=== PATIENT | female | born 2000 | race Caucasian/White ===

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

== ENCOUNTER 2018-10-19 10:01 | Emergency (ER) | payer MEDICAID, SELFPAY ==
[2018-10-19 10:03] VITALS: BP 121/91; PULSE 90; RESP 17; TEMP 36.8; O2SAT 94; BMI 24.4
--- NOTE | 2018-10-19 10:15 | ED.DCSUM_ITS ---
- ER Visit Summary Date of Service: 10/19/18 Chief Complaint: Requesting implanted device taken out and also wants a test History of Present Illness: The patient is a 17 F has an implanted left upper extremity control device placed by the [facility] approximately a year ago. She states in the last week it has been, uncomfortable. She denies any trauma. No fever or redness. She says she went to the [facility] today they told her they can remove it but to be next week she did not want to wait. Also she states she has had some recent morning nausea is concerned she is and wants a test. Physical Examination: Well-appearing young female. No acute distress. Vital signs are stable and afebrile. She is in no distress. H EENT exam unremarkable. Neck nontender. Lungs clear to auscultation bilaterally. Heart regular rhythm no murmur. Abdomen soft and nontender. Normal bowel sounds no peritoneal signs. No organomegaly or masses. Extremities moves all 4. Neurovascular intact. Left upper extremity she is on implanted control device along the medial aspect of her left bicep proximally. There is no redness or warmth. There is no significant swelling. The axilla is nontender without lymphadenopathy. Distally the left forearm is nontender nonswollen. No edema. Normal radial pulse. 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 Test Results: Serum test is negative. Emergency Department Course and Treatment: I explained to the patient we do not either place or remove the implanted control devices and she had to follow-up with her [facility] office about that. She is requesting a test and wanted a serum test. Treatment Plan: Follow-up with the [facility]. Disposition: Discharge Impression: Pain left upper extremity at control implant site This note was generated with [employer] dictation software. It may contain incorrect words, spelling, and punctuation that were not noted in review of the chart prior to signing ED Disposition - Plan for ED Patient: Referrals: Gamaliel Camp MD [Primary Care Provider] -
[2018-10-19 10:35] LABS: Internal QC Validated? YES +Cl - CLEAR BKGD
[2018-10-19 10:39] LABS: Pregnancy, Serum, hCG Quali. NEGATIVE Negative
--- NOTE | 2018-10-19 10:48 | ED.DEP ---
ED Disposition - Plan for ED Patient: Disposition: Home or Assisted Living Referrals: Jill Tucker MD [STAFF PHYSICIAN] - 1-2 Weeks Additional Instructions[facility].
== END 2018-10-19 10:58 | disposition home or self-care (01) ==
LOC: ED 10:57
PROVIDERS: Emergency Provider Emergency Medicine; Family Provider Pediatrics; PCP Pediatrics
DX: M79.622 Pain in left upper arm (principal); Z97.5 Presence of (intrauterine) contraceptive device; Z32.02 Encounter for pregnancy test, result negative; Z72.0 Tobacco use
CPT/HCPCS: 36415; 84703; 99282

== ENCOUNTER 2019-07-28 10:13 | Emergency (ER) | payer MEDICAID, SELFPAY ==
[2019-07-28 10:14] VITALS: BP 144/91; PULSE 111; RESP 16; TEMP 36.3; O2SAT 97; BMI 25.9
--- NOTE | 2019-07-28 10:18 | US_ITS ---
STUDY: FIRST TRIMESTER OBSTETRICAL ULTRASOUND REASON FOR EXAM: Female, 18 years old bleeding LMP: April 28, 2019 TECHNIQUE: Transabdominal TECHNICAL QUALITY: Adequate. PRIOR ULTRASOUND: None. FINDINGS: There is visualization of a single gestational sac in a normal intrauterine position. The mean sac diameter (MSD) measures 5.6 cm. The gestational sac shape is within normal limits. The placenta is posteriorly located. There is visualization of a live embryo. The crown-rump length (CRL) measures 6.6 cm, indicating an estimated gestational age (EGA) of 13 weeks, 0 days. There is demonstrated cardiac activity with a heart rate of 167 bpm. The estimated gestation age (EGA) by LMP is 13 weeks, 0 days. The estimated date of delivery (BK) by LMP is February 02, 2020. The estimated gestation age (EGA) by US is 13 weeks, 0 days. The estimated date of delivery (BK) by US is February 02, 2020. The uterus measures 13.3 x 8.6 x 5.7 cm. There is no demonstrated uterine fibroid. The cervix is closed. The right ovary measures 3.0 x 1.9 x 2.5 cm. There is no right ovarian cyst. There is no visualized right adnexal mass or complex lesion. The left ovary measures 3.0 x 2.2 x 1.7 cm. There is no left ovarian cyst. There is no visualized left adnexal mass or complex lesion. There is no fluid in the cul de sac. US/Init OB < 14Wks US IMPRESSION: Live intrauterine at 13 weeks of gestational age. Electronically Signed: Wali Leahy DO at 11:58 EDT Tel [phone], Service support ,
[2019-07-28 10:40] LABS: Absolute Lymphocyte Count 2.16 X10^3/uL (0.83-4.51); Absolute Neutrophil Count 6.9 X10^3/uL (2.0-7.7); Basophil# 0.03 X10^3/uL; Basophil% 0.3 % (0-1); Eosinophil# 0.11 X10^3/uL; Eosinophils% 1.1 % (0-5); Hematocrit 38.9 % (37-47); Hemoglobin 12.9 g/dL (12.0-15.0); Lymphocyte # 2.16 X10^3/ul (4.0); Lymphocyte % 21.6 % (19-41); Mean Corp Hgb Conc 33.2 g/dL (32-36); Mean Corpuscular Hgb 26.4 pg (27.0-32.0); Mean Corpuscular Volume 79.7 fL (81-99); Mean Platelet Vol. 9.9 fl (6.2-12.0); Monocyte# 0.66 X10^3/uL; Monocyte% 6.6 % (0-10); NRBC Flagged by Analyzer 0 % (0-5); Neutrophil # 6.93 X10^3/uL (2.7-7.7); Neutrophil % 69.5 % (47-70); Platelet Count 199 K/mm3 (150-450); RBC Distribution Width CV 12.5 % (11.6-14.6); RBC Distribution Width SD 35.5 fl (35.1-43.9); Red Blood Count 4.88 M/mm3 (4.2-5.4)
--- NOTE | 2019-07-28 10:53 | ED.VIS.GEN ---
History of Present Illness <Gerald Stephens - Last Filed: 07/28/19 11:13> Informant: Patient Onset: Today Context: Sudden Onset Timing: Continuous Quality: Vaginal bleeding Location: Vaginal Current Severity: Mild Maximum Severity: Moderate Worsened by: Nothing Relieved by: Nothing Associated Symptoms: Denies Narrative: 18-year-old female 13 weeks this is her first presents to the emergency department with vaginal bleeding that started when she woke up this morning. It is similar to her menstrual cycle. No clots or tissue. No pelvic pain or back pain. She has had care including ultrasound last week. Her genetic testing has come back negative. She has no other symptoms of bleeding. She is not lightheaded or dizzy. No nausea vomiting or diarrhea. No urinary symptoms. No trauma. She denies any other review of systems. Prior similar symptoms: No Recent Illness/Hospitalization: No <Brady Arias - Last Filed: 07/28/19 12:20> Chief Complaint: Vag Bld, Preg Past Medical History <Gerald Stephens - Last Filed: 07/28/19 11:13> Prior records reviewed: Yes Past Medical History: None Surgical History: no surgical history Lives: Alone Smoking Status: Former smoker Alcohol: None Drugs: None <Brady Arias - Last Filed: 07/28/19 12:20> - Allergies and Home Meds Allergies/Adverse Reactions: Allergies No Known Allergies Allergy (Verified 07/28/19 10:13) Primary Care Physician: Gamaliel Camp MD [STAFF PHYSICIAN] - Review of Systems All systems negative except as indicated General: Denies: Chills, Fever, Malaise Eyes: Denies: Visual changes - bilaterally, Blurred Vision - bilaterally, Diplopia ENT: Denies: Rhinorrhea, Sore throat Cardiovascular: Denies: Chest pain, Palpitations, Heart racing Respiratory: Denies: Dyspnea, Cough, Sputum Gastrointestinal: Denies: Abdominal pain, Nausea, Vomiting, Diarrhea Genitourinary: Reports: - - Vaginal bleeding. Denies: Dysuria, Hematuria, Frequency Musculoskeletal: Denies: Myalgias, Arthralgias, Neck pain, Back pain, Swelling, Extremity Pain Skin: Denies: Rash, Abscess, Abrasions, Wounds Neurological: Denies: Headache, Weakness Hematologic: Denies: Easy bruising, Easy bleeding <Brady Arias - Last Filed: 07/28/19 12:20> Physical Exam Vital Signs/Narrative: Vital Signs Temp Pulse Resp BP Pulse Ox 07/28/19 10:14 97.4 F L 111 H 16 144/91 H 97 <AndresJune [email or web address] - Last Filed: 07/28/19 11:13> Vital Signs/Narrative: Vital Signs Temp Pulse Resp BP Pulse Ox 07/28/19 10:14 97.4 F L 111 H 16 144/91 H 97 Inital Vital Signs reviewed: Yes General: Well nourished, Well developed, No Acute Distress Head: Normocephalic, Atraumatic Eyes: Perrl, EOMI ENT: Moist mucous membranes Neck: Supple, Nontender, No lymphadenopathy, No JVD Cardiovascular: Regular rate, Regular rhythm, No murmurs Respiratory: No distress, CTA bilaterally, Chest nontender Abdomen: Soft, Nontender, Nondistended, Normal bowel sounds, No masses Back: Nontender, Normal Inspection. 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 Electronically Signed: Wali Leahy DO at 11:58 EDT Tel [phone], Service support , 07/28/19 10:18 Init OB < 14Wks US [US] Stat Laboratory Results 07/28/19 07/28/19 07/28/19 10:28 10:28 10:28 WBC 10.0 RBC 4.88 Hgb 12.9 Hct 38.9 MCV 79.7 L MCH 26.4 L MCHC 33.2 RDW Std Deviation 35.5 RDW Coeff of Kishor 12.5 Plt Count 199 MPV 9.9 Immature Gran % (Auto) 0.900 Neut % (Auto) 69.5 Lymph % (Auto) 21.6 [place] % (Auto) 6.6 Eos % (Auto) 1.1 Baso % (Auto) 0.3 Absolute Neuts (auto) 6.9 Absolute Lymphs (auto) 2.16 Nucleated RBC % 0 HCG, Quant 74280 H Blood Type Cancelled A1 Antigen Typing Cancelled Rho(D) Type Cancelled 07/28/19 10:28 WBC RBC Hgb Hct MCV MCH MCHC RDW Std Deviation RDW Coeff of Ikshor Plt Count MPV Immature Gran % (Auto) Neut % (Auto) Lymph % (Auto) [place] % (Auto) Eos % (Auto) Baso % (Auto) Absolute Neuts (auto) Absolute Lymphs (auto) Nucleated RBC % HCG, Quant Blood Type A NEGATIVE A1 Antigen Typing Rho(D) Type - Medical Decision Making Patient's laboratory work-up was unremarkable. Her blood type is negative. Her quantitative hCG was greater than 50,000. Transvaginal ultrasound shows a normal 13-week . I spoke with Dr. Russo on-call for patient's DIRECTOR OF EXHIBITS recommended close follow-up in the office tomorrow and pelvic rest and we did give the patient RhoGam. She will be discharged with return precautions <Brady Arias - Last Filed: 07/28/19 12:20> ED Disposition <Gerald Stephens - Last Filed: 07/28/19 11:13> <Brady Arias - Last Filed: 07/28/19 12:20> - Plan for ED Patient: Disposition: Home or Assisted Living Diagnosis: Threatened miscarriage Instructions: ED Possible Miscarriage Threatened Referrals: Jill Tucker MD [STAFF PHYSICIAN] - 1 Day
[2019-07-28] MEDS: Acetaminophen 325 MG Tablet 650 MG PO (15:02)
== END 2019-07-28 15:03 | disposition home or self-care (01) ==
PROVIDERS: Emergency Medicine; Emergency Provider Physician Assistant Medical
DX: O20.0 Threatened abortion (principal); Z3A.13 13 weeks gestation of pregnancy; Z87.891 Personal history of nicotine dependence
CPT/HCPCS: 76801; 84702; 85025; 86900; 86901; 90384; 96372; 99283; A4216; J2790

== ENCOUNTER 2019-09-16 07:43 | Emergency (ER) | payer MEDICAID, SELFPAY ==
[2019-09-16 07:45] VITALS: BP 122/74; PULSE 96; RESP 16; TEMP 36.3; O2SAT 100; BMI 25.7
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
== END 2019-09-16 10:22 | disposition home or self-care (01) ==
PROVIDERS: Emergency Provider Emergency Medicine; PCP Pediatrics
DX: S06.0X9A Concussion with loss of consciousness of unspecified duration, initial encounter (principal); S16.1XXA Strain of muscle, fascia and tendon at neck level, initial encounter; O9A.212 Injury, poisoning and certain other consequences of external causes complicating pregnancy, second trimester; V49.40XA Driver injured in collision with unspecified motor vehicles in traffic accident, initial encounter; Z3A.00 Weeks of gestation of pregnancy not specified
CPT/HCPCS: 99282

== ENCOUNTER 2020-01-23 19:45 | Inpatient (IN) | payer MEDICAID, SELFPAY ==
[2020-01-23] VITALS (28 sets, daily range): BP systolic 101–141; BP diastolic 53–91; PULSE 72–127; TEMP 36.2–36.9; O2SAT 88–100; BMI 28.8
--- NOTE | 2020-01-23 19:42 | OB.TRI.NOTE ---
- Problem List (1) 38 weeks gestation of Status: Acute (2) Marijuana use Status: Acute (3) Uterine contractions Status: Acute History of Present Illness Date of Service: 01/23/20 Was patient seen by the physician?: No Reason For Visit: RULE OUT LABOR Date of Service: 01/23/20 Final BK: 02/02/20 Gestational age: 38 Weeks and 4 Days History of Present Illness: Patient is at 38.4 that presents to triage with contractions that started earlier today. Patient denies any loss of fluid or vaginal bleeding. Positive movement. Allergies No Known Allergies Allergy (Verified 01/23/20 19:39) Physical Exam Vitals: Vital Signs Temp Pulse BP Pulse Ox 97.2 F L 83 121/85 H 97 01/23/20 18:46 01/23/20 18:50 01/23/20 18:46 01/23/20 18:50 NST - FHR Rate Baby A Baseline: 120 Variability:: Moderate Accelerations:: 15 x 15 Decelerations:: None FHR Category:: Category I Uterine Activity:: Irregular contractions Impression/Plan at 38.4 weeks gestation here for contractions A/P Category 1 tracing CE- /0 unchanged Discharge home with labor precautions
[2020-01-23] MEDS: Lactated Ringers 500 ML 999 ML IV ×2 (20:00→23:50)
[2020-01-23 20:19] LABS: Absolute Neutrophil Count 13.4 X10^3/uL (2.0-7.7); Basophil# 0.05 X10^3/uL; Basophil% 0.3 % (0-1); Eosinophil# 0.12 X10^3/uL; Eosinophils% 0.7 % (0-5); Hematocrit 40.8 % (37-47); Lymphocyte % 12.9 % (19-41); Mean Corp Hgb Conc 31.9 g/dL (32-36); Mean Corpuscular Volume 72.3 fL (81-99); Mean Platelet Vol. 11.8 fl (6.2-12.0); Monocyte# 1.22 X10^3/uL; Monocyte% 7.2 % (0-10); NRBC Flagged by Analyzer 0 % (0-5); Neutrophil # 13.36 X10^3/uL (2.7-7.7); Neutrophil % 78.4 % (47-70); Platelet Count 246 K/mm3 (150-450); RBC Distribution Width CV 14.6 % (11.6-14.6); RBC Distribution Width SD 36.8 fl (35.1-43.9); Red Blood Count 5.64 M/mm3 (4.2-5.4)
--- NOTE | 2020-01-23 20:19 | PCM.HP.OB ---
- Problem List (1) 38 weeks gestation of Status: Acute (2) Marijuana use Status: Acute (3) Uterine contractions Status: Acute History Date of Admission: 01/23/20 Final BK: 02/02/20 Gestational age: 38 Weeks and 4 Days History of this : This is a 19 year-old, G [2], P [0], at 38.4 weeks gestational age that returns to labor and delivery for increased pain and frequency of contractions. Patient denies any loss of fluid or vaginal bleeding. Positive movement. complicated by marijuana use throughout the . Allergies No Known Allergies Allergy (Verified 01/23/20 19:39) Home Medications: Home Medications Vits [Prenatabs FA ] 1 tab PO DAILY 01/23/20 Smoking Status: Former smoker Substance Use Type: Marijuana Number of Fetus(es): 1 NST - FHR Rate Baby A Baseline: 120 Variability:: Moderate Accelerations:: 15 x 15 Decelerations:: None NST Reactive:: Yes FHR Category:: Category I Uterine Activity:: TOCO reading 2-3 minutes History Past Pregnancies: Past Pregnancies Delivery Date Name GA/ Weeks Outcome Route Wt Infant Sex Labor Length Anesthesia Delivery Location Provider FOB Labs: A- negative Rubella - immune HB- neg HC- neg RPR- NR HIV- NR GBS- negative GC/CH- negative COVID- 19 - unknown Expected Infant Delivery Method: Spontaneous Vaginal Review of Systems Constitutional: Denies: Chills, Fever HEENT: Denies: Head Aches Cardiovascular: Denies: Chest Pain Respiratory: Denies: Cough, Shortness of Breath Gastrointestinal: Denies: Abdominal Pain Genitourinary: Denies: Dysuria Neurological: Denies: Headaches Physical Exam Vitals: Vital Signs Temp Pulse BP Pulse Ox 98.4 F 83 121/85 H 97 01/23/20 20:08 01/23/20 18:50 01/23/20 18:46 01/23/20 18:50 General: Alert, Oriented x3 Cardiovascular: Regular rate Lungs: Normal air movement Abdomen: Soft, Non Tender, Gravid Extremities:: No tenderness/swelling Neurological: Cranial nerves II-XII grossly intact Presentation: Cephalic Cervix Dilation (cm): 5 Station: 0 Effacement (%): 90 Assessment/Plan All Active Problems 38 weeks gestation of (Acute) Marijuana use (Acute) Uterine contractions (Acute) This is a 19 year-old, G [2], P [0], at 38.4 weeks gestational age in spontaneous labor. A/P Category 1 tracing CE- Admit to labor and delivery Routine labs IV fluids per protocol Epidural when indicated GBS negative Anticipate Dr. Tucker notified and is collaborating physician
[2020-01-23] MEDS: Lactated Ringers 1,000 ML 50 ML IV (20:30)
[2020-01-23] MEDS: fentaNYL-bupivacaine (epidural) 100 ML BAG EPIDURAL (20:56)
[2020-01-23 21:05] LABS: Amphetamine Urine VISTA NEGATIVE (<1000 ng/mL); Barbiturate Urine VISTA NEGATIVE (< 200 ng/mL); Benzodiazepine Urine VISTA NEGATIVE (< 200 ng/mL); Cocaine Urine VISTA NEGATIVE (< 300 ng/mL); Ecstacy Urine VISTA NEGATIVE (< 500 ng/mL); Methadone Urine VISTA NEGATIVE (< 300 ng/mL); PCP Urine VISTA NEGATIVE (< 25 ng/mL); THC Urine VISTA POSITIVE (< 50 ng/mL); Vista UDS pH Range 7
[2020-01-23] MEDS: Oxytocin 30 units/NS 500 ml 30 UNITS/500 ML IV.SOLN IV (23:19)
[2020-01-24] VITALS (15 sets, daily range): BP systolic 116–139; BP diastolic 71–88; PULSE 70–104; RESP 16–18; TEMP 36.7–37.2; O2SAT 95–99
[2020-01-24] MEDS: Oxytocin 30 units/NS 500 ml 30 UNITS/500 ML IV.SOLN 334 UNITS IV (00:05)
--- NOTE | 2020-01-24 00:18 | PCM.OPRPT ---
Problem List (1) 38 weeks gestation of Status: Acute (2) Marijuana use Status: Acute (3) Uterine contractions Status: Acute Report of Operation Date of Procedure: 01/24/20 Vaginal Delivery Maternal Presentation: Active Labor Amniotic Membrane Rupture Type: Spontaneous Rupture of Membrane time: 1045 Amniotic Fluid Description: Clear Final BK: 02/02/20 Gestational age: 38 Weeks and 5 Days Date of Procedure: 01/24/20 Pre-Operative Diagnosis: Term gestation, spontaneous labor Post-Operative Diagnosis: Same, live male infant Surgery/ Procedure Performed: Spontaneous Vaginal Delivery Type of Anesthesia: Epidural Description of Procedure: Patient progressed to complete dilatation and had urge to push. Delivered head with minimal effort followed by anterior, posterior shoulder and remainder of body. Short cord noted. Vigorous placed on maternal abdomen and was tended to by awaiting nursing staff. Pitocin IV started for active management of third stage. Cord clamped and cut after 60 second delay. Infant placed immediately skin to skin. Placenta delivered spontaneously and intact. Three vessel cord. Cord blood collected. Intact perineum. Fundus firm 1 below U. Hemostasis obtained. Vaginal sweep completed by myself. All laps and instruments were counted and correct. Patient and bonding at this time. Presentation: Vertex, SCAR Placental Delivery Description: Spontaneous Placenta Disposition: [facility] Cord Vessel Description: 3 Vessels Cord Entanglement: None Estimated Blood Loss: 200 Infant A gender: Male (1 minute): 8 (5 minute): 9 Episiotomy Description: None Laceration: None Medications given after delivery: IV Pitocin Complications: None
[2020-01-24] MEDS: Ibuprofen 600 MG Tablet PO (11:42)
--- NOTE | 2020-01-24 17:30 | CASEMGMT ---
Social Work Assessment Labor and Delivery Unit Patient Address: [address] [place] [address] Phone number: [phone] Date of Referral: 01.23.2020 Time of Referral: 1937 Referred By: Radhika Goldstein CNM Date of Intervention: 01.24.2020 Time of Intervention: 1729 Reason for Referral: THC use in History obtained from: medical records and mother of baby (MOB) Evelyn Lucas; maternal grandmother Maria E Lucas also present for part of conversation. Household composition: BONNIE was raised by her maternal grandparents, and currently resides in this home. Also in the home are BONNIE's 2 younger siblings (Fox, age 17; Sarah, age 13; Anthony, age 1), and BONNIE's biological mother Dorys Lucas. Patient's parent/guardian status: BONNIE is a single female, age 19. Father of baby is reported to be, Tunde De who is age 19, currently living in [place], [place]. MOB and FOB are not together due to FOB making poor life choices. [place] baby is the first for both parents. Baby is to be named Vance Lucas, born on 01.24.2022. Medical History: BONNIE is G1, P0 to 1 after delivering Vance. care good, starting at 6 weeks. At delivery, Vance weighed 5 pounds 5 ounces. Apgars 8 and 9. Educational Status: BONNIE reports she graduated high school. No issues with reading, writing, or learning comprehension. Financial Status: BONNIE has been working at [employer] in the [employer] department. Family is helping out financially as well. Infant Supplies: MOB reports to have needed supplies including bassinet, car seat, pack-n-play, clothing, diapers, and wipes. Reports can get formula if needed. Childcare/Caregiver(s): MOB and then will have help from Maria E or Dorys. Transportation: No issues reported or indicated. Programs/Agencies Involved: Working with [facility] for medical. Has WIC. Working with [employer]. Declines referral to [employer] or [facility] [employer]; accepted information only. Children Services/Legal Issues: No legal. BONNIE was placed with maternal grandparents in infancy. Not clear if this was through children services or a private decision. Behavioral Health Issues: Mental Health History: MOB has history of ADHD. Denies any history suicidal or homicidal ideation or intent. [place] Depression screen completed with MOB and score a 7, below the threshold for depression. Reviewed symptoms and what to look for in regards to mood and anxiety issues. Substance Use History: MOB endorsed use of marijuana in , and that normal use is to help MOB with focus. Denies use of other illicit substances, and no alcohol use reported. Last use of marijuana a couple of days prior to admission. Family History: MOB's mother is a recovering heroin addict, sober for over a year now. MOB's father a history of alcohol use issues. MOB's teen siblings have history of ADHD and Bipolar disorder, are currently in mental health counseling. Drug Screens: Maternal screen positive for marijuana on 07.19.2019 and 01.23.2020. Baby's urine is also positive for same substance on 01.24.2020. Meconium is pending. [Family/Social Stressors:] Unplanned , though accepted. Stressor from FOB not making good life choices and now limited to no involvement. Support Systems: MOB's maternal grandparents are supportive and have raised MOB. MOB reports her own mother Dorys is going good, in recovery from drugs and has been helpful. MOB reports to feel to have adequate support from family. Depression/Shaken Baby/Safe Sleeping: Educated to topics, what to look for and importance of seeking help and support. Written information on all topics also provided. ASSESSMENT: Met with MOB in room and introduced to social work role. MOB pleasant, cooperative, good eye contact, normal speech and motor activity. Mood and affect appropriate and congruent. MOB's grandmother Pat also in the room and attending to baby. MOB talkative in front of Pat, and seemingly open. Pat did leave near end of conversation to allow for private time and depression screening. During private conversation did address drug use in . MOB reports it would have been okay to talk about this in front of Pat. MOB reports to have needed supplies for the baby, to have support, and also reports to feel connected to the baby. Addressed marijuana usage and MOB reports when used this substance it was on own time, not in front of or around any other minors in the home. Educated MOB to need to call children services, and that at some point said agency will be following up with family at home. No questions about need for referral. No immediate safety risk identified. No voiced concerns by nursing staff regarding mother/child interactions or bonding. [Safe Plan of Care for related to substance use:] Intend no use at this time. Educated to recommendation not to ingest marijuana and breast feed. MOB expresses understaging. PLAN: MOB will discharge home with baby when ready, with support from family. Children services referral will be made and likely to follow up in the community. -SEAN Diaz, NUTRITIONAL CHEMIST *Information documented in this assessment generated with [employer]*
[2020-01-24] MEDS: Acetaminophen 500 MG Tablet 1000 MG PO (18:20)
[2020-01-25 01:30] VITALS: BP 113/75; PULSE 73; RESP 16; TEMP 36; O2SAT 95
[2020-01-25] MEDS: Etonogestrel 68 MG IMPLANT SQ (05:27)
--- NOTE | 2020-01-25 06:07 | PCM.PN.OB ---
Patient Problems: Active and Suspected Problems 38 weeks gestation of (Acute) Marijuana use (Acute) Uterine contractions (Acute) Subjective: Doing well per patient and nursing staff. Ambulating and taking PO without difficulty. Pain controlled. Lochia normal. Planning D/C home tomorrow. Baby failed car seat test and will go home tomorrow. Would like Nexplanon. - Physical Exam Vitals/I&O's: Vital Signs Temp Pulse Resp BP Pulse Ox 96.8 F L 73 16 113/75 95 01/25/20 01:30 01/25/20 01:30 01/25/20 01:30 01/25/20 01:30 01/25/20 01:30 Oxygen Delivery Method Room Air Weight: 137 lb 12.623 oz Body Mass Index (BMI) 28.8 Intake and Output for Last 24 Hours 01/23/20 01/24/20 01/25/20 23:59 23:59 23:59 Intake Total 667.07 / 667.07 733.10 / 733.10 Output Total 100 / 100 1250 / 1250 Balance 567.07 / 567.07 -516.90 / -516.90 General: Alert, Oriented x3, Cooperative HEENT: Atraumatic, Normocephalic Neck: Trachea Midline Lungs: Clear to auscultation, Normal air movement, No rhonchi, No wheeze Cardiovascular: Regular rate, Regular Rhythm, No murmurs Abdomen: Bowel Sounds Present, Soft - fundus firm 2 below U Extremities: No edema Psych/Mental Status: Normal Affect, Appropriate Microbiology Past 72 Hours 01/23/20 20:10 Mucosa - Nose - Final Current Medications Acetaminophen (Acetaminophen 500 Mg Tablet) 1,000 mg PO Q8H PRN PRN PRN Reason: Pain Score 1-10 Last Admin: 01/24/20 18:20 Dose: 1,000 mg Documented by: Bisacodyl (Bisacodyl 10 Mg Suppository) 10 mg RECTAL UD PRN PRN Reason: If no BM Dibucaine (Dibucaine 30 Gm Tube) 1 applic TOPICAL TID PRN PRN; Protocol PRN Reason: Discomfort Hydrocortisone (Hydrocortisone 2.5% Crm) 1 applic TOPICAL TID PRN PRN; Protocol PRN Reason: Discomfort Ibuprofen (Ibuprofen 600 Mg Tablet) 600 mg PO Q6H PRN PRN PRN Reason: Pain Score 1-10 Last Admin: 01/24/20 11:42 Dose: 600 mg Documented by: Methylergonovine Maleate (Methylergonovine 0.2 Mg/Ml Ampul) 0.2 mg IM X1 PRN PRN Reason: Excess bleeding/uterine atony Ondansetron HCl (Ondansetron 4 Mg/2 Ml Vial) 4 mg IV Q4H PRN PRN PRN Reason: Nausea Senna/Docusate Sodium (Senna/Docusate Sodium 1 Tablet) 1 - 2 tablet PO DAILY PRN PRN PRN Reason: Constipation Simethicone (Simethicone 80 Mg Tablet) 80 mg PO PCHS PRN PRN Reason: Indigestion/Stomach pain Sodium Chloride (0.9% Saline Lock 10 Ml Syringe) 5 - 15 ml IV UD PRN PRN Reason: SALINE FLUSH Medical Necessity - Tobacco Use Smoking Status: Former smoker Assessment/Plan All Active Problems 38 weeks gestation of (Acute) Marijuana use (Acute) Uterine contractions (Acute) A:PPD #1 Nexplanon insertion P: 1) Routine and instructions. 2) Planning D/C home tomorrow 3) Reviewed LARC and patient would like Nexplanon. Explained risks, benefits, MOA and insertion. Consent form signed. Nexplanon Procedure note: Left arm raise above head and left upper arm cleansed with betadine. 1% Lidocaine instilled. Nexplanon inserted without difficulty. Patient tolerated well. Steri strip applied and pressure dressing.
[2020-01-25 08:25] VITALS: BP 107/69; PULSE 78; RESP 16; TEMP 36.7
--- NOTE | 2020-01-25 08:25 | NURSING ---
Pt had received a Nexplanon implantation this morning in left upper arm, dressing is dry and intact, pt says is not painful.
[2020-01-25 13:40] VITALS: BP 123/76; PULSE 66; RESP 16; TEMP 36.5
--- NOTE | 2020-01-25 17:26 | NURSING ---
pt is CPR certified
[2020-01-25 20:09] VITALS: BP 130/83; PULSE 79; RESP 16; TEMP 36.3
[2020-01-25] MEDS: Ibuprofen 600 MG Tablet PO (20:14)
--- NOTE | 2020-01-25 21:58 | NURSING ---
left upper arm nexplanon dressing in place. dressing dry and intact. pt denies any pain associated with this site. will continue to monitor and assess. no further intervention.
[2020-01-26 02:05] VITALS: BP 134/88; PULSE 92; RESP 14; TEMP 36.3
--- NOTE | 2020-01-26 03:08 | NURSING ---
this RN gave report to aorr RN. that rn to assume care of pt at this time.
--- NOTE | 2020-01-26 03:15 | NURSING ---
This RN assuming care of patient at this time. Received report from Diaz CONLEY.
[2020-01-26 08:50] VITALS: BP 125/78; PULSE 72; RESP 16; TEMP 36.6
--- NOTE | 2020-01-26 08:53 | PCM.PN.OB ---
Patient Problems: Active and Suspected Problems 38 weeks gestation of (Acute) Marijuana use (Acute) Uterine contractions (Acute) Subjective: Doing well per nursing and patient. Ambulating and taking PO without difficulty. Voiding and passing flatus. Pain controlled. Lochia normal. . Planning D/C home today. Nexplanon placed yesterday, no complaints. - Physical Exam Vitals/I&O's: Vital Signs Temp Pulse Resp BP Pulse Ox 97.4 F L 92 14 134/88 H 95 01/26/20 02:05 01/26/20 02:05 01/26/20 02:05 01/26/20 02:05 01/25/20 01:30 Oxygen Delivery Method Room Air Weight: 137 lb 12.623 oz Body Mass Index (BMI) 28.8 Intake and Output for Last 24 Hours 01/24/20 01/25/20 01/26/20 23:59 23:59 23:59 Intake Total 733.10 / 733.10 Output Total 1250 / 1250 Balance -516.90 / -516.90 General: Alert, Oriented x3, Cooperative HEENT: Atraumatic, Normocephalic Neck: Trachea Midline Lungs: Clear to auscultation, Normal air movement, No rhonchi, No wheeze Cardiovascular: Regular rate, Regular Rhythm Abdomen: Bowel Sounds Present, Soft - fundus firm 2 below U Extremities: No edema Psych/Mental Status: Normal Affect, Appropriate Microbiology Past 72 Hours 01/23/20 20:10 Mucosa - Nose - Final Current Medications Acetaminophen (Acetaminophen 500 Mg Tablet) 1,000 mg PO Q8H PRN PRN PRN Reason: Pain Score 1-10 Last Admin: 01/24/20 18:20 Dose: 1,000 mg Documented by: Bisacodyl (Bisacodyl 10 Mg Suppository) 10 mg RECTAL UD PRN PRN Reason: If no BM Dibucaine (Dibucaine 30 Gm Tube) 1 applic TOPICAL TID PRN PRN; Protocol PRN Reason: Discomfort Hydrocortisone (Hydrocortisone 2.5% Crm) 1 applic TOPICAL TID PRN PRN; Protocol PRN Reason: Discomfort Ibuprofen (Ibuprofen 600 Mg Tablet) 600 mg PO Q6H PRN PRN PRN Reason: Pain Score 1-10 Last Admin: 01/25/20 20:14 Dose: 600 mg Documented by: Methylergonovine Maleate (Methylergonovine 0.2 Mg/Ml Ampul) 0.2 mg IM X1 PRN PRN Reason: Excess bleeding/uterine atony Ondansetron HCl (Ondansetron 4 Mg/2 Ml Vial) 4 mg IV Q4H PRN PRN PRN Reason: Nausea Senna/Docusate Sodium (Senna/Docusate Sodium 1 Tablet) 1 - 2 tablet PO DAILY PRN PRN PRN Reason: Constipation Simethicone (Simethicone 80 Mg Tablet) 80 mg PO PCHS PRN PRN Reason: Indigestion/Stomach pain Sodium Chloride (0.9% Saline Lock 10 Ml Syringe) 5 - 15 ml IV UD PRN PRN Reason: SALINE FLUSH Medical Necessity - Tobacco Use Smoking Status: Former smoker Assessment/Plan All Active Problems 38 weeks gestation of (Acute) Marijuana use (Acute) Uterine contractions (Acute) A:PPD #2 P: 1) Routine and instructions. 2) D/C home 3) Follow up in 2 weeks and 6 weeks
--- NOTE | 2020-01-26 08:55 | DCINST_ITS ---
Discharge Diet: No Restrictions Discharge Activity: Return to Normal Activity, May not drive while taking narcotic pain medications., May Shower, May Take a Tub Bath May resume sexual activity in: 4-6 weeks Weight Bearing Status: Full weight bearing Additional Activity Instructions:: Nothing in the vagina for 4-6 weeks. You may return to work/school in 6 weeks. Call your doctor if your incision/area has: Continuous Slow Oozing, Sudden Increased Bleeding, Increased Pain/ Swelling, Increased Redness, Foul Smelling Discharge Call your doctor if you observe: Fever of 101 or Higher, Inability to urinate, Inability to have a bowel movement, Using more than one pad per hour, Shortness of breath, Dizziness, Fainting spells, Chest pain, Increased palpitations (irregular heartbeat), Calf discomfort, Uncontrolled pain Instructions: After a Vaginal , Nutrition While , Common Questions About , : Caring for Yourself Additional Instructions: If you experience any of the following, contact your healthcare provider. * Bleeding that soaks a pad every hour for 2 hours * Fever 100.4 or higher * Unrelieved incision or abdominal pain * Swelling, redness, discharge or bleeding from your incision or episiotomy site * Your incision begins to separate * Problems urinating (including inability to urinate or burning while urinating). * Visual changes * Severe headache * Flu-like symptoms * Pain or redness in one of both of your breasts * Pain, warmth, tenderness or swelling in your legs, especially the calf area * Frequent nausea and vomiting * Symptoms of depression or anxiety If you experience any of the following, call 911 or go to the nearest Emergency Room. * Chest pain * Problems breathing * Seizure activity * Partial or complete paralysis of a body part, slurred speech, weakness or drooping of the face, or a sudden inability to walk or hold your balance Allergies/Adverse Reactions: Allergies No Known Allergies Allergy (Verified 01/23/20 19:39) Medications to take at Discharge Vits [Prenatabs FA ] 1 tab PO DAILY 01/23/20 Ibuprofen [Motrin] 600 mg PO Q6H PRN PRN tablet 01/26/20 Please Follow Up With: Radhika Goldstein CNM When: Call to make an appointment with your doctor in 2 weeks for virtual visit and 6 weeks. Primary Care Physician: Gamaliel Camp MD [Primary Care Provider] - Test Results: Test results from this visit will be discussed in further detail at your follow- up appointment, if applicable.
--- NOTE | 2020-01-26 09:18 | NURSING ---
PT HAD NEXPLANON PLACED YESTERDAY. STERI STRIPS DRY AND INTACT
--- NOTE | 2020-01-30 13:58 | CASEMGMT ---
Social Work Labor and Delivery Unit Called [facility] ([facility]) Tia Joseph, , extension [phone]. Referral for substance exposed infant in utero. Reported positive maternal and drug screens including the meconium drug screen results, included brief maternal and histories. No other services requested or indicated. -AMA Diaz, DELIVERY REP
== END 2020-01-26 11:15 | disposition home or self-care (01) | DRG 560 ==
LOC: WPOUT 19:51 → WP 01-24 00:27
PROVIDERS: Admitting Provider Advanced Practice Midwife; PCP Pediatrics; Visit Provider Advanced Practice Midwife
DX: O69.3XX0 Labor and delivery complicated by short cord, not applicable or unspecified (principal); Z37.0 Single live birth; Z3A.38 38 weeks gestation of pregnancy; O99.324 Drug use complicating childbirth; F12.90 Cannabis use, unspecified, uncomplicated; Z87.891 Personal history of nicotine dependence
CPT/HCPCS: 59025; 59050; 80307; 85025; 85461; 86850; 86900; 86901; 87426; 90384; 99218; J7120; G0378; J2790

== ENCOUNTER 2021-02-21 20:05 | Emergency (ER) | payer MEDICAID, SELFPAY ==
[2021-02-21 20:06] VITALS: BP 132/81; PULSE 104; RESP 18; TEMP 36.2; O2SAT 100; BMI 20.1
--- NOTE | 2021-02-21 20:43 | CT_ITS ---
STUDY: CT ABDOMEN AND PELVIS WITH CONTRAST REASON FOR EXAM: Female, 20 years old. Right upper quadrant abdominal pain -- IV PO Contrast RADIATION DOSAGE (If Supplied By Facility): CTDIvol = ( 7.75 ) mGy, DLP = ( 275.23 ) mGycm TECHNIQUE: Transaxial images were obtained from the dome of the diaphragm to the symphysis pubis with oral contrast. IV 100mL Isovue-300 was administered. Sagittal and coronal images were reconstructed. Individualized dose optimization techniques were used for this CT. COMPARISON: None. FINDINGS: The visualized lung bases are unremarkable. The visualized portions of the heart are within normal limits. Mild intrahepatic biliary duct dilation versus periportal edema. Otherwise, unremarkable liver. Prominently distended gallbladder without stones. Normal spleen. Normal pancreas. Normal bilateral adrenal glands. Normal right kidney. Normal left kidney. Normal visualized stomach. Normal small intestine. Normal colon. Appendix is not clearly visualized. No secondary signs of acute appendicitis. Normal abdominal aorta. Normal inferior vena cava. Normal retroperitoneum. Normal urinary bladder. Unremarkable uterus and ovaries Normal abdominal wall. Normal osseous structures. CT/Abdomen/Pelvis WITH Contrast IMPRESSION: Mild prominence of the gallbladder. There appears to be mild intrahepatic biliary ductal dilation versus mild periportal edema. Consider right upper quadrant ultrasound to further evaluate. Appendix is not clearly visualized. No secondary signs of acute appendicitis Electronically Signed: Florin Esteban DO at 23:21 EST Tel , Service support ,
--- NOTE | 2021-02-21 20:44 | EDS_ITS ---
HPI HPI - GI History of Present Illness Chief Complaint: Abd Pain Informant: patient Abdominal Pain/Flank Pain Onset: Days (3) Context: Gradual Onset Timing: Continuous Quality: Dull Location: RUQ Worsened by: Movement Relieved by: Remaining Still Nausea/Vomiting/Emesis GI Symptom: Negative for Nausea and Vomiting Diarrhea/Melena/Hematochezia GI Symptom: Negative for Diarrhea, Melena and Hematochezia Associated Symptoms Associated Symptoms: Negative for Dysuria, Frequency and Hematuria Narrative Narrative: Patient presents with abdominal pain that has been getting worse over the past 3 days. Patient states it is localized to the right upper quadrant. Patient describes her pain is dull and constant. Patient states it is worse with movement. Is better whenever she remains still. Patient denies any nausea or vomiting. Patient denies any radiation of the pain to her back or shoulder. Patient denies any diarrhea, melena, or hematochezia. Patient denies any dysuria, hematuria, or frequency. PFSH PFS Medical History (Updated 02/21/21 @ 23:[address] Wicho Rudolph DO) Bunion of unspecified foot Home Medications NK 02/21/21 [History Last Taken Unknown] Allergy/AdvReac Type Severity Reaction Status Date / Time No Known Allergies Allergy Verified 02/21/21 20:08 Surgical History (Updated 02/21/21 @ 20:[address] Wicho Rudolph DO) History of bunionectomy Social History (Updated 02/21/21 @ 20:[address] Wicho Rudolph DO) Smoking Status: Current every day smoker tobacco type: cigarettes Electronic Cigarette Use: with nicotine ROS ROS ED Constitutional Constitutional ED: Denies chills or fever(s) Eyes Eyes: Denies blurry vision or change in vision ENT ENT ED: Denies rhinorrhea or sore throat Cardiovascular Cardiovascular: Denies chest pain or palpitations Respiratory/Chest Respiratory/Chest: Reports dyspnea; Denies cough Gastrointestinal Gastrointestinal: Reports abdominal pain; Denies nausea or vomiting Genitourinary Genitourinary ED: Denies dysuria or hematuria Musculoskeletal Musculoskeletal: Denies back pain or neck pain Integumentary Denies abscess or rash Neurologic Neurologic: Denies headache(s) or weakness Allergic/Immunologic Allergic/Immunologic ED: Denies mouth swelling or urticaria EXAM Physical Exam Const Vital Signs: 02/21/21 20:06 Temperature 97.1 F L Temperature Source Temporal Pulse Rate 104 H Respiratory Rate 18 Blood Pressure 132/81 H Blood Pressure Mean 98 Pulse Ox 100 Positive well nourished and well developed General Appearance ED: well developed HEENT Reports moist mucous membranes Neck supple and no JVD Resp normal respiratory effort and clear to auscultation bilaterally Cardio regular rate, regular rhythm and no murmurs GI normal to inspection, nondistended, normoactive bowel sounds Palpation: soft and tender RLQ, RUQ and Gallo's sign; Negative for guarding or rebound tenderness present Extremity normal to inspection General Extremety ED: Negative for edema or tenderness General Extremity: Negative for edema Neuro oriented x3, CN's II-XII intact bilaterally and no sensory deficits noted Sensorium / Orientation: alert Motor Exam: strength 5/5 throughout Psych mental status grossly normal Skin no rashes or lesions noted MDM MDM MDM Narrative Medical decision making narrative: Patient was given IV fluids, morphine, and Zofran. CBC shows a slight leukocytosis of 12.2. This was improved from previous result. Comprehensive metabolic profile was within normal limits. Serum hCG was negative. Urinalysis does not show any evidence of urinary tract infection. CT scan of the abdomen and pelvis was obtained. There is some mild prominence of the gallbladder. There is some mild distention of the hepatic ducts. This was interpreted by the radiologist and reviewed by myself. Patient is resting comfortably on reevaluation. Patient was advised of her findings. Patient was instructed to follow-up with her primary care physician in 3 to 5 days. Patient was advised that she may need a right upper quadrant ultrasound done as an outpatient. Patient was instructed to return if worse in any way. Patient was instructed to avoid fried foods, greasy foods, and fatty foods. Patient understood and was agreeable with the plan. All questions were answered. Lab Data Attestation: I reviewed the patient's lab results. Labs: Laboratory Results - last 24 hr 02/21/21 02/21/21 02/21/21 20:59 20:59 20:59 WBC 12.2 H RBC 4.50 Hgb 11.8 L Hct 35.9 L MCV 79.8 L MCH 26.2 L MCHC 32.9 RDW Std Deviation 35.9 RDW Coeff of Kishor 12.4 Plt Count 263 MPV 10.2 Immature Gran % (Auto) 0.500 Neut % (Auto) 72.6 H Lymph % (Auto) 16.1 L Coke % (Auto) 9.7 Eos % (Auto) 0.7 Baso % (Auto) 0.4 Absolute Neuts (auto) 8.8 H Absolute Lymphs (auto) 1.96 Nucleated RBC % 0 Sodium 140 Potassium 3.8 Chloride 108 H Carbon Dioxide 27.0 Anion Gap 5 BUN 18 Creatinine 0.49 L Estim Creat Clear Calc 116.06 Est GFR (MDRD) Af Amer 203 Est GFR (MDRD) Non-Af 168 BUN/Creatinine Ratio 36.7 H Glucose 101 Calcium 9.1 Total Bilirubin 0.50 AST 8 L ALT 17 Alkaline Phosphatase 60 Total Protein 7.4 Albumin 3.7 Globulin 3.7 Albumin/Globulin Ratio 1.0 Serum , Qual NEGATIVE Urine Color Urine Clarity Urine pH Ur Specific [place] Urine Protein Urine Glucose (UA) Urine Ketones Urine Occult Blood Urine Nitrite Urine Bilirubin Urine Urobilinogen Ur Leukocyte Esterase Urine RBC Urine WBC Ur Squamous Epith Cells Urine Bacteria Urine Mucus 02/21/21 21:20 WBC RBC Hgb Hct MCV MCH MCHC RDW Std Deviation RDW Coeff of Kishor Plt Count MPV Immature Gran % (Auto) Neut % (Auto) Lymph % (Auto) Coke % (Auto) Eos % (Auto) Baso % (Auto) Absolute Neuts (auto) Absolute Lymphs (auto) Nucleated RBC % Sodium Potassium Chloride Carbon Dioxide Anion Gap BUN Creatinine Estim Creat Clear Calc Est GFR (MDRD) Af Amer Est GFR (MDRD) Non-Af BUN/Creatinine Ratio Glucose Calcium Total Bilirubin AST ALT Alkaline Phosphatase Total Protein Albumin Globulin Albumin/Globulin Ratio Serum , Qual Urine Color Yellow Urine Clarity Sl. Cloudy Urine pH 6.0 Ur Specific [place] 1.025 Urine Protein 15 H Urine Glucose (UA) Normal Urine Ketones 15 H Urine Occult Blood 10 H Urine Nitrite Negative Urine Bilirubin Negative Urine Urobilinogen 1 H Ur Leukocyte Esterase 25 H Urine RBC 0-5 SEEN Urine WBC 5-10 SEEN Ur Squamous Epith Cells 0-5 SEEN Urine Bacteria 0 SEEN Urine Mucus 3+ Radiography Diagnostic Testing: Clinical Impression(s) from Imaging Studies Abdomen/Pelvis CT 02/21/21 20:43 IMPRESSION: Mild prominence of the gallbladder. There appears to be mild intrahepatic biliary ductal dilation versus mild periportal edema. Consider right upper quadrant ultrasound to further evaluate. Appendix is not clearly visualized. No secondary signs of acute appendicitis Electronically Signed: Florin Esteban DO at 23:21 EST Tel , Service support , Discharge Plan Triage Chief Complaint: Abd Pain ED Provider: Wicho Rudolph Dx/Rx/DC Orders Clinical Impression: Right upper quadrant abdominal pain Instructions: ED Abdominal Pain Unkn Cause Fem, ED Abdominal Pain Gallstone Poss Prescriptions: No Action NK RF: 0 Primary Care Provider: Care Physician,No Primary Referrals: Lisa Tony MD [STAFF PHYSICIAN] - 3-5 Days Radha Dominguez MD [STAFF PHYSICIAN] - 3-5 Days Care Physician,No Primary [Primary Care Provider] - Disposition Disposition: Home, Self Care
[2021-02-21] MEDS: 0.9% Normal Saline 1,000 ML 1000 ML IV (20:56)
[2021-02-21] MEDS: Morphine 4 MG/ML Syringe IV (20:57)
[2021-02-21] MEDS: Ondansetron 4 MG/2 ML Vial IV (20:57)
[2021-02-21 21:12] LABS: Absolute Lymphocyte Count 1.96 X10^3/uL (0.83-4.51); Absolute Neutrophil Count 8.8 X10^3/uL (2.0-7.7); Basophil# 0.05 X10^3/uL; Basophil% 0.4 % (0-1); Eosinophil# 0.09 X10^3/uL; Eosinophils% 0.7 % (0-5); Hematocrit 35.9 % (37-47); Hemoglobin 11.8 g/dL (12.0-15.0); Lymphocyte # 1.96 X10^3/ul (0.83-4.51); Lymphocyte % 16.1 % (19-41); Mean Corp Hgb Conc 32.9 g/dL (32-36); Mean Corpuscular Hgb 26.2 pg (27.0-32.0); Mean Corpuscular Volume 79.8 fL (81-99); Mean Platelet Vol. 10.2 fl (6.2-12.0); Monocyte# 1.18 X10^3/uL; Monocyte% 9.7 % (0-10); NRBC Flagged by Analyzer 0 % (0-5); Neutrophil # 8.82 X10^3/uL (2.7-7.7); Neutrophil % 72.6 % (47-70); Platelet Count 263 K/mm3 (150-450); RBC Distribution Width CV 12.4 % (11.6-14.6); RBC Distribution Width SD 35.9 fl (35.1-43.9); White Blood Count 12.2 K/mm3 (4.4-11.0)
[2021-02-21 21:34] LABS: Bacteria 0 SEEN /hpf (None Seen)
[2021-02-21 21:38] LABS: Color, Urine Yellow (Yellow); Glucose, Dipstick Normal (Normal); Ketone-Dipstick 15 mg/dl (Negative); Leukocyte Esterase-Dipstick 25 /ul (Negative); Nitrite-Dipstick Negative (Negative); Occult Blood-Urine 10 /ul (Negative); Protein-Dipstick 15 mg/dl (Negative); Specific Gravity, Urine 1.025 (1.002-1.030); Urine Bilirubin Dipstick Negative (Negative); Urine Clarity Sl. Cloudy (Clear); Urine Urobilinogen 1 mg/dl (Normal)
[2021-02-21 21:50] LABS: AST(SGOT) 8 U/L (15-37); Alanine Aminotransfer ALT/SGPT 17 U/L (13-56); Albumin, Serum 3.7 g/dL (3.2-5.0); Alkaline Phosphatase 60 U/L (45-117); Anion Gap 5 (5-15); BUN 18 mg/dL (7-18); BUN/Creat Ratio 36.7 RATIO (10-20); Calcium,Total 9.1 mg/dL (8.5-10.1); Chloride 108 mmol/L (98-107); Creatinine, Serum 0.49 mg/dL (0.55-1.02); EST Glomerular Filtration Rate 168 mL/min (>60); Est Glom Filt Rate - Afr Amer 203 mL/min (>60); Estimated Creatinine Clearance 116.06 ml/min; Globulin 3.7 g/dL (2.2-4.2); Glucose 101 mg/dL (74-106); Potassium 3.8 mmol/L (3.5-5.1); Protein, Total 7.4 g/dL (6.4-8.2); Sodium Level 140 mmol/L (136-145)
[2021-02-21 22:01] LABS: Mucous, Urine 3+ /hpf (<or=2+)
[2021-02-21 22:02] LABS: Squamous Epithelial Cells - UA 0-5 SEEN /hpf (5-10)
[2021-02-21 22:03] LABS: Red Blood Cells-Urine 0-5 SEEN /hpf (0-5); White Blood Cells 5-10 SEEN /hpf (0-5)
[2021-02-21 22:31] LABS: Internal QC Validated? YES +Cl - CLEAR BKGD; Pregnancy, Serum, hCG Quali. NEGATIVE Negative
[2021-02-22 00:14] VITALS: BP 126/63; PULSE 85; RESP 15; O2SAT 99
== END 2021-02-22 00:14 | disposition home or self-care (01) ==
PROVIDERS: Emergency Provider Emergency Medicine
DX: R10.11 Right upper quadrant pain (principal); F17.210 Nicotine dependence, cigarettes, uncomplicated
CPT/HCPCS: 74177; 80053; 81001; 84703; 85025; 96361; 96374; 96375; 99283; J7030; Q9967; J2405

== ENCOUNTER 2021-10-23 16:04 | Emergency (ER) | payer MEDICAID, SELFPAY ==
[2021-10-23 16:04] VITALS: BP 116/76; PULSE 104; RESP 15; TEMP 36.8; O2SAT 99; BMI 22.4
--- NOTE | 2021-10-23 16:17 | EDS_ITS ---
HPI <MAGDIEL Haque - Last Filed: 10/23/21 16:53> History of Present Illness Chief Complaint: Lower Extremity Injury Narrative Narrative: Yesterday patient was walking barefoot and stubbed her left great toe on a tree root. She has had pain in this area with ambulation. No swelling or bruising. She has histories of multiple surgeries on this foot for bunionectomy, bone spur removal, and great toe fracture. Most of the surgeries were at [facility]. She actually works at the [employer] and [employer] and plans to follow-up there. [facility] <MAGDIEL Haque - Last Filed: 10/23/21 16:53> [facility] Medical History (Updated 10/23/21 @ 16:29 by MAGDIEL Haque) Broken toe Bunion of unspecified foot Home Medications NK 02/21/21 [History Last Taken Unknown] Allergy/AdvReac Type Severity Reaction Status Date / Time No Known Allergies Allergy Verified 10/23/21 16:07 Surgical History History of bunionectomy Social History (Updated 02/21/21 @ 20:[address] Wicho Rudolph, DO) Smoking Status: Current every day smoker tobacco type: e-cigarettes Electronic Cigarette Use: with nicotine ROS <MAGDIEL Haque - Last Filed: 10/23/21 16:53> ROS ED ROS Narrative Constitutional: Negative for fever, chills, malaise. Eyes: Negative for visual change. ENT: Negative for sore throat, rhinorrhea. CVS: Negative for palpitations, chest pain, syncope. Respiratory: Negative for shortness of breath, cough, orthopnea. GI: Negative for abdominal pain, nausea, vomiting. : Negative for dysuria, hematuria or frequency. Neuro: Negative for headache, motor/sensory dysfunction. Skin: Negative for rash, abscess, or wound. Musc: Positive for left foot pain, trauma. Heme: Negative for easy bruising, bleeding, lymphadenopathy. EXAM <MAGDIEL Haque - Last Filed: 10/23/21 16:53> Physical Exam Narrative Exam Narrative: CONST: Patient sitting in no acute distress. EYES: Normal inspection. NECK: Normal inspection. RESP: No respiratory distress, CTAB. CVS: Regular rate and rhythm, no murmur, no gallop. SKIN: Color normal, no rash, warm, dry, intact. EXTREMITIES: Normal appearance, tender to palpation over left great toe and base of the first metatarsal. No deformity or crepitus. No tenderness to the ankle, full range of motion, normal strength and sensation, 2+ DP pulse. Achilles intact. NEURO: Oriented x4. PSYCH: Normal affect. Const Vital Signs: 10/23/21 16:04 10/23/21 17:06 Temperature 98.2 F Temperature Source Temporal Pulse Rate 104 H 94 Respiratory Rate 15 16 Blood Pressure 116/76 113/70 Blood Pressure Mean 89 Pulse Ox 99 97 Oxygen Delivery Method Room Air <Dr. Lincoln Rosa DO - Last Filed: 10/23/21 17:55> Physical Exam Const Vital Signs: 10/23/21 16:04 10/23/21 17:06 Temperature 98.2 F Temperature Source Temporal Pulse Rate 104 H 94 Respiratory Rate 15 16 Blood Pressure 116/76 113/70 Blood Pressure Mean 89 Pulse Ox 99 97 Oxygen Delivery Method Room Air MDM <MAGDIEL Haque - Last Filed: 10/23/21 16:53> [facility] Narrative Medical decision making narrative: Patient stubbed her left toe yesterday and presents with pain. Foot appears normal with no significant bruising or swelling with tenderness over the base of the first metatarsal and great toe with no deformity or crepitus. Neurovascularly intact. X-ray shows no acute fracture or dislocation. Hardware is intact. Patient counseled on management of a foot contusion and was given crutches and will follow up with her orthopedic doctor. She was discharged in stable condition. Radiography Diagnostic Testing: Clinical Impression(s) from Imaging Studies Foot X-Ray 10/23/21 16:22 IMPRESSION: No acute findings in the left foot. Electronically Signed: Mak Baugh MD at 16:45 EDT , ED attending interpretation of left foot shows no acute fracture or dislocation, hardware intact. <Dr. Lincoln Rosa DO - Last Filed: 10/23/21 17:55> MDM MDM Narrative Medical decision making narrative: This patient was seen with a PA/CERTIFIED ORTHOTIC FITTER Individually assessed they patient including history and physical. I have reviewed everything on the chart that is available and agree with the documentation provided by the PA/CERTIFIED ORTHOTIC FITTER including discussion about the assessment, treatment plan, discussion, and return precautions. Patient presenting with left great toe pain from stubbing it yesterday. There is no signs of injury. X-ray was obtained and on my interpretation is no acute fracture or subluxation. Hardware appears to be in place. Patient counseled on findings. She request crutches for home. She has a postop shoe already. Stable for discharge. Patient stubbed her left toe yesterday and presents with pain. Foot appears normal with no significant bruising or swelling with tenderness over the base of the first metatarsal and great toe with no deformity or crepitus. Neurovascularly intact. X-ray shows no acute fracture or dislocation. Hardware is intact. Patient counseled on management of a foot contusion and was given crutches and will follow up with her orthopedic doctor. She was discharged in stable condition. Impression: 1. Left great toe contusion Lab Data Attestation: I reviewed the patient's lab results. Radiography Diagnostic Testing: Clinical Impression(s) from Imaging Studies Foot X-Ray 10/23/21 16:22 IMPRESSION: No acute findings in the left foot. Electronically Signed: Mak Baugh MD at 16:45 EDT Reading Location ID and State: [facility] / [place] , Service support , Discharge Plan Triage Chief Complaint: Lower Extremity Injury ED Midlevel Provider: Danyelle Ayers ED Provider: Lincoln Rosa Dx/Rx/DC Orders Clinical Impression: Contusion of foot, left Instructions: Bone Contusion Prescriptions: No Action NK Primary Care Provider: Care Physician,No Primary Referrals: Care Physician,No Primary [Primary Care Provider] - Activity Restrictions/Additional Instructions: Rest, ice, elevate your foot and take Tylenol ibuprofen as needed. Please follow-up with your orthopedic doctor. Disposition Disposition: Home, Self Care Discharge Date/Time: 10/23/21 17:09
--- NOTE | 2021-10-23 16:22 | RAD_ITS ---
EXAM: XR LEFT FOOT COMPLETE, 3 OR MORE VIEWS CLINICAL INDICATION: pain TECHNIQUE: Frontal, lateral and oblique views of the left foot. This report was created using [employer] report generation technology. COMPARISON: 12.08.17 FINDINGS: BONES/JOINTS: There are two cortical screws in the base of the 1st metatarsal bone. There is fusion. There is a screw between the medial and mid cuneiform bone. No acute fracture. No subluxation. Normal alignment. Preservation of the joint space. No sclerotic or destructive changes observed. SOFT TISSUES: Unremarkable. No soft tissue swelling or gas. No radiopaque foreign body. RAD/Foot min 3 Views IMPRESSION: No acute findings in the left foot. Electronically Signed: Mak Baugh MD at 16:45 EDT ,
[2021-10-23 17:06] VITALS: BP 113/70; PULSE 94; RESP 16; O2SAT 97
== END 2021-10-23 17:09 | disposition home or self-care (01) ==
PROVIDERS: Emergency Provider Student in an Organized Health Care Education/Training Program; Visit Provider Student in an Organized Health Care Education/Training Program
DX: S90.32XA Contusion of left foot, initial encounter (principal); S90.112A Contusion of left great toe without damage to nail, initial encounter; F17.290 Nicotine dependence, other tobacco product, uncomplicated; X58.XXXA Exposure to other specified factors, initial encounter
CPT/HCPCS: 73630; 99283

== ENCOUNTER 2022-07-14 05:54 | Day surgery (SDC) | payer MEDICAID, SELFPAY ==
[2022-07-04 07:36] LABS: Absolute Lymphocyte Count 2.29 X10^3/uL (0.83-4.51); Absolute Neutrophil Count 2.7 X10^3/uL (2.0-7.7); Basophil# 0.04 X10^3/uL; Basophil% 0.7 % (0-1); Eosinophil# 0.19 X10^3/uL; Eosinophils% 3.2 % (0-5); Hematocrit 39.8 % (37-47); Hemoglobin 12.8 g/dL (12.0-15.0); Lymphocyte # 2.29 X10^3/ul (0.83-4.51); Mean Corp Hgb Conc 32.2 g/dL (32-36); Mean Corpuscular Hgb 25.8 pg (27.0-32.0); Mean Corpuscular Volume 80.2 fL (81-99); Mean Platelet Vol. 9.4 fl (6.2-12.0); Monocyte# 0.79 X10^3/uL; Monocyte% 13.1 % (0-10); NRBC Flagged by Analyzer 0 % (0-5); Neutrophil % 44.7 % (47-70); Platelet Count 251 K/mm3 (150-450); RBC Distribution Width CV 13.2 % (11.6-14.6); RBC Distribution Width SD 38.2 fl (35.1-43.9); Red Blood Count 4.96 M/mm3 (4.2-5.4)
[2022-07-04 08:09] LABS: Anion Gap 5 (5-15); BUN 12 mg/dL (7-18); BUN/Creat Ratio 18.9 RATIO (10-20); Calcium,Total 8.8 mg/dL (8.5-10.1); Chloride 107 mmol/L (98-107); Creatinine, Serum 0.64 mg/dL (0.55-1.02); EST Glomerular Filtration Rate 123 mL/min (>60); Est Glom Filt Rate - Afr Amer 148 mL/min (>60); Glucose 90 mg/dL (74-106); Potassium 3.9 mmol/L (3.5-5.1); Sodium Level 137 mmol/L (136-145)
[2022-07-14] VITALS (8 sets, daily range): BP systolic 97–128; BP diastolic 57–70; PULSE 60–86; RESP 16–17; TEMP 36.2–36.6; O2SAT 100; BMI 22.6
[2022-07-14 06:34] LABS: Internal QC Validated? YES +Cl - CLEAR BKGD; Pregnancy, Urine Negative Negative
[2022-07-14] MEDS: Lactated Ringers 1,000 ML 15 ML IV (06:36)
[2022-07-14] MEDS: Cefazolin 1 GM/50 ML BAG IV (07:30)
--- NOTE | 2022-07-14 08:24 | DCINST_ITS ---
Discharge Instructions Follow Up Care Test Results: Test results from this visit will be discussed in further detail at your follow- up appointment, if applicable. Discharge Plan Admission Primary Reason for Your Visit: Left foot bone spur removal Attending Provider: Андрей Fields Primary Care Provider: Care Physician,No Primary Consulting Providers: Pan Barnes ; Genny Augustin Instructions Additional Instructions / Restrictions: Follow preprinted instructions from your surgeons office. Discharge Orders/Prescriptions Prescriptions: New hydrocodone-acetaminophen 5-325 mg tablet 1 tab PO Q6H PRN (Reason: pain) 5 Days Qty: 20 0RF No Action cetirizine [Zyrtec] 5 mg Tablet 5 mg PO DAILY PRN (Reason: SEASONAL ALLERGIES) acetaminophen [Tylenol Ex Str Rapid Release] 500 mg Tablet 500 mg PO Q6H PRN (Reason: Headache) Referrals / Follow Up: Андрей Fields DO [Med Staff - Active Staff] - Within 2 Weeks Care Physician,No Primary [Primary Care Provider] - Disposition Disposition (needs filled in before D/C Order can be placed): Home, Self Care
--- NOTE | 2022-07-14 09:47 | OP.PCM_ITS ---
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 She had midfoot fusion performed by another provider several years ago. She has done well with this. Overlying the incision a bony prominence was palpated and was causing difficulty with footwear. She attempted footwear modifications without relief. Tylenol and ibuprofen were trialed without relief. I saw the patient in the office. A small osteophyte/tarsal boss was noted overlying the medial cuneiform. The hardware did not appear to be proud based on x-rays. I offered surgical ex cision of the dorsal osteophyte from the medial cuneiform. The risk, benefits, alternatives to the procedure reviewed with the patient and she agreed to proceed. Risk included but not limited to bleeding, infection, loss of life or limb, tendon or neurovascular injury, weakness, persistent pain, foot drop, DVT or PE, wound complications, recurrence of osteophyte. Patient expressed understanding of these risks and wished to proceed with surgery. Informed consent obtained in the office. Description of procedure: Patient was notified in the preoperative holding area by name, medical record n umber, and date of . The operative extremity was marked. All questions answered to the patient's satisfaction. Informed consent was confirmed with the patient. At time of her procedure, patient was brought to the operative suite and positioned supine on a standard operating table. Gentle MAC anesthesia was administered. A well-padded pneumatic tourniquet was applied to the left upper thigh but was never inflated. I then prepped the planned incision with rubbing alcohol. A tumescent field block was administered with a 22-gauge needle utilizing 10 cc of 1% lidocaine with epinephrine 1: 100,000. We then prepped and draped the left lower extremity in normal, sterile orthopedic fashion. A timeout was performed with all parties in attendance in agreement the side, site, operation be performed. 1 g Ancef was administered IV prior to the incision by anesthesia staff. No concerns were voiced and elected to proceed with surgery. Prior dorsal incision overlying the medial column was identified. I utilized the central portion overlying the palpable osteophyte. Approximately 2 cm incision was made sharply through skin with a 15 blade scalpel. I then bluntly dissected in the subcutaneous plane. I was able to palpate the osteophyte. It appeared to be in the mid substance of the tibialis anterior. I carefully split the tibialis anterior in line with its fibers and gently elevated off of the osteophyte. I then utilized a rongeur to remove the osteophyte. Cortical bone was then smoothed with a rasp. No significant bony bleeding was encountered. Wound was copiously irrigated with normal saline solution. I then closed the interval of the tibialis anterior with [id number] 3-0 Vicryl suture. No palpable osteophyte remained following tendon split closure. Dermis was reapproximated with buried 3-0 Vicryl suture. Skin was finally reapproximated with a running subcuticular 4-0 Monocryl suture, Dermabond and Steri-Strips. A bulky sterile compression dressing was applied. Patient was placed in a postoperative shoe. She was safely awoken from anesthesia and transferred to her gurney and subsequent to PACU in stable condition. Postoperative plan: Patient will be weightbearing as tolerated to the operative extremity. Follow-up in 2 weeks for wound check. She should continue the postop shoe until follow-up. Crutches as needed. Ice and elevation encouraged. Prescription for hydrocodone sent to the pharmacy. Tylenol/ibuprofen encouraged otherwise.
== END 2022-07-14 09:34 | disposition home or self-care (01) ==
LOC: SDC 05:55 → AC 05:55
PROVIDERS: Anesthesiology; Referring Provider Student in an Organized Health Care Education/Training Program; Visit Provider Student in an Organized Health Care Education/Training Program
PROC: (CPT 28122; principal; 2022-07-14 07:15)
DX: M25.775 Osteophyte, left foot (principal); F17.290 Nicotine dependence, other tobacco product, uncomplicated; Z86.16 Personal history of COVID-19
CPT/HCPCS: 28122; 01480; 36415; 80048; 81025; 85025; 87081; J2405

== ENCOUNTER 2024-11-25 04:06 | Inpatient (IN) | payer OTHER, SELFPAY ==
[2024-11-25] VITALS (48 sets, daily range): BP systolic 115–216; BP diastolic 55–106; PULSE 71–215; RESP 16–18; TEMP 36.4–37.1; O2SAT 80–100; BMI 32.1
--- OUTSIDE RECORDS SUMMARY | 2024-11-25 04:05 | XMS RPT_ITS | CCD ---
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 ####[facility]ALLIA [id number] [place] [address] [place] Neutrophils (Bld) [#/Vol] 5.84 10*3/uL Normal 1.45-7.50 [facility] Comment on above: Order Comment: Speci men Type: BLOOD SPECIMENOrdering Facility: [facility] Address: [address] [place] [address] Performed By: #### 5 7021-8 ####[facility]ITALNCLIA [id number] [place] [address] [place] Neutrophils/100 WBC (Bld) 71.6 % Normal [facility] Comment on above: Order Comment: Speci men Type: BLOOD SPECIMENOrdering Facility: [facility] Address: [address] [place] [address] Performed By: #### 5 7021-8 ####[facility] SHAHIDGILSUMLORENE [id number] [place] [address] [place] Nucleated RBC (Bld) [#/Vol] 10*3/uL Normal <0.01 [facility] Comment on above: Order Comment: Speci men Type: BLOOD SPECIMENOrdering Facility: [facility] Address: [address] [place] [address] Performed By: #### 5 7021-8 ####[facility] [id number] [place] [address] [place] Nucleated RBC/100 WBC (Bld) [Ratio] 0.0 /100 WBC Normal [facility] Comment on above: Order Comment: Speci men Type: BLOOD SPECIMENOrdering Facility: [facility] Address: [address] [place] [address] Performed By: #### 5 7021-8 ####[facility] [id number] [place] [address] [place] Platelet mean volume (Bld) [Entitic vol] 12.1 fL Normal 9.0-12.7 [facility] Comment on above: Order Comment: Speci men Type: BLOOD SPECIMENOrdering Facility: [facility] Address: [address] [place] [address] Performed By: #### 5 7021-8 ####[facility]ALL[facility] [id number] [place] [address] [place] Platelets (Bld) [#/Vol] 159 10*3/uL Normal 150-400 [facility] Comment on above: Order Comment: Speci men Type: BLOOD SPECIMENOrdering Facility: [facility] Address: [address] [place], [place] [address] Performed By: #### 5 7021-8 ####[facility] BEACHWNCLIA [id number] [place] [address] [place] RBC (Bld) [#/Vol] 4.70 10*6/uL Normal 3.90-5.20 [facility] Comment on above: Order Comment: Speci men Type: BLOOD SPECIMENOrdering Facility: [facility] Address: [address] [place], [place] [address] [address] Performed By: #### 5 7021-8 ####[facility]ITALNCLIA [id number] [place] [address] [place] WBC (Bld) [#/Vol] 8.15 10*3/uL Normal 3.70-11.00 [facility] Comment on above: Order Comment: Speci men Type: BLOOD SPECIMENOrdering Facility: [facility] Address: [address] [place], [place] [address] [address] Performed By: #### 5 7021-8 ####[facility]ITALNCLIA [id number] [place] [address] [place] CNCOon 11-22-2024 CNCO Letter Text Normal [facility] metabolic 2000 panelOrdered By: Donna Wilcox on 11-22-2024 Albumin [Mass/Vol] 3.8 g/dL Low 3.9 - 4.9 g/dL Cl [facility] ALP [Catalytic activity/Vol] 198 U/L High 34 - 123 U/L [facility] ALT [Catalytic activity/Vol] 24 U/L 7 - 38 U/L [facility] Anion gap [Moles/Vol] 8 mmol/L 8 - 15 mmol/L [facility] AST [Catalytic activity/Vol] 29 U/L 13 - 35 U/L [facility] Bilirubin [Mass/Vol] 0.3 mg/dL 0.2 - 1.3 mg/dL [facility] Calcium [Mass/Vol] 9.1 mg/dL 8.5 - 10.2 mg/dL [facility] Chloride [Moles/Vol] 104 mmol/L 98 - 107 mmol/L [facility] CO2 [Moles/Vol] 21 mmol/L Low 22 - 30 mmol/L [facility] Creatinine [Mass/Vol] 0.53 mg/dL Low 0.58 - 0.96 mg/dL [facility] GFR/1.73 sq M.predicted among non-blacks MDRD (S/P/Bld) [Vol rate/Area] 132 mL/min/{1.73_m2} - PINF [facility] Comment on above: Estimated Glomerular Filtration Rate (eGFR) is calculated using the 2020 CKD-EPI creatinine equation. This equation utilizes serum creatinine, sex, and age as parameters. The creatinine assay has traceable calibration to isotope dilution-mass spectrometry. Refer to KDIGO guidelines for clinical interpretation. In patients with unstable renal function, e.g. those with acute kidney injury, the eGFR may not accurately reflect actual GFR. Glucose [Mass/Vol] 79 mg/dL 74 - 99 mg/dL [facility] Comment on above: The [place] Diabete s Association (ADA) provides guidance for cutoff values for fasting glucose and random glucose. The ADA defines fasting as no caloric intake for at least 8 hours. Fasting plasma glucose results between 100 to 125 mg/dL indicate increased risk for diabetes (prediabetes). Fasting plasma glucose results greater than or equal to 126 mg/dL meet the criteria for diagnosis of diabetes. In the absence of unequivocal hyperglycemia, results should be confirmed by repeat testing. In a patient with classic symptoms of hyperglycemia or hyperglycemic crisis, random plasma glucose results greater than or equal to 200 mg/dL meet the criteria for diagnosis of diabetes. Reference: Standards of Medical Care in Diabetes 2016, [place] Diabetes Association. Diabetes Care. 2016.39(Suppl 1). Interpretation and review of laboratory results Abnormal [facility] Potassium [Moles/Vol] 4.1 mmol/L 3.7 - 5.1 mmol /L [facility] Protein [Mass/Vol] 6.3 g/dL 6.3 - 8.0 g/dL Cl [facility] Sodium [Moles/Vol] 133 mmol/L Low 136 - 144 mmol/L [facility] Urea nitrogen [Mass/Vol] 14 mg/dL 7 - 21 mg/dL [facility] Comprehensive metabolic 2000 panelon 11-22-2024 Albumin [Mass/Vol] 3.8 g/dL Low 3.9-4.9 [facility] Comment on above: Order Comment: Speci men Type: BLOOD SPECIMENOrdering Facility: [facility] Address: [address] [place] [address] Performed By: #### 2 4323-8, 3083- ####[facility] [id number] [place] [address] [place] ALP [Catalytic activity/Vol] 198 U/L High 34-123 [facility] Comment on above: Order Comment: Speci men Type: BLOOD SPECIMENOrdering Facility: [facility] Address: [address] [place] [address] Performed By: #### 2 4323-8, 3083- ####[facility] [id number] [place] [address] [place] ALT [Catalytic activity/Vol] 24 U/L Normal 7-38 [facility] Comment on above: Order Comment: Speci men Type: BLOOD SPECIMENOrdering Facility: [facility] Address: [address] [place] [address] Performed By: #### 2 4323-8, 3083-03 ####[facility] [id number] [place] [address] [place] Anion gap [Moles/Vol] 8 mmol/L Normal 8-15 [facility] Comment on above: Order Comment: Speci men Type: BLOOD SPECIMENOrdering Facility: [facility] Address: [address] [place] [address] Performed By: #### 2 4323-8, 3083-1 ####[facility] [id number] [place] [address] [place] AST [Catalytic activity/Vol] 29 U/L Normal 13-35 [facility] Comment on above: Order Comment: Speci men Type: BLOOD SPECIMENOrdering Facility: [facility] Address: [address] [place] [place] [id number] Performed By: #### 2 4323-8, 3083-03 ####[facility] GARRETT MONIKALORENE [id number] [place] [address] [place] Bilirubin [Mass/Vol] 0.3 mg/dL Normal 0.2-1.3 [facility] Comment on above: Order Comment: Speci men Type: BLOOD SPECIMENOrdering Facility: [facility] Address: [address] [place] [address] Performed By: #### 2 4323-8, 3083-03 ####[facility] SHAHIDMIGUEL [id number] [place] [address] [place] Calcium [Mass/Vol] 9.1 mg/dL Normal 8.5-10.2 [facility] Comment on above: Order Comment: Speci men Type: BLOOD SPECIMENOrdering Facility: [facility] Address: [address] [place] [address] Performed By: #### 2 4323-8, 3083-03 ####[facility] SHAHIDGILSUMLORENE [id number] [place] [address] [place] Chloride [Moles/Vol] 104 mmol/L Normal 98-107 [facility] Comment on above: Order Comment: Speci men Type: BLOOD SPECIMENOrdering Facility: [facility] Address: [address] [place] [address] Performed By: #### 2 4323-8, 3083-03 ####[facility] HOSPITALJENNIFERLIA [id number] [place] [address] [place] CO2 [Moles/Vol] 21 mmol/L Low 22-30 [facility] Comment on above: Order Comment: Speci men Type: BLOOD SPECIMENOrdering Facility: [facility] Address: [address] [place] [address] Performed By: #### 2 4323-8, 3083-03 ####[facility]ITALNCLIA [id number] [place] [address] [place] Creatinine [Mass/Vol] 0.53 mg/dL Low 0.58-0.96 [facility] Comment on above: Order Comment: Speci men Type: BLOOD SPECIMENOrdering Facility: [facility] Address: [address] [place] [address] Performed By: #### 2 4323-8, 3083-03 ####[facility]ITALNCLIA [id number] [place] [address] [place] eGFRcr SerPlBld CKD-EPI 2020 132 mL/min/1.73m??? Normal >=60 [facility] Comment on above: Order Comment: Drew taylor Type: BLOOD SPECIMENOrdering Facility: [facility] Address: [address] [place] [address] Result Comment: Marianela mated Glomerular Filtration Rate (eGFR) is calculated using the 2020 CKD-EPI creatinine equation. This equation utilizes serum creatinine, sex, and age as parameters. The creatinine assay has traceable calibration to isotope dilution-mass spectrometry. Refer to KDIGO guidelines for clinical interpretation. In patients with unstable renal function, e.g. those with acute kidney injury, the eGFR may not accurately reflect actual GFR. Performed By: #### 2 4323-8, 3083-03 ####[facility] [id number] [place] [address] [place] Glucose [Mass/Vol] 79 mg/dL Normal 74-99 [facility] Comment on above: Order Comment: Migueli men Type: BLOOD SPECIMENOrdering Facility: [facility] Address: [address] [place] [address] Result Comment: The [place] Diabetes Association (ADA) provides guidance for cutoff values for fasting glucose and random glucose. The ADA defines fasting as no caloric intake for at least 8 hours. Fasting plasma glucose results between 100 to 125 mg/dL indicate increased risk for diabetes (prediabetes). Fasting plasma glucose results greater than or equal to 126 mg/dL meet the criteria for diagnosis of diabetes. In the absence of unequivocal hyperglycemia, results should be confirmed by repeat testing. In a patient with classic symptoms of hyperglycemia or hyperglycemic crisis, random plasma glucose results greater than or equal to 200 mg/dL meet the criteria for diagnosis of diabetes. Reference: Standards of Medical Care in Diabetes 2016, [place] Diabetes Association. Diabetes Care. 2016.39(Suppl 1). Performed By: #### 2 4323-8, 3083-03 ####[facility] GARRETT MILLTOWNCLIA [id number] [place] [address] [place] Potassium [Moles/Vol] 4.1 mmol/L Normal 3.7-5.1 [facility] Comment on above: Order Comment: Speci men Type: BLOOD SPECIMENOrdering Facility: [facility] Address: [address] [place] [address] Performed By: #### 2 4328, 3083-03 ####[facility] BEACHWJENNIFERLIIzabella [id number] [place] [address] [place] Protein [Mass/Vol] 6.3 g/dL Normal 6.3-8.0 [facility] Comment on above: Order Comment: Speci men Type: BLOOD SPECIMENOrdering Facility: [facility] Address: [address] [place] [address] Performed By: #### 2 4323-8, 3083-03 ####[facility] MARYWNCLIA [id number] [place] [address] [place] Sodium [Moles/Vol] 133 mmol/L Low 136-144 [facility] Comment on above: Order Comment: Speci men Type: BLOOD SPECIMENOrdering Facility: [facility] Address: [address] [place] [address] Performed By: #### 2 4323-8, 3083-03 ####[facility] MILLHAILEYWJENNIFERLIA [id number] [place] [address] [place] Urea nitrogen [Mass/Vol] 14 mg/dL Normal 7-21 [facility] Comment on above: Order Comment: Speci men Type: BLOOD SPECIMENOrdering Facility: [facility] Address: [address] [place] [address] Performed By: #### 2 4323-8, 3084-1 ####[facility] [id number] [place] [address] [place] No Panel InformationOrdered By: Donna Wilcox on 11-22-2024 [facility] URIC ACIDon 11-22-2024 Urate [Mass/Vol] 5.6 mg/dL 2.5 - 6.6 mg/dL [facility] Urate SerPl-mCncon Urate [Mass/Vol] 5.6 mg/dL Normal 2.5-6.6 [facility] Comment on above: Order Comment: Speci men Type: BLOOD SPECIMENOrdering Facility: [facility] Address: [address] [place] [address] Performed By: #### 2 4323-8, 3084-1 ####[facility] [id number] [address] [place] Urate [Mass/Vol]on Interpretation and review of laboratory results Normal [facility] BACTERIAL VAGINOSIS NAATon 0 11-19-2024 Lactobacillus crispatus+gasseri+mildred enii + Gardnerella vaginalis + Atopobium vaginae rRNA ZHENG+probe Ql (Vag fld) Not detected Normal Not detected [facility] Comment on above: Order Comment: Speci men Type: BLOOD SPECIMEN [facility]ing Facility: [facility] Address: [address] [place] [address] Performed By: #### T SPN #### [facility] CLIA [id number] [address] [place] [id number] [place] BELINDA/TRICHOMONAS NAATon 0 11-19-2024 C. glabrata RNA ZHENG+probe Ql (Vag fld) Not detected Normal Not detected [facility] Comment on above: Order Comment: Speci men Type: BLOOD SPECIMEN [facility]ing Facility: [facility] Address: [address] [place] [address] Performed By: #### T SPN #### [facility] CLIA [id number] [address] [place] [address] [place] Belinda sp DNA ZHENG+probe Ql (Vag fld) Not detected Normal Not detected [facility] Comment on above: Order Comment: Speci men Type: BLOOD SPECIMEN [facility]ing Facility: [facility] Address: [address] [place] [address] Result Comment: The Belinda species group target includes C. albicans, C. tropicalis, C. parapsilosis, and C. dubliniensis. Performed By: #### T SPN #### [facility] CLIA [id number] [address] [place] [address] OF [facility] T. vaginalis DNA ZHENG+probe Ql (Unsp spec) Not detected Normal Not detected [facility] Comment on above: Order Comment: Speci men Type: BLOOD SPECIMEN [facility]ing Facility: [facility] Address: [address] [place] [address] Performed By: #### T SPN #### [facility] CLIA [id number] [address] [place] [address] OF [facility] Greg 11-19-2024 JEWELL Telephone (OBGYWM) EVELYN LUCAS ([id number]) 2000 F Date Time Provider Department 11/19/24 LES RAMIREZ During your visit today, we recorded the following information about you: Emilia Garcia RN 11/19/2024 11:14 AM Addendum 37w2d Patient called with c/o contractions since 1:30 AM. Leaking clear fluid, mostly when she moves around, since then too. Very little amount. Wearing a panty liner. Having pelvic pressure. UC are 5-10 min apart. Pain rate of 5-6. Denies VB. She is just a few minutes away from office. She did not have a cervical exam at her last office visit. Would you like to come to the office now or go to [facility]? JARVIS Pillai Rebecca L, MD 11/19/2024 11:15 AM Signed come in for eval. MD Jose Andres Jennifer, RN 11/19/2024 11:18 AM Signed Called patient. Appointment given. Will be here by 11:30 AM. Emilia Garcia RN Allergies As of Date: 11/19/2024 (No Known Allergies) Date Reviewed: 11/15/2024 Reviewed by: Danielle Otero MA - Fully Assessed Prescriptions as of 11/19/2024 - cholecalciferol (VITAMIN D) 1,000 unit tab tablet Take 1,000 Units by mouth once daily. - aspirin, enteric coated (ECOTRIN LOW STRENGTH) 81 mg EC tablet Take 1 tablet by mouth once daily. - PNV24/Iron CbnANDGluc/FA/DSS/Dh a (PRENATE ORAL) Take 1 tablet by mouth once daily. - iron, carbonyl 25 mg iron tab Take 1 tablet by mouth once daily. - calcium carb-vitamin D3-vit K2 600 mg-1,000 unit-90 mcg tab Take 1 tablet by mouth once daily. Problem List As Of Date 11/19/2024 Noted Resolved Allergic rhinitis, cause unspecified [J30.9] 07/24/2007 04/20/2016 ADD (attention deficit disorder) [F98.8] 01/07/2011 Vaccine refused by parent [Z28.82] 01/31/2014 05/01/2024 Hallux valgus of left foot [M20.12] 07/09/2018 10/15/2024 Supervision of high risk in first tri*06/12/2019 02/01/2021 Threatened , antepartum [O20.0] 06/12/2019 02/01/2021 History of spontaneous [Z87.59] 06/12/2019 10/15/2024 Rh negative state in antepartum period (HCC) [O*07/29/2019 Drug use affecting in third trimester*11/11/2019 02/01/2021 LGSIL on Pap smear of cervix [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.612] 12/09/2020 UTI (urinary tract infection) in , ant*05/06/2024 Uterine size-date discrepancy, first trimester *05/10/2024 10/15/2024 Supervision of high risk in third tri*06/10/2024 Encounter Status:Closed by EMILIA GARCIA on 11/19/24 Normal [facility] URINE OB DIP B/Oon Glucose Ql (U) Negative Neg mg/dL [facility] Interpretation and review of laboratory results Normal [facility] Protein.monoclonal (U) [Mass/Vol] Negative Neg mg/dL [facility] ROUTINE, GROUP B ST REPTOCOCCUS BY PCRon 11-16-2024 Interpretation and review of laboratory results Normal [facility] S. agalactiae DNA ZHENG+probe Ql (Unsp spec) Not detected Not detected [facility] This PCR is performed on a vaginal-rectal swab after culture enrichment. It is the most sensitive method for Group B Streptococcus screening. (Obstet Gynecol. 2020 PMID [id number]) [facility] ROUTINE, GROUP B ST REPTOCOCCUS BY PCRon 11-15-2024 ROUTINE, GROUP B STREPTOCOCCUS BY PCR Not detected Normal [facility] Comment on above: Performed By: #### 6 30-4 #### [facility] CLIA [id number] [address] [place] [address] OF [facility] Greg 11-07-2024 MARISN Telephone (OBGYWM) EVELYN LUCAS ([id number]) 2000 F Date Time Provider Department 11/07/24 CUCO MEJIA During your visit today, we recorded the following information about you: Debbie Montez MA 11/07/2024 1:12 PM Signed Received additional disability form- will complete filling out for provider. REUBEN Taylor Reanna, MA 11/07/2024 1:12 PM Signed Form filled out and placed into providers mailbox. REUBEN Taylor Reanna, MA 11/07/2024 3:19 PM Signed Form has been signed. A copy has been placed into scanning folder. Was not faxed per patient request- she stated that she was going to fax this copy with other paperwork she has to her employer. Debbie Montez MA Allergies As of Date: 11/07/2024 (No Known Allergies) Date Reviewed: 10/28/2024 Reviewed by: Cuco Mejia APRN.BACKEND DEVELOPER - Fully Assessed Reason for Visit: Short Term Disability form [Other] Prescriptions as of 11/07/2024 - cholecalciferol (VITAMIN D) 1,000 unit tab tablet Take 1,000 Units by mouth once daily. - aspirin, enteric coated (ECOTRIN LOW STRENGTH) 81 mg EC tablet Take 1 tablet by mouth once daily. - PNV24/Iron CbnANDGluc/FA/DSS/Dh a (PRENATE ORAL) Take 1 tablet by mouth once daily. - iron, carbonyl 25 mg iron tab Take 1 tablet by mouth once daily. - calcium carb-vitamin D3-vit K2 600 mg-1,000 unit-90 mcg tab Take 1 tablet by mouth once daily. Problem List As Of Date 11/07/2024 Noted Resolved Allergic rhinitis, cause unspecified [J30.9] 07/24/2007 04/20/2016 ADD (attention deficit disorder) [F98.8] 01/07/2011 Vaccine refused by parent [Z28.82] 01/31/2014 05/01/2024 Hallux valgus of left foot [M20.12] 07/09/2018 10/15/2024 Supervision of high risk in first tri*06/12/2019 02/01/2021 Threatened , antepartum [O20.0] 06/12/2019 02/01/2021 History of spontaneous [Z87.59] 06/12/2019 10/15/2024 Rh negative state in antepartum period (HCC) [O*07/29/2019 Drug use affecting in third trimester*11/11/2019 02/01/2021 LGSIL on Pap smear of cervix [R87.612] 12/09/2020 UTI (urinary tract infection) in , ant*05/06/2024 Uterine size-date discrepancy, first trimester *05/10/2024 10/15/2024 Supervision of high risk in third tri*06/10/2024 Encounter Status:Closed by DEBBIE MONTEZ on 11/07/24 Normal [facility] URINE OB DIP B/Oon Glucose Ql (U) Negative Neg mg/dL [facility] Interpretation and review of laboratory results Normal [facility] Protein.monoclonal (U) [Mass/Vol] Negative Neg mg/dL [facility] CNPNon 10-25-2024 CNPN Telephone (OBGYWM) EVELYN LUCAS ([id number]) 2000 F Date Time Provider Department 10/25/24 LIZZY TOMLINSON OBGYWM During your visit today, we recorded the following information about you: Dorothy Delgado LPN 10/25/2024 11:41 AM Signed Ob patient is 33w5d called c/o increased swelling in lower legs from knees to feet. Has to wear crocs d/t the swelling in feet. Patient states that lower legs swell to triple normal size after being at work or when standing. Swelling if equal in both legs.Patient is wearing compression stockings with no relief. Swelling does not fully resolves while sleeping. Denies headache, no vision changes, no upper abdominal pain. BP was last taken at work yesterday and was 120/60. Baby is active. 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 Next ob appointment 10/25/24 Lizzy Tomlinson APRN.CNM 10/25/2024 12:20 PM Signed I don't see that she is on for today? I am happy to see her for a quick add on if she wants. Her blood pressure looks good and no signs of preelcampsia. But if she feels better I can see her. Continue compression stockings, elevation of her feet, Water with lemon, and rest. If she needs excuse for today or tomorrow for work I can give it. Thanks, Lizzy Tomlinson APRN.Emilia Lee RN 10/25/2024 12:34 PM Signed Called and spoke with patient. Her next OB visit is 10/29. Reviewed the recommendations below. Patient is comfortable with this and prefer to wait until Monday to be seen. Emilia Garcia RN Allergies As of Date: 10/25/2024 (No Known Allergies) Date Reviewed: 10/15/2024 Reviewed by: Les Ramirez MD - Fully Assessed Reason for Visit: Care [86] Prescriptions as of 10/25/2024 - cholecalciferol (VITAMIN D) 1,000 unit tab tablet Take 1,000 Units by mouth once daily. - aspirin, enteric coated (ECOTRIN LOW STRENGTH) 81 mg EC tablet Take 1 tablet by mouth once daily. - PNV24/Iron CbnANDGluc/FA/DSS/Dh a (PRENATE ORAL) Take 1 tablet by mouth once daily. - iron, carbonyl 25 mg iron tab Take 1 tablet by mouth once daily. - calcium carb-vitamin D3-vit K2 600 mg-1,000 unit-90 mcg tab Take 1 tablet by mouth once daily. Problem List As Of Date 10/25/2024 Noted Resolved Allergic rhinitis, cause unspecified [J30.9] 07/24/2007 04/20/2016 ADD (attention deficit disorder) [F98.8] 01/07/2011 Vaccine refused by parent [Z28.82] 01/31/2014 05/01/2024 Hallux valgus of left foot [M20.12] 07/09/2018 10/15/2024 Supervision of high risk in first tri*06/12/2019 02/01/2021 Threatened , antepartum [O20.0] 06/12/2019 02/01/2021 History of spontaneous [Z87.59] 06/12/2019 10/15/2024 Rh negative state in antepartum period, second *07/29/2019 Drug use affecting in third trimester*11/11/2019 02/01/2021 LGSIL on Pap smear of cervix [R87.612] 12/09/2020 UTI (urinary tract infection) in , ant*05/06/2024 Uterine size-date discrepancy, first trimester *05/10/2024 10/15/2024 Supervision of high risk in third tri*06/10/2024 Encounter Status:Closed by EMILIA GARCIA on 10/25/24 Normal [facility] Examination level ultrasound on 10-15-2024 [facility] Radiology Study observation (narrative) [facility] Bacteria Ur Culton Bacteria identified Cx Nom (U) CULTURE, URINE: No growth (<1,000 CFU/ml) Normal [facility] Comment on above: Performed By: #### 6 30-4 #### [facility] CLIA [id number] [address] [place] [address] [place] CBC W Auto Differential pane l (Bld)on 09-19-2024 Basophils (Bld) [#/Vol] 10*3/uL Normal <0.11 [facility] Comment on above: Order Comment: Speci men Type: BLOOD SPECIMENOrdering Facility: [facility] Address: [address] [place] [address] Performed By: #### 5 7021-8 ####[facility] [id number] [place] [address] [place] Basophils/100 WBC (Bld) 0.2 % Normal [facility] Comment on above: Order Comment: Speci men Type: BLOOD SPECIMENOrdering Facility: [facility] Address: [address] [place] [address] Performed By: #### 5 7021-8 ####[facility] SHAHIDGILSUMJENNIFERLIA [id number] [place] [address] [place] Differential cell count method Nom (Bld) Auto Normal [facility] Comment on above: Order Comment: Speci men Type: BLOOD SPECIMENOrdering Facility: [facility] Address: [address] [place] [address] Performed By: #### 5 7021-8 ####[facility] [id number] [place] [address] [place] Eosinophils (Bld) [#/Vol] 0.06 10*3/uL Normal <0.46 [facility] Comment on above: Order Comment: Speci men Type: BLOOD SPECIMENOrdering Facility: [facility] Address: [address] [place] [address] Performed By: #### 5 7021-8 ####[facility] [id number] [place] [address] [place] Eosinophils/100 WBC (Bld) 0.7 % Normal [facility] Comment on above: Order Comment: Speci men Type: BLOOD SPECIMENOrdering Facility: [facility] Address: [address] [place] [address] Performed By: #### 5 7021-8 ####[facility] HOSPITALLIA [id number] [place] [address] [place] Erythrocyte distribution width (RBC) [Ratio] 12.3 % Normal 11.5-15.0 [facility] Comment on above: Order Comment: Speci men Type: BLOOD SPECIMENOrdering Facility: [facility] Address: [address] [place] [address] Performed By: #### 5 7021-8 ####[facility] HOS[facility]ITALLI [id number] [place] [address] [place] Hematocrit (Bld) [Volume fraction] 32.0 % Low 36.0-46.0 [facility] Comment on above: Order Comment: Speci men Type: BLOOD SPECIMENOrdering Facility: [facility] Address: [address] [place] [address] Performed By: #### 5 7021-8 ####[facility] [id number] [place] [address] [place] Hemoglobin (Bld) [Mass/Vol] 11.1 g/dL Low 11.5-15.5 [facility] Comment on above: Order Comment: Speci men Type: BLOOD SPECIMENOrdering Facility: [facility] Address: [address] [place] [address] Performed By: #### 5 7021-8 ####[facility] [id number] [place] [address] [place] Immature granulocytes (Bld) [#/Vol] 0.13 10*3/uL High <0.10 [facility] Comment on above: Order Comment: Speci men Type: BLOOD SPECIMENOrdering Facility: [facility] Address: [address] [place] [address] Performed By: #### 5 7021-8 ####[facility] HOSPITALTEJALA [id number] [place] [address] [place] Immature granulocytes/100 WBC (Bld) 1.5 % Normal [facility] Comment on above: Order Comment: Speci men Type: BLOOD SPECIMENOrdering Facility: [facility] Address: [address] [place] [address] Performed By: #### 5 7021-8 ####[facility] [id number] [place] [address] [place] Lymphocytes (Bld) [#/Vol] 1.28 10*3/uL Normal 1.00-4.00 [facility] Comment on above: Order Comment: Speci men Type: BLOOD SPECIMENOrdering Facility: [facility] Address: [address] [place] [address] Performed By: #### 5 7021-8 ####[facility] [id number] [place] [address] [place] Lymphocytes/100 WBC (Bld) 14.8 % Normal [facility] Comment on above: Order Comment: Speci men Type: BLOOD SPECIMENOrdering Facility: [facility] Address: [address] [place] [address] Performed By: #### 5 7021-8 ####[facility] [id number] [place] [address] [place] MCH (RBC) [Entitic mass] 27.5 pg Normal 26.0-34.0 [facility] Comment on above: Order Comment: Speci men Type: BLOOD SPECIMENOrdering Facility: [facility] Address: [address] [place] [address] Performed By: #### 5 7021-8 ####[facility] [id number] [place] [address] [place] MCHC (RBC) [Mass/Vol] 34.7 g/dL Normal 30.5-36.0 [facility] Comment on above: Order Comment: Speci men Type: BLOOD SPECIMENOrdering Facility: [facility] Address: [address] [place] [address] Performed By: #### 5 7021-8 ####[facility] [id number] [place] [address] [place] MCV (RBC) [Entitic vol] 79.4 fL Low 80.0-100.0 [facility] Comment on above: Order Comment: Speci men Type: BLOOD SPECIMENOrdering Facility: [facility] Address: [address] [place] [address] Performed By: #### 5 7021-8 ####[facility] MILLTOWNCLIA [id number] [place] [address] [place] Monocytes (Bld) [#/Vol] 0.69 10*3/uL Normal <0.87 [facility] Comment on above: Order Comment: Speci men Type: BLOOD SPECIMENOrdering Facility: [facility] Address: [address] [place] [address] Performed By: #### 5 7021-8 ####[facility] MILLTOWNCLIA [id number] [place] [address] [place] Monocytes/100 WBC (Bld) 8.0 % Normal [facility] Comment on above: Order Comment: Speci men Type: BLOOD SPECIMENOrdering Facility: [facility] Address: [address] [place] [address] Performed By: #### 5 7021-8 ####[facility] BEACHWNCLIA [id number] [place] [address] [place] Neutrophils (Bld) [#/Vol] 6.49 10*3/uL Normal 1.45-7.50 [facility] Comment on above: Order Comment: Speci men Type: BLOOD SPECIMENOrdering Facility: [facility] Address: [address] [place] [address] Performed By: #### 5 7021-8 ####[facility] MILLTOWNCLIA [id number] [place] [address] [place] Neutrophils/100 WBC (Bld) 74.8 % Normal [facility] Comment on above: Order Comment: Speci men Type: BLOOD SPECIMENOrdering Facility: [facility] Address: [address] [place] [address] Performed By: #### 5 7021-8 ####[facility] MILLTOWNCLIA [id number] [place] [address] [place] Nucleated RBC (Bld) [#/Vol] 10*3/uL Normal <0.01 [facility] Comment on above: Order Comment: Speci men Type: BLOOD SPECIMENOrdering Facility: [facility] Address: [address] [place] [address] Performed By: #### 5 7021-8 ####[facility] HOSPITALJENNIFERTEJALIzabella [id number] [place] [address] [place] Nucleated RBC/100 WBC (Bld) [Ratio] 0.0 /100 WBC Normal [facility] Comment on above: Order Comment: Speci men Type: BLOOD SPECIMENOrdering Facility: [facility] Address: [address] [place] [address] Performed By: #### 5 7021-8 ####[facility] HOSPITALNCLAINEY [id number] [place] [address] [place] Platelet mean volume (Bld) [Entitic vol] 10.5 fL Normal 9.0-12.7 [facility] Comment on above: Order Comment: Speci men Type: BLOOD SPECIMENOrdering Facility: [facility] Address: [address] [place] [address] Performed By: #### 5 7021-8 ####[facility] HOSPITALLORENE [id number] [place] [address] [place] Platelets (Bld) [#/Vol] 181 10*3/uL Normal 150-400 [facility] Comment on above: Order Comment: Speci men Type: BLOOD SPECIMENOrdering Facility: [facility] Address: [address] [place] [address] Performed By: #### 5 7021-8 ####[facility] HOSPITALNCLIA [id number] [place] [address] [place] RBC (Bld) [#/Vol] 4.03 10*6/uL Normal 3.90-5.20 [facility] Comment on above: Order Comment: Speci men Type: BLOOD SPECIMENOrdering Facility: [facility] Address: [address] [place] [address] Performed By: #### 5 7021-8 ####[facility] [id number] [place] [address] [place] WBC (Bld) [#/Vol] 8.67 10*3/uL Normal 3.70-11.00 [facility] Comment on above: Order Comment: Speci men Type: BLOOD SPECIMENOrdering Facility: [facility] Address: [address] [place] [address] Performed By: #### 5 7021-8 ####[facility] [id number] [place] [address] [place] GESTATIONAL GLUCOSE SCREEN, 1-HOUR, 50 GRAM, NON-FASTINGon 09-19-2024 Glucose [Mass/Vol] 96 mg/dL Normal 74-134 [facility] Comment on above: Order Comment: Speci brandon Type: BLOOD SPECIMEN Ordering Facility: [facility] Address: [address] [place] [address] Result Comment: [facility] Congress of Obstetricians and Gynecologists ([place]) guidelines state a gestational diabetes mellitus positive screen is made, in women not previously diagnosed with overt diabetes, when the 1 hr plasma glucose level is equal to or above 140 mg/dL. The [facility] Maintenance Scheduler and [facility] [place] recommends a 135 mg/dL cutoff. Performed By: #### T SPN #### [facility] CLIA [id number] [address] [place], [place] [address] [address] [place] Reagin and Treponema pallidu m IgG and IgM [Interp]on 09-19-2024 T. pallidum IgG+IgM IA Ql (S) Non-Reactive Normal Nonreactive [facility] Comment on above: Order Comment: Speci men Type: BLOOD SPECIMEN Ordering Facility: [facility] Address: [address] [place] [address] Performed By: #### T SPN #### [facility] CLIA [id number] [address] [place] [address] [place] Reagin+T pallidum IgG+IgM Se rPl-Impon 09-19-2024 Reagin and Treponema pallidum IgG and IgM [Interp] Cannot exclude recent Treponemal infection if specimen collected within 7-10 days after appearance of suspect lesions or 2-3 weeks after an exposure. Clinical correlation is required. Normal [facility] Comment on above: Order Comment: Speci men Type: BLOOD SPECIMEN Ordering Facility: [facility] Address: [address] [place] [address] Performed By: #### T SPN #### [facility] CLIA [id number] [address] [place] [address] [place] TYPE + SCREEN PRENATALon ABO A Normal [facility] Comment on above: Order Comment: Speci men Type: BLOOD SPECIMEN Ordering Facility: [facility] Address: [address] [place] [address] Performed By: #### T SPN #### [facility] CLIA [id number] [address] [place] [address] [place] Rh Nom (Bld) Negative Normal [facility] Comment on above: Order Comment: Speci men Type: BLOOD SPECIMEN Ordering Facility: [facility] Address: [address] [place] [address] Performed By: #### T SPN #### [facility] CLIA [id number] [address] [place] [address] [place] TYPE AND SCREEN EXPIRATION 09/22/2024 23:59 Normal [facility] Comment on above: Order Comment: Speci men Type: BLOOD SPECIMEN Ordering Facility: [facility] Address: [address] [place] [address] Performed By: #### T SPN #### [facility] CLIA [id number] [address] [facility] DES[id number] [id number] [place] Bacteria Ur Culton Bacteria identified Cx Nom (U) ORGANISM ID: 1 10,000 -<50,000 CFU/ml Normal urogenital angelica Normal [facility] Comment on above: Performed By: #### 6 30-4 #### [facility] CLIA [id number] [address] [facility] [id number] [place], [place] [id number] [place] Examination level ultrasound on 07-26-2024 Indication Standard anatomic survey Impression The patient is referred for a standard anatomic survey. - Single, live, intrauterine . - biometry is consistent with the established gestational age. - No malformations were visualized on a complete standard anatomic survey. - The amniotic fluid volume is normal amount. - The placenta is posterior, fundal. - The Transabdominal cervical length measures 33.5 mm with no evidence of funneling or other dynamic changes. - Not all structural malformations can be detected by ultrasound examination. Recommendations Additional follow-up as clinically indicated. Maternal Assessment Height 147 cm Height (ft) 4 ft Height (in) 10 in Physical Exam Initial weight (lb) 99 lb Initial BMI 20.69 kg/m Maternal assessment other: 3 Para 1 REMOTE READ Method Transabdominal ultrasound examination. View: Adequate visualization Cuellar . Number of fetuses: 1 Dating LMP on: 02/24/2024 GA by LMP 21 w + 6 d BK by LMP: 11/30/2024 GA by prior assessment 20 w + 5 d BK by prior assessment: 12/08/2024 Ultrasound examination on: 07/26/2024 GA by U/S based upon: AC, BPD, Femur, HC GA by U/S 21 w + 4 d BK by U/S: 12/02/2024 Assigned: based on stated BK, selected on 05/29/2024 Assigned GA 20 w + 5 d Assigned BK: 12/08/2024 General Evaluation Cardiac activity present. FHR 148 bpm. movements: present. Presentation: cephalic Placenta: Placental site: posterior, fundal Umbilical cord: Cord vessels: 3 vessel cord Amniotic fluid: Amount of AF: normal amount. MVP 5.3 cm Growth Overview Exam date GA BPD (mm) HC (mm) AC (mm) FL (mm) HL (mm) EFW (g) 07/26/2024 20w 5d 51.2 80% 195.2 79% 168.1 78% 35.1 77% 34.4 82% 430 84% Biometry Standard BPD 51.2 mm 21w 4d 80% Hadlock OFD 69.6 mm 21w 5d 97% Nicolaides HC 195.2 mm 21w 5d 79% Kenneth Cerebellum tr 22.8 mm 21w 1d 82% Hill Nuchal fold 4.4 mm AC 168.1 mm 21w 6d 78% Hadlock Femur 35.1 mm 21w 2d 77% Kenneth Humerus 34.4 mm 21w 5d 82% Kenneth EFW 430 g 21w 3d 84% Hadlock EFW (lb) 0 lb EFW (oz) 15 oz EFW by: Hadlock (HC-AC-FL) Extended Flat Clothier 7.1 mm CM 5.2 mm 50% Nicolaides Extremities / Bony Struc FL / HC 0.18 15% Hadlock Other Structures FHR 148 bpm Anatomy Cranium: normal Lateral ventricles: normal Choroid plexus: normal Midline falx: normal Cavum septi pellucidi: normal Cerebellum: normal Cisterna magna: normal Head / Neck Vermis: Normal but not required for a standard anatomy exam Neck: Normal but not required for a standard anatomy exam Nuchal fold: Normal but not required for a standard anatomy exam Lips: normal Profile: Normal but not required for a standard anatomy exam Nose: Normal but not required for a standard anatomy exam Face Maxilla: Normal but not required for a standard anatomy exam Mandible: Normal but not required for a standard anatomy exam Orbits: Normal but not required for a standard anatomy exam Lens: Normal but not required for a standard anatomy exam 4-chamber view: normal RVOT view: normal LVOT view: normal 3-vessel view: normal 8-[id number]-yynpwoa view: normal Heart / Thorax Situs: situs solitus (normal) Aortic arch view: Normal but not required for a standard anatomy exam SVC: Normal but not required for a standard anatomy exam IVC: Normal but not required for a standard anatomy exam Cardiac axis: normal Rt lung: Normal but not required for a standard anatomy exam Lt lung: Normal but not required for a standard anatomy exam Diaphragm: Normal but not required for a standard anatomy exam Cord insertion: normal Stomach: normal Kidneys: normal Bladder: normal Genitals: normal Abdomen Abdom. wall: normal Cervical spine: normal Thoracic spine: normal Lumbar spine: normal Sacral spine: normal Arms: normal Legs: normal Rt upper arm: normal Rt forearm: normal Rt hand: normal Rt fingers: normal Lt upper arm: normal Lt forearm: normal Lt hand: normal Lt fingers: normal Rt upper leg: normal Rt lower leg: normal Rt foot: normal Lt upper leg: normal Lt lower leg: normal Lt foot: normal sex: male Wants to know sex: yes Maternal Structures Uterus / Cervix Uterus: Visualized Cervix: Visualized Approach: Transabdominal Cervical length 33.5 mm Other: Patient declined transvaginal ultrasound for cervical length. Ovaries / Tubes / Adnexa Rt ovary: Visualized Lt ovary: Visualized Performed By: Treasure Benz RDMS, RVT Read By: Carolin Dia M.D. MATERNAL MEDICINE [facility] Radiology Study observation (narrative) [facility] Bacteria Ur Culton Bacteria identified Cx Nom (U) CULTURE, URINE: No growth (<1,000 CFU/ml) Normal [facility] Comment on above: Performed By: #### 6 30-4 #### [facility] CLIA [id number] [address] [place] [address] [place] UA DIP, URINE (POC)on 2024 BILIRUBIN UA (POCT) Negative Negative [facility] CLARITY UA (POCT) Clear [facility] COLOR UA (POCT) Yellow [facility] GLUCOSE UA (POCT) Negative Negative mg/dL [facility] Hemoglobin Ql (U) Negative Negative [facility] KETONE UA (POCT) Negative Negative mg/dL [facility] LEUKOCYTES UA (POCT) Negative Negative [facility] NITRITE UA (POCT) Negative Negative [facility] PH UA (POCT) 6 4.5 - 8.0 [facility] Protein Ql (U) Negative Negative mg/dL [facility] SPECIFIC GRAVITY UA (POCT) 1.025 1.005 - 1.030 [facility] UROBILINOGEN UA (POCT) 0.2 Normal E.U./d L [facility] Location:[facility], [address] , [place], [address] [facility] POINT OF CARE [facility] Bacteria Ur Culton 5 Bacteria identified Cx Nom (U) ORGANISM ID: 1 >=100,000 CFU/ml Klebsiella pneumoniae ORGANISM ID: 1 (KLEBSIELLA PNEUMONIAE) ANTIBIOTIC INTERPRETATION ARI STATUS REFERENCE RANGE Ampicillin R >=32 F Susceptible <=8 , Intermediate >8 , Resistant >16 Cefazolin S <=4 F Susceptible 0-16 , Intermediate <0 or >16 , Resistant >16 For uncomplicated urinary tract infections, cefazolin results can be used to predict susceptibility or resistance to cephalexin. Ceftriaxone S <=1 F Susceptible <=1 , Intermediate >1 , Resistant >=4 Cefepime S <=1 F Susceptible <=2 , Susceptible-Dose Dependent >2 , Resistant >=16 Ertapenem S <=0.5 F Susceptible <=0.5 , Intermediate >.5 , Resistant >1 Meropenem S <=0.25 F Susceptible <=1 , Intermediate >1 , Resistant >2 Ampicillin/Sulbact S 4 F Susceptible <=8 , Intermediate >8 , Resistant >16 Piperacillin/Tazobac S <=4 F Susceptible <16 , Susceptible-Dose Dependent >=16 , Resistant >=32 Gentamicin S <=1 F Susceptible <=2 , Intermediate >2 , Resistant >=8 Tobramycin S <=1 F Susceptible <4 , Intermediate >=4 , Resistant >=8 Trimeth sulfameth S <=20 F Susceptible <=40 , Resistant >40 Ciprofloxacin S <=0.25 F Susceptible <0.5 , Intermediate >=.5 , Resistant >=1 Nitrofurantoin I 64 F Susceptible <=32 , Intermediate >32 , Resistant >64 Abnormal [facility] Comment on above: Performed By: #### 6 30-4 #### [facility] CLIA [id number] [address] [place] [address] [place] UA DIP, URINE (POC)on 2024 BILIRUBIN UA (POCT) Negative Negative [facility] CLARITY UA (POCT) Clear [facility] COLOR UA (POCT) Yellow [facility] GLUCOSE UA (POCT) Negative Negative mg/dL [facility] Hemoglobin Ql (U) Negative Negative [facility] Interpretation and review of laboratory results Abnormal [facility] KETONE UA (POCT) Negative Negative mg/dL [facility] LEUKOCYTES UA (POCT) Trace Abnormal Negative [facility] NITRITE UA (POCT) Negative Negative [facility] PH UA (POCT) 7 4.5 - 8.0 [facility] Protein Ql (U) Negative Negative mg/dL [facility] SPECIFIC GRAVITY UA (POCT) 1.02 1.005 - 1.030 [facility] UROBILINOGEN UA (POCT) 0.2 Normal E.U./d L [facility] Location:[facility], [address] [facility], [place], [place], [address] [place] [address] POINT OF CARE [facility] CARRIER SCREEN, STANDARDon 0 05-29-2024 CARRIER SCREEN RESULTS View results in Scanned Documents link when available. Normal [facility] Comment on above: Order Comment: Speci men Type: BLOOD SPECIMEN Ordering Facility: [facility] Address: [address] [place] [address] Performed By: #### T SPN #### [facility] CLIA [id number] [address] [place] [address] [place] CBC W Auto Differential pane l (Bld)on 05-29-2024 Basophils (Bld) [#/Vol] 10*3/uL Normal <0.11 [facility] Comment on above: Order Comment: Speci men Type: BLOOD SPECIMEN Ordering Facility: [facility] Address: [address] [place] [address] Performed By: #### T SPN #### [facility] CLIA [id number] [address] [place] [address] [place] Basophils/100 WBC (Bld) 0.2 % Normal [facility] Comment on above: Order Comment: Speci men Type: BLOOD SPECIMEN Ordering Facility: [facility] Address: [address] [place] [address] Performed By: #### T SPN #### [facility] CLIA [id number] [address] [place] [address] [place] Differential cell count method Nom (Bld) Auto Normal [facility] Comment on above: Order Comment: Speci men Type: BLOOD SPECIMEN Ordering Facility: [facility] Address: [address] [place] [address] Performed By: #### T SPN #### [facility] CLIA [id number] [address] [place] [address] [place] Eosinophils (Bld) [#/Vol] 0.10 10*3/uL Normal <0.46 [facility] Comment on above: Order Comment: Speci men Type: BLOOD SPECIMEN Ordering Facility: [facility] Address: [address] [place] [address] Performed By: #### T SPN #### [facility] CLIA [id number] [address] [place] [address] [place] Eosinophils/100 WBC (Bld) 1.2 % Normal [facility] Comment on above: Order Comment: Speci men Type: BLOOD SPECIMEN Ordering Facility: [facility] Address: [address] [place] [address] Performed By: #### T SPN #### [facility] CLIA [id number] [address] [place] [address] [place] Erythrocyte distribution width (RBC) [Ratio] 13.1 % Normal 11.5-15.0 [facility] Comment on above: Order Comment: Speci men Type: BLOOD SPECIMEN Ordering Facility: [facility] Address: [address] [place] [address] Performed By: #### T SPN #### [facility] CLIA [id number] [address] [place] [address] [place] Hematocrit (Bld) [Volume fraction] 39.8 % Normal 36.0-46.0 [facility] Comment on above: Order Comment: Speci men Type: BLOOD SPECIMEN Ordering Facility: [facility] Address: [address] [place] [address] Performed By: #### T SPN #### [facility] CLIA [id number] [address] [place] [address] [place] Hemoglobin (Bld) [Mass/Vol] 14.0 g/dL Normal 11.5-15.5 [facility] Comment on above: Order Comment: Speci men Type: BLOOD SPECIMEN Ordering Facility: [facility] Address: [address] [place] [address] Performed By: #### T SPN #### [facility] CLIA [id number] [address] [place] [address] [place] Immature granulocytes (Bld) [#/Vol] 0.07 10*3/uL Normal <0.10 [facility] Comment on above: Order Comment: Speci men Type: BLOOD SPECIMEN Ordering Facility: [facility] Address: [address] [place] [address] Performed By: #### T SPN #### [facility] CLIA [id number] [address] [place] [address] [place] Immature granulocytes/100 WBC (Bld) 0.8 % Normal [facility] Comment on above: Order Comment: Speci men Type: BLOOD SPECIMEN Ordering Facility: [facility] Address: [address] [place] [address] Performed By: #### T SPN #### [facility] CLIA [id number] [address] [place] [address] [place] Lymphocytes (Bld) [#/Vol] 1.39 10*3/uL Normal 1.00-4.00 [facility] Comment on above: Order Comment: Speci men Type: BLOOD SPECIMEN Ordering Facility: [facility] Address: [address] [place] [address] Performed By: #### T SPN #### [facility] CLIA [id number] [address] [place] [address] [place] Lymphocytes/100 WBC (Bld) 16.1 % Normal [facility] Comment on above: Order Comment: Speci men Type: BLOOD SPECIMEN Ordering Facility: [facility] Address: [address] [place] [address] Performed By: #### T SPN #### [facility] CLIA [id number] [address] [place] [address] [place] MCH (RBC) [Entitic mass] 28.6 pg Normal 26.0-34.0 [facility] Comment on above: Order Comment: Speci men Type: BLOOD SPECIMEN Ordering Facility: [facility] Address: [address] [place] [address] Performed By: #### T SPN #### [facility] CLIA [id number] [address] [place] [address] [place] MCHC (RBC) [Mass/Vol] 35.2 g/dL Normal 30.5-36.0 [facility] Comment on above: Order Comment: Speci men Type: BLOOD SPECIMEN Ordering Facility: [facility] Address: [address] [place] [address] Performed By: #### T SPN #### [facility] CLIA [id number] [address] [place] [address] [place] MCV (RBC) [Entitic vol] 81.4 fL Normal 80.0-100.0 [facility] Comment on above: Order Comment: Speci men Type: BLOOD SPECIMEN Ordering Facility: [facility] Address: [address] [place] [address] Performed By: #### T SPN #### [facility] CLIA [id number] [address] [place] [address] [place] Monocytes (Bld) [#/Vol] 0.65 10*3/uL Normal <0.87 [facility] Comment on above: Order Comment: Speci men Type: BLOOD SPECIMEN Ordering Facility: [facility] Address: [address] [place] [address] Performed By: #### T SPN #### [facility] CLIA [id number] [address] [place] [address] [place] Monocytes/100 WBC (Bld) 7.5 % Normal [facility] Comment on above: Order Comment: Speci men Type: BLOOD SPECIMEN Ordering Facility: [facility] Address: [address] [place] [address] Performed By: #### T SPN #### [facility] CLIA [id number] [address] [place] [address] [place] Neutrophils (Bld) [#/Vol] 6.43 10*3/uL Normal 1.45-7.50 [facility] Comment on above: Order Comment: Speci men Type: BLOOD SPECIMEN Ordering Facility: [facility] Address: [address] [place] [address] Performed By: #### T SPN #### [facility] CLIA [id number] [address] [place] [address] [place] Neutrophils/100 WBC (Bld) 74.2 % Normal [facility] Comment on above: Order Comment: Speci men Type: BLOOD SPECIMEN Ordering Facility: [facility] Address: [address] [place] [address] Performed By: #### T SPN #### [facility] CLIA [id number] [address] [place] [address] [place] Nucleated RBC (Bld) [#/Vol] 10*3/uL Normal <0.01 [facility] Comment on above: Order Comment: Speci men Type: BLOOD SPECIMEN Ordering Facility: [facility] Address: [address] [place] [address] Performed By: #### T SPN #### [facility] CLIA [id number] [address] [place] [address] [place] Nucleated RBC/100 WBC (Bld) [Ratio] 0.0 /100 WBC Normal [facility] Comment on above: Order Comment: Speci men Type: BLOOD SPECIMEN Ordering Facility: [facility] Address: [address] [place] [address] Performed By: #### T SPN #### [facility] CLIA [id number] [address] [place] [address] [place] Platelet mean volume (Bld) [Entitic vol] 9.8 fL Normal 9.0-12.7 [facility] Comment on above: Order Comment: Speci men Type: BLOOD SPECIMEN Ordering Facility: [facility] Address: [address] [place] [address] Performed By: #### T SPN #### [facility] CLIA [id number] [address] [place] [address] [place] Platelets (Bld) [#/Vol] 191 10*3/uL Normal 150-400 [facility] Comment on above: Order Comment: Speci men Type: BLOOD SPECIMEN Ordering Facility: [facility] Address: [address] [place] [address] Performed By: #### T SPN #### [facility] CLIA [id number] [address] [place] [address] [place] RBC (Bld) [#/Vol] 4.89 10*6/uL Normal 3.90-5.20 [facility] Comment on above: Order Comment: Speci men Type: BLOOD SPECIMEN Ordering Facility: [facility] Address: [address] [place] [address] Performed By: #### T SPN #### [facility] [place] [id number] [address] [place], [place] [address] [address] [place] WBC (Bld) [#/Vol] 8.66 10*3/uL Normal 3.70-11.00 [facility] Comment on above: Order Comment: Speci men Type: BLOOD SPECIMEN Ordering Facility: [facility] Address: [address] [place] [address] Performed By: #### T SPN #### [facility] CLIA [id number] [address] [place], [place] [address] [address] [place] CNPNon 05-29-2024 CNPN Telephone (OBGYWM) EVELYN LUCAS ([id number]) 2000 F Date Time Provider Department 05/29/24 LIZZY TOMLINSON During your visit today, we recorded the following information about you: Riki Wharton MA 05/29/2024 3:53 PM Signed FMLA paperwork received. REUBEN Marie Morgan, MA 05/29/2024 4:30 PM Signed FMLA paperwork on providers desk for signature. REUBEN Marie Morgan, MA 05/30/2024 3:00 PM Signed FMLA paperwork completed and faxed back to employer. Patient notified. Riki Wharton MA Allergies As of Date: 05/29/2024 (No Known Allergies) Date Reviewed: 05/29/2024 Reviewed by: Riki Wharton MA - Fully Assessed Reason for Visit: FMLA Paperwork [2171] Prescriptions as of 05/30/2024 - aspirin, enteric coated (ECOTRIN LOW STRENGTH) 81 mg EC tablet Take 1 tablet by mouth once daily. - PNV24/Iron CbnANDGluc/FA/DSS/Dh a (PRENATE ORAL) Take 1 tablet by mouth once daily. - iron, carbonyl 25 mg iron tab Take 1 tablet by mouth once daily. - calcium carb-vitamin D3-vit K2 600 mg-1,000 unit-90 mcg tab Take 1 tablet by mouth once daily. 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 - Single, live, intrauterine . - Diaz rump length measurement is consistent with the established gestational age. - A qualitative screen of the nuchal translucency and other anatomic structures was unremarkable on a complete first trimester anatomic assessment. - Not all structural malformations can be detected by ultrasound examination. Maternal Structures: Right Ovary: Size 24 mm x 19 mm x 19 mm Left Ovary: Size 21 mm x 21 mm x 15 mm Recommendations - A standard anatomic survey at 18-20 weeks is recommended Maternal Assessment Height 147 cm Height (ft) 4 ft Height (in) 10 in Physical Exam Initial weight (lb) 99 lb Initial BMI 20.69 kg/m Maternal assessment other: 3 Para 1 Method Transabdominal ultrasound examination Cuellar . Number of fetuses: 1 Dating LMP on: 02/24/2024 GA by LMP 13 w + 4 d BK by LMP: 11/30/2024 GA by prior assessment 12 w + 3 d BK by prior assessment: 12/08/2024 Ultrasound examination on: 05/29/2024 GA by U/S based upon: CRL GA by U/S 13 w + 2 d BK by U/S: 12/02/2024 Assigned: based on stated BK, selected on 05/29/2024 Assigned GA 12 w + 3 d Assigned BK: 12/08/2024 General Evaluation Cardiac activity present Placenta: posterior Cord vessels: 3 vessel cord Amniotic fluid: normal amount Biometry Standard FHR 164 bpm CRL 70.5 mm 13w 2d 92% [facility] First Trimester Anatomy Calvarium: normal Falx cerebri: normal Choroid plexus: normal Profile: normal Nasal bone: normal Retronasal triangle: normal Maxilla: normal Mandible: normal Nuchal translucency: Unremarkable Situs: normal Cardiac position: normal Cardiac axis: normal 4-chamber view: normal 4-chamber view with color: normal 5-umbukl-lnxllmm view: normal Abdominal cord insertion: normal Stomach: normal Kidneys: normal Bladder: normal Color doppler of perivesical umbilical arteries: normal Vertebral alignment: normal Arms: normal Hands: normal Legs: normal Feet: normal Maternal Structures Uterus / Cervix Uterus: Visualized Uterus length 125 mm Uterus width 100 mm Uterus height 90 mm Uterus Vol 585.8 cm Ovaries / Tubes / Adnexa Rt ovary: Visualized Rt ovary D1 24 mm Rt ovary D2 19 mm Rt ovary D3 19 mm Rt ovary Vol 4.6 cm Lt ovary: Visualized Lt ovary D1 21 mm Lt ovary D2 21 mm Lt ovary D3 15 mm Lt ovary Vol 3.3 cm Performed By: Treasure Benz RDMS, RVT Read By: Carolin Dia M.D. MATERNAL MEDICINE [facility] Radiology Study observation (narrative) [facility] HBV surface Ag Ser Qlon 05-18 HBV surface Ag Ql (S) Negative Normal Negative [facility] Comment on above: Order Comment: Speci men Type: BLOOD SPECIMENOrdering Facility: [facility] Address: [address] [place] [address] Performed By: #### 6 30-4 #### [facility] CLIA [id number] [address] [place] [address] [place] HCV Ab Ser Qlon 05-29-2024 HCV Ab Ql (S) Negative Normal Negative [facility] Comment on above: Order Comment: Speci men Type: BLOOD SPECIMENOrdering Facility: [facility] Address: [address] [place] [address] Result Comment: The result suggests no evidence of active infection with Hepatitis C virus. Should recent infection be suspected, repeat testing may be considered 4-6 weeks after this draw. Performed By: #### 1 [id number] ####[facility] [id number] [address] [place] HGB ELECTROPHORESIS FOR EVAL (LAB ORDER)on 05-29-2024 Hemoglobin A (Bld) [Mass fraction] 97.3 % Normal 96.2-98.0 [facility] Comment on above: Order Comment: Speci men Type: BLOOD SPECIMENOrdering Facility: [facility] Address: [address] [place] [address] Performed By: #### L [id number], HGBELEV ####[facility] [id number] [place] [address] [place] Hemoglobin A2 (Bld) [Mass fraction] 2.7 % Normal 2.0-3.1 [facility] Comment on above: Order Comment: Speci men Type: BLOOD SPECIMENOrdering Facility: [facility] Address: [address] [place] [address] Performed By: #### L [id number], HGBELEV ####[facility] [id number] [place] [address] [place] Hemoglobin Unsp Elph (Bld) [Mass fraction] No abnormal hemoglobin identified. Normal No abnormal hemoglobin identified. [facility] Comment on above: Order Comment: Speci men Type: BLOOD SPECIMENOrdering Facility: [facility] Address: [address] [place] [address] Performed By: #### L [id number], HGBELEV ####[facility] [id number] [place] [address] [place] HGB EVALUATION CASCADE INTER José 05-29-2024 Hemoglobin pattern (Bld) [Interp] Reviewed by Renaldo Vera MD Normal [facility] Comment on above: Order Comment: Speci men Type: BLOOD SPECIMEN Ordering Facility: [facility] Address: [address] [place] [address] Performed By: #### T SPN #### [facility] CLIA [id number] [address] [place] [address] [place] INTERPRETATION (HGB EVAL) Normal [facility] Comment on above: Order Comment: Speci men Type: BLOOD SPECIMEN Ordering Facility: [facility] Address: [address] [place] [address] Result Comment: Hemo globins were analyzed by capillary electrophoresis and CBC red cell parameters were reviewed. No abnormal hemoglobin is identified. There is a normal hemoglobin capillary electrophoresis pattern. Performed By: #### T SPN #### [facility] CLIA [id number] [address] [place] [address] [place] HIV 1+2 Ab IA Qlon 5 HIV 1 and 2 Ab IA.rapid Nom (S/P/Bld) Normal [facility] Comment on above: Order Comment: Speci men Type: BLOOD SPECIMENOrdering Facility: [facility] Address: [address] [place] [address] Result Comment: Test not indicated. Performed By: #### 6 30-4 #### [facility] CLIA [id number] [address] [place] [address] [place] HIV 1+2 Ab+HIV1 p24 Ag IA Ql Non-Reactive Normal Nonreactive [facility] Comment on above: Order Comment: Speci men Type: BLOOD SPECIMENOrdering Facility: [facility] Address: [address] [place] [address] Performed By: #### 6 30-4 #### [facility] CLIA [id number] [address] [place] [address] [place] HIV immunoassay testing algorithm interpretation (S/P/Bld) [Interp] Normal [facility] Comment on above: Order Comment: Speci men Type: BLOOD SPECIMENOrdering Facility: [facility] Address: [address] [place] [address] Result Comment: No e vidence of HIV-1 or HIV-2 infection. Should recent infection be suspected, repeat testing may be considered 2-3 weeks after this draw. [place] Rev. Code 3701.243(E): This information has been disclosed to you from confidential records protected from disclosure by state law. ???You shall make no further disclosure of this information without the specific, written, and informed release of the individual to whom it pertains or as otherwise permitted by state law. A general authorization for the release of medical or other information is not sufficient for the purpose of the release of HIV test results or diagnoses. Performed By: #### 6 30-4 #### [facility] CLIA [id number] [address] [place] [address] [place] HbA1c (Bld)on 05-29-2024 Average glucose Estimated from glycated hemoglobin (Bld) [Mass/Vol] 74 mg/dL Normal [facility] Comment on above: Order Comment: Speci men Type: BLOOD SPECIMENOrdering Facility: [facility] Address: [address] [place] [address] Result Comment: eAG: (Estimated average glucose) is a calculated value from HgbA1c and is pharmaceutical sales representative of the average blood glucose level in the last 2-3 month period. Performed By: #### 6 30-4 #### [facility] CLIA [id number] [address] [place] [address] [place] HbA1c (Bld) [Mass fraction] 4.2 % Low 4.3-5.6 [facility] Comment on above: Order Comment: Speci men Type: BLOOD SPECIMENOrdering Facility: [facility] Address: [address] [place] [address] Result Comment: [place] Diabetes Association guidelines indicate that patients with HgbA1c in the range 5.7-6.4% are at increased risk for development of diabetes, and intervention by lifestyle modification may be beneficial. HgbA1c greater or equal to 6.5% is considered diagnostic of diabetes. Performed By: #### 6 30-4 #### [facility] CLIA [id number] [address] [place] [address] [place] [id number] PLUSon 05-29-2024 Cell-free DNA./Cell-free DNA.total Dosage of chromosome-specific cfDNA (cfDNA) [Molar fraction] 23% Normal [facility] Comment on above: Order Comment: Speci men Type: BLOOD SPECIMENOrdering Facility: [facility] Address: [address] [place] [address] Performed By: #### M AT21 ####[facility] LABCLIA [id number] [place] [address] Chr 13+18+21+X+Y aneuploidy Dosage of chromosome-specific cfDNA Ql (cfDNA) Negative Normal [facility] Comment on above: Order Comment: Speci men Type: BLOOD SPECIMENOrdering Facility: [facility] Address: [address] [place] [address] Performed By: #### M AT21 ####[facility] LABCLIA [id number] [place] [address] Chr 21 trisomy Dosage of chromosome-specific cfDNA Ql (cfDNA) Negative Normal [facility] [place] Comment on above: Order Comment: Speci men Type: BLOOD SPECIMENOrdering Facility: [facility] Address: [address] [place] [address] Performed By: #### M AT21 ####[facility] LABCLIA [id number] [place] [address] Chr X and Y aneuploidy risk Sequencing Ql (cfDNA) [Interp] Not detected Normal [facility] [place] Comment on above: Order Comment: Speci men Type: BLOOD SPECIMENOrdering Facility: [facility] Address: [address] [place] [address] Result Comment: Not Detected Not Detected Performed By: #### M AT21 ####[facility] LABCLIA [id number] [place] [address] Citation Elliott (Reference lab test) Comment Normal [facility] [place] Comment on above: Order Comment: Speci men Type: BLOOD SPECIMENOrdering Facility: [facility] Address: [address] [place] [address] Result Comment: 1. P malka GUEVARA et al. Anabel Med. 2012;14(3):296-305. 2. Chad RICE, et al. Prenat Diag. 2013;33(6):591-597. 3. Brendan C, et al. Clin Chem. 2015 Apr;61(4):608-616. 4. Chester GUEVARA, et al. Anabel Med. 2011;13(11):913-920. 5. ACOG/SM[facility] Practice Bulletin No. 226, Dec 2019. Performed By: #### M AT21 ####[facility] LABCLIA [id number] [place] [address] Gestational age Estimated from conception date Cuellar Normal [facility] [place] Comment on above: Order Comment: Speci men Type: BLOOD SPECIMENOrdering Facility: [facility] Address: [address] [place] [address] Performed By: #### M AT21 ####[facility] LABCLIA [id number] [place] [address] GESTATIONALAGE AGE > OR = 9W Yes Normal [facility] [place] Comment on above: Order Comment: Speci men Type: BLOOD SPECIMENOrdering Facility: [facility] Address: [address] [place] [address] Performed By: #### M AT21 ####[facility] LABCLIA [id number] [place] [address] Laboratory comment Elliott (Report) Comment Normal [facility] [place] Comment on above: Order Comment: Drew taylor Type: BLOOD SPECIMENOrdering Facility: [facility] Address: [address] [place] [address] Result Comment: The MaterniT(R) 21 PLUS laboratory-developed test (LDT) analyzes circulating cell-free DNA from a maternal blood sample. This test is used for screening purposes and not diagnostic. Clinical correlation is recommended. Validation data on twin pregnancies is limited and the ability of this test to detect aneuploidy in higher multiple gestations has not yet been validated. Performed By: #### M AT21 ####[facility] LABGoodPeopleIA [id number] [place] [address] hospitalist medical director name Nom (Provider) Comment Normal [facility] [place] Comment on above: Order Comment: Drew taylor Type: BLOOD SPECIMENOrdering Facility: [facility] Address: [address] [place] [address] Result Comment: This specimen showed an expected representation of chromosome 21, 18 and 13 material. Clinical correlation is suggested. Comment Víctor Marrero MD, PhD, Director, [employer] Performed By: #### M AT21 ####[facility] LABCLIA [id number] [place] [id number] LIMITATIONS OF THE TEST Comment Normal [facility] [place] Comment on above: Order Comment: Drew taylor Type: BLOOD SPECIMENOrdering Facility: [facility] Address: [address] [place] [address] Result Comment: Kathy painter the results of these tests are highly reliable, discordant results, including inaccurate sex prediction, may occur due to placental, maternal, or mosaicism or neoplasm; vanishing twin; prior maternal organ transplant; or other causes. These tests are screening tests and not diagnostic; they do not replace the accuracy and precision of diagnosis with CVS or amniocentesis. A patient with a positive test result should be referred for genetic counseling and offered invasive diagnosis for confirmation of test results.[5] The results of this testing, including the benefits and limitations, should be discussed with a qualified healthcare provider. management decisions, including termination of the , should not be based on the results of these tests alone. The healthcare provider is responsible for the use of this information in the management of their patient. Sex chromosomal aneuploidies are not reportable for known multiple gestations. A negative result does not ensure an unaffected nor does it exclude the possibility of other chromosomal abnormalities or defects which are not a part of these tests. An uninformative result may be reported, the causes of which may include, but are not limited to, insufficient sequencing coverage, noise or artifacts in the region, amplification or sequencing bias, or insufficient fraction. These tests are not intended to identify pregnancies at risk for neural tube defects or ventral wall defects. Testing for whole chromosome abnormalities (including sex chromosomes) and for subchromosomal abnormalities could lead to the potential discovery of both and maternal genomic abnormalities that could have major, minor, or no, clinical significance. Evaluating the significance of a positive or a non-reportable result may involve both invasive testing and additional studies on the mother. Such investigations may lead to a diagnosis of maternal chromosomal or subchromosomal abnormalities, which on occasion may be associated with benign or malignant maternal neoplasms. These tests may not accurately identify triploidy, balanced rearrangements, or the precise location of subchromosomal duplications or deletions; these may be detected by diagnosis with CVS or amniocentesis. The ability to report results may be impacted by maternal BMI, maternal weight, maternal systemic lupus erythematosus (SLE) and/or by certain pharmaceutical agents such as low molecular weight heparin (for example: Lovenox(R), Xaparin(R), Clexane(R) and Fragmin(R)). Performed By: #### M AT21 ####[facility] [id number] [place] [address] Monosomy X risk Dosage of chromosome-specific cfDNA Ql (Plasma cell-free+WBC DNA) [Interp] Not detected Normal [facility] [place] Comment on above: Order Comment: Speci men Type: BLOOD SPECIMENOrdering Facility: [facility] Address: [address] [place] [address] Performed By: #### M AT21 ####[facility] LABGoodPeopleIA [id number] [place] [address] NEGATIVE PREDICTIVE VALUE Note Normal [facility] [place] Comment on above: Order Comment: Drew taylor Type: BLOOD SPECIMENOrdering Facility: [facility] Address: [address] [place] [address] Result Comment: The Negative Predictive Value (NPV) for trisomy 21, 18, and 13 is greater than 99%. The NPV for SCA and ESS cannot be calculated as SCA and ESS are only reported when an abnormality is detected. Performed By: #### M AT21 ####[facility] LABCLIA [id number] [place] [address] PERFORMANCE CHARACTERISTICS Note Normal [facility] [place] Comment on above: Order Comment: Drew taylor Type: BLOOD SPECIMENOrdering Facility: [facility] Address: [address] [place] [id number] Result Comment: ! Sex ! Accuracy: 99.4% ! ! ! ! Region (associated syndrome) ! Est. Sens# ! Est. Spec ! ! ! ! Trisomy 21 (Down Syndrome) ! 99.1% ! 99.9% ! ! ! ! Trisomy 18 (Anaya Syndrome) ! >99.9% ! 99.6% ! ! ! ! Trisomy 13 (Patau Syndrome) ! 91.7% ! 99.7% ! ! ! ! Sex Chromosome Aneuploidies## ! 96.2% ! 99.7% ! ! ! * As reported in [facility] database nstd37 [https://www.ncbi.nlm.nih.gov/dbvar/studies/nstd37/ ] # Estimated Sensitivity. Sensitivity estimated across the observed size distribution of each syndrome [per [facility] database nstd37] and across the range of fractions observed in routine clinical NIPT. Actual sensitivity can also be influenced by other factors such as the size of the event, total sequence counts, amplification bias, or sequence bias. ## Cuellar gestation only. Performed By: #### M AT21 ####[facility] [id number] [place] [address] POSITIVE PREDICTIVE VALUE N/A Normal [facility] [place] Comment on above: Order Comment: Speci men Type: BLOOD SPECIMENOrdering Facility: [facility] Address: [address] [place] [address] Performed By: #### M AT21 ####[facility] LABGoodPeopleIA [id number] [place] [address] Reference Lab Test Method Comment Normal [facility] [place] Comment on above: Order Comment: Speci men Type: BLOOD SPECIMENOrdering Facility: [facility] Address: [address] [place] [address] Result Comment: See Notes Circulating cell-free DNA was purified from the plasma component of maternal blood. The extracted DNA was then converted into a genomic DNA library for aneuploidy analysis of chromosomes 21, 18, and 13 via next generation sequencing.[1] Optional findings based on the test order include sex chromosome aneuploidy (SCA)[2], and enhanced sequencing series (ESS)[3], which will only be reported on as an additional finding when an abnormality is detected. SCA testing includes information on X and Y representation, while ESS testing includes deletions in selected regions (22q, 15q, 11q, 8q, 5p, 4p, 1p) and trisomy of chromosomes 16 and 22. Performed By: #### M AT21 ####[facility] LABCLIA [id number] [place] [address] Service comment (Unsp spec) [Interp] Comment Normal [facility] [place] Comment on above: Order Comment: Speci men Type: BLOOD SPECIMENOrdering Facility: [facility] Address: [address] [place] [address] Result Comment: See Notes [employer] is a subsidiary of [employer], using the brand [employer]. This test was developed and its performance characteristics determined by [employer]. It has not been cleared or approved by the Food and Drug Administration. This laboratory is certified under the Clinical Laboratory Improvement Amendments (CLIA) as qualified to perform high complexity clinical laboratory testing and accredited by the [employer] (CAP). If there is future clinical need for adding MaterniT GENOME testing, this specimen will be available until term. [facility] samples will not be retained beyond 60 days. [facility] patients will have to send a new sample for re-sequencing ([facility] Test Code: [id number]). Performed By: #### M AT21 ####[facility] LABCLIA [id number] [place] [address] Sex Dosage of chromosome-specific cfDNA Nom (cfDNA) Comment Normal [facility] [place] Comment on above: Order Comment: Speci men Type: BLOOD SPECIMENOrdering Facility: [facility] Address: [address] [place] [address] Result Comment: Cons istent with Male Performed By: #### M AT21 ####[facility] LABCLIA [id number] [place] [address] Test performance information Elliott (Unsp spec) Comment Normal [facility] [place] Comment on above: Order Comment: Drew taylor Type: BLOOD SPECIMENOrdering Facility: [facility] Address: [address] [place] [address] Result Comment: The performance characteristics of the MaterniT(R) 21 PLUS laboratory-developed test (LDT) have been determined in a clinical validation study with women at increased risk for chromosomal aneuploidy.[1-4] Performed By: #### M AT21 ####[facility] LABCLIA [id number] [place] [address] Trisomy 13 risk Dosage of chromosome-specific cfDNA Ql (cfDNA) [Interp] Negative Normal [facility] [place] Comment on above: Order Comment: Drew taylor Type: BLOOD SPECIMENOrdering Facility: [facility] Address: [address] [place] [address] Performed By: #### M AT21 ####[facility] LABCLIA [id number] [place] [address] Trisomy 18 risk Dosage of chromosome-specific cfDNA Ql (Plasma cell-free+WBC DNA) [Interp] Negative Normal [facility] [place] Comment on above: Order Comment: Drew taylor Type: BLOOD SPECIMENOrdering Facility: [facility] Address: [address] [place] [address] Performed By: #### M AT21 ####[facility] LABCLIA [id number] [place] [address] RBC PARAMETERS FOR HB IDon 0 - Erythrocyte distribution width (RBC) [Ratio] 12.8 % Normal 11.5-15.0 [facility] [place] Comment on above: Order Comment: Drew taylor Type: BLOOD SPECIMEN Ordering Facility: [facility] Address: [address] [place] [address] Performed By: #### T SPN #### [facility] CLIA [id number] [address] [place] [address] [place] [address] [place] Hematocrit (Bld) [Volume fraction] 39.6 % Normal 36.0-46.0 [facility] [place] Comment on above: Order Comment: Speci men Type: BLOOD SPECIMEN Ordering Facility: [facility] Address: [address] [place] [address] Performed By: #### T SPN #### [facility] CLIA [id number] [address] [place] [address] [place] Hemoglobin (Bld) [Mass/Vol] 13.8 g/dL Normal 11.5-15.5 [facility] [place] Comment on above: Order Comment: Speci men Type: BLOOD SPECIMEN Ordering Facility: [facility] Address: [address] [place] [address] Performed By: #### T SPN #### [facility] CLIA [id number] [address] [place] [address] [place] MCH (RBC) [Entitic mass] 28.3 pg Normal 26.0-34.0 [facility] [place] Comment on above: Order Comment: Speci men Type: BLOOD SPECIMEN Ordering Facility: [facility] Address: [address] [place] [address] Performed By: #### T SPN #### [facility] CLIA [id number] [address] [place] [address] [place] MCHC (RBC) [Mass/Vol] 34.8 g/dL Normal 30.5-36.0 [facility] Comment on above: Order Comment: Speci men Type: BLOOD SPECIMEN [facility]ing Facility: [facility] Address: [address] [place] [address] Performed By: #### T SPN #### [facility] CLIA [id number] [address] [place] [address] [place] MCV (RBC) [Entitic vol] 81.3 fL Normal 80.0-100.0 [facility] [place] Comment on above: Order Comment: Speci men Type: BLOOD SPECIMEN [facility]ing Facility: [facility] Address: [address] [place] [address] Performed By: #### T SPN #### [facility] CLIA [id number] [address] [place] [address] [place] RBC (Bld) [#/Vol] 4.87 10*6/uL Normal 3.90-5.20 [facility] Comment on above: Order Comment: Speci men Type: BLOOD SPECIMEN Ordering Facility: [facility] Address: [address] [place] [address] Performed By: #### T SPN #### [facility] CLIA [id number] [address] [place] [address] [place] RUBELLA IGG ANTIBODYon 05-29 RUBELLA IGG AB, QUAL Positive Normal Positive [facility] Comment on above: Order Comment: Speci men Type: BLOOD SPECIMEN Ordering Facility: [facility] Address: [address] [place] [address] Result Comment: The result suggests recent or past exposure to Rubella virus or history of Rubella vaccination. Positive result may also be seen due to presence of passively-transferred antibodies. Please correlate with patient's history. Performed By: #### T SPN #### [facility] CLIA [id number] [address] [place] [address] [place] Reagin and Treponema pallidu m IgG and IgM [Interp]on 05-29-2024 T. pallidum IgG+IgM IA Ql (S) Non-Reactive Normal Nonreactive [facility] [place] Comment on above: Order Comment: Speci men Type: BLOOD SPECIMENOrdering Facility: [facility] Address: [address] [place] [address] Performed By: #### 6 30-4 #### [facility] CLIA [id number] [address] [place] [address] [place] Reagin+T pallidum IgG+IgM Se rPl-Impon 05-29-2024 Reagin and Treponema pallidum IgG and IgM [Interp] Cannot exclude recent Treponemal infection if specimen collected within 7-10 days after appearance of suspect lesions or 2-3 weeks after an exposure. Clinical correlation is required. Normal [facility] [place] Comment on above: Order Comment: Speci men Type: BLOOD SPECIMENOrdering Facility: [facility] Address: [address] [place] [address] Performed By: #### 6 30-4 #### [facility] CLIA [id number] [address] [place] [address] TYPE + SCREEN PRENATALon ABO A Normal [facility] [place] Comment on above: Order Comment: Speci men Type: BLOOD SPECIMENOrdering Facility: [facility] Address: [address] [place] [address] Performed By: #### T SPN ####[facility]CL[facility] [id number] [address] [place] Rh Nom (Bld) Negative Normal [facility] [place] Comment on above: Order Comment: Speci men Type: BLOOD SPECIMENOrdering Facility: [facility] Address: [address] [place] [address] Performed By: #### T SPN ####[facility] B[facility]CLIA [id number] [address] TYPE AND SCREEN EXPIRATION 06/01/2024 23:59 Normal [facility] [place] Comment on above: Order Comment: Speci men Type: BLOOD SPECIMENOrdering Facility: [facility] Address: [address] [place] [address] Performed By: #### T SPN ####[facility] BANKCLIA [id number] [place] [address] [place] POC HAND [employer] ULTRASOUNDon 05-10-19 25 Indication Viability; confirm cardiac activity Impression Single intrauterine gestational sac, CRL indicates discrepancy from clinical dates, BK 12/08/2024 based on today's ultrasound Recommendations Follow up for 1st Trimester Anatomy with Nuchal Translucency as clinically indicated if desired. Method Transabdominal and transvaginal ultrasound examination Cuellar . Number of embryos: 1 Dating LMP on: 02/24/2024 GA by LMP 9 w + 4 d BK by LMP: 11/30/2024 Ultrasound examination on: 05/01/2024 GA by U/S based upon: CRL GA by U/S 8 w + 3 d BK by U/S: 12/08/2024 Assigned: based on ultrasound (CRL), selected on 05/01/2024 Assigned GA 8 w + 3 d Assigned BK: 12/08/2024 Biometry Standard FHR 167 bpm CRL 19.3 mm 8w 3d 81% [place] Assessment Gestational sac: visualized Location: intrauterine Yolk sac: visualized Embryo: visualized CRL 19.3 mm 8w 3d 81% [place] Cardiac activity: present FHR 167 bpm General Evaluation Cardiac activity present. FHR 167 bpm Performed By: Lizzy Tomlinson CNM Read By: Lizzy Tomlinson CNM MATERNAL MEDICINE [facility] BACTERIAL CULTURE, URINEOrde red By: Marielena Alvarez on 05-03-2024 Bacteria identified Cx Nom (U) >=100,000 CFU/ml Klebsiella pneumoniae Abnormal [facility] Bacteria identified Cx Nom ( U)Ordered By: Marielena Alvarez on 05-03-2024 Interpretation and review of laboratory results Abnormal [facility] This test was developed and its performance characteristics determined by the [facility] [place] ([facility]). It has not been cleared or approved by the FDA. [facility] is regulated under CLIA as qualified to perform high-complexity testing. This test is used for clinical purposes. It should not be regarded as investigational or for research. [facility] BACTERIAL VAGINOSIS NAATon 0 05-01-2024 Interpretation and review of laboratory results Normal [facility] Lactobacillus crispatus+gasseri+mildred enii + Gardnerella vaginalis + Atopobium vaginae rRNA ZHENG+probe Ql (Vag fld) Not detected Not detected [facility] Lactobacillus crispatus+gasseri+mildred enii + Gardnerella vaginalis + Atopobium vaginae rRNA ZHENG+probe Ql (Vag fld) Not detected Normal Not detected [facility] Comment on above: Order Comment: Speci men Type: SWABOrdering Facility: [facility] Address: [address] [place] [address] Performed By: #### Dima VASQUEZ, 11191-7 ####[facility] LABCLIA [id number] [address] [id number] [id number] [place] Bacteria Ur Culton 5 Bacteria identified Cx Nom (U) ORGANISM ID: 1 >=100,000 CFU/ml Klebsiella pneumoniae ORGANISM ID: 1 (KLEBSIELLA PNEUMONIAE) ANTIBIOTIC INTERPRETATION ARI STATUS REFERENCE RANGE Ampicillin R >=32 F Susceptible <=8 , Intermediate >8 , Resistant >16 Cefazolin S <=4 F Susceptible 0-16 , Intermediate <0 or >16 , Resistant >16 For uncomplicated urinary tract infections, cefazolin results can be used to predict susceptibility or resistance to cephalexin. Ceftriaxone S <=1 F Susceptible <=1 , Intermediate >1 , Resistant >=4 Cefepime S <=1 F Susceptible <=2 , Susceptible-Dose Dependent >2 , Resistant >=16 Ertapenem S <=0.5 F Susceptible <=0.5 , Intermediate >.5 , Resistant >1 Meropenem S <=0.25 F Susceptible <=1 , Intermediate >1 , Resistant >2 Ampicillin/Sulbact S 4 F Susceptible <=8 , Intermediate >8 , Resistant >16 Piperacillin/Tazobac S <=4 F Susceptible <16 , Susceptible-Dose Dependent >=16 , Resistant >=32 Gentamicin S <=1 F Susceptible <=2 , Intermediate >2 , Resistant >=8 Tobramycin S <=1 F Susceptible <4 , Intermediate >=4 , Resistant >=8 Trimeth sulfameth S <=20 F Susceptible <=40 , Resistant >40 Ciprofloxacin S <=0.25 F Susceptible <0.5 , Intermediate >=.5 , Resistant >=1 Nitrofurantoin I 64 F Susceptible <=32 , Intermediate >32 , Resistant >64 Abnormal [facility] Comment on above: Performed By: #### 6 30-4 #### [facility] CLIA [id number] [address] [place] [address] [place] C. trachomatis+N. gonorrhoea e DNA ZHENG+probe Ql (Unsp spec)on 05-01-2024 C. trachomatis rRNA ZHENG+probe Ql (Unsp spec) Not detected Not detected [facility] Interpretation and review of laboratory results Normal [facility] N. gonorrhoeae rRNA ZHENG+probe Ql (Unsp spec) Not detected Not detected [facility] This FDA-approved assay has been modified to accept rectal swabs self-collected in a healthcare setting. For self-collected rectal swabs, the test was developed and its performance characteristics determined by the [facility] [place] ([facility]). It has not been cleared or approved by the FDA. -[facility] is regulated under CLIA as qualified to perform high-complexity testing. This test is used for clinical purposes. It should not be regarded as investigational or for research. [facility] C. trachomatis rRNA ZHENG+probe Ql (Unsp spec) Not detected Normal Not detected [facility] Comment on above: Order Comment: Speci men Type: SWABOrdering Facility: [facility] Address: [address] [place] [address] Performed By: #### B VAMP, 98493-3 ####[facility] LABCLIA [id number] [address] [place] N. gonorrhoeae rRNA ZHENG+probe Ql (Unsp spec) Not detected Normal Not detected [facility] Comment on above: Order Comment: Speci men Type: SWABOrdering Facility: [facility] Address: [address] [place], [place] [address] Performed By: #### B CHRISTINA, 30315-7 ####[facility] LAB[facility] [id number] [place] [address] [place] BELINDA/TRICHOMONAS NAATon 0 05-01-2024 C. glabrata RNA ZHENG+probe Ql (Vag fld) Not detected Not detected [facility] Belinda sp DNA ZHENG+probe Ql (Vag fld) Not detected Not detected [facility] Comment on above: The Belinda species group target includes C. albicans, C. tropicalis, C. parapsilosis, and C. dubliniensis. Interpretation and review of laboratory results Normal [facility] T. vaginalis DNA ZHENG+probe Ql (Unsp spec) Not detected Not detected [facility] C. glabrata RNA ZHENG+probe Ql (Vag fld) Not detected Normal Not detected [facility] Comment on above: Order Comment: Speci men Type: BLOOD SPECIMEN Ordering Facility: [facility] Address: [address] [place] [address] Performed By: #### T SPN #### [facility] CLIA [id number] [address] [place] [address] [place] Belinda sp DNA ZHENG+probe Ql (Vag fld) Not detected Normal Not detected [facility] Comment on above: Order Comment: Speci men Type: BLOOD SPECIMEN Ordering Facility: [facility] Address: [address] [place] [address] Result Comment: The Belinda species group target includes C. albicans, C. tropicalis, C. parapsilosis, and C. dubliniensis. Performed By: #### T SPN #### [facility] CLIA [id number] [address] [place] [address] [place] T. vaginalis DNA ZHENG+probe Ql (Unsp spec) Not detected Normal Not detected [facility] Comment on above: Order Comment: Speci men Type: BLOOD SPECIMEN Ordering Facility: [facility] Address: [address] [place] [address] Performed By: #### T SPN #### [facility] [id number] [address] [place] [address] [place] POC HAND [employer] ULTRASOUNDon 05-01-19 25 Radiology Study observation (narrative) [facility] BACTERIAL VAGINOSIS NAATon 0 10-14-2023 Interpretation and review of laboratory results Abnormal [facility] Lactobacillus crispatus+gasseri+mildred enii + Gardnerella vaginalis + Atopobium vaginae rRNA ZHENG+probe Ql (Vag fld) Positive Abnormal Negative for bacterial vaginosis [facility] C. trachomatis+N. gonorrhoea e DNA ZHENG+probe Ql (Unsp spec)on 10-14-2023 C. trachomatis rRNA ZHENG+probe Ql (Unsp spec) Negative Negative for Chlamydia trachomatis by amplificaton [facility] Interpretation and review of laboratory results Normal [facility] N. gonorrhoeae rRNA ZHENG+probe Ql (Unsp spec) Negative Negative for Neisseria gonorrhoeae by amplification [facility] BELINDA/TRICHOMONAS NAATon 0 10-14-2023 C. glabrata RNA ZHENG+probe Ql (Vag fld) Negative Negative for Belinda glabrata [facility] Belinda sp DNA ZHENG+probe Ql (Vag fld) Negative Negative for Belinda species [facility] Interpretation and review of laboratory results Normal [facility] T. vaginalis DNA ZHENG+probe Ql (Unsp spec) Negative Negative for Trichomonas vaginalis by amplification [facility] BACTERIAL VAGINOSIS AMPLIFIC ATIONon 09-06-2022 Lactobacillus crispatus+gasseri+mildred enii + Gardnerella vaginalis + Atopobium vaginae rRNA ZHENG+probe Ql (Vag fld) Positive Abnormal Negative for bacterial vaginosis [facility] C. trachomatis+N. gonorrhoea e DNA ZHENG+probe Ql (Unsp spec)on 09-06-2022 C. trachomatis rRNA ZHENG+probe Ql (Unsp spec) Negative Negative for Chlamydia trachomatis by amplificaton [facility] N. gonorrhoeae rRNA ZHENG+probe Ql (Unsp spec) Negative Negative for Neisseria gonorrhoeae by amplification [facility] BELINDA / TRICHOMONAS AMPLIF ICATIONon 09-06-2022 C. glabrata RNA ZHENG+probe Ql (Vag fld) Negative Negative for Belinda glabrata [facility] Belinda sp DNA ZHENG+probe Ql (Vag fld) Negative Negative for Belinda species [facility] T. vaginalis DNA ZHENG+probe Ql (Unsp spec) Positive Abnormal Negative for Trichomonas vaginalis by amplification [facility] Laboratory - Chemistry and C hemistry - challengeOrdered By: Dr. Barnes on 07-14-2022 HCG ( test) Ql (U) Negative [facility] Comment on above: Very dilute urine sp ecimens, as indicated by a low specificgravity, may not contain pharmaceutical sales representative levels of hCG. If is still suspected, a first morning urinespecimen should be collected 48 hours later and tested. No Panel InformationOrdered By: Dr. Fields on 07-05-2022 Nasal Screen MRSA/MSSA [facility] Absolute lymphocyte countOrd ered By: Dr. Fielsd on 07-04-2022 Lymphocytes Auto (Unsp spec) [#/Vol] 2.29 10*3/uL 0.83-4.51 [facility] Basophil percentageOrdered B y: Dr. Fields on 07-04-2022 Basophils/100 WBC (Bld) 0.7 % 0-1 [facility] Chloride [Moles/Vol] 107 mmol/L 98-107 [facility] Eosinophils/100 WBC (Bld) 3.2 % 0-5 [facility] Glucose [Mass/Vol] 90 mg/dL 74-106 [facility] Neutrophils (Bld) [#/Vol] 2.7 10*3/uL 2.0-7.7 [facility] Neutrophils/100 WBC (Bld) 44.7 % 47-70 [facility] Potassium [Moles/Vol] 3.9 mmol/L 3.5-5.1 [facility] Sodium [Moles/Vol] 137 mmol/L 136-145 [facility] WBC (Bld) [#/Vol] 6.0 10*3/uL 4.4-11.0 [facility] Blood erythrocytes count (nu mber/volume)Ordered By: Dr. Fields on 07-04-2022 RBC (Bld) [#/Vol] 4.96 10*6/uL 4.2-5.4 [facility] Blood hemoglobin measurement (mass/volume)Ordered By: Dr. Fields on 07-04-2022 Hemoglobin (Bld) [Mass/Vol] 12.8 g/dL 12.0-15.0 [facility] Blood lymphocytes/100 leukoc ytesOrdered By: Dr. Fields on 07-04-2022 Lymphocytes/100 WBC (Bld) 38.0 % 19-41 [facility] Blood monocytes/100 leukocyt esOrdered By: Dr. Fields on 07-04-2022 Monocytes/100 WBC (Bld) 13.1 % 0-10 [facility] Blood platelet mean volumeOr dered By: Dr. Fields on 07-04-2022 Platelet mean volume (Bld) [Entitic vol] 9.4 fL 6.2-12.0 [facility] Determination of erythrocyte mean corpuscular volume (MCV)Ordered By: Dr. Fields on 07-04-2022 MCV (RBC) [Entitic vol] 80.2 fL 81-99 [facility] Hematocrit Auto (Bld) [Volum e fraction]Ordered By: Dr. Fields on 07-04-2022 Hematocrit (Bld) [Volume fraction] 39.8 % 37-47 [facility] Laboratory - Chemistry and C hemistry - challengeOrdered By: Dr. Fields on 07-04-2022 CO2 [Moles/Vol] 25.0 mmol/L 21.0-32.0 [facility] Urea nitrogen/Creatinine [Mass ratio] 18.9 mg/mg 10-20 [facility] Laboratory - Hematology and Cell countsOrdered By: Dr. Fields on 07-04-2022 Erythrocyte distribution width (RBC) [Entitic vol] 38.2 fL 35.1-43.9 [facility] Erythrocyte distribution width (RBC) [Ratio] 13.2 % 11.6-14.6 [facility] Immature granulocytes/100 WBC (Bld) 0.300 % 0.0-0.9 [facility] Comment on above: IG% - Immature Granu locytes (promyelocytes, myelocytes and metamyelocytes) > 1% indicates that a LEFT SHIFT is Present. MCH (RBC) [Entitic mass] 25.8 pg 27.0-32.0 [facility] Nucleated RBC/100 WBC (Bld) [Ratio] 0 % 0-5 [facility] [Mass/Vol]Or dered By: Dr. Fields on 07-04-2022 MCHC (RBC) [Mass/Vol] 32.2 g/dL 32-36 [facility] No Panel InformationOrdered By: Dr. Fields on 07-04-2022 Estimated GFR (MDRD) Amer 148 mL/min >60 [facility] Comment on above: GFR Calc Estimated GFR (MDRD) Non-Af Amer 123 mL/min >60 [facility] Comment on above: Non- GFR Calc Platelets bldOrdered By: Dr. Fields on 07-04-2022 Platelets (Bld) [#/Vol] 251 10*3/uL 150-450 [facility] Serum or plasma calcium yanet urement (mass/volume)Ordered By: Dr. Fields on 07-04-2022 Calcium [Mass/Vol] 8.8 mg/dL 8.5-10.1 [facility] Serum or plasma creatinine m easurement (mass/volume)Ordered By: Dr. Fields on 07-04-2022 Creatinine [Mass/Vol] 0.64 mg/dL 0.55-1.02 [facility] Comment on above: The validity of the calculated GFR & GFRAA in patients over 70 years has not been determined. Clinical correlation is essential. Serum or plasma urea nitroge n measurement (mass/volume)Ordered By: Dr. Fields on 07-04-2022 Urea nitrogen [Mass/Vol] 12 mg/dL 7-18 [facility] Thin prep Papanicolaou smear with manual screeningOrdered By: Dr. Fields on 07-04-2022 Thin prep Papanicolaou smear with manual screening 5 - [facility] CNPNon 03-17-2021 JEWELL Telephone (PREANME) EVELYN LUCAS ([id number]) 2000 F Date Time Provider Department 03/17/21 [facility] PROVIDER JONATAN During your visit today, we recorded the following information about you: Allergies As of Date: 03/17/2021 (No Known Allergies) Date Reviewed: 02/25/2021 Reviewed by: Mike Marion MD - Fully Assessed Reason for Visit: Preparations For Surgery [898] Prescriptions as of 03/17/2021 - lactic yscm-lyqcnr-rrxcwixv m (PHEXXI) 1.8-1-0.4 % gel Insert 1 prefilled applicator vaginally immediately before or up to 1 hour before each act of vaginal intercourse - etonogestrel (NEXPLANON) 68 mg impl subdermal implant 68 mg by SUBDERMAL route. 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] 12/09/2020 Encounter Status:Closed by LIA OVALLES on 03/17/21 Normal [facility] B-HCG SerPl-aCncon 1 HCG.beta subunit Qn m[IU]/mL Normal <5.0 [facility] Comment on above: Order Comment: Speci men Type: BLOOD SPECIMEN Result Comment: Nega tive Performed By: #### 2 1198-7, 76707-8, 3040-3 #### [facility] CLIA [id number] [address] [place] [address] [place] CBC W Auto Differential pane l (Bld)on 02-23-2021 Basophils (Bld) [#/Vol] 10*3/uL Normal <0.11 [facility] Comment on above: Order Comment: Speci men Type: BLOOD SPECIMEN Performed By: #### 5 7021-8 #### [facility] CLIA [id number] [address] [place] [address] [place] Basophils/100 WBC (Bld) 0.2 % Normal [facility] Comment on above: Order Comment: Speci men Type: BLOOD SPECIMEN Performed By: #### 5 7021-8 #### [facility] CLIA [id number] [address] [place] [address] [place] Differential cell count method Nom (Bld) Auto Normal [facility] Comment on above: Order Comment: Speci men Type: BLOOD SPECIMEN Performed By: #### 5 7021-8 #### [facility] CLIA [id number] [address] [place] [address] [place] Eosinophils (Bld) [#/Vol] 0.05 10*3/uL Normal <0.46 [facility] Comment on above: Order Comment: Speci men Type: BLOOD SPECIMEN Performed By: #### 5 7021-8 #### [facility] CLIA [id number] [address] [place] [address] [place] Eosinophils/100 WBC (Bld) 0.5 % Normal [facility] Comment on above: Order Comment: Speci men Type: BLOOD SPECIMEN Performed By: #### 5 7021-8 #### [facility] CLIA [id number] [address] [place] [address] [place] Erythrocyte distribution width (RBC) [Ratio] 12.3 % Normal 11.5-15.0 [facility] Comment on above: Order Comment: Speci men Type: BLOOD SPECIMEN Performed By: #### 5 7021-8 #### [facility] CLIA [id number] [address] [place] [address] [place] Hematocrit (Bld) [Volume fraction] 36.0 % Normal 36.0-46.0 [facility] Comment on above: Order Comment: Speci men Type: BLOOD SPECIMEN Performed By: #### 5 7021-8 #### [facility] CLIA [id number] [address] [place] [address] [place] Hemoglobin (Bld) [Mass/Vol] 11.7 g/dL Normal 11.5-15.5 [facility] Comment on above: Order Comment: Speci men Type: BLOOD SPECIMEN Performed By: #### 5 7021-8 #### [facility] CLIA [id number] [address] [place], [place] [address] [place] [address] Lymphocytes (Bld) [#/Vol] 1.25 10*3/uL Normal 1.00-4.00 [facility] Comment on above: Order Comment: Speci men Type: BLOOD SPECIMEN Performed By: #### 5 7021-8 #### [facility] CLIA [id number] [address] [place] [address] [facility] Lymphocytes/100 WBC (Bld) 12.4 % Normal [facility] Comment on above: Order Comment: Speci men Type: BLOOD SPECIMEN Performed By: #### 5 7021-8 #### [facility] CLIA [id number] [address] [place] [address] [place] MCH (RBC) [Entitic mass] 26.4 pg Normal 26.0-34.0 [facility] Comment on above: Order Comment: Speci men Type: BLOOD SPECIMEN Performed By: #### 5 7021-8 #### [facility] CLIA [id number] [address] [place] [address] [place] MCHC (RBC) [Mass/Vol] 32.5 g/dL Normal 30.5-36.0 [facility] Comment on above: Order Comment: Speci men Type: BLOOD SPECIMEN Performed By: #### 5 7021-8 #### [facility] CLIA [id number] [address] [facility] [place] [address] [place] MCV (RBC) [Entitic vol] 81.3 fL Normal 80.0-100.0 [facility] Comment on above: Order Comment: Speci men Type: BLOOD SPECIMEN Performed By: #### 5 7021-8 #### [facility] CLIA [id number] [address] [facility] [place] [address] [place] Monocytes (Bld) [#/Vol] 0.97 10*3/uL High <0.87 [facility] Comment on above: Order Comment: Speci men Type: BLOOD SPECIMEN Performed By: #### 5 7021-8 #### [facility] CLIA [id number] [address] [place] [address] [facility] [place] Monocytes/100 WBC (Bld) 9.6 % Normal [facility] Comment on above: Order Comment: Speci men Type: BLOOD SPECIMEN Performed By: #### 5 7021-8 #### [facility] CLIA [id number] [address] [facility] [place] [address] [place] Neutrophils (Bld) [#/Vol] 7.82 10*3/uL High 1.45-7.50 [facility] Comment on above: Order Comment: Speci men Type: BLOOD SPECIMEN Performed By: #### 5 7021-8 #### [facility] CLIA [id number] [address] [facility] [place] [address] [place] Neutrophils/100 WBC (Bld) 77.3 % Normal [facility] Comment on above: Order Comment: Speci men Type: BLOOD SPECIMEN Performed By: #### 5 7021-8 #### [facility] CLIA [id number] [address] [facility] [place] [address] [place] Platelet mean volume (Bld) [Entitic vol] 10.4 fL Normal 9.0-12.7 [facility] Comment on above: Order Comment: Speci men Type: BLOOD SPECIMEN Performed By: #### 5 7021-8 #### [facility] CLIA [id number] [address] [facility] [place] [address] [facility] Platelets (Bld) [#/Vol] 240 10*3/uL Normal 150-400 [facility] Comment on above: Order Comment: Speci men Type: BLOOD SPECIMEN Performed By: #### 5 7021-8 #### [facility] CLIA [id number] [address] [facility] [place] [address] [facility] RBC (Bld) [#/Vol] 4.43 10*6/uL Normal 3.90-5.20 [facility] Comment on above: Order Comment: Speci men Type: BLOOD SPECIMEN Performed By: #### 5 7021-8 #### [facility] CLIA [id number] [address] [facility] [address] [facility] WBC (Bld) [#/Vol] 10.11 10*3/uL Normal 3.70-11.00 [facility] Comment on above: Order Comment: Speci men Type: BLOOD SPECIMEN Performed By: #### 5 7021-8 #### [facility] CLIA [id number] [address] [facility] [place] [address] [facility] Comprehensive metabolic 2000 panelon 02-23-2021 Albumin [Mass/Vol] 4.5 g/dL Normal 3.9-4.9 [facility] Comment on above: Order Comment: Speci men Type: BLOOD SPECIMEN Performed By: #### 2 1198-7, 92422-2, 3040-3 #### [facility] CLIA [id number] [address] [facility] [place] [address] [facility] ALP [Catalytic activity/Vol] 68 U/L Normal 34-123 [facility] Comment on above: Order Comment: Speci men Type: BLOOD SPECIMEN Performed By: #### 2 1198-7, 03466-6, 3040-3 #### [facility] CLIA [id number] [address] [place] [address] [facility] ALT With P-5'-P [Catalytic activity/Vol] 13 U/L Normal 7-38 [facility] Comment on above: Order Comment: Speci men Type: BLOOD SPECIMEN Performed By: #### 2 1198-7, 96399-6, 0-3 #### [facility] CLIA [id number] [address] [place] [address] [place] Anion gap [Moles/Vol] 16 mmol/L Normal 9-18 [facility] Comment on above: Order Comment: Speci men Type: BLOOD SPECIMEN Performed By: #### 2 1198-7, 77359-7, 0-3 #### [facility] CLIA [id number] [address] [facility] [place] [address] [facility] AST With P-5'-P [Catalytic activity/Vol] 10 U/L Low 13-35 [facility] Comment on above: Order Comment: Speci men Type: BLOOD SPECIMEN Performed By: #### 2 1198-7, 46718-9, 0-3 #### [facility] CLIA [id number] [address] [facility] [place] [address] [place] Bilirubin [Mass/Vol] 0.9 mg/dL Normal 0.2-1.3 [facility] Comment on above: Order Comment: Speci men Type: BLOOD SPECIMEN Performed By: #### 2 1198-7, 15933-6, 0-3 #### [facility] CLIA [id number] [address] [facility] [address] [place] Calcium [Mass/Vol] 9.4 mg/dL Normal 8.5-10.2 [facility] Comment on above: Order Comment: Speci men Type: BLOOD SPECIMEN Performed By: #### 2 1198-7, 55567-4, 0-3 #### [facility] CLIA [id number] [address] [facility] [place] [address] [place] Chloride [Moles/Vol] 102 mmol/L Normal 97-105 [facility] Comment on above: Order Comment: Speci men Type: BLOOD SPECIMEN Performed By: #### 2 1198-7, 43603-0, 3040-3 #### [facility] CLIA [id number] [address] [place] [address] [facility] CO2 [Moles/Vol] 23 mmol/L Normal 22-30 [facility] Comment on above: Order Comment: Speci men Type: BLOOD SPECIMEN Performed By: #### 2 1198-7, 39599-6, 0-3 #### [facility] CLIA [id number] [address] [place] [address] [place] Creatinine [Mass/Vol] 0.44 mg/dL Low 0.58-0.96 [facility] Comment on above: Order Comment: Speci men Type: BLOOD SPECIMEN Performed By: #### 2 1198-7, 21314-8, 0-3 #### [facility] CLIA [id number] [address] [place] [address] [place] GFR/1.73 sq M.predicted among blacks MDRD (S/P/Bld) [Vol rate/Area] mL/min/{1.73_m2} Normal [facility] Comment on above: Order Comment: Speci men Type: BLOOD SPECIMEN Performed By: #### 2 1198-7, 79541-3, 0-3 #### [facility] CLIA [id number] [address] [place] [address] [facility] GFR/1.73 sq M.predicted among non-blacks MDRD (S/P/Bld) [Vol rate/Area] mL/min/{1.73_m2} Normal [facility] Comment on above: Order Comment: Speci men Type: BLOOD SPECIMEN Result Comment: eGFR (Estimated GFR) Units of measure: mL/min/1.73 meters squared eGFR is derived from the reexpressed MDRD Study equation using the following parameters: serum creatinine, age, gender and race. The creatinine assay has been calibrated to be traceable to IDMS. An eGFR <60 mL/min/1.73m2 for >3 months is consistent with chronic kidney disease. Refer to KDOQI guidelines for clinical interpretation. In patients with unstable renal function, e.g. those with acute kidney injury, the eGFR may not accurately reflect actual GFR. Performed By: #### 2 1198-7, 12150-7, 0-3 #### [facility] CLIA [id number] [address] [place] [address] [place] Glucose [Mass/Vol] 74 mg/dL Normal 74-99 [facility] Comment on above: Order Comment: Speci men Type: BLOOD SPECIMEN Result Comment: The [place] Diabetes Association (ADA) provides guidance for cutoff values for fasting glucose and random glucose. The ADA defines fasting as no caloric intake for at least 8 hours. Fasting plasma glucose results between 100 to 125 mg/dL indicate increased risk for diabetes (prediabetes). Fasting plasma glucose results greater than or equal to 126 mg/dL meet the criteria for diagnosis of diabetes. In the absence of unequivocal hyperglycemia, results should be confirmed by repeat testing. In a patient with classic symptoms of hyperglycemia or hyperglycemic crisis, random plasma glucose results greater than or equal to 200 mg/dL meet the criteria for diagnosis of diabetes. Reference: Standards of Medical Care in Diabetes 2016, [place] [employer]. Diabetes Care. 2016.39(Suppl 1). Performed By: #### 2 1198-7, 24282-6, 3039-3 #### [facility] CLIA [id number] [address] [place] [address] [place] Potassium [Moles/Vol] 3.4 mmol/L Low 3.7-5.1 [facility] Comment on above: Order Comment: Speci men Type: BLOOD SPECIMEN Performed By: #### 2 1198-7, 45397-9, 0-3 #### [facility] CLIA [id number] [address] [place] [address] [place] Protein [Mass/Vol] 7.8 g/dL Normal 6.3-8.0 [facility] Comment on above: Order Comment: Speci men Type: BLOOD SPECIMEN Performed By: #### 2 1198-7, 93548-8, 0-3 #### [facility] CLIA [id number] [address] [facility] [place] [address] [place] Sodium [Moles/Vol] 141 mmol/L Normal 136-144 [facility] Comment on above: Order Comment: Speci men Type: BLOOD SPECIMEN Performed By: #### 2 1198-7, 05586-5, 3040-3 #### [facility] CLIA [id number] [address] [place] [address] [place] Urea nitrogen [Mass/Vol] 15 mg/dL Normal 7-21 [facility] Comment on above: Order Comment: Speci men Type: BLOOD SPECIMEN Performed By: #### 2 1198-7, 16113-5, 0-3 #### [facility] CLIA [id number] [address] [place] [address] [facility] [place] Lactate (Bld) [Moles/Vol]on 02-23-2021 Lactate [Moles/Vol] 0.7 mmol/L Normal 0.5-2.2 [facility] Comment on above: Order Comment: Speci men Type: BLOOD SPECIMEN Performed By: #### 3 2693-4 #### [facility] CLIA [id number] [address] [place] [address] [place] Lipase SerPl-cCncon 02-24-20 21 Lipase [Catalytic activity/Vol] 10 U/L Low 16-61 [facility] Comment on above: Order Comment: Speci men Type: BLOOD SPECIMEN Performed By: #### 2 1198-7, 33737-1, 3040-3 #### [facility] CLIA [id number] [address] [facility] [place] [address] [place] PT panel Coag (PPP)on 2020 INR Coag (PPP) [Relative time] 1.1 {INR} Normal 0.9-1.3 [facility] Comment on above: Order Comment: Speci men Type: BLOOD SPECIMEN Result Comment: Mary min K Antagonist (VKA) Therapeutic Range: INR 2 to 3 (Target INR of 2.5) Note: For patients treated with VKA drugs, such as warfarin, the [place] 2012 Guideline recommends a therapeutic INR range of 2 to 3 (target INR of 2.5). This recommendation includes high-risk patients with antiphospholipid syndrome with previous arterial or venous thromboembolism, current-generation mechanical or bioprosthetic aortic heart valve replacement. Note: Patients with mechanical aortic valve replacement and additional risk factors for thromboembolic events (atrial fibrillation, previous thromboembolism, LV dysfunction, hypercoagulable conditions) or an older generation mechanical AVR (i.e., ball in-Cage) or any mechanical MVR should have a INR therapeutic range of 2.5 to 3.5 (target INR of 3). Linh GH, et al. Chest 2012, 141:7S-47S Ashley RA, et al. [facility] 2017, 70: 252-289 Performed By: #### 3 4528-0 #### [facility] CLIA [id number] [address] [place] [address] [place] PT Coag (PPP) [Time] 10.9 s Normal 9.7-13.0 [facility] Comment on above: Order Comment: Speci men Type: BLOOD SPECIMEN Performed By: #### 3 4528-0 #### [facility] CLIA [id number] [address] [place] [address] [place] US ABD RIGHT UPPER QUADRANTo n 02-23-2021 US ABD RIGHT UPPER QUADRANT * * *Final Report* * * DATE OF EXAM: Feb 23 2021 2:37PM LDU 1032 - US ABD RIGHT UPPER QUADRANT / PROCEDURE REASON: Cholangitis * * * * Physician Interpretation * * * * EXAMINATION: RIGHT UPPER QUADRANT ULTRASOUND, 02/23/2021 CLINICAL HISTORY: Right upper quadrant abdominal pain. TECHNIQUE: Sonography of the right upper quadrant was performed. Images were obtained and stored in a permanent archive. MQ: URUQ_2 COMPARISON: No prior relevant studies currently available. RESULT: Pancreas: Normal sonographic appearance. Portions obscured: tail Liver: Normal size Echotexture: Normal, homogeneous. Echogenicity: Normal Surface contour: Smooth Lesions: None. Biliary: No intrahepatic biliary duct dilation. CBD: 0.2 cm at the hilum. Gallbladder: Minimal sludge in the gallbladder. Otherwise normal gallbladder appearance. No gallstones, wall thickening, or pericholecystic fluid. Right Kidney: Normal size, 10.7 cm length. No hydronephrosis.. Evaluation of the right kidney lower pole limited by bowel gas. Ascites: None. IMPRESSION: 1. Minimal sludge in the gallbladder. Otherwise normal gallbladder appearance. No gallstones or dilated bile ducts. 2. No acute changes seen in the right upper quadrant abdomen. Polisher Apprentice: PSCB Transcribe Date/Time: Feb 23 2021 2:46P Dictated by : BERKLEY OLIVERA MD This examination was interpreted and the report reviewed and electronically signed by: BERKLEY OLIVERA MD on Feb 23 2021 2:48PM EST [id number] Normal [facility] Urinalysis complete panel (U )on 02-23-2021 Bilirubin Ql (U) 2+ Abnormal Negative [facility] Comment on above: Order Comment: Speci men Type: URINE SPECIMEN Result Comment: Sugg est correlation with clinical findings and serum bilirubin if clinically indicated. Performed By: #### 2 4356-8 #### [facility] CLIA [id number] [address] [place] [address] [place] Clarity (Unsp spec) Cloudy Abnormal Clear [facility] Comment on above: Order Comment: Speci men Type: URINE SPECIMEN Performed By: #### 2 4356-8 #### [facility] CLIA [id number] [address] [place] [address] [place] Color (U) Yellow Normal Yellow [facility] Comment on above: Order Comment: Speci men Type: URINE SPECIMEN Performed By: #### 2 4356-8 #### [facility] CLIA [id number] [address] [place] [address] [place] Glucose Test strip (U) [Mass/Vol] Negative Normal Negative [facility] Comment on above: Order Comment: Speci men Type: URINE SPECIMEN Performed By: #### 2 4356-8 #### [facility] CLIA [id number] [address] [place] [address] [place] Hemoglobin Ql (U) 1+ Abnormal Negative [facility] Comment on above: Order Comment: Speci men Type: URINE SPECIMEN Performed By: #### 2 4356-8 #### [facility] CLIA [id number] [address] [facility] [place] [address] [facility] Ketones Ql (U) 4+ Abnormal Negative [facility] Comment on above: Order Comment: Speci men Type: URINE SPECIMEN Performed By: #### 2 4356-8 #### [facility] CLIA [id number] [address] [place] [address] [facility] Leukocyte esterase Test strip Ql (U) Negative Normal Negative [facility] Comment on above: Order Comment: Speci men Type: URINE SPECIMEN Performed By: #### 2 4356-8 #### [facility] CLIA [id number] [address] [place] [address] [facility] Nitrite Ql (U) Negative Normal Negative [facility] Comment on above: Order Comment: Speci men Type: URINE SPECIMEN Performed By: #### 2 4356-8 #### [facility] CLIA [id number] [address] [place] [address] [place] pH (U) 6.5 [pH] Normal 5.0-8.0 [facility] Comment on above: Order Comment: Speci men Type: URINE SPECIMEN Performed By: #### 2 4356-8 #### [facility] CLIA [id number] [address] [place] [address] [place] Protein (U) [Mass/Vol] Normal [facility] Comment on above: Order Comment: Speci men Type: URINE SPECIMEN Result Comment: Visi ble blood causes falsely elevated results for analyte Protein. Due to this limitation, Protein will not be reported for patients whose urine contains visible blood. Performed By: #### 2 4356-8 #### [facility] CLIA [id number] [address] [place] [address] [place] RBC LM.HPF (Urine sed) [#/Area] 3-5 /HPF Abnormal 0-3 /HPF [facility] Comment on above: Order Comment: Speci men Type: URINE SPECIMEN Performed By: #### 2 4356-8 #### [facility] CLIA [id number] [address] [place] [address] [facility] Specific gravity (U) [Rel density] 1.025 Normal 1.005-1.030 [facility] Comment on above: Order Comment: Speci men Type: URINE SPECIMEN Performed By: #### 2 4356-8 #### [facility] CLIA [id number] [address] [place] [address] [facility] Urobilinogen Ql (U) 1.0 EU/dL Normal 0.2-1.0 EU/dL [facility] Comment on above: Order Comment: Speci men Type: URINE SPECIMEN Performed By: #### 2 4356-8 #### [facility] CLIA [id number] [address] [place] [address] [facility] WBC LM.HPF (Urine sed) [#/Area] 6-10 /HPF Abnormal 0-5 /HPF [facility] Comment on above: Order Comment: Speci men Type: URINE SPECIMEN Performed By: #### 2 4356-8 #### [facility] CLIA [id number] [address] [place] [address] [facility] ANES Flaca 07-17-2018 ANES POST HNO ID: [id number] Author: Gamaliel Cruz Service: Anesthesiology Author Type: Physician Type: Anesthesia PostOp Filed: 07/17/2018 6:33 PM Note Text: POST ANESTHESIA EVALUATION NOTE SERVICE DATE: 07/17/2018 SERVICE TIME: 18:32 : 1998 Vitals: 07/17/18 1317 07/17/18 182 Temp: 37.1 ?C (98.8 ?F) 37.3 ?C (99.1 ?F) 07/17/18 1317 07/17/18 18207/17/18 1830 BP: 136/85 112/76 115/83 07/17/18 1317 04/30/182307/17/18 1830 Pulse: 90 98 84 07/17/18 1317 07/17/18 1824 07/17/18 1830 Resp: 16 18 16 07/17/18 1317 07/17/18 18207/17/18 1830 SpO2: 100% 100% 100% Validated Vital Signs: Yes POST ANES STATUS: No apparent anesthetic complications. The patient is appropriately hydrated with stable respiratory and cardiovascular status. Patient has safe and adequate airway control. The patient has appropriate pain relief and no significant post operative nausea or vomiting. The patient has achieved baseline mental status. Intra-Operative Events: No Significant Anesthesia Events Further assessment by Anesthesia Service: None Other Remarks: SIGNATURE: Gamaliel Cruz MD PATIENT NAME: Evelyn Lucas DATE: July 17, 2018 TIME: 6:32 PM PAGER/CONTACT #: [facility] ANES PREOPon 07-17-2018 ANES PREOP HNO ID: [id number] Author: Gamaliel Cruz Service: Anesthesiology Author Type: Physician Type: Anesthesia PreOp Filed: 07/17/2018 1:10 PM Note Text: ANESTHESIOLOGY DAY OF SURGERY NOTE SERVICE DATE: 07/17/2018 SERVICE TIME: 13:07 : 1998 Procedure(s) (LRB): BUNIONECTOMY W/1ST MTJ AND MCJ ARTHRODESIS,ANY METHOD (Left) OSTEOTOMY METATARSAL OTHER THAN FIRST METATARSAL EACH (Left) TENOTOMY TOE, PERCUTANEOUS, MULTIPLE TENDONS (Left) Surgeon(s): Marcos Velez Estimated body mass index is 24.88 kg/m? as calculated from the following: Height as of 07/09/18: 145.4 cm (4' 9.25). Weight as of 07/09/18: 52.6 kg (116 lb). Most recent hematocrit and potassium results: Hematocrit 38.4 12/01/2009 Potassium 3.6 12/01/2009 ANES DOS/PREOP NOTE: Vitals: There were no vitals filed for this visit. ACTIVE PROBLEM LIST Add (Attention Deficit Disorder) Vaccine Refused By Parent Hallux Valgus of Left Foot PAST MEDICAL HISTORY Diagnosis Date - ADHD (attention deficit hyperactivity disorder) - allergic rhinitis PAST SURGICAL HISTORY Procedure Laterality Date - NONE FAMILY HISTORY Problem Relation Age of Onset - No Known Problems Mother - No Known Problems Father - Hypertension Maternal Grandmother - No Known Problems Sister - None Brother Social History: Social History Tobacco Use - Smoking status: Passive Smoke Exposure - Never Smoker - Smokeless tobacco: Never Used - Tobacco comment: Parents, outside Substance Use Topics - Alcohol use: No - Drug use: No No current facility-administere d medications on file prior to encounter. Current Outpatient Medications on File Prior to Encounter: cholecalciferol (VITAMIN D-3) 5,000 unit tab Take 1 tablet by mouth once daily. cholecalciferol, Vitamin D3, (VITAMIN D3) 50,000 unit cap capsule Take 1 capsule by mouth once each week. Cetirizine HCl (ZYRTEC) 5 mg ORAL Chew take one to two tablets daily as needed for itching, sneezing, or runny nose. Current Facility-Administere d Medications: promethazine 12.5 mg tab(s) (PHENERGAN) 12.5 mg ORAL Pre-Op Once Gamaliel Snavely scopolamine 1 mg over 3 days 1 Patch (TRANSDERM-SCOP) 1 Patch TRANSDERMAL ONCE Gamaliel Snavely And scopolamine - VERIFY patch OTHER q 8 H Gamaliel Snavely And [START ON 07/18/2018] scopolamine - REMOVE PATCH OTHER ONCE Gamaliel Snavely Allergies: ALLERGIES Allergen Reactions - Environmental Aller* Cats, molds, trees, grasses, weeds, ragweed DOS EXAM: Adequate NPO Status: Yes Anesthetic Risks, Benefits, Alternatives, Personnel and Consent Discussed: Yes Patient agrees to proceed: Yes Previous Anesthesia: Patient has never had anesthesia Airway Assessment: MP 1; Neck ROM: Full ROM without neurologic symptoms; Airway Evaluation: No significant abnormalities Symptoms of Sleep Apnea: None Dentition: Teeth intact Additional Physical Exam: Lungs: Patient health status unchanged since recent history and physical. See history and physical for exam findings. Cardiac: Patient health status unchanged since recent history and physical. See history and physical for exam findings. Additional Pertinent Findings: N/A Blood Products: Not anticipated for this procedure Anesthetic Plan: Regional with general as back up Anesthetic Monitoring: Standard ASA Monitors Pain Management Plan: Parenteral or Oral and Peripheral Nerve Block ASA Class: 1 Other Medical Problems: None Chronic Beta Ana medication administered within 24 hours: N/A I have interviewed and examined the patient. I have reviewed the medical record and/or the pre-anesthesia evaluation, pertinent labs, and test results. Significant changes in the patient's condition since the History and Physical, not otherwise documented in primary service progress notes: No This contains updated information obtained within 48 hours of Surgery/Procedure. SIGNATURE: Gamaliel Cruz MD PATIENT NAME: Evelyn Lucas DATE: July 17, 2018 TIME: 1:10 PM CSN: [id number] [facility] BRIEF OP NOTon 07-17-2018 BRIEF OP NOT HNO ID: [id number] Author: Marcos Cowart Service: Podiatry Author Type: Physician Type: Brief Op Note Filed: 07/17/2018 6:45 PM Note Text: BRIEF OP NOTE LOG ID: [id number] Surgery/Procedure Date: 07/17/2018 Incision/Procedure Start Time: 3:50 PM Incision Close/Procedure End Time: 6:12 PM Surgeon(s)/Procedura list(s) and Sr. Merchandise Planner(s): Surgeon(s) and Role: * Marcos Cowart - Primary * Alberto Velez - Assisting Procedure(s): lapidus bunionectomy right foot. Flexor tenotomy right 3rd, 4th and 5th toe Anesthesia: General Findings: consistent with pre-op diagnosis Estimated Blood Loss: less than 3 cc mls Specimens: None Complications: None Pre-Op/Pre-Procedure Diagnosis: hallux valgus. hammertoe Post-Op/Post-Procedu re Diagnosis: Hallux valgus [M20.10]Hammer toe of left foot [M20.42] SIGNATURE: Marcos Cowart DPM PATIENT NAME: Evelyn Lucas DATE: July 17, 2018 TIME: 6:44 PM PAGER/CONTACT #: [facility] HISTORY PHYSICALon 9 HISTORY PHYSICAL HNO ID: [id number] Author: Marcos Cowart Service: Podiatry Author Type: Physician Type: HANDP Filed: 07/17/2018 6:43 PM Note Text: HISTORY AND PHYSICAL EXAMINATION SERVICE DATE: 07/17/2018 SERVICE TIME: 11:01 PRIMARY CARE PHYSICIAN: Gamaliel Camp MD Subjective CHIEF COMPLAINT: Painful bunion of left foot HPI: This is a 17 year old female who presents with painful bunion of left foot. Patient complains of pain when wearing shoes. She has tried wider shoes and padding. Despite conservative care, she continues to complain of pain. She is now interested in surgical correction of painful bunion of left foot. FUNCTIONAL STATUS: Independent PAST MEDICAL HISTORY Diagnosis Date - ADHD (attention deficit hyperactivity disorder) - allergic rhinitis PAST SURGICAL HISTORY Procedure Laterality Date - NONE FAMILY HISTORY Problem Relation Age of Onset - No Known Problems Mother - No Known Problems Father - Hypertension Maternal Grandmother - No Known Problems Sister - None Brother Social History Tobacco Use - Smoking status: Passive Smoke Exposure - Never Smoker - Smokeless tobacco: Never Used - Tobacco comment: Parents, outside Substance Use Topics - Alcohol use: No - Drug use: No No medications prior to admission. ALLERGIES Allergen Reactions - Environmental Aller* Cats, molds, trees, grasses, weeds, ragweed COMPLETE REVIEW OF SYSTEMS: GENERAL: No weight loss, malaise or fevers MUSCULOSKELETAL: joint pain or swelling PSYCH: Negative for mood disorder NEURO: No history of headaches, syncope, paralysis, seizures or tremors Objective PHYSICAL EXAM: Physical Exam Performed: GENERAL: Alert, no distress, cooperative There were no vitals taken for this visit. Vascular: DP and PT pulses are palpable to b/l lower extremity. CFT is less than 5 seconds. Skin temperature is warm to warm Neuro: protective sensation is intact to left foot. M/s: there is painful bunion of left foot, moderate in severity. There is hypermobility of 1st metatarsal cun joint. There are flexible hammertoes of left 3rd, 4th and 5th toes. DATA: Diagnostic tests reviewed for today's visit: Most recent labs and imaging results. Assessment/Plan Hallux valgus left foot: patient educated on bunions and both conservative and surgical treatment options for bunion. Patient has tried conservative care for bunion. She continues to have pain. She is now interested in surgery. Given her age, moderate severity of bunion both clinically and radiographically, presence of hypermobility of 1st ray we are planning for lapidus bunionectomy. Discussed risks of procedure not limited to infection, pain, swelling, bleeding, nonunion, malunion, delayed union, recurrent bunion, loss of toe, cardiac arrest, dvt, . Patient understands that following procedure, she will require nwb until bunion correction has healed. Any walking to her foot can risk complications. In addition to bunion correction, patient understands she may require cuate osteotomy of 2nd metatarsal. Will make this decision clinically in the operating room. Patient also complains of hammertoe of left 3rd, 4th and 5th toes. The deformity is flexible. Will plan for flexor tenotomy of left 3rd, 4th and 5th toes. Medication and Non-Pharmacologic VTE Prophylaxis/Anticoag ulants SIGNATURE: Marcos Cowart DPM PATIENT NAME: Evelyn Lucas DATE: July 17, 2018 TIME: 11:01 AM PAGER/CONTACT #: [phone] [facility] OPERATIVE NOon 07-17-2018 OPERATIVE NO HNO ID: [id number] Author: Marcos Cowart Service: Podiatry Author Type: Physician Type: Operative Report Filed: 07/18/2018 10:05 PM Note Text: OPERATIVE/PROCEDURE REPORT LOG ID: [id number] SURGERY/PROCEDURE DATE: 07/17/2018 INCISION/PROCEDURE START TIME: 3:50 PM INCISION CLOSE/PROCEDURE END TIME: 6:12 PM SURGEON(S)/PROCEDURA LIST(S) AND RECREATIONAL RESORT MANAGER(S): Surgeon(s) and Role: * Marcos Cowart - Primary * Alberto Velez - Assisting No Additional Staff SURGERY/PROCEDURE(S) : Lapidus bunionectomy left foot Flexor tenotomy left 3rd toe Flexor tenotomy left 4th toe Flexor tenotomy, left 5th toe ANESTHESIA: General INDICATIONS FOR PROCEDURE: Patient is a 17 year old female who complains of painful bunion to left foot. She complains pain along the medial aspect of left 1st metatarsal head, worse when wearing shoes. She has tried wider shoes and padding but despite conservative care, she continues to have pain. Patient is interested in surgical options. I discussed surgery for her left foot. On clinical exam, she has hypermobile first ray with exostosis of 1st metatarsal cuneiform joint. She has xrays that show increased IM 1-2 with lateral deviation of sesamoids and IM 1-2 about 17 degrees. I discussed surgical options. Given her age, increased IM 1-2, hypermobility of 1st ray with dorsal exostosis, I discussed lapidus bunionectomy. I discussed the procedure in great detail. I discussed need for post-op nwb. nwb is required for extended duration until healing has occurred. I discussed risks of procedure not limited to infection, recurrent pain, transfer metatarsalgia/sesamo iditis, nonunion of fusion, delayed union of fusion, malunion of fusion site, slow wound healing, wound dehiscence, painful hardware, loss of toe, dvt, cardiac arrest, . I discussed possible need for ancillary procedures not limited to viviana osteotomy and cuate osteotomy of 2nd or 3rd metatarsal. I informed patient that decision to perform additional procedures would be made intra-operatively based on xrays and how her foot appeared intraoperatively. Patient understands that following the procedure, she will need to remain nwb. Any walking to her foot can risk complications. She has crutches and has been trained on how to be nwb. Prior to surgery, we have performed vascular work-up and vitamin d. Her vitamin d has been optimized with use of vitamin d 50,000 units twice/weekly. She has stopped smoking. In addition to her bunion, she also complains of pain with hammertoes of 3rd, 4th and 5th toes. She is requesting care of these. On exam, her toes are flexible. We discussed surgical options not limited to flexor tentotomy vs open hammertoe repair. Patient informed of all risks/benefits/alter natives. Patient is only interested in flexor tenotomy/minimally invasive approach. She understands risks include recurrent hammertoe and need for correction at later time. She consents to proceed with lapidus bunionectomy and hammertoe correction of left 3-5 toes. SURGERY/PROCEDURE DETAILS: Patient was transferred to operating room and placed on operating room table in supine position. A popliteal/saphenous nerve block was administered to the left lower extremity. Patient was then placed under mac anesthesia. The left lower extremity was prepped and draped in usual aseptic technique. 2 grams of ancef was administered prior to incision. The left lower extremity was then elevated and a sterile tourniquet was applied to left calf. The tourniquet was inflated. Attention was then directed to the left foot. A dorsal linear incision along the 1st metatarsal cuneiform joint was performed. Dissection was carried thru subcutaneous tissue where all neurovascular structures were identified and retracted. A dorsal capsular incision was performed exposing the 1st metatatarsal cuneiform joint. Once inside the joint, there was dorsal spurring which was excised with osteotome and mallet. The 1st metatarsal cuneiform joint was distracted and using curette, the base of 1st metatarsal and cartilage to the medial cuneiform was resected. After the cartilage was resected to bleeding subchondral bone, both sides of the joint was then fenestraded and subchondrally drilled. The joint was then irrigated. The facet along the medial 2nd metatarsal base was resected. There was bony bridge between the 1st metatarsal base and intermediate cuneiform and this was also resected. Attention was then directed to the medial aspect of the 1st metatarsal cuneiform joint. A medial incision was performed and dissection was carried in layers. A t-capsular incision was performed. The medial eminence was then resected using sagittal saw. The cartilage of 1st mtpj was inspected and found to be healthy. At that time, a lateral release was then performed by way of plantar capsular incision/release. Attention was then directed to the 1st metatasral cuneiform joint. The hallux and first ray was then derotated out of valgus and temporary fixation was achieved. Prior to positioning the toe, demineralized bone matrix was then infused within the 1st metatarsal cun joint. After temporary fixation was performed, intra-operative c--arm demonstrated reduction of IM 1-2 with minimal plantarflexion noted. meary's angle was evaluated and no excessive plantarflexion or dorsiflexion was noted. Minimal shortening of 1st ray was noted. The 1st metatarsal cun joint was then fused with two screws one orienated dorsal disal to plantar proximal. The other screw was orientated dorsal proximal to plantar distal. An additional screw was placed transversely from the medial cuneiform to the intermediate cuneiform. I considered placing a subsequent screw Between the 2nd and 1st metatarsal but given the soft bone that was present and fear that additional screw could lead to fracture of either 1st or 2nd metatarsal, given the correction noted clinically and radiographically, it was determined that no additional fixation was necessary. The surgical incisions were then irrigated. The tourniquet was deflated. Hemostasis was achieved. The capsular tissue along 1st metatarsal cun joint was repaired with 3-0 vicryl. Subcutaneous closure was achieved with 4-0 nylon and skin was closed with nylon. The capsule along the 1st mtpj was debulked and modified and then repaired with 3-0 vicryl. Subcutaneous closure occurred with 4-o vicryl and skin was closed with 3-0 nylon. Evaluation of the foot was then performed clinically and radiographically. I specifically evaluated the position of 1st metatarsal and 2nd metatarsal. There was no prominent 2nd metatarsal . I evaluated the metatarsal parabola. I decided to hold on any cuate osteotomy. I felt that any additional cuate osteotomy could result in dorsiflexion of 2nd ray and lead to further loading of the 1st ray. For this reason, I decided to hold on any 2nd metatarsal osteotomy. Attention was then directed to the left 3rd, 4th and 5th toe. A 1-2 mm incision was performed at plantar proximal phalanx. The flexor tendon was then freed and transected. The toes were then manipulated into dorsiflexion thereby correcting the hammertoe deformity. The incision was then irrigated. The incision was then repaired with 3-0 nylon. Post-op dressing was then applied consisting of steres/betadine soaked adaptic, 4x4 kerri winter jones compression with splint. Patient was then awakened and found to be in stable condition. Patient was transferred to pacu in stable condition. She was given rx for keflex and percocet. She will f/u later this week. PRE-OP/PRE-PROCEDURE DIAGNOSIS: hallux valgus, left foot. Hammertoe of left foot POST-OP/POST-PROCEDU RE DIAGNOSIS: Hallux valgus [M20.10]Hammer toe of left foot [M20.42] ESTIMATED BLOOD LOSS: less than 3 cc mls SPECIMENS: None IMPLANTABLE DEVICES: arthrex 4.0 headless screw; arthrex 3.5 headless screw; demineralized bone matrix DRAINS: None COMPLICATIONS: None PARTICIPATION IN SURGERY/PROCEDURE: I performed the procedure with assistance. SIGNATURE: Marcos Cowart DPM PATIENT NAME: Evelyn Lucas DATE: July 17, 2018 TIME: 9:34 PM PAGER/CONTACT #: [facility] PT EDon 07-17-2018 PT ED HNO ID: [id number] Author: Rachele (Rn) JARVIS Mckay Service: Nursing Author Type: Registered Nurse Type: Patient Education Filed: 07/17/2018 6:48 PM Note Text: POST OP LEARNING RESPONSE INSTRUCTION PROVIDED TO: Patient and gradmother and grandfather METHOD OF INSTRUCTION: Individual instruction Written instruction - handouts Verbal instruction PATIENT / FAMILY RESPONSE: Verbalizes understanding of: POST-OPERATIVE INSTRUCTIONS-Correct actions to take to reduce postoperative complications FOLLOW-UP PLAN: Follow up phone call. SUPPLEMENTAL MATERIAL: None REFERRAL (RECOMMENDATION): None Electronically Signed By: Rachele Mckay RN In Department: [facility] SURGERY [facility] PT ED HNO ID: [id number] Author: Kaylene FisherRnFranco Tran RN Service: Nursing Author Type: Registered Nurse Type: Patient Education Filed: 07/17/2018 1:05 PM Note Text: PRE OP LEARNING ASSESSMENT PROCEDURE/SURGERY: Pre op READINESS TO LEARN COGNITIVE ABILITY: Alert and oriented MOTIVATION TO LEARN: Eager FAMILY SUPPORT: High - Very involved in pt care PATIENT LEARNS BEST BY: Verbal Instruction FACTORS AFFECTING LEARNING: None PHYSICAL LIMITATIONS AFFECTING LEARNING: None [facility] NURSING PROGon 07-10-2018 Protein mass conc HNO ID: [id number] Author: Barb FisherRnFranco Tse RN Service: Nursing Author Type: Registered Nurse Type: Nursing Progress Note Filed: 07/10/2018 3:06 PM Note Text: PACC Nurse Progress Note History AND Physical: PACC Visit Date: 07/09/18 Original HANDP Date: N/A ED visit Date: N/A Outside HANDP Scanned Date: N/A Labs Within Last 6 Months: N/A Imaging Within Last 12 Months: N/A Cardiac Testing: N/A Last Menstrual Period: LMP Date: No LMP recorded; patient has implant Postmenopausal >1yr: No, S/P Hysterectomy: No BMI Percentile (PEDS): N/A Risk Assessment: N/A Anesthesia Review: N/A Narrative: N/A Pre-op Considerations: N/A Chart Check: COMPLETED Barb Tse RN July 10, 2018 3:05 PM [facility] HOSPon 06-28-2018 HOSP Patient:Evelyn Lucas MRN: Height:4' 9.25(1.454 m) Weight:116 lb (52.617 kg) Outpatient Medications as of 07/17/18: cholecalciferol (VITAMIN D-3) 5,000 unit tab cholecalciferol, Vitamin D3, (VITAMIN D3) 50,000 unit cap capsule Cetirizine HCl (ZYRTEC) 5 mg ORAL Chew Admission/Clinic Administered Medications as of 07/17/18: scopolamine 1 mg over 3 days 1 Patch (TRANSDERM-SCOP) scopolamine - VERIFY patch scopolamine - REMOVE PATCH Problem List: ADD (attention deficit disorder) [F98.8] Vaccine refused by parent [Z28.82] Hallux valgus of left foot [M20.12] Allergies: Environmental allergies [Other] Date Verified: 07/17/18 Lab Values No results within the last 30 days for the following basenames: K,HCT Progress Notes ([facility]): Mady Bermudez RN 06/19/2018 1:25 PM Signed Patient has been identified by name and date of : Yes Type of form: FMLA Form received via: Walk in When form is completed, fax form to fax number provided. Form has been forwarded to: Podiatry nurses station filing cabinet. Informed patient that office would need date of surgery before forms can be filled out. Once we have surgical date nursing will forward to Dr. Cowart for completion. Patient verbalized understanding. Mady Newton RN 06/25/2018 10:58 AM Signed Pt. called and states Dr. Cowart was going to be discussing an OR date with colleague and getting back to her. She asks if this has been done yet? Sandra Mitchell Ma 06/25/2018 4:21 PM Signed Patient called regarding if has answered question yet. Maria A Newton RN 06/26/2018 2:01 PM Signed Pt. called back and states surgery has been scheduled, however, she asks if she can have PAT in [place]? Explained that [facility] will be calling her to schedule from [facility] area code with unlisted number, and that she can request to be scheduled at [place] if there is room. Pt. verbalizes understanding. Mady Bermudez RN 06/26/2018 2:02 PM Signed Surgery to be on 07/17/18 at [place] with Dr. Velez assisting. Patient aware of surgical date and post op appointments scheduled. Will file surgical case request once Dr. Cowart lets nursing know of specific equipment needed for case. Mady Bermudez RN 06/27/2018 8:19 AM Signed Patient's FMLA paperwork partially filled out, given to Dr. Cowart for completion and signature. Once signed fax to number on form and contact patient to inform. Mady Bermudez RN 06/28/2018 1:11 PM Signed Surgery scheduling form completed by Dr. Cowart, surgical case request filed. Marcos Cowart DPM 07/05/2018 10:28 AM Signed [facility] paperwork filed and given to nursing STEPHEN Blanchard RN 07/05/2018 10:40 AM Signed FMLA paperwork faxed to [employer] [facility]. Patient notified. Progress Notes ([facility]): Mady Bermudez RN 06/24/2018 10:47 AM Signed AMB ROOMING INTAKE FLOWSHEET DATA Risk Screening Do you have concerns about personal safety or safety in the home?: No Pain Pain Level: 5 Pain Location: Foot-Left Description: Sharp Duration Amount of Time: (several) Duration Units: Months Frequency: Continuous Intervention: Relaxation, Reposition Patient presents with: Follow Up: castillo, L Patient had Vitamin D drawn on 06/06 and would like to go over results. She ran out of her Vitamin D prescription, she was taking 50,000 units a week. Mady Bermudez RN 06/19/2018 9:14 AM Signed Our office will contact you once we have coordinated a surgical date with Dr. Rosie Cowart DPM 06/24/2018 10:47 AM Signed Follow up podiatric office visit for: Chief Complaint: This 17 year old who presents for follow up:bunion of left foot. Patient presents to clinic for follow-up bunion of left foot. Patient continues to complain of painful bunion that is more significant when wearing shoes. She is interested in purusuing bunion correction. She has been on vitamin d and her vitamin d levels are now normal. She is no longer smoking. PAIN EVALUATION 06/19/2018 Pain Level: 5 Pain Location: Foot-Left Description: Sharp Duration Amount of Time: ? several several Duration Units: Months Frequency: Continuous Intervention: Relaxation;Repositio n No results found for: HBA1C PCP: Gamaliel Camp MD PAST MEDICAL HISTORY Diagnosis Date - ADHD (attention deficit hyperactivity disorder) - allergic rhinitis Current Outpatient Medications: cholecalciferol, Vitamin D3, (VITAMIN D3) 50,000 unit cap capsule Take 1 capsule by mouth once each week. cholecalciferol (VITAMIN D-3) 5,000 unit tab Take 1 tablet by mouth once daily. methylPREDNISolone (MEDROL, CLYDE,) 4 mg Dose-Pack Take as directed (Patient not taking: Reported on 04/02/2018 ) Cetirizine HCl (ZYRTEC) 5 mg ORAL Chew take one to two tablets daily as needed for itching, sneezing, or runny nose. No current facility-administere d medications for this visit. ALLERGIES Allergen Reactions - Environmental Aller* Cats, molds, trees, grasses, weeds, ragweed PAST SURGICAL HISTORY Procedure Laterality Date - NONE Physical Exam: Constitutional: Pt is a well developed 17 year old female who is alert, oriented, cooperative and in no apparent distress. OBJECTIVE: NVSI unchanged from previous visit. Dermatological: Nails 1-5 b/l are normal. Webspaces clean and dry 1-4 b/l. Skin appears well hydrated and supple. good color, texture, turgor. No open lesions present. No callosities present. Musculoskeletal/Orth opaedic: Patient has pain to palpation of medial eminence of 1st metatarsal. There is hypermobility of 1st metatarsal cun joint of left foot. There is flexible hammertoe of left 3rd, 4th and 5th toe. Arch appears normal b/l. ASSESSMENT: (M20.12) Acquired hallux valgus of left foot (primary encounter (E55.9) Vitamin D deficiency PLAN: 1. History and physical examination completed today. 2. Discussed bunion of left foot. Patient has tried conservative care not limited to wider shoes, padding. Conservative care has not resolved her pain. Discussed surgical options. Given hypermobility, patient age, signicant increased IM, recommend lapidus/viviana of left foot. Discussed risks of procedure not limited to infection, pain, swelling, bleeding, overcorrection, undercorrection, painful hardware, nonunion, delayed union, malunion, transfer metatarsalgia. Discussed possible need for metatarsal osteotomy of 2nd ray. 3. discused hammertoe of left 3rd, 4th and 5th toes. Discussed options not limited to flexor tenotomy vs arthroplasty/arthrod esis. Given relative flexibility, patient likely will benefit with flexor tenotomy. 4. Continue with vitamin d and nonsmoking 5. She will require nwb following surgery. 6. All r/b/a/ discussed. Patient consents to proceed Marcos Cowart DPM [facility] Vital Signs Date Time Vital Sign Value Performing Clinician Gloria king 11-22-2024 09:53-0400 Body mass index (BMI) [Ratio] 29.26 kg/m2 Lizzy Tomlinson APRN.CNM Work Phone: [facility] 11-22-2024 09:53-0400 Body weight 63.5 kg Lizzy Tomlinson APRN.CNM Work Phone: [facility] 11-22-2024 09:53-0400 Diastolic blood pressure 78 mm[Hg] Lizzy Tomlinson APRN.CNM Work Phone: [facility] 11-22-2024 09:53-0400 Systolic blood pressure 122 mm[Hg] Lizzy Tomlinson APRN.CNM Work Phone: [facility] 11-19-2024 11:48-0400 Body mass index (BMI) [Ratio] 29.89 kg/m2 Les Ramirez MD Work Phone: [facility] 11-19-2024 11:48-0400 Body weight 64.86 kg Les Ramirez MD Work Phone: [facility] 11-19-2024 11:48-0400 Diastolic blood pressure 84 mm[Hg] Les Ramirez MD Work Phone: [facility] 11-19-2024 11:48-0400 Systolic blood pressure 130 mm[Hg] Les Ramirez MD Work Phone: [facility] 11-15-2024 15:13-0400 Body mass index (BMI) [Ratio] 28.84 kg/m2 Lizzy Tomlinson APRN.CNM Work Phone: [facility] 11-15-2024 15:13-0400 Body weight 62.6 kg Lizzy Tomlinson APRN.CNM Work Phone: [facility] 11-15-2024 15:13-0400 Diastolic blood pressure 72 mm[Hg] Lizzy Tomlinson APRN.CNM Work Phone: [facility] 11-15-2024 15:13-0400 Systolic blood pressure 126 mm[Hg] Lizzy Davi PARENT AIDE.CNM Work Phone: [facility] 10-28-2024 07:42-0400 Body mass index (BMI) [Ratio] 28.22 kg/m2 Cuco Haury PARENT AIDE.BACKEND DEVELOPER Work Phone: [facility] 10-28-2024 07:42-0400 Body weight 61.24 kg Cuco Haury PARENT AIDE.BACKEND DEVELOPER Work Phone: [facility] 10-28-2024 07:42-0400 Diastolic blood pressure 64 mm[Hg] Cuco Haury PARENT AIDE.BACKEND DEVELOPER Work Phone: [facility] 10-28-2024 07:42-0400 Systolic blood pressure 116 mm[Hg] Cuco Haury PARENT AIDE.BACKEND DEVELOPER Work Phone: [facility] 10-15-2024 11:35-0400 Body mass index (BMI) [Ratio] 26.75 kg/m2 Les Ramirez MD Work Phone: [facility] 10-15-2024 11:35-0400 Body weight 58.06 kg Les Ramirez MD Work Phone: [facility] 10-15-2024 11:35-0400 Diastolic blood pressure 64 mm[Hg] Les Ramirez MD Work Phone: [facility] 10-15-2024 11:35-0400 Systolic blood pressure 106 mm[Hg] Les Ramirez MD Work Phone: [facility] 10-03-2024 14:27-0400 Body mass index (BMI) [Ratio] 26.13 kg/m2 Cuco Haisiah PARENT AIDE.BACKEND DEVELOPER Work Phone: [facility] 10-03-2024 14:27-0400 Body weight 56.7 kg Cuco Haury PARENT AIDE.BACKEND DEVELOPER Work Phone: [facility] 10-03-2024 14:27-0400 Diastolic blood pressure 60 mm[Hg] Cuco Haury PARENT AIDE.BACKEND DEVELOPER Work Phone: [facility] 10-03-2024 14:27-0400 Systolic blood pressure 112 mm[Hg] Cuco Haury PARENT AIDE.BACKEND DEVELOPER Work Phone: [facility] 09-19-2024 14:10-0400 Body mass index (BMI) [Ratio] 25.92 kg/m2 Cuco Haury PARENT AIDE.BACKEND DEVELOPER Work Phone: [facility] 09-19-2024 14:10-0400 Body weight 56.25 kg Cuco Haury PARENT AIDE.BACKEND DEVELOPER Work Phone: [facility] 09-19-2024 14:10-0400 Diastolic blood pressure 60 mm[Hg] Cuco Haury PARENT AIDE.BACKEND DEVELOPER Work Phone: [facility] 09-19-2024 14:10-0400 Systolic blood pressure 100 mm[Hg] Cuco Haury PARENT AIDE.BACKEND DEVELOPER Work Phone: [facility] 08-30-2024 09:16-0400 Body mass index (BMI) [Ratio] 25.5 kg/m2 Lizzy Tomlinson PARENT AIDE.CNM Work Phone: [facility] 08-30-2024 09:16-0400 Body weight 55.34 kg Lizzy Tomlinson PARENT AIDE.CNM Work Phone: [facility] 08-30-2024 09:16-0400 Diastolic blood pressure 60 mm[Hg] Lizzy Tomlinson PARENT AIDE.CNM Work Phone: [facility] 08-30-2024 09:16-0400 Systolic blood pressure 112 mm[Hg] Lizzy Tomlinson PARENT AIDE.CNM Work Phone: [facility] 07-26-2024 08:48-0400 Diastolic blood pressure 62 mm[Hg] Radhika Plotts PARENT AIDE.CNM Work Phone: [facility] 07-26-2024 08:48-0400 Systolic blood pressure 110 mm[Hg] Radhika Plotts PARENT AIDE.CNM Work Phone: [facility] 07-18-2024 11:30-0400 Body mass index (BMI) [Ratio] 24.45 kg/m2 Radhika Goldstein PARENT AIDE.CNM Work Phone: [facility] 07-18-2024 11:30-0400 Body weight 53.07 kg Radhika Goldstein PARENT AIDE.CNM Work Phone: [facility] 07-18-2024 11:30-0400 Diastolic blood pressure 62 mm[Hg] Radhika Goldstein PARENT AIDE.CNM Work Phone: [facility] 07-18-2024 11:30-0400 Systolic blood pressure 104 mm[Hg] Radhika Goldstein PARENT AIDE.CNM Work Phone: [facility] 06-26-2024 08:01-0400 Body mass index (BMI) [Ratio] 22.99 kg/m2 Lizzydamian Tomlinson PARENT AIDE.CNM Work Phone: [facility] 06-26-2024 08:01-0400 Body weight 49.9 kg Lizzy Tomlinson PARENT AIDE.CNM Work Phone: [facility] 06-26-2024 08:01-0400 Diastolic blood pressure 60 mm[Hg] Lizzy Tomlinson PARENT AIDE.CNM Work Phone: [facility] 06-26-2024 08:01-0400 Systolic blood pressure 100 mm[Hg] Lizzy Tomlinson PARENT AIDE.CNM Work Phone: [facility] 05-29-2024 10:25-0400 Body mass index (BMI) [Ratio] 21.53 kg/m2 Lizzy Tomlinson PARENT AIDE.CNM Work Phone: [facility] 05-29-2024 10:25-0400 Body weight 46.72 kg Lizyz Tomlinson PARENT AIDE.CNM Work Phone: [facility] 05-29-2024 10:25-0400 Diastolic blood pressure 62 mm[Hg] Lizzy Tomlinson PARENT AIDE.CNM Work Phone: [facility] 05-29-2024 10:25-0400 Systolic blood pressure 96 mm[Hg] Lizzy Tomlinson PARENT AIDE.CNM Work Phone: [facility] 05-01-2024 08:47-0500 Body height 147.3 cm Lizzy Tomlinson PARENT AIDE.CNM Work Phone: [facility] 05-01-2024 08:47-0500 Body mass index (BMI) [Ratio] 20.77 kg/m2 Lizzy Tomlinson PARENT AIDE.CNM Work Phone: [facility] 05-01-2024 08:47-0500 Body weight 45.09 kg Lizzy Tomlinson PARENT AIDE.CNM Work Phone: [facility] 05-01-2024 08:47-0500 Diastolic blood pressure 60 mm[Hg] Lizzy Tomlinson PARENT AIDE.CNM Work Phone: [facility] 05-01-2024 08:47-0500 Systolic blood pressure 98 mm[Hg] Lizzy Tomlinson PARENT AIDE.CNM Work Phone: [facility] 10-13-2023 15:01-0400 Body height 139.7 cm Lizzy Tomlinson PARENT AIDE.CNM Work Phone: [facility] 10-13-2023 15:01-0400 Body mass index (BMI) [Ratio] 22.13 kg/m2 Lizzy Tomlinson PARENT AIDE.CNM Work Phone: [facility] 10-13-2023 15:01-0400 Body weight 43.18 kg Lizzy Tomlinson PARENT AIDE.CNM Work Phone: [facility] 10-13-2023 15:01-0400 Diastolic blood pressure 68 mm[Hg] Lizzy Tomlinson PARENT AIDE.CNM Work Phone: [facility] 10-13-2023 15:01-0400 Systolic blood pressure 100 mm[Hg] Lizzy Tomlinson PARENT AIDE.CNM Work Phone: [facility] 09-06-2022 08:38-0400 Body height 142.2 cm Lizzy Tomlinson PARENT AIDE.CNM Work Phone: [facility] 09-06-2022 08:38-0400 Body weight 45.27 kg Lizzy Tomlinson PARENT AIDE.CNJairo Work Phone: [facility] 09-06-2022 08:38-0400 Diastolic blood pressure 64 mm[Hg] Lizzy Davi MORRIS.CNM Work Phone: [facility] 09-06-2022 08:38-0400 Systolic blood pressure 98 mm[Hg] Lizzy Davi MORRIS.CNM Work Phone: [facility] 07-14-2022 08:45-0400 Body temperature 97.1 [degF] [facility] 07-14-2022 08:45-0400 Diastolic blood pressure 69 mm[Hg] [facility] 07-14-2022 08:45-0400 Heart rate 63 /min [facility] 07-14-2022 08:45-0400 Respiratory rate 16 /min [facility] 07-14-2022 08:45-0400 SaO2% (BldA) [Mass fraction] 100 % [facility] 07-14-2022 08:45-0400 Systolic blood pressure 108 mm[Hg] [facility] 07-14-2022 06:36-0400 Body height 144.[address] [facility] 07-14-2022 06:36-0400 Body mass index (BMI) [Ratio] 22.6 kg/m2 [facility] 07-14-2022 06:36-0400 Body weight 47.[address] [facility] 10-23-2021 17:06-0400 Diastolic blood pressure 70 mm[Hg] [facility] Work Phone: 10-23-2021 17:06-0400 Heart rate 94 /min [facility] Work Phone: 10-23-2021 17:06-0400 Respiratory rate 16 /min [facility] Work Phone: 10-23-2021 17:06-0400 SaO2% (BldA) [Mass fraction] 97 % [facility] Work Phone: 10-23-2021 17:06-0400 Systolic blood pressure 113 mm[Hg] [facility] Work Phone: 10-23-2021 16:04-0400 Body height 142.[address] [facility] Work Phone: 10-23-2021 16:04-0400 Body mass index (BMI) [Ratio] 22.4 kg/m2 [facility] Work Phone: 10-23-2021 16:04-0400 Body temperature 98.2 [degF] [facility] Work Phone: 10-23-2021 16:04-0400 Body weight 45.[address] [facility] Work Phone: Encounters Encounter Date Encounter Type Care Provider Facility Start: 12-08-2024 [facility] Facility: [facility] Start: 11-22-2024 End: 11-22-2024 Patient encounter procedure Lizzy Tomlinson APRN.CNM Work Phone: OB/Gynecology Comment on above: Supervision of high risk in third trimester (HCC) (Primary Dx); 37 weeks gestation of (HCC); Bilateral lower extremity edema; Rh negative state in antepartum period (HCC) Start: 11-22-2024 End: 11-22-2024 ambulatory [facility] Facility:[facility] Start: 11-19-2024 End: 11-19-2024 Telephone encounter Les Ramirez APRN.CNM Work Phone: OB/Gynecology Start: 11-19-2024 End: 11-19-2024 ambulatory LES RAMIREZ Facility:[facility] Start: 11-19-2024 End: 11-19-2024 Patient encounter procedure Les Ramirez MD Work Phone: OB/Gynecology Comment on above: Supervision of high risk in third trimester (HCC) (Primary Dx); 37 weeks gestation of (HCC); Vaginal discharge Start: 11-15-2024 End: 11-15-2024 Patient encounter procedure Lizzy Tomlinson APRN.CNM Work Phone: OB/Gynecology Comment on above: Supervision of high risk in third trimester (HCC) (Primary Dx); 36 weeks gestation of (HCC); Edema during in third trimester (HCC); Rh negative state in antepartum period (HCC) Start: 11-15-2024 End: 11-15-2024 ambulatory LIZZY TOMLINSON Facility:[facility] Start: 11-08-2024 End: 11-08-2024 ambulatory Lizzy Tomlinson APRN.CNM Work Phone: OB/Gynecology Comment on above: Swelling in feet Start: 11-07-2024 End: 11-07-2024 Telephone encounter Cuco Mejia APRN.BACKEND DEVELOPER Work Phone: OB/Gynecology Comment on above: Short Term Disabilit y form Start: 10-28-2024 End: 10-28-2024 Patient encounter procedure Cuco Mejia APRN.BACKEND DEVELOPER Work Phone: OB/Gynecology Comment on above: Supervision of high risk in third trimester (HCC) (Primary Dx); 34 weeks gestation of (HCC); Uterine size-date discrepancy, third trimester (HCC); Rh negative state in antepartum period (HCC) Start: 10-28-2024 End: 10-28-2024 ambulatory CUCO MEJIA Facility:[facility] Start: 10-15-2024 End: 10-15-2024 Patient encounter procedure Les Ramirez MD Work Phone: OB/Gynecology Comment on above: Supervision of high risk in third trimester (HCC) (Primary Dx); Uterine size-date discrepancy, third trimester (HCC); 32 weeks gestation of (HCC) Encounter for ultras ound to check growth (HCC) (Primary Dx); Uterine size-date discrepancy, third trimester (HCC); 32 weeks gestation of (HCC) Start: 10-15-2024 End: 10-15-2024 ambulatory LES RAMIREZ Facility:[facility] Start: 10-03-2024 End: 10-03-2024 Patient encounter procedure Cuco Mejia APRN.BACKEND DEVELOPER Work Phone: OB/Gynecology Comment on above: Supervision of high risk in third trimester (HCC) (Primary Dx); 30 weeks gestation of (HCC); Rh negative state in antepartum period, second trimester (HCC); Uterine size-date discrepancy, third trimester (HCC) Start: 10-03-2024 End: 10-03-2024 ambulatory CUCO MEJIA Facility:[facility] Start: 09-23-2024 End: 11-23-2024 Follow-up encounter Les Ramirez MD Work Phone: OB/Gynecology Start: 09-19-2024 End: 09-19-2024 Patient encounter procedure Cuco Mejia APRN.BACKEND DEVELOPER Work Phone: OB/Gynecology Comment on above: Supervision of high risk in third trimester (HCC) (Primary Dx); 28 weeks gestation of (HCC); Rh negative state in antepartum period, second trimester (HCC); UTI (urinary tract infection) in , antepartum (HCC); Rh negative state in antepartum period (HCC) Start: 09-19-2024 End: 09-19-2024 [facility] Facility:[facility] Start: 08-30-2024 End: 08-30-2024 Patient encounter procedure Lizzy Tomlinson APRN.CNM Work Phone: OB/Gynecology Comment on above: Screening for diabet es mellitus (Primary Dx); Supervision of other high risk pregnancies, second trimester ([facility]); 25 weeks gestation of ([facility]); UTI (urinary tract infection) in , antepartum ([facility]); Rh negative state in antepartum period, second trimester ([facility]) Start: 08-30-2024 End: 08-30-2024 [facility] LIZZY TOMLINSON Facility:[facility] Start: 07-29-2024 End: 09-28-2024 Follow-up encounter Radhika Goldstein APRN.CNM Work Phone: OB/Gynecology Start: 07-26-2024 End: 07-26-2024 Patient encounter procedure Radhika Goldstein APRN.CNM Work Phone: OB/Gynecology Comment on above: Supervision of other high risk pregnancies, second trimester (HCC) (Primary Dx); Recurrent urinary tract infection affecting , antepartum (HCC); 20 weeks gestation of ([facility]) Encounter for anatomic survey (HCC) (Primary Dx); 20 weeks gestation of (HCC) Start: 07-26-2024 End: 07-26-2024 ambulatory LIZZY TOMLINSON Facility:[facility] Start: 07-18-2024 End: 09-17-2024 Follow-up encounter Radhika Goldstein APRN.CNM Work Phone: OB/Gynecology Start: 07-18-2024 End: 07-18-2024 Patient encounter procedure Radhika Goldstein APRN.CNM Work Phone: OB/Gynecology Comment on above: Supervision of other high risk pregnancies, second trimester (HCC) (Primary Dx); 19 weeks gestation of (HCC); Recurrent urinary tract infection affecting , antepartum ([facility]); Uterine cramping Start: 07-18-2024 End: 07-18-2024 [facility] Start: 06-28-2024 End: 08-28-2024 Follow-up encounter Les Ramirez MD Work Phone: OB/Gynecology Start: 06-26-2024 End: 06-26-2024 ambulatory LIZZY TOMLINSON Facility:[facility] Start: 06-26-2024 End: 06-26-2024 Patient encounter procedure Lizzy Tomlinson APRN.CNM Work Phone: OB/Gynecology Comment on above: Supervision of other high risk pregnancies, second trimester (HCC) (Primary Dx); 16 weeks gestation of ([facility]); Rh negative state in antepartum period, second trimester ([facility]); UTI (urinary tract infection) in , antepartum ([facility]); History of spontaneous Start: 05-29-2024 End: 05-30-2024 Telephone encounter Lizzy Tomlinson APRN.CNM Work Phone: OB/Gynecology Comment on above: FMLA Paperwork Start: 05-29-2024 End: 05-29-2024 Patient encounter procedure Lizzy Tomlinson APRN.CNM Work Phone: OB/Gynecology Comment on above: Encounter for superv ision of other normal in second trimester (Primary Dx); 12 weeks gestation of Start: 05-29-2024 End: 05-29-2024 ambulatory LIZZY TOMLINSON Facility:[facility] Start: 05-29-2024 End: 05-29-2024 ambulatory [facility] Facility:[facility] Start: 05-29-2024 End: 05-29-2024 Patient encounter procedure [employer] 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 [employer] [facility] Maternal Medicine Comment on above: Encounter for antena zohra screening for malformation using ultrasound (Primary Dx); 12 weeks gestation of Start: 05-02-2024 End: 05-10-2024 Follow-up encounter Cuco Mejia APRN.CNP Work Phone: OB/Gynecology Comment on above: UTI (urinary tract i nfection) in , antepartum (Primary Dx) Start: 05-01-2024 End: 05-01-2024 [facility] LIZZY [place] Facility:[facility] Start: 05-01-2024 End: 05-01-2024 Patient encounter procedure Lizzy Tomlinson APRN.CNM Work Phone: OB/Gynecology Comment on above: with uncer tain dates in first trimester (Primary Dx); Attention deficit hyperactivity disorder (ADHD), unspecified ADHD type; Uterine size-date discrepancy, first trimester; LGSIL on Pap smear of cervix Start: 10-13-2023 End: 10-13-2023 Patient encounter procedure Lizzy Tomlinson APRN.CNM Work Phone: OB/Gynecology Comment on above: Encounter for gyneco logical examination (general) (routine) with abnormal findings (Primary Dx); Screening for cervical cancer; Encounter for screening for human papillomavirus (HPV); Screen for STD (sexually transmitted disease) Start: 10-13-2023 End: 10-13-2023 Patient encounter status Lizzy Tomlinson APRN.CNM Work Phone: [facility] Start: 09-05-2023 ambulatory Ethan painter APRN.CNP Work Phone: Family Medicine [place] Comment on above: Rectal Bleeding Start: 09-05-2023 Telephone encounter Ethan boothe APRN.CNP Work Phone: [facility] [place] Comment on above: Rectal Bleeding Start: 12-13-2022 Telephone encounter Ethan boothe APRN.CNP Work Phone: [facility] [place] Comment on above: Results Start: 09-13-2022 End: 09-13-2022 ambulatory Lizzy Tomlinson APRN.CNM Work Phone: OB/Gynecology Comment on above: Trichomoniasis (Prim ulisses Dx) Start: 09-13-2022 End: 09-13-2022 Telemedicine consultation with patient Lizzy Davi HAMEED Work Phone: [facility] Start: 09-12-2022 ambulatory Lizzy Davi HAMEED Work Phone: OB/Gynecology Comment on above: Test Results Start: 09-09-2022 Telephone encounter Lizzydamian wang APRN.CNM Work Phone: OB/Gynecology Comment on above: Results Start: 09-06-2022 End: 09-06-2022 Patient encounter procedure Lizzydamian Tomlinson APRN.CNM Work Phone: OB/Gynecology Comment on above: Encounter for gyneco logical examination (general) (routine) without abnormal findings (Primary Dx); Screen for STD (sexually transmitted disease); Encounter for screening for cervical cancer; LGSIL on Pap smear of cervix; Vaginal discharge Start: 09-06-2022 End: 09-06-2022 Patient encounter status Lizzy Davi HAMEED Work Phone: OB/Gynecology Start: 07-14-2022 End: 07-14-2022 Admission to same day surgery center [facility] Start: 07-14-2022 End: 07-14-2022 ambulatory [facility] Work Phone: Start: 10-23-2021 End: 10-23-2021 Emergency department patient visit [facility] Start: 07-17-2018 End: 07-17-2018 Patient encounter procedure [facility] Procedures Date Procedure Procedure Detail Performing Clinician Start: 11-19-2024 Urnls dip stick/tabl et rgnt non-auto w/o micrscp Les Ramirez MD Work Phone: Start: 11-15-2024 Iadna streptococcus group b amplified probe tq Lizzy Tomlinson APRN.CNM Work Phone: Start: 10-28-2024 Urnls dip stick/tabl et rgnt non-auto w/o micrscp Cuco Mejia PARENT AIDE.BACKEND DEVELOPER Work Phone: Start: 10-15-2024 Us preg uterus after 1st trimest 03/20 gestation Cuco Mejia PARENT AIDE.BACKEND DEVELOPER Work Phone: Start: 09-19-2024 Antibody screen LIZZY TOMLINSON Comment on above: Order Comment: Speci men Type: BLOOD SPECIMEN Ordering Facility: [facility] Address: [address] [place] [address] Performed By: #### T SPN #### [facility] CLIA [id number] Start: 07-26-2024 Us preg uterus after 1st trimest 03/20 gestation Lizzy Tomlinson APRN.CNM Work Phone: Start: 07-18-2024 Urnls dip stick/tabl et rgnt auto w/o microscopy Radhika Goldstein PARENT AIDE.CNM Work Phone: Start: 06-26-2024 Urnls dip stick/tabl et rgnt auto w/o microscopy Lizzy Tomlinson PARENT AIDE.CNM Work Phone: Start: 05-29-2024 Antibody screen LIZZY TOMLINSON Comment on above: Order Comment: Speci men Type: BLOOD SPECIMENOrdering Facility: [facility] Address: [address] [place] [address] Performed By: #### T SPN ####[facility]CLIA [id number] [address] Start: 05-29-2024 Us preg uterus after 1st trimest 03/20 gestation Lizzy Tomlinson APRN.CNM Work Phone: Start: 05-01-2024 BACTERIAL VAGINOSIS NAAT Lizzy Tomlinson APRN.CNM Work Phone: Start: 05-01-2024 Iadna chlamydia trac homatis amplified probe tq Lizzydamian Tomlinson PARENT AIDE.CNM Work Phone: Start: 05-01-2024 Us uterus l imited 1/> fetuses Lizzy Tomlinson APRN.CNM Work Phone: Start: 10-13-2023 BACTERIAL VAGINOSIS NAAT Lizzy Tomlinson PARENT AIDE.CNM Work Phone: Start: 10-13-2023 Iadna chlamydia trac homatis amplified probe tq Lizzy Tomlinson PARENT AIDE.CNM Work Phone: Start: 09-06-2022 BACTERIAL VAGINOSIS NAAT Lizzy Tomlinson PARENT AIDE.CNM Work Phone: Start: 09-06-2022 Iadna trichomonas va ginalis amplified probe tech Lizzy Tomlinson PARENT AIDE.CNM Work Phone: Start: 09-06-2022 Iadna chlamydia trac homatis amplified probe tq Lizzydamian Tomlinson PARENT AIDE.CNM Work Phone: Start: 07-14-2022 Excision of ganglion cyst Start: 10-23-2021 X-ray of both feet Nasal Screen MRSA/MSSA Plan of Treatment Date Care Activity Detail Author Start: 10-12-2026 Screening for malign ant neoplasm of cervix Cervical Cancer Screening [facility] Start: 09-06-2025 Pap Testing Pap Testing [facility] Start: 12-03-2024 End: 12-03-2024 Patient encounter procedure 12/03/2024 9:15 AM EDT Routine Office Visit OB/Gynecology [address] [place] [id number] Lizzy Tomlinson APRN.CN [address] [place] [address] OB OB/Gynecology Comment on above: OB Start: 11-27-2024 End: 11-27-2024 Patient encounter procedure 11/27/2024 11:15 AM EDT Routine Office Visit OB/Gynecology [address] [place] [address] Lizzy Tomlinson APRN.CNM [address] [place] [address] OB OB/Gynecology Comment on above: OB Start: 11-22-2024 End: 02-21-2025 Protein/Creatinine [Mass Ratio] in Urine PROTEIN / CREATININE RATIO Lab Routine Supervision of high risk in third trimester (HCC) 37 weeks gestation of (HCC) Bilateral lower extremity edema Expected: 11/22/2024, Expires: 02/21/2025 [facility] Comment on above: Expected: 11/22/2024 , Expires: 02/21/2025 Start: 11-22-2024 End: 11-22-2024 Patient encounter procedure 11/22/2024 9:45 AM EDT Routine Office Visit OB/Gynecology [address] [place] [address] Lizzy Tomlinson APRN.CNM [address] [place] [address] OB OB/Gynecology Comment on above: OB Start: 11-18-2024 Influenza vaccination [facility] Start: 11-15-2024 End: 11-15-2024 Patient encounter procedure 11/15/2024 3:15 PM EDT Routine Office Visit OB/Gynecology [address] [place] [address] Lizzy Tomlinson APRN.CNM [address] [place] [address] OB OB/Gynecology Comment on above: OB Start: 10-28-2024 End: 10-28-2024 Patient encounter procedure 10/28/2024 7:45 AM EDT Routine Office Visit OB/Gynecology [address] [place] [address] Cuco Mejia APRN.BACKEND DEVELOPER [address] [place] [address] OB OB/Gynecology Comment on above: OB Start: 10-18-2024 End: 10-18-2024 Patient encounter procedure 10/18/2024 11:30 AM EDT Office Visit OB/Gynecology [address] [place] [address] Lizzy Tomlinson APRN.CN [address] [place] [address] Annual OB/Gynecology Comment on above: Annual Start: 10-17-2024 End: 10-17-2024 Patient encounter procedure Maternal Medicine Comment on above: Growth Growth/OB Start: 10-03-2024 End: 10-03-2024 Patient encounter procedure 10/03/2024 2:30 PM EDT Routine Office Visit OB/Gynecology [address] [place] [address] Cuco Mejia APRN.BACKEND DEVELOPER [address] [place] [address] OB OB/Gynecology Comment on above: OB Start: 10-03-2024 End: 10-03-2025 OBSTETRIC ULTRASOUND WHI OBSTETRIC ULTRASOUND WHI Anc Imaging Routine Supervision of high risk in third trimester (HCC) Uterine size-date discrepancy, third trimester (HCC) Expected: 10/03/2024, Expires: 10/03/2025 [facility] Work Phone: Comment on above: Expected: 10/03/2024 , Expires: 10/03/2025 Start: 09-19-2024 End: 09-19-2024 Patient encounter procedure 09/19/2024 2:30 PM EDT Routine Office Visit OB/Gynecology [address] [place], [place] [id number] Cuco Mejia APRN.BACKEND DEVELOPER [address] [place], [place] [id number] Glucose/ OB OB/Gynecology Comment on above: Glucose/ OB Start: 09-19-2024 End: 09-19-2024 ambulatory 09/19/2024 2:15 PM EDT Results Only [place] [facility] [address] [place] [address] [facility] [place] [facility] Comment on above: [facility] Start: 09-19-2024 End: 12-19-2024 Bacteria identified in Urine by Culture [facility] Work Phone: Comment on above: Expected: 09/19/2024 , Expires: 12/19/2024 Start: 09-13-2024 End: 09-13-2024 ambulatory 09/13/2024 2:15 PM EDT Results Only [place] [facility] [address] [place] [address] [facility] [place] [facility] Comment on above: [facility] Start: 08-30-2024 End: 08-30-2024 Patient encounter procedure 08/30/2024 4:30 PM EDT Routine Office Visit OB/Gynecology [address] [place] [address] Lizzy Tomlinson APRN.CNM [address] [place] [address] 4 week follow up for routine OB check OB/Gynecology Comment on above: 4 week follow up for routine OB check Start: 08-30-2024 End: 11-29-2024 ANEMIA REFLEX PANEL ANEMIA REFLEX PANEL Lab Routine Screening for diabetes mellitus Expected: 08/30/2024, Expires: 11/29/2024 [facility] Comment on above: Expected: 08/30/2024 , Expires: 11/29/2024 Start: 08-30-2024 End: 08-30-2025 GESTATIONAL GLUCOSE SCREEN, 1-HOUR, 50 GRAM, NON-FASTING GESTATIONAL GLUCOSE SCREEN, 1-HOUR, 50 GRAM, NON-FASTING Lab Routine Screening for diabetes mellitus Expected: 08/30/2024, Expires: 08/30/2025 [facility] Work Phone: Comment on above: Expected: 08/30/2024 , Expires: 08/30/2025 Start: 08-30-2024 End: 08-30-2025 SYPHILIS TREPONEMAL W/REFLEX SYPHILIS TREPONEMAL W/REFLEX Lab Routine Screening for diabetes mellitus Expected: 08/30/2024, Expires: 08/30/2025 [facility] Comment on above: Expected: 08/30/2024 , Expires: 08/30/2025 Start: 08-30-2024 End: 11-29-2024 TYPE + SCREEN TYPE + SCREEN Blood Bank Routine Screening for diabetes mellitus Expected: 08/30/2024, Expires: 11/29/2024 [facility] Comment on above: Expected: 08/30/2024 , Expires: 11/29/2024 Start: 08-30-2024 End: 08-30-2024 Patient encounter procedure 08/30/2024 9:15 AM EDT Routine Office Visit OB/Gynecology [address] [place] [address] Lizzy Tomlinson APRN.CNM [address] [place] [address] 4 week follow up for routine OB check OB/Gynecology Comment on above: 4 week follow up for routine OB check Start: 07-26-2024 End: 07-26-2024 Patient encounter procedure Maternal Medicine Comment on above: Anatomy OB OB-Repeat Urine Cult ure Start: 07-24-2024 End: 07-24-2024 Patient encounter procedure Maternal Medicine Comment on above: Anatomy OB Start: 06-26-2024 End: 06-26-2024 Patient encounter procedure 06/26/2024 8:00 AM EDT Routine Office Visit OB/Gynecology [address] [place] [address] Lizzy Tomlinson APRN.CNM [address] [place] [address] OB OB/Gynecology Comment on above: OB Start: 05-29-2024 End: 08-28-2024 CARRIER SCREEN, STANDARD [facility] Comment on above: Expected: 05/29/2024 , Expires: 08/28/2024 Start: 05-29-2024 End: 08-28-2024 HEMOGLOBIN EVALUATION CASCADE [facility] Work Phone: Comment on above: Expected: 05/29/2024 , Expires: 08/28/2024 Start: 05-29-2024 End: 05-29-2024 Patient encounter procedure 05/29/2024 11:15 AM EDT Routine Office Visit OB/Gynecology [address] [place], [place] [id number] Lizzy Tomlinson APRN.CNM [address] [place], [place] [address] Nuchal/OB OB/Gynecology Comment on above: Nuchal/OB Start: 05-29-2024 End: 05-29-2024 Patient encounter procedure 05/29/2024 9:30 AM EDT Routine Office Visit Maternal Medicine [address] [place] [address] [facility] Comment on above: Nuchal Start: 05-01-2024 End: 07-31-2024 ANEMIA REFLEX PANEL ANEMIA REFLEX PANEL Lab Routine with uncertain dates in first trimester Expected: 05/01/2024, Expires: 07/31/2024 [facility] Work Phone: Comment on above: Expected: 05/01/2024 , Expires: 07/31/2024 Start: 05-01-2024 End: 07-31-2024 Chromosome 21 trisomy [Presence] in Blood or Tissue by Cytogenetics [id number] PLUS Lab Routine with uncertain dates in first trimester Expected: 05/01/2024, Expires: 07/31/2024 [facility] Comment on above: Expected: 05/01/2024 , Expires: 07/31/2024 Start: 05-01-2024 End: 07-31-2024 Hemoglobin A1c in Blood HEMOGLOBIN A1C Lab Routine with uncertain dates in first trimester Expected: 05/01/2024, Expires: 07/31/2024 [facility] Comment on above: Expected: 05/01/2024 , Expires: 07/31/2024 Start: 05-01-2024 End: 07-31-2024 Hepatitis B virus surface Ag [Presence] in Serum HEPATITIS B SURFACE ANTIGEN Lab Routine with uncertain dates in first trimester Expected: 05/01/2024, Expires: 07/31/2024 [facility] Comment on above: Expected: 05/01/2024 , Expires: 07/31/2024 Start: 05-01-2024 End: 07-31-2024 Hepatitis C virus Ab [Presence] in Serum HEPATITIS C ANTIBODY IA WITH CONFIRMATION Lab Routine with uncertain dates in first trimester Expected: 05/01/2024, Expires: 07/31/2024 [facility] Comment on above: Expected: 05/01/2024 , Expires: 07/31/2024 Start: 05-01-2024 End: 07-31-2024 HIV 1+2 Ab [Presence] in Serum or Plasma by Immunoassay HIV 1/2 COMBO WITH REFLEX TO DIFFERENTIATION Lab Routine with uncertain dates in first trimester Expected: 05/01/2024, Expires: 07/31/2024 [facility] Comment on above: Expected: 05/01/2024 , Expires: 07/31/2024 Start: 05-01-2024 End: 05-01-2025 OBSTETRIC ULTRASOUND WHI OBSTETRIC ULTRASOUND WHI Anc Imaging Routine with uncertain dates in first trimester Expected: 05/01/2024, Expires: 05/01/2025 [facility] Comment on above: Expected: 05/01/2024 , Expires: 05/01/2025 Start: 05-01-2024 End: 07-31-2024 RUBELLA IGG ANTIBODY RUBELLA IGG ANTIBODY Lab Routine with uncertain dates in first trimester Expected: 05/01/2024, Expires: 07/31/2024 [facility] Comment on above: Expected: 05/01/2024 , Expires: 07/31/2024 Start: 05-01-2024 End: 07-31-2024 SYPHILIS TREPONEMAL W/REFLEX SYPHILIS TREPONEMAL W/REFLEX Lab Routine with uncertain dates in first trimester Expected: 05/01/2024, Expires: 07/31/2024 [facility] Comment on above: Expected: 05/01/2024 , Expires: 07/31/2024 Start: 05-01-2024 End: 07-31-2024 TYPE + SCREEN TYPE + SCREEN Blood Bank Routine with uncertain dates in first trimester Expected: 05/01/2024, Expires: 07/31/2024 [facility] Comment on above: Expected: 05/01/2024 , Expires: 07/31/2024 Start: 12-13-2023 Covid-19 Vaccine (#1) Covid-19 Vacci ne (#1) [facility] Comment on above: Postponed from 06/30 (Declined at this time) Start: 12-13-2023 Covid-19 Vaccine () Covid-19 Vaccine () [facility] Comment on above: Postponed from 11/18 (Declined at this time) Start: 12-13-2023 HPV Vaccine (2 - 2-d ose series) HPV Vaccine (2 - 2-dose series) [facility] Comment on above: Postponed from 07/08 (Declined at this time) Start: 12-13-2023 Meningococcal B Vacc ine: Consider Based On Risk (1 of 2 - Patient Seeks Protection) Meningococcal B Vaccine: Consider Based On Risk (1 of 2 - Patient Seeks Protection) [facility] Comment on above: Postponed from 12/30 (Declined at this time) Start: 12-13-2023 Urine microalbumin profile DTaP,Tdap,Td Vaccine (7 - Td or Tdap) [facility] Comment on above: Postponed from 01/07 (Declined at this time) Start: 11-25-2023 PAP TESTING PAP TESTING [facility] Start: 11-19-2023 Covid-19 Vaccine () Covid-19 Vaccine () [facility] Start: 11-19-2023 Influenza vaccination [facility] Start: 10-13-2023 End: 10-13-2023 Patient encounter procedure 10/13/2023 2:45 PM EDT Office Visit OB/Gynecology [address] [place], [place] [id number] Lizzy Tomlinson APRN.[facility] [address] [place] [address] Annual OB/Gynecology Comment on above: Annual Start: 09-17-2023 Influenza vaccination Influenza Vacc ine (#1) [facility] Comment on above: Postponed from 11/18 (Declined at this time) Start: 09-07-2023 CHLAMYDIA SCREENING (18-24) CHLAMYDIA SCREENING (18-24) [facility] Start: 09-07-2023 GC (GONORRHEA) SCREE JERAMIE (18-24) GC (GONORRHEA) SCREENING (18-24) [facility] Start: 09-07-2023 Screening for malign ant neoplasm of cervix Cervical Cancer Screening [facility] Start: 03-20-2023 Behavioral Health Screening Behavioral Health Screening [facility] Start: 11-18-2022 Influenza vaccination INFLUENZA (Sea son Ended) [facility] Start: 07-14-2022 Application of ice collar, cap or bag [facility] Start: 07-14-2022 Catheterization of vein [facility] Start: 07-14-2022 Elevation of affecte d extremity [facility] Start: 07-14-2022 Following clinical pathway protocol [facility] Start: 07-14-2022 Patient discharge [facility] Start: 07-14-2022 Procedure discontinued [facility] Start: 07-14-2022 Taking patient vital signs [facility] Start: 07-14-2022 Vital signs measurements [facility] Start: 07-14-2022 [facility] Start: 07-14-2022 Medication education [facility] Start: 03-20-2022 DEPRESSION ASSESSMENT DEPRESSION ASS ESSMENT [facility] Start: 01-07-2021 Urine microalbumin profile [facility] Start: 2016 Anxiety Screening Anxiety Screening [facility] Start: 2016 Depression Screening Depression Scre ening [facility] Start: 2012 PEDS TO ADULT TRANSI TION ANNUAL ASSESSMENT PEDS TO ADULT TRANSITION ANNUAL ASSESSMENT [facility] Start: 07-09-2011 HPV VACCINE (2 - 2-d ose series) HPV VACCINE (2 - 2-dose series) [facility] Start: 2010 PEDS TO ADULT TRANSI TION INITIAL DISCUSSION PEDS TO ADULT TRANSITION INITIAL DISCUSSION [facility] Start: 2008 MENINGOCOCCAL B: Con wildlife refuge specialist based on risk (1 of 2 - Risk Bexsero 2-dose series) MENINGOCOCCAL B: Consider based on risk (1 of 2 - Risk Bexsero 2-dose series) [facility] Start: 07-01-1999 COVID-19 VACCINE (#1) COVID-19 VACCI NE (#1) [facility] Bacteria identified in Urine by Culture BACTERIAL CULTURE, URINE Microbiology Routine 16 weeks gestation of (HCC) 06/26/2024 8:34 AM EDT [facility] Work Phone: Bacteria identified in Urine by Culture BACTERIAL CULTURE, URINE Microbiology Routine Supervision of other high risk pregnancies, second trimester ([facility]) 19 weeks gestation of (HCC) Recurrent urinary tract infection affecting , antepartum ([facility]) 07/18/2024 11:56 AM EDT [facility] Work Phone: Bacteria identified in Urine by Culture BACTERIAL CULTURE, URINE Microbiology Routine Supervision of other high risk pregnancies, second trimester ([facility]) Recurrent urinary tract infection affecting , antepartum ([facility]) 20 weeks gestation of ([facility]) 07/26/2024 9:22 AM EDT [facility] Work Phone: BACTERIAL VAGINOSIS NAAT BACTERI AL VAGINOSIS NAAT Lab Routine Supervision of high risk in third trimester (HCC) 37 weeks gestation of (HCC) Vaginal discharge 11/19/2024 1:57 PM EDT [facility] BELINDA/TRICHOMONAS NAAT BELINDA /TRICHOMONAS NAAT Lab Routine Supervision of high risk in third trimester ([facility]) 37 weeks gestation of ([facility]) Vaginal discharge 11/19/2024 1:57 PM EDT [facility] Work Phone: PAP TEST PAP TEST Lab Rou emma Encounter for gynecological examination (general) (routine) without abnormal findings Encounter for screening for cervical cancer 09/06/2022 9:18 AM EDT [facility] Work Phone: PAP TEST PAP TEST Lab Rou emma Encounter for gynecological examination (general) (routine) with abnormal findings Screening for cervical cancer Encounter for screening for human papillomavirus (HPV) 10/13/2023 3:49 PM EDT [facility] Work Phone: Patient Education Bone Contusion [facility] Work Phone: Patient referral [facility] Work Phone: URINE OB DIP B/O URINE OB DIP B/ O Lab Routine Supervision of high risk in third trimester (HCC) 36 weeks gestation of (HCC) Ordered: 11/15/2024 [facility] Work Phone: Comment on above: Ordered: 11/15/2024 URINE OB DIP B/O URINE OB DIP B/ O Lab Routine Supervision of high risk in third trimester (HCC) 37 weeks gestation of (HCC) Ordered: 11/22/2024 [facility] Work Phone: Comment on above: Ordered: 11/22/2024 [facility] Immunizations Immunization Date Immunization Notes Care Provider Jairo marroquin 09-19-2024 RHO(D) immune globul in- IV or IM Cuco Mejia APRN.BACKEND DEVELOPER Work Phone: [facility] 11-11-2019 RHO(D) immune globul in- IV or IM Lizzy Tomlinson APRN.CN Work Phone: [facility] Work Phone: 04-20-2016 influenza virus vaccine, unspecified formulation Ethan Chauhan PARENT AIDE.BACKEND DEVELOPER Work Phone: [facility] 01-07-2011 human papilloma viru s vaccine, quadrivalent Lizzy Tomlinson APRN.CNM Work Phone: [facility] Work Phone: 01-07-2011 influenza virus vaccine, live, attenuated, for intranasal use Lizzy Tomlinson APRN.CNM Work Phone: [facility] Work Phone: 01-07-2011 Meningococcal, MCV4, unspecified conjugate formulation(groups A, C, Y and W-135) Lizzy Tomlinson APRN.CNM Work Phone: [facility] Work Phone: 01-07-2011 tetanus toxoid, redu rajiv diphtheria toxoid, and acellular pertussis vaccine, adsorbed Lizzy Tomlinson APRN.CNM Work Phone: [facility] Work Phone: 03-24-2008 chicken pox (disease) Janette Tomlinson APRN.CNM Work Phone: [facility] Work Phone: 12-03-2003 diphtheria, tetanus toxoids and acellular pertussis vaccine, unspecified formulation Ethan Chauhan PARENT AIDE.BACKEND DEVELOPER Work Phone: [facility] 12-02-2003 diphtheria, tetanus toxoids and acellular pertussis vaccine Lizzy Tomlinson APRN.CNM Work Phone: [facility] Work Phone: 12-02-2003 measles, mumps and rubella virus vaccine Lizzy Tomlinson APRN.CNM Work Phone: [facility] Work Phone: 12-02-2003 poliovirus vaccine, inactivated Lizzy Tomlinson APRN.CNM Work Phone: [facility] Work Phone: 08-09-2000 poliovirus vaccine, inactivated Lizzy Tomlinson APRN.CNM Work Phone: [facility] Work Phone: 05-08-2000 diphtheria, tetanus toxoids and acellular pertussis vaccine Lizzy Tomlinson APRN.CNM Work Phone: [facility] Work Phone: 05-08-2000 haemophilus influenz ae type b vaccine, HbOC conjugate Lizzy Tomlinson APRN.CNM Work Phone: [facility] Work Phone: 01-26-2000 hepatitis B vaccine, pediatric or pediatric/adolescent dosage Lizzy Tomlinson APRN.CNM Work Phone: [facility] Work Phone: 01-26-2000 measles, mumps and rubella virus vaccine Lizzy Davi PARENT AIDE.CNM Work Phone: [facility] Work Phone: 11-17-1999 hepatitis B vaccine, pediatric or pediatric/adolescent dosage Lizzy Tomlinson PARENT AIDE.CNM Work Phone: [facility] Work Phone: 07-07-1999 diphtheria, tetanus toxoids and acellular pertussis vaccine Lizzy Davi PARENT AIDE.CNM Work Phone: [facility] Work Phone: 07-07-1999 haemophilus influenz ae type b vaccine, HbOC conjugate Lizzy Davi PARENT AIDE.CNM Work Phone: [facility] Work Phone: 07-07-1999 hepatitis B vaccine, pediatric or pediatric/adolescent dosage Lizzy Davi PARENT AIDE.CNM Work Phone: [facility] Work Phone: 05-05-1999 diphtheria, tetanus toxoids and acellular pertussis vaccine Lizzy Tomlinson PARENT AIDE.CNM Work Phone: [facility] Work Phone: 05-05-1999 haemophilus influenz ae type b vaccine, HbOC conjugate Lizzy Tomlinson PARENT AIDE.CNM Work Phone: [facility] Work Phone: 05-05-1999 poliovirus vaccine, inactivated Lizzy Tomlinson PARENT AIDE.CNM Work Phone: [facility] Work Phone: 03-02-1999 diphtheria, tetanus toxoids and acellular pertussis vaccine Lizzy Tomlinson PARENT AIDE.CNM Work Phone: [facility] Work Phone: 03-02-1999 haemophilus influenz ae type b vaccine, HbOC conjugate Lizzy Tomlinson PARENT AIDE.CNM Work Phone: [facility] Work Phone: 03-02-1999 poliovirus vaccine, inactivated Lizzy Tomlinson PARENT AIDE.CNM Work Phone: [facility] Work Phone: Payers Date Payer Category Payer Self-pay [id number] [phone] [id number] 2024 Private Health Insurance [employer] E [id number] 2024 Unknown [id number] 2023 Unknown ISABELLA WALDRON HMO VERONICA [id number] 2023-Present [phone] [address] [place] [address] O [id number] 2022 Medicaid [employer] [place] [id number] 2022-Present [phone] [address] [address] [place] [address] Medicaid [id number] Unknown [id number] Unknown [id number] Unknown [id number] Social History Date Type Detail Facility [facility] Work Phone: Start: 10-23-2021 End: 06-27-2022 Tobacco smoking status NHIS Unknown if ever smoked [facility] Start: 07-28-2019 None [facility] Start: 07-28-2019 Alone [facility] Start: 2000 Sex Assigned At Female [facility] Start: 09-06-2022 Tobacco smoking stat us NHIS Never smoked tobacco [facility] Start: 09-06-2022 Tobacco use and exposure Smokeless tobacco non-user [facility] Start: 09-06-2022 End: 10-13-2023 Alcohol intake Current drinker of alcohol (finding) [facility] Start: 11-24-2020 Alcohol Comment Rarely [facility] Start: 2000 Sex Assigned At Not on file [facility] Start: 09-06-2022 End: 12-12-2022 History of Social function [facility] Work Phone: Start: 09-06-2022 End: 12-12-2022 Tobacco use panel [facility] Work Phone: Start: 02-19-2012 Adult Depression Screening Assessment 0 [facility] Work Phone: Start: 10-13-2023 Alcohol Comment occasionally [facility] Start: 05-01-2024 End: 09-19-2024 Alcoholic beverage intake Ex-drinker (finding) [facility] Start: 04-30-2024 Education 13 [facility] Start: 03-17-2024 [facility] Start: 04-30-2024 Gender identity Identifies as female gender (finding) [facility] Start: 04-30-2024 Sexual orientation Heterosexual (fin sailaja) [facility] NEGATED: Highlighted row [facility] Medical Equipment Procedure Code Equipment Code Equipment Origin al Text Equipment Identifier Dates Graft Dbx Bone V oid Allograft Freeze Dried Putty .5ml - [id number] Start: 07-17-2018 Idr-Iv-G-Kind Implant - [id number] Start: 07-17-2018 Mys-Xm-Z-Kind Implant - [id number] Start: 07-17-2018 Tkk-Rm-I-Kind Implant - [id number] Start: 07-17-2018 Goals Date Patient Goal Desired Activity /State Personal health goal Functional Status Date Assessment Result Facility 08-05-2014 Are you deaf, or do you have serious difficulty hearing No 08/05/2014 2:09 PM Demetria Miranda RN No [facility] 08-05-2014 Are you blind, or do you have serious difficulty seeing, even when wearing glasses No 08/05/2014 2:09 PM Demetria Miranda RN No [facility] 08-05-2014 Do you have serious difficulty walking or climbing stairs No 08/05/2014 2:09 PM Demetria Miranda RN No [facility] 08-05-2014 Do you have difficul ty dressing or bathing No 08/05/2014 2:09 PM Demetria Miranda RN No [facility] 08-05-2014 Because of a physica l, mental, or emotional condition, do you have difficulty doing errands alone such as visiting a physician's office or shopping No 08/05/2014 2:09 PM Demetria Miranda RN No [facility] Mental Status Date Assessment Result Facility 07-14-2022 Cognitive function Voice/Name [facility] Work Phone: 08-05-2014 Because of a physica l, mental, or emotional condition, do you have serious difficulty concentrating, remembering, or making decisions No 08/05/2014 2:09 PM Demetria Miranda RN No [facility] Clinical Notes 11-11-2019 to 11-22-2024 Quick Notes - Lizzy Tomlinson APRN.CN - 11/22/2024 9:55 AM EDTPrenatal Quick Notes - Lizzy Tomlinson APRN.CNM - 11/22/2024 9:55 AM EDTPatient InstructionsPatient Instructions Note Date & Type Note Facility 11-22-2024 Progress note Formatting of t his note is different from the original. MAIKEL-S: Evelyn Lucas is a 23 year old female who presents at 37w5d with BK:12/08/2024, by Ultrasound for a routine visit. Denies headache, visual changes, chest pain, shortness of breath, vaginal bleeding, leakage of fluid, or dysuria. Increased swelling in BLE. O: See flow sheet Gen: No apparent distress Abd: Gravid, nontender +1 pitting edema, BLE DTR+2/4 bilateral patellar, no clonus Requested cervical exam SENSITIVE EXAMINATION CONSENT: The sensitive examination was discussed with the Patient or Patient's Authorized Supplier Quality. As applicable, any other physician, advance practice provider, medical student, or other health professional student that will be observing or involved in the sensitive examination for educational or training purposes was discussed with the Patient or Authorized Supplier Quality. The Patient or Authorized Supplier Quality has agreed to proceed with the sensitive examination. ASSESSMENT/PLAN: 1. Supervision of other high risk pregnancies, second trimester -Continue PNV and ASA -GBS negative 2. 37 weeks gestation of 3. Rh negative state in antepartum period, second trimester -Rhogam at 28wk 4. Edema in -No Signs of preeclampsia. Reviewed compression stockings, elevation, hydration. -Baseline labs today -Reviewed S&S of preelclampsia and when to call PTL precautions reviewed and when to call RTO in 1 weeks Lizzy Tomlinson APRN.CNM [facility] 11-22-2024 Miscellaneous Notes MAIKEL-S: Evelyn Lucas is a 23 year old female who presents at 37w5d with BK:12/08/2024, by Ultrasound for a routine visit. Denies headache, visual changes, chest pain, shortness of breath, vaginal bleeding, leakage of fluid, or dysuria. Increased swelling in BLE. O: See flow sheet Gen: No apparent distress Abd: Gravid, nontender +1 pitting edema, BLE DTR+2/4 bilateral patellar, no clonus Requested cervical exam SENSITIVE EXAMINATION CONSENT: The sensitive examination was discussed with the Patient or Patient's Authorized Supplier Quality. As applicable, any other physician, advance practice provider, medical student, or other health professional student that will be observing or involved in the sensitive examination for educational or training purposes was discussed with the Patient or Authorized Supplier Quality. The Patient or Authorized Supplier Quality has agreed to proceed with the sensitive examination. ASSESSMENT/PLAN: 1. Supervision of other high risk pregnancies, second trimester -Continue PNV and ASA -GBS negative 2. 37 weeks gestation of 3. Rh negative state in antepartum period, second trimester -Rhogam at 28wk 4. Edema in -No Signs of preeclampsia. Reviewed compression stockings, elevation, hydration. -Baseline labs today -Reviewed S&S of preelclampsia and when to call PTL precautions reviewed and when to call RTO in 1 weeks Lizzy Tomlinson APRN.CNM documented in this encounter [facility] 11-22-2024 Instructions Debbie Jackson MA - 11/22/2024 9:50 AM EDT SEQUENTIAL SCREENINGS The [facility] offers sequential screenings for women who are interested in screenings for chromosomal abnormalities and certain defects during a . The sequential screen combines ultrasound and blood tests to determine the risk of chromosomal abnormalities, including Down's Syndrome (Trisomy 21) and Trisomy 18, as well as open neural tube defects including spina bifida. Ultrasound examination is performed between 11 weeks and 13 weeks gestational age. Blood tests are drawn after the ultrasound and again later in the between 15 and 21 weeks gestational age. Please let your physician know if you are interested in this testing. It will require an appointment with our transportation planning technician. This is not an ultrasound performed by a physician in our office during a routine visit. SIGNS AND SYMPTOMS OF LABOR 1. Contractions every 10 minutes or more often 2. Clear, pink, or brownish fluid (water) leaking from vagina 3. Feeling that baby is pushing down, pressure 4. Low, dull backache 5. Cramps that feel like a period 6. Cramps with or without diarrhea If you notice any of the above symptoms, contact our office at [phone] and ask to speak with a nurse. After hours, you can call doctors registry at [phone] OR call [facility] at [phone] and ask to have the doctor multifocal button inspector paged. If you consider this an emergency, dial 9--1 or go to your nearest emergency department. NEED HELP? Are you dealing with a violent or abusive relationship? Are you a victim of rape or sexual assult? Call [facility] ([place]) 24 hour Crisis Hotline: 817.521.2891 or 159-581-4100. MANUAL Your Guide to a Healthy manual is now on-line. Visit [email or web address] to download your free copy documented in this encounter [facility] 11-19-2024 Note HNO ID: [id number] Author: DEBBIE JACKSON MA Service: ? Author Type: Tanker Service Attendant Type: Progress Notes Filed: 11/19/2024 13:05 Note Text: SHADIA BP 3-120/76 2-126/81 1-127/79 Stopped after this per Dr. Ramirez [facility] 11-19-2024 History of Presen t illness Narrative SHADIA BP 3-120/76 2-126/81 1-127/79 Stopped after this per Dr. Ramirez documented in this encounter [facility] 11-19-2024 Progress note Formatting of t his note might be different from the original. RR- VB No. LOF some clear vaginal discharge on pantyliner only. CTXS yes q 5-10 min. Movement: present. Other c/o: some edema, denies STONE or visual changes Medication list reviewed. SENSITIVE EXAM: The sensitive examination was discussed with the Patient or Patient's Authorized Supplier Quality. As applicable, any other physician, advance practice provider, medical student, or other health professional student that will be observing or involved in the sensitive examination for educational or training purposes was discussed with the Patient or Authorized Supplier Quality. The Patient or Authorized Supplier Quality has agreed to proceed with the sensitive examination. (Sensitive examination includes inspection and/or palpation of the breasts, pelvis, prostate and anorectal regions). Physical Exam See Flow Sheet Abd: soft, nontender, gravid : external genitalia: normal and lesions present, vagina: pink, ruggated, discharge: clear, mucous, and blood: absent, cervix: smooth, nonfriable Ext: edema: 2+, symetrical: Yes, DTRS: 2+, clonus: Absent A/P 37w2d Estimated Date of Delivery: 12/08/24 ASSESSMENT/PLAN: 1. Supervision of high risk in third trimester (HCC) - ICD9: V23.9, ICD10: O09.93 (primary diagnosis) - URINE OB DIP B/O - BELINDA/TRICHOMONAS NAAT - BACTERIAL VAGINOSIS NAAT 2. 37 weeks gestation of (HCC) - ICD9: V22.2, ICD10: Z3A.37 - URINE OB DIP B/O - BELINDA/TRICHOMONAS NAAT - BACTERIAL VAGINOSIS NAAT 3. Vaginal discharge - ICD9: 623.5, ICD10: N89.8 no evidence of SROM. D/w her signs/symptoms of labor and when to return, vaginitis swabs sent. Head ballots w/ cervical check - BELINDA/TRICHOMONAS NAAT - BACTERIAL VAGINOSIS NAAT Les Ramirez MD Amniotic Fluid Test 11/19/2024 1:03 PM Fern: neg ; Nitrazine: neg (pH less than 7) Fern Reference Range: Negative for amniotic fluid Nitrazine Reference Range: Normal vaginal pH is acidic (below 7.0) with pH above 7.0 (basic) indicating the presence of amniotic fluid. Lab Address: Ob/gynecology [address] [facility] [address] Dept: [phone] Provider: Les Ramirez MD [facility] 11-19-2024 Miscellaneous Notes RR- VB No. LOF some clear vaginal discharge on pantyliner only. CTXS yes q 5-10 min. Movement: present. Other c/o: some edema, denies STONE or visual changes Medication list reviewed. SENSITIVE EXAM: The sensitive examination was discussed with the Patient or Patient's Authorized Supplier Quality. As applicable, any other physician, advance practice provider, medical student, or other health professional student that will be observing or involved in the sensitive examination for educational or training purposes was discussed with the Patient or Authorized Supplier Quality. The Patient or Authorized Supplier Quality has agreed to proceed with the sensitive examination. (Sensitive examination includes inspection and/or palpation of the breasts, pelvis, prostate and anorectal regions). Physical Exam See Flow Sheet Abd: soft, nontender, gravid : external genitalia: normal and lesions present, vagina: pink, ruggated, discharge: clear, mucous, and blood: absent, cervix: smooth, nonfriable Ext: edema: 2+, symetrical: Yes, DTRS: 2+, clonus: Absent A/P 37w2d Estimated Date of Delivery: 12/08/24 ASSESSMENT/PLAN: 1. Supervision of high risk in third trimester ([facility]) - ICD9: V23.9, ICD10: O09.93 (primary diagnosis) - URINE OB DIP B/O - BELINDA/TRICHOMONAS NAAT - BACTERIAL VAGINOSIS NAAT 2. 37 weeks gestation of ([facility]) - ICD9: V22.2, ICD10: Z3A.37 - URINE OB DIP B/O - BELINDA/TRICHOMONAS NAAT - BACTERIAL VAGINOSIS NAAT 3. Vaginal discharge - ICD9: 623.5, ICD10: N89.8 no evidence of SROM. D/w her signs/symptoms of labor and when to return, vaginitis swabs sent. Head ballots w/ cervical check - BELINDA/TRICHOMONAS NAAT - BACTERIAL VAGINOSIS NAAT Les Ramirez MD Amniotic Fluid Test 11/19/2024 1:03 PM Fern: neg ; Nitrazine: neg (pH less than 7) Fern Reference Range: Negative for amniotic fluid Nitrazine Reference Range: Normal vaginal pH is acidic (below 7.0) with pH above 7.0 (basic) indicating the presence of amniotic fluid. Lab Address: Ob/gynecology [address] [place] [address] Dept: [phone] Provider: Les Ramirez MD documented in this encounter [facility] 11-19-2024 Instructions Debbie Jackson MA - 11/19/2024 11:38 AM EDT SEQUENTIAL SCREENINGS The [facility] offers sequential screenings for women who are interested in screenings for chromosomal abnormalities and certain defects during a . The sequential screen combines ultrasound and blood tests to determine the risk of chromosomal abnormalities, including Down's Syndrome (Trisomy 21) and Trisomy 18, as well as open neural tube defects including spina bifida. Ultrasound examination is performed between 11 weeks and 13 weeks gestational age. Blood tests are drawn after the ultrasound and again later in the between 15 and 21 weeks gestational age. Please let your physician know if you are interested in this testing. It will require an appointment with our transportation planning technician. This is not an ultrasound performed by a physician in our office during a routine visit. SIGNS AND SYMPTOMS OF LABOR 1. Contractions every 10 minutes or more often 2. Clear, pink, or brownish fluid (water) leaking from vagina 3. Feeling that baby is pushing down, pressure 4. Low, dull backache 5. Cramps that feel like a period 6. Cramps with or without diarrhea If you notice any of the above symptoms, contact our office at [phone] and ask to speak with a nurse. After hours, you can call doctors registry at [phone] OR call [facility] at [phone] and ask to have the doctor multifocal button inspector paged. If you consider this an emergency, dial 3-1-4 or go to your nearest emergency department. NEED HELP? Are you dealing with a violent or abusive relationship? Are you a victim of rape or sexual assult? Call [facility] ([place]) 24 hour Crisis Hotline: 255.590.5284 or 726-497-4255. MANUAL Your Guide to a Healthy manual is now on-line. Visit [email or web address] to download your free copy documented in this encounter [facility] 11-19-2024 Telephone encounter Note Called patient. Appointment given. Will be here by 11:30 AM. Emilia Garcia RN [facility] 11-19-2024 Miscellaneous Notes Called patient. Appointment given. Will be here by 11:30 AM. Emilia Garcia RN come in for eval. Les Ramirez MD 37w2d Patient called with c/o contractions since 1:30 AM. Leaking clear fluid, mostly when she moves around, since then too. Very little amount. Wearing a panty liner. Having pelvic pressure. UC are 5-10 min apart. Pain rate of 5-6. Denies VB. She is just a few minutes away from office. She did not have a cervical exam at her last office visit. Would you like to come to the office now or go to L&D? Emilia Garcia RN documented in this encounter [facility] 11-19-2024 Telephone encounter Note come in for eval. Les Ramirez MD [facility] 11-19-2024 Telephone encounter Note 37w2d Patient called with c/o contractions since 1:30 AM. Leaking clear fluid, mostly when she moves around, since then too. Very little amount. Wearing a panty liner. Having pelvic pressure. UC are 5-10 min apart. Pain rate of 5-6. Denies VB. She is just a few minutes away from office. She did not have a cervical exam at her last office visit. Would you like to come to the office now or go to L&D? Emilia Garcia RN [facility] 11-15-2024 Progress note Formatting of t his note is different from the original. MAIKEL-S: Evleyn Lucas is a 23 year old female who presents at 36w5d with BK:12/08/2024, by Ultrasound for a routine visit. Denies headache, visual changes, chest pain, shortness of breath, vaginal bleeding, leakage of fluid, or dysuria. Increased swelling in BLE. O: See flow sheet Gen: No apparent distress Abd: Gravid, nontender +1 pitting edema, BLE DTR+2/4 bilateral patellar, no clonus GBS today Confirmed cephalic by limited bedside US. to confirm SENSITIVE EXAMINATION CONSENT: The sensitive examination was discussed with the Patient or Patient's Authorized Supplier Quality. As applicable, any other physician, advance practice provider, medical student, or other health professional student that will be observing or involved in the sensitive examination for educational or training purposes was discussed with the Patient or Authorized Supplier Quality. The Patient or Authorized Supplier Quality has agreed to proceed with the sensitive examination. ASSESSMENT/PLAN: 1. Supervision of other high risk pregnancies, second trimester -Continue PNV and ASA -GBS today 2. 36 weeks gestation of 3. Rh negative state in antepartum period, second trimester -Rhogam at 28wk 4. Edema in -No Signs of preeclampsia. Reviewed compression stockings, elevation, hydration. -Reviewed S&S of preelclampsia and when to call PTL precautions reviewed and when to call RTO in 1 weeks Lizzy Tomlinson APRN.CNM [facility] 11-15-2024 Miscellaneous Notes MAIKEL-S: Evelyn Lucas is a 23 year old female who presents at 36w5d with BK:12/08/2024, by Ultrasound for a routine visit. Denies headache, visual changes, chest pain, shortness of breath, vaginal bleeding, leakage of fluid, or dysuria. Increased swelling in BLE. O: See flow sheet Gen: No apparent distress Abd: Gravid, nontender +1 pitting edema, BLE DTR+2/4 bilateral patellar, no clonus GBS today Confirmed cephalic by limited bedside US. to confirm SENSITIVE EXAMINATION CONSENT: The sensitive examination was discussed with the Patient or Patient's Authorized Supplier Quality. As applicable, any other physician, advance practice provider, medical student, or other health professional student that will be observing or involved in the sensitive examination for educational or training purposes was discussed with the Patient or Authorized Supplier Quality. The Patient or Authorized Supplier Quality has agreed to proceed with the sensitive examination. ASSESSMENT/PLAN: 1. Supervision of other high risk pregnancies, second trimester -Continue PNV and ASA -GBS today 2. 36 weeks gestation of 3. Rh negative state in antepartum period, second trimester -Rhogam at 28wk 4. Edema in -No Signs of preeclampsia. Reviewed compression stockings, elevation, hydration. -Reviewed S&S of preelclampsia and when to call PTL precautions reviewed and when to call RTO in 1 weeks Lizzy Tomlinson APRN.CNM documented in this encounter [facility] 11-15-2024 Instructions Lizzy Tomlinson APRN.CNM - 11/15/2024 3:08 PM EDT Images from the original note were not included. Preparing for labor: Eat dates to promote spontaneous labor! Has an oxytocin-like effect on the body, leading to increased sensitivity of the uterus. Stimulates uterine contractions. Reduces hemorrhage the way oxytocin does. Date fruit contains saturated and unsaturated fatty acids such as oleic, linoleic, and linolenic acids, which are involved in saving and supplying energy and construction of prostaglandins. In addition, serotonin, tannin, and calcium in date fruit contribute to the contraction of smooth muscles of the uterus. Date fruit also has a laxative effect, which stimulates uterine contractions. Six dates per day is the magic number--provided that you re eating smaller deglet noor dates. Deglet noor dates are about 1 inch long. Medjool dates can be up to 2 inches long. If you re eating medjool dates, you only need about 3 dates to reach the 75 grams recommended in the studies. Not sure which type of date you have in your refrigerator? It s probably a deglet noor. How to Eat Dates During Dates are a healthy and delicious snack, so how can you add them to your diet? Add dates during in this awesome oatmeal recipe. Add dates to replace sugar in your favorite recipe or to nuzhat your homemade almond milk. Use dates and nuts to make an easy pie crust in the food preparation kitchen aide. Add soaked dates to homemade nut butter for a sweet treat. Add dates to nuzhat homemade salad dressing. Add dates during easily with these yummy (paleo friendly) bars made from dates. What Is Red Raspberry [place] Tea? Red raspberry leaf tea comes from the leaves of the red raspberry plant. This herbal tea has been used for centuries to support respiratory, digestive and uterine health, particularly during and childbearing years. While usually known as a female herb, red raspberry leaf tea can also help support the prostate and various stomach ailments in children. How It Can Help and Red raspberry leaf tea can help to make labor faster and reduce complications and interventions during . One study found that women who consumed RRL tea regularly are less likely to go overdue or give prematurely. These women may also be less likely to receive an artificial rupture of their membranes or require a section, forceps, or vacuum than the women in the control group. Red raspberry leaf has many other benefits to , , and too. How Much Red Raspberry [place] Tea to Drink? With your doctor or dam worker s approval, start with 1 cup of red raspberry leaf tea per day starting in the second trimester. Watch for any uterine cramping or other reactions. If you don t experience any, you can talk to your healthcare provider about increasing to 2 cups per day. Again, watch for any uterine cramping. If you notice any, cut back on your dosage for two weeks and try again. Keep in mind, some moms have irritable uteruses and can only drink red raspberry leaf tea once they reach their due date because of uterine cramping. Is Red Raspberry [place] Tea the Same as Raspberry [place] Tea? How About Plain Old Raspberry Tea? Sometimes. You really need to look at the ingredients to be sure. Note that there is no difference between red raspberry leaf and raspberry leaf. [employer] or Emgo Raspberry [place] Tea are two good brands. The red raspberry leaf teas that we recommend are 100% red raspberry leaf. Other teas labeled as raspberry are often a blend of rosehips, hibiscus, raspberry leaves, and raspberry flavor. So they may not be as effective. The teas to avoid are raspberry-flavored herbal teas, which may have ingredients like hibiscus, venice hips, apples, elderberries, natural and artificial raspberry flavors. Teas like this don t contain raspberry leaf at all and thus won t offer any of the potential benefits of RRLT outlined in this article. The [employer] www.[employer] I named this 'circuit' after my friend Nia Alfonso, who shared and discussed it with me when I was working with a client whose labor seemed to be stalled out and no longer progressing... This circuit is useful to help get the baby lined up, ideally, in the Left Occiput Anterior (SCAR) Position, both before labor begins and when some corrections need to be done during labor. Prenatally, this position set can help to rotate a baby. As a natural method of induction, this can help get things going if baby just needed a gentle nudge of position to set things off. To the best of my knowledge, this group of positions will not hurt a baby that is already lined up correctly. - Felicia Lockwood Before you Begin..... This circuit takes at least 90 minutes to complete so clear your schedule and make mental preparations so you can relax in your environment. The second step requires a lot of pillows so gather them up before beginning Before starting, you should empty your bladder! Have a nice drink nearby, and make sure it has a straw! If you are having contractions, this circuit should bedone through contractions, try not to change positions between steps Step One: Open-knee Chest Stay in this position for 30 minutes, start in cat/cow, then drop your chest as low as you can to the bed or the floor and your bottom as high as you can. Knees should be fairly wide apart, and the angle between the torso/thighs should be wider than 90 degrees. Wiggle around, prop with lots of pillows and use this time to get totally relaxed. This position allows the baby to scoot out of the pelvis a bit and gives them room to rotate, shift their head position, etc. If the person finds it helpful,careful positioning with a rebozo under the belly, with gentle tension from a support person behindcan help maintain this position for the full 30minutes. Step Two: Exaggerated Left Side Lying Roll to your left side, bringing your top leg as high as possible and keeping your bottom leg straight. Roll forward as much as possible,again using a lot of pillows. Sink into the bed and relax some more. If you fall asleep, that's totally okay and you can stay there! If not, stay here for at least another half an hour. Try and get your top right leg up towards your head and get as rolled over onto your belly as much as possible. If you repeat the circuit during labor, try alternating left and right sides. We know the photo the left is actually right side... just flip the image in your head. Step Three: Moving and Lunges Lunge, walk stairs facing sideways, 2 at a time, (have a registered nurse behavioral health downstairs of you!), take a walk outside with one foot on the curb and the other on the street, sit on a ball and hula- anything that's upright and putting your pelvis in open, asymmetrical positions. Spend at least 30 minutes doing this one as well to give your baby a chance to move down. If you are lunging or stair or curb walking, you should lunge/walk/go up stairs in the direction that feels better to you. The garcia with the lunge is that the toes of the higher leg and mom's belly button should be at right angles. Do not lunge over your knee, that closes the pelvis. Nia Hamilton: Circuit Creator - www.[facility].c Felicia Lockwood, CD, BDT (FRANDY), LCCE, FACCE: Supporting Content - www.feliciaWarwick Warppatrick.IDInteract Cuco Moyer: Photography - www.sonyaExercise the WorldhoCouponCabin.IDInteract Linda Rowe CD/CDT (BELLA): Print and Travel Administrator - www.[employer].Everyone Counts Circuit Masterminds The [employer] www.[employer]Interact SIGNS AND SYMPTOMS OF LABOR 1. Contractions every 10 minutes or more often 2. Clear, pink, or brownish fluid (water) leaking from vagina 3. Feeling that baby is pushing down, pressure 4. Low, dull backache 5. Cramps that feel like a period 6. Cramps with or without diarrhea If you notice any of the above symptoms, contact our office at [phone] and ask to speak with a nurse. After hours, you can call doctors registry at [phone] OR call [facility] at [phone] and ask to have the doctor multifocal button inspector paged. If you consider this an emergency, dial or go to your nearest emergency department. NEED HELP? Are you dealing with a violent or abusive relationship? Are you a victim of rape or sexual assult? Call [facility] ([place]) 24 hour Crisis Hotline: 439.293.4999 or 226-901-9896. MANUAL Your Guide to a Healthy manual is now on-line. Visit [email or web address] to download your free copy documented in this encounter [facility] 11-08-2024 Telephone encounter Note I messaged the patient and can fit her in anywhere today if that works. Lizzy Tomlinson APRN.CNM [facility] 11-08-2024 Miscellaneous Notes I messaged the patient and can fit her in anywhere today if that works. Lizzy Tomlinson APRN.CNM I am so sorry she is having all of this swelling! She should initially try a couple of things such as decreasing sodium intake, increasing water intake, wearing compression stockings and trying to keep feet elevated when possible. Radhika Goldstein APRN.CNM Ob patient is 35w5d called c/o increased swelling in lower legs from knees to toes, Swelling does not resolve completely overnight when sleeping. BP at work was 124/78 today. Patient denies STONE, no vision changes or epigastric pain. Baby is active. documented in this encounter [facility] 11-08-2024 Telephone encounter Note I am so sorry she is having all of this swelling! She should initially try a couple of things such as decreasing sodium intake, increasing water intake, wearing compression stockings and trying to keep feet elevated when possible. Radhika Goldstein APRN.CNM [facility] Work Phone: 11-08-2024 Telephone encounter Note Ob patient is 35w5d called c/o increased swelling in lower legs from knees to toes, Swelling does not resolve completely overnight when sleeping. BP at work was 124/78 today. Patient denies STONE, no vision changes or epigastric pain. Baby is active. [facility] 11-07-2024 Telephone encounter Note Form has been signed. A copy has been placed into scanning folder. Was not faxed per patient request- she stated that she was going to fax this copy with other paperwork she has to her employer. Debbie Montez MA [facility] 11-07-2024 Miscellaneous Notes Form has been signed. A copy has been placed into scanning folder. Was not faxed per patient request- she stated that she was going to fax this copy with other paperwork she has to her employer. Debbie Montez MA Form filled out and placed into providers mailbox. Debbie Montez MA Received additional disability form- will complete filling out for provider. Debbie Montez MA documented in this encounter [facility] 11-07-2024 Telephone encounter Note Form filled out and placed into providers mailbox. Debbie Montez MA [facility] 11-07-2024 Telephone encounter Note Received additional disability form- will complete filling out for provider. Debbie Montez MA [facility] 10-28-2024 Progress note Formatting of t his note might be different from the original. EH - S: Evelyn is a 23 year old female who presents at 34w1d for a routine visit. Feeling movement. Denies headache, visual changes, chest pain, shortness of breath, vaginal bleeding, leakage of fluid, or dysuria. Notes bilateral lower extremity swelling. O: See flow sheet Gen: No apparent distress Abd: Gravid, nontender, S=D, 36 lb TWG ASSESSMENT/PLAN: 1. Supervision of high risk in third trimester ([facility]) - ICD9: V23.9, ICD10: O09.93 (primary diagnosis) - Continue PNV and LDA - Discussed relieving factors for lower extremity swelling 2. 34 weeks gestation of ([facility]) - ICD9: V22.2, ICD10: Z3A.34 - GBS next visit 3. Uterine size-date discrepancy, third trimester ([facility]) - ICD9: 649.63, ICD10: O26.843 - Growth at 32 weeks AGA 4. Rh negative state in antepartum period ([facility]) - ICD9: 646.83, ICD10: O26.899, Z67.91 - Rhogam received 09/19/24 PTL precautions and kick counts reviewed. RTO in 2 weeks or sooner as needed. Cuco Mejia APRN.BACKEND DEVELOPER [facility] 10-28-2024 Miscellaneous Notes EH - S: Evelyn is a 23 year old female who presents at 34w1d for a routine visit. Feeling movement. Denies headache, visual changes, chest pain, shortness of breath, vaginal bleeding, leakage of fluid, or dysuria. Notes bilateral lower extremity swelling. O: See flow sheet Gen: No apparent distress Abd: Gravid, nontender, S=D, 36 lb TWG ASSESSMENT/PLAN: 1. Supervision of high risk in third trimester ([facility]) - ICD9: V23.9, ICD10: O09.93 (primary diagnosis) - Continue PNV and LDA - Discussed relieving factors for lower extremity swelling 2. 34 weeks gestation of ([facility]) - ICD9: V22.2, ICD10: Z3A.34 - GBS next visit 3. Uterine size-date discrepancy, third trimester ([facility]) - ICD9: 649.63, ICD10: O26.843 - Growth at 32 weeks AGA 4. Rh negative state in antepartum period ([facility]) - ICD9: 646.83, ICD10: O26.899, Z67.91 - Rhogam received 09/19/24 PTL precautions and kick counts reviewed. RTO in 2 weeks or sooner as needed. Cuco Mejia APRN.BACKEND DEVELOPER documented in this encounter [facility] 10-28-2024 Instructions Jovani Slaughter LPN - 10/28/2024 7:38 AM EDT SEQUENTIAL SCREENINGS The [facility] offers sequential screenings for women who are interested in screenings for chromosomal abnormalities and certain defects during a . The sequential screen combines ultrasound and blood tests to determine the risk of chromosomal abnormalities, including Down's Syndrome (Trisomy 21) and Trisomy 18, as well as open neural tube defects including spina bifida. Ultrasound examination is performed between 11 weeks and 13 weeks gestational age. Blood tests are drawn after the ultrasound and again later in the between 15 and 21 weeks gestational age. Please let your physician know if you are interested in this testing. It will require an appointment with our transportation planning technician. This is not an ultrasound performed by a physician in our office during a routine visit. SIGNS AND SYMPTOMS OF LABOR 1. Contractions every 10 minutes or more often 2. Clear, pink, or brownish fluid (water) leaking from vagina 3. Feeling that baby is pushing down, pressure 4. Low, dull backache 5. Cramps that feel like a period 6. Cramps with or without diarrhea If you notice any of the above symptoms, contact our office at [phone] and ask to speak with a nurse. After hours, you can call doctors registry at [phone] OR call [facility] at [phone] and ask to have the doctor multifocal button inspector paged. If you consider this an emergency, dial 2-4-7 or go to your nearest emergency department. NEED HELP? Are you dealing with a violent or abusive relationship? Are you a victim of rape or sexual assult? Call [facility] ([place]) 24 hour Crisis Hotline: 670.936.4741 or 611-461-5962. MANUAL Your Guide to a Healthy manual is now on-line. Visit [email or web address] [place] to download your free copy documented in this encounter [facility] 10-15-2024 Note Indication Evaluation of growth Discrepancy between uterine size and clinical dates Impression - Single, live, intrauterine . - presentation is cephalic. - The biometry is consistent with the assigned gestational dating. - The EFW is 2150 g, at the 70%. AC is at the 77%. - The amniotic fluid volume is normal amount with an MVP of 5.9 cm and an MARY of 14.3 cm. - The placenta is posterior, fundal. - No malformations visualized on a limited survey as detailed below. Recommendations Additional follow-up as clinically indicated. Maternal Assessment Height 147 cm Height (ft) 4 ft Height (in) 10 in Physical Exam Initial weight (lb) 99 lb Initial BMI 20.69 kg/m Maternal assessment other: 3 Para 1 REMOTE READ Method Transabdominal ultrasound examination Cuellar . Number of fetuses: 1 Dating LMP on: 02/24/2024 GA by LMP 33 w + 3 d BK by LMP: 11/30/2024 GA by prior assessment 32 w + 2 d BK by prior assessment: 12/08/2024 Ultrasound examination on: 10/15/2024 GA by U/S based upon: AC, BPD, Femur, HC GA by U/S 33 w + 2 d BK by U/S: 12/01/2024 Assigned: based on stated BK, selected on 10/15/2024 Assigned GA 32 w + 2 d Assigned BK: 12/08/2024 General Evaluation Cardiac activity present. FHR 157 bpm. movements: present. Presentation: cephalic Placenta: Placental site: posterior, fundal Umbilical cord: Cord vessels: 3 vessel cord Amniotic fluid: Amount of AF: normal amount. MVP 5.9 cm. MARY 14.3 cm. Q1 5.4 cm, Q2 1.3 cm, Q3 5.9 cm, Q4 1.8 cm Growth Overview Exam date GA BPD (mm) HC (mm) AC (mm) FL (mm) HL (mm) EFW (g) 07/26/2024 20w 5d 51.2 80% 195.2 79% 168.1 78% 35.1 77% 34.4 82% 430 84% 10/15/2024 32w 2d 84.1 85% 311.5 79% 292.7 77% 62.5 65% 2150 70% Biometry Standard BPD 84.1 mm 33w 6d 85% Hadlock OFD 111.3 mm 33w 5d 80% Nicolaides HC 311.5 mm 34w 0d 79% Kenneth AC 292.7 mm 33w 2d 77% Hadlock Femur 62.5 mm 32w 1d 65% Kenneth EFW 2,150 g 33w 0d 70% Hadlock EFW (lb) 4 lb EFW (oz) 12 oz EFW by: Hadlock (HC-AC-FL) Extended Flat Clothier 4.3 mm Extremities / Bony Struc FL / HC 0.20 Other Structures FHR 157 bpm Anatomy Lateral ventricles: normal Cavum septi pellucidi: normal Cerebellum: normal Cisterna magna: normal 4-chamber view: normal RVOT view: normal LVOT view: normal 3-vessel view: normal Heart / Thorax Situs: situs solitus (normal) Diaphragm: normal Stomach: normal Kidneys: normal Bladder: normal sex: male Wants to know sex: yes Performed By: Treasure Benz RDMS, RVT Read By: Carolin Dia M.D. [facility] 10-15-2024 Progress note Formatting of t his note might be different from the original. RR- VB No. LOF No. CTXS No. Movement: present. Other c/o: No. Medication list reviewed. SENSITIVE EXAM: Sensitive exam not performed. Physical Exam See Flow Sheet Gen: no accute distress, well appearing A/P 32w2d Estimated Date of Delivery: 12/08/24 Assessment & Plan Supervision of high risk in third trimester ([facility]) Uterine size-date discrepancy, third trimester ([facility]) grwoth scan today AGA w/ normal fluid 32 weeks gestation of ([facility]) f/u in 2 weeks or prn Les Ramirez M.D. [facility] 10-15-2024 Miscellaneous Notes RR- VB No. LOF No. CTXS No. Movement: present. Other c/o: No. Medication list reviewed. SENSITIVE EXAM: Sensitive exam not performed. Physical Exam See Flow Sheet Gen: no accute distress, well appearing A/P 32w2d Estimated Date of Delivery: 12/08/24 Assessment & Plan Supervision of high risk in third trimester ([facility]) Uterine size-date discrepancy, third trimester ([facility]) grwoth scan today AGA w/ normal fluid 32 weeks gestation of ([facility]) f/u in 2 weeks or prn Jairo Ramirez.D. documented in this encounter [facility] 10-15-2024 Instructions Debbie Montez MA - 10/15/2024 11:34 AM EDT SEQUENTIAL SCREENINGS The [facility] offers sequential screenings for women who are interested in screenings for chromosomal abnormalities and certain defects during a . The sequential screen combines ultrasound and blood tests to determine the risk of chromosomal abnormalities, including Down's Syndrome (Trisomy 21) and Trisomy 18, as well as open neural tube defects including spina bifida. Ultrasound examination is performed between 11 weeks and 13 weeks gestational age. Blood tests are drawn after the ultrasound and again later in the between 15 and 21 weeks gestational age. Please let your physician know if you are interested in this testing. It will require an appointment with our transportation planning technician. This is not an ultrasound performed by a physician in our office during a routine visit. SIGNS AND SYMPTOMS OF LABOR 1. Contractions every 10 minutes or more often 2. Clear, pink, or brownish fluid (water) leaking from vagina 3. Feeling that baby is pushing down, pressure 4. Low, dull backache 5. Cramps that feel like a period 6. Cramps with or without diarrhea If you notice any of the above symptoms, contact our office at [phone] and ask to speak with a nurse. After hours, you can call doctors registry at [phone] OR call [facility] at [phone] and ask to have the doctor multifocal button inspector paged. If you consider this an emergency, dial 9-3 or go to your nearest emergency department. NEED HELP? Are you dealing with a violent or abusive relationship? Are you a victim of rape or sexual assult? Call [facility] [place] ([facility] 24 hour Crisis Hotline: 596.821.9303 or 720-755-0291. MANUAL Your Guide to a Healthy manual is now on-line. [email or web address] [place] to download your free copy documented in this encounter [facility] 10-03-2024 Miscellaneous Notes EH - S: Evelyn is a 23 year old female who presents at 30w4d for a routine visit. Feeling movement. Denies headache, visual changes, chest pain, shortness of breath, vaginal bleeding, leakage of fluid, or dysuria. Reports some increased white discharge. Denies itching or irritation. O: See flow sheet Gen: No apparent distress Abd: Gravid, nontender, S>D, 26 lb TWG ASSESSMENT/PLAN: 1. Supervision of high risk in third trimester ([facility]) - ICD9: V23.9, ICD10: O09.93 (primary diagnosis) - Continue PNV and LDA 2. 30 weeks gestation of ([facility]) - ICD9: V22.2, ICD10: Z3A.30 - 28 week labs reviewed 3. Rh negative state in antepartum period, second trimester ([facility]) - ICD9: 646.83, ICD10: O26.892, Z67.91 - Received Rhogam last visit, plan for 4. Uterine size-date discrepancy, third trimester ([facility]) - ICD9: 649.63, ICD10: O26.843 - S>D - OBSTETRIC ULTRASOUND [facility] PTL precautions and kick counts reviewed. RTO in 2 weeks or sooner as needed. Cuco Mejia APRN.BACKEND DEVELOPER documented in this encounter [facility] 10-03-2024 Progress note Formatting of t his note might be different from the original. EH - S: Evelyn is a 23 year old female who presents at 30w4d for a routine visit. Feeling movement. Denies headache, visual changes, chest pain, shortness of breath, vaginal bleeding, leakage of fluid, or dysuria. Reports some increased white discharge. Denies itching or irritation. O: See flow sheet Gen: No apparent distress Abd: Gravid, nontender, S>D, 26 lb TWG ASSESSMENT/PLAN: 1. Supervision of high risk in third trimester ([facility]) - ICD9: V23.9, ICD10: O09.93 (primary diagnosis) - Continue PNV and LDA 2. 30 weeks gestation of ([facility]) - ICD9: V22.2, ICD10: Z3A.30 - 28 week labs reviewed 3. Rh negative state in antepartum period, second trimester ([facility]) - ICD9: 646.83, ICD10: O26.892, Z67.91 - Received Rhogam last visit, plan for 4. Uterine size-date discrepancy, third trimester ([facility]) - ICD9: 649.63, ICD10: O26.843 - S>D - OBSTETRIC ULTRASOUND WHI PTL precautions and kick counts reviewed. RTO in 2 weeks or sooner as needed. Cuco Mejia APRN.BACKEND DEVELOPER [facility] 10-03-2024 Instructions Debbie Montez MA - 10/03/2024 2:26 PM EDT SEQUENTIAL SCREENINGS The [facility] offers sequential screenings for women who are interested in screenings for chromosomal abnormalities and certain defects during a . The sequential screen combines ultrasound and blood tests to determine the risk of chromosomal abnormalities, including Down's Syndrome (Trisomy 21) and Trisomy 18, as well as open neural tube defects including spina bifida. Ultrasound examination is performed between 11 weeks and 13 weeks gestational age. Blood tests are drawn after the ultrasound and again later in the between 15 and 21 weeks gestational age. Please let your physician know if you are interested in this testing. It will require an appointment with our transportation planning technician. This is not an ultrasound performed by a physician in our office during a routine visit. SIGNS AND SYMPTOMS OF LABOR 1. Contractions every 10 minutes or more often 2. Clear, pink, or brownish fluid (water) leaking from vagina 3. Feeling that baby is pushing down, pressure 4. Low, dull backache 5. Cramps that feel like a period 6. Cramps with or without diarrhea If you notice any of the above symptoms, contact our office at [phone] and ask to speak with a nurse. After hours, you can call [employer] registry at [phone] OR call [facility] at [phone] and ask to have the doctor multifocal button inspector paged. If you consider this an emergency, dial 9-1-0 or go to your nearest emergency department. NEED HELP? Are you dealing with a violent or abusive relationship? Are you a victim of rape or sexual assult? Call [facility] ([place]) 24 hour Crisis Hotline: 517.241.4747 or 144-031-4564. MANUAL Your Guide to a Healthy manual is now on-line. Visit [email or web address] [place] to download your free copy documented in this encounter [facility] 09-19-2024 Note HNO ID: [id number] Author: ANYI BARRERA RN Service: ? Author Type: Registered Nurse Type: Progress Notes Filed: 09/19/2024 15:39 Note Text: Evelyn Lucas 23 year old is here for her injection of Rhophylac. Evelyn Garciah ABO/RH(D) (no units) Date Value 06/11/2019 A NEGATIVE Antibody Screen (no units) Date Value 05/29/2024 Negative 11/11/2019 NEG Evelyn Garciah is RH Negative Rhophylac was given without incident. See immunizations for details of immunizations administered today. Provider NINA was present in office at time of injection Evelyn Lucas was given her Rhophylac pocket card. Anyi Barrera RN [facility] 09-19-2024 History of Presen t illness Narrative Evelyn Lucas 23 year old is here for her injection of Rhophylac. Evelyn Parekh Lance ABO/RH(D) (no units) Date Value 06/11/2019 A NEGATIVE Antibody Screen (no units) Date Value 05/29/2024 Negative 11/11/2019 NEG Evelyn Garciah is RH Negative Rhophylac was given without incident. See immunizations for details of immunizations administered today. Provider NINA was present in office at time of injection Evelyn Lucas was given her Rhophylac pocket card. Anyi Barrera RN documented in this encounter [facility] 09-19-2024 Progress note Formatting of t his note might be different from the original. EH - S: Evelyn is a 23 year old female who presents at 28w4d for a routine visit. Feeling movement. Denies headache, visual changes, chest pain, shortness of breath, vaginal bleeding, leakage of fluid, or dysuria. Feeling well, no complaints. O: See flow sheet Gen: No apparent distress Abd: Gravid, nontender, S>D, 25 lb TWG ASSESSMENT/PLAN: 1. Supervision of high risk in third trimester ([facility]) - ICD9: V23.9, ICD10: O09.93 (primary diagnosis) - Continue PNV and LDA 2. 28 weeks gestation of ([facility]) - ICD9: V22.2, ICD10: Z3A.28 - 1 hour GCT, CBC, and RPR today - Rh negative: Rhogam injection today - Declines TDAP - LARC form reviewed and signed. Declines. - Depression screen negative - Opioid screen negative - plan form discussed and given to Evelyn - Reviewed how to pre register through [facility] 3. Rh negative state in antepartum period, second trimester ([facility]) - ICD9: 646.83, ICD10: O26.892, Z67.91 - Rhogam today 4. UTI (urinary tract infection) in , antepartum ([facility]) - ICD9: 646.63, 599.0, ICD10: O23.40 - Rescreen today PTL precautions and kick counts reviewed. RTO in 2 weeks or sooner as needed. Cuco Mejia APRN.BACKEND DEVELOPER [facility] 09-19-2024 Miscellaneous Notes EH - S: Evelyn is a 23 year old female who presents at 28w4d for a routine visit. Feeling movement. Denies headache, visual changes, chest pain, shortness of breath, vaginal bleeding, leakage of fluid, or dysuria. Feeling well, no complaints. O: See flow sheet Gen: No apparent distress Abd: Gravid, nontender, S>D, 25 lb TWG ASSESSMENT/PLAN: 1. Supervision of high risk in third trimester ([facility]) - ICD9: V23.9, ICD10: O09.93 (primary diagnosis) - Continue PNV and LDA 2. 28 weeks gestation of ([facility]) - ICD9: V22.2, ICD10: Z3A.28 - 1 hour GCT, CBC, and RPR today - Rh negative: Rhogam injection today - Declines TDAP - LARC form reviewed and signed. Declines. - Depression screen negative - Opioid screen negative - plan form discussed and given to Evelyn - Reviewed how to pre register through [facility] 3. Rh negative state in antepartum period, second trimester ([facility]) - ICD9: 646.83, ICD10: O26.892, Z67.91 - Rhogam today 4. UTI (urinary tract infection) in , antepartum ([facility]) - ICD9: 646.63, 599.0, ICD10: O23.40 - Rescreen today PTL precautions and kick counts reviewed. RTO in 2 weeks or sooner as needed. Cuco Mejia APRN.CNP documented in this encounter [facility] 09-19-2024 Instructions Cuco Mejia APRN.CNP - 09/19/2024 2:09 PM EDT Please call [phone] to pre-register for your and labor and delivery stay at [facility]. They will want to know your due date, insurance and contact information. This is important to do before you go into labor to help with the efficiency of the admission process when you arrive. Thank you so much! SEQUENTIAL SCREENINGS The [facility] offers sequential screenings for women who are interested in screenings for chromosomal abnormalities and certain defects during a . The sequential screen combines ultrasound and blood tests to determine the risk of chromosomal abnormalities, including Down's Syndrome (Trisomy 21) and Trisomy 18, as well as open neural tube defects including spina bifida. Ultrasound examination is performed between 11 weeks and 13 weeks gestational age. Blood tests are drawn after the ultrasound and again later in the between 15 and 21 weeks gestational age. Please let your physician know if you are interested in this testing. It will require an appointment with our transportation planning technician. This is not an ultrasound performed by a physician in our office during a routine visit. SIGNS AND SYMPTOMS OF LABOR 1. Contractions every 10 minutes or more often 2. Clear, pink, or brownish fluid (water) leaking from vagina 3. Feeling that baby is pushing down, pressure 4. Low, dull backache 5. Cramps that feel like a period 6. Cramps with or without diarrhea If you notice any of the above symptoms, contact our office at [phone] and ask to speak with a nurse. After hours, you can call doctors registry at [phone] OR call [facility] at [phone] and ask to have the doctor multifocal button inspector paged. If you consider this an emergency, dial 9-4-3 or go to your nearest emergency department. NEED HELP? Are you dealing with a violent or abusive relationship? Are you a victim of rape or sexual assult? Call [facility] ([place]) 24 hour Crisis Hotline: 314.363.3428 or 570-697-8884. MANUAL Your Guide to a Healthy manual is now on-line. [email or web address] to download your free copy documented in this encounter [facility] 08-30-2024 Progress note Formatting of t his note is different from the original. MAIKEL-S: Evelyn Lucas is a 23 year old female who presents at 25w5d with BK:12/08/2024, by Ultrasound for a routine visit. Denies headache, visual changes, chest pain, shortness of breath, vaginal bleeding, leakage of fluid, or dysuria. Feeling well, no complaints. O: See flow sheet Gen: No apparent distress Abd: Gravid, nontender ASSESSMENT/PLAN: 1. Supervision of other high risk pregnancies, second trimester -Continue PNV and ASA -Anatomy US at 20 wk -Labs reviewed and normal 2. 16 weeks gestation of 3. Rh negative state in antepartum period, second trimester -Rhogam at 28wk 4. UTI (urinary tract infection) in , antepartum -Positive Klebsiella, treated with Keflex and Bactrim. Urine ALAINA negative PTL precautions reviewed and when to call RTO in 4 weeks Lizzy Tomlinson APRN.CNM [facility] 08-30-2024 Miscellaneous Notes MAIKEL-S: Evelyn Lucas is a 23 year old female who presents at 25w5d with BK:12/08/2024, by Ultrasound for a routine visit. Denies headache, visual changes, chest pain, shortness of breath, vaginal bleeding, leakage of fluid, or dysuria. Feeling well, no complaints. O: See flow sheet Gen: No apparent distress Abd: Gravid, nontender ASSESSMENT/PLAN: 1. Supervision of other high risk pregnancies, second trimester -Continue PNV and ASA -Anatomy US at 20 wk -Labs reviewed and normal 2. 16 weeks gestation of 3. Rh negative state in antepartum period, second trimester -Rhogam at 28wk 4. UTI (urinary tract infection) in , antepartum -Positive Klebsiella, treated with Keflex and Bactrim. Urine ALAINA negative PTL precautions reviewed and when to call RTO in 4 weeks Lizzy Tomlinson APRN.CNM documented in this encounter [facility] 08-30-2024 Instructions Lizzy Tomlinson APRN.CNM - 08/30/2024 9:12 AM EDT SEQUENTIAL SCREENINGS The [facility] offers sequential screenings for women who are interested in screenings for chromosomal abnormalities and certain defects during a . The sequential screen combines ultrasound and blood tests to determine the risk of chromosomal abnormalities, including Down's Syndrome (Trisomy 21) and Trisomy 18, as well as open neural tube defects including spina bifida. Ultrasound examination is performed between 11 weeks and 13 weeks gestational age. Blood tests are drawn after the ultrasound and again later in the between 15 and 21 weeks gestational age. Please let your physician know if you are interested in this testing. It will require an appointment with our transportation planning technician. This is not an ultrasound performed by a physician in our office during a routine visit. 1 HOUR GLUCOLA TEST PREPARATION, EXPLANATION & INSTRUCTIONS The test is performed to detect gestational diabetes mellitus. Some women, when they become , will develop this condition. If left untreated or undetected, diabetes may lead to problems with both your health and your baby's. All OB patients must have the 1 hour Glucola testing between 24 and 28 weeks. Patient is permitted to eat 2 hours prior to Glucola testing. Patient is to arrive at her appointment prepared to drink 50gms of glucose beverage. Blood will be drawn 1 hour after Glucola is consumed. No food, candy, gum, beverages or water may be consumed during the test. No smoking during testing!! Testing is complete after blood is drawn. SIGNS AND SYMPTOMS OF LABOR 1. Contractions every 10 minutes or more often 2. Clear, pink, or brownish fluid (water) leaking from vagina 3. Feeling that baby is pushing down, pressure 4. Low, dull backache 5. Cramps that feel like a period 6. Cramps with or without diarrhea If you notice any of the above symptoms, contact our office at [phone] and ask to speak with a nurse. After hours, you can call doctors registry at [phone] OR call [facility] at [phone] and ask to have the doctor multifocal button inspector paged. If you consider this an emergency, dial 9-1-1 or go to your nearest emergency department. NEED HELP? Are you dealing with a violent or abusive relationship? Are you a victim of rape or sexual assult? Call [facility] [place] ([facility] 24 hour Crisis Hotline: 220.904.4867 or 221-458-0121. MANUAL Your Guide to a Healthy manual is now on-line. Visit [email or web address] to download your free copy documented in this encounter [facility] 07-26-2024 Progress note Formatting of t his note might be different from the original. S: Evelyn Lucas is a 23 year old female who presents at 20 weeks gestation for a routine visit. Just completed anatomy US. Reports feeling much better than last week. Denies any urinary concerns. Denies headache, visual changes, chest pain, shortness of breath, vaginal bleeding, leakage of fluid, or dysuria. Feeling well, no complaints. O: See flow sheet Gen: No apparent distress Abd: Gravid, non tender ASSESSMENT/PLAN: 1. Supervision of other high risk pregnancies, second trimester 2. Recurrent urinary tract infection affecting , antepartum 3. 20 weeks gestation of - ALAINA Urine today - Continue vitamin/ ASA - RTO 4 weeks or sooner if needed Radhika Goldstein APRN.CNM [facility] Work Phone: 07-26-2024 Miscellaneous Notes S: Evelyn Lucas is a 23 year old female who presents at 20 weeks gestation for a routine visit. Just completed anatomy US. Reports feeling much better than last week. Denies any urinary concerns. Denies headache, visual changes, chest pain, shortness of breath, vaginal bleeding, leakage of fluid, or dysuria. Feeling well, no complaints. O: See flow sheet Gen: No apparent distress Abd: Gravid, non tender ASSESSMENT/PLAN: 1. Supervision of other high risk pregnancies, second trimester 2. Recurrent urinary tract infection affecting , antepartum 3. 20 weeks gestation of - ALAINA Urine today - Continue vitamin/ ASA - RTO 4 weeks or sooner if needed Radhika Goldstein APRN.CNM documented in this encounter [facility] 07-26-2024 Instructions Riki Wharton MA - 07/26/2024 8:39 AM EDT SEQUENTIAL SCREENINGS The [facility] offers sequential screenings for women who are interested in screenings for chromosomal abnormalities and certain defects during a . The sequential screen combines ultrasound and blood tests to determine the risk of chromosomal abnormalities, including Down's Syndrome (Trisomy 21) and Trisomy 18, as well as open neural tube defects including spina bifida. Ultrasound examination is performed between 11 weeks and 13 weeks gestational age. Blood tests are drawn after the ultrasound and again later in the between 15 and 21 weeks gestational age. Please let your physician know if you are interested in this testing. It will require an appointment with our transportation planning technician. This is not an ultrasound performed by a physician in our office during a routine visit. SIGNS AND SYMPTOMS OF LABOR 1. Contractions every 10 minutes or more often 2. Clear, pink, or brownish fluid (water) leaking from vagina 3. Feeling that baby is pushing down, pressure 4. Low, dull backache 5. Cramps that feel like a period 6. Cramps with or without diarrhea If you notice any of the above symptoms, contact our office at [phone] and ask to speak with a nurse. After hours, you can call doctors registry at [phone] OR call [facility] at [phone] and ask to have the doctor multifocal button inspector paged. If you consider this an emergency, dial 9-2-7 or go to your nearest emergency department. NEED HELP? Are you dealing with a violent or abusive relationship? Are you a victim of rape or sexual assult? Call [facility] ([place]) 24 hour Crisis Hotline: 167.847.9989 or 710-507-4552. MANUAL Your Guide to a Healthy manual is now on-line. Visit [email or web address] to download your free copy documented in this encounter [facility] 07-18-2024 Progress note Formatting of t his note might be different from the original. S: Evelyn Lucas is a 23 year old female who presents as an add on visit for cramping that started earlier this morning. She describes it as a constant tightening. Does not come and go like contractions. Working today and was told to take rest of day off. Denies any vaginal spotting or bleeding. Denies any dysuria. Recently completed antibiotics for UTI. Has only had 2 garcia to drink today. O: See flow sheet Gen: No apparent distress Abd: Gravid, non tender with moderate palpation ASSESSMENT/PLAN: 1. Supervision of other high risk pregnancies, second trimester 2. 19 weeks gestation of ([facility]) 3. Recurrent urinary tract infection affecting , antepartum 4. Uterine cramping Urine - dip negative Urine culture sent - ALAINA Increase hydration and incorporate electrolytes Suspect round ligament/ growing pains Tylenol 1000 mg PO as needed for pain Support provided RTO next week for anatomy US and as needed Radhika Goldstein APRN.CNM [facility] 07-18-2024 Miscellaneous Notes S: Evelyn Lucas is a 23 year old female who presents as an add on visit for cramping that started earlier this morning. She describes it as a constant tightening. Does not come and go like contractions. Working today and was told to take rest of day off. Denies any vaginal spotting or bleeding. Denies any dysuria. Recently completed antibiotics for UTI. Has only had 2 garcia to drink today. O: See flow sheet Gen: No apparent distress Abd: Gravid, non tender with moderate palpation ASSESSMENT/PLAN: 1. Supervision of other high risk pregnancies, second trimester 2. 19 weeks gestation of ([facility]) 3. Recurrent urinary tract infection affecting , antepartum 4. Uterine cramping Urine - dip negative Urine culture sent - ALAINA Increase hydration and incorporate electrolytes Suspect round ligament/ growing pains Tylenol 1000 mg PO as needed for pain Support provided RTO next week for anatomy US and as needed Radhika Goldstein APRN.CNM documented in this encounter [facility] 07-18-2024 Instructions Riki Wharton MA - 07/18/2024 11:31 AM EDT SEQUENTIAL SCREENINGS The [facility] offers sequential screenings for women who are interested in screenings for chromosomal abnormalities and certain defects during a . The sequential screen combines ultrasound and blood tests to determine the risk of chromosomal abnormalities, including Down's Syndrome (Trisomy 21) and Trisomy 18, as well as open neural tube defects including spina bifida. Ultrasound examination is performed between 11 weeks and 13 weeks gestational age. Blood tests are drawn after the ultrasound and again later in the between 15 and 21 weeks gestational age. Please let your physician know if you are interested in this testing. It will require an appointment with our transportation planning technician. This is not an ultrasound performed by a physician in our office during a routine visit. SIGNS AND SYMPTOMS OF LABOR 1. Contractions every 10 minutes or more often 2. Clear, pink, or brownish fluid (water) leaking from vagina 3. Feeling that baby is pushing down, pressure 4. Low, dull backache 5. Cramps that feel like a period 6. Cramps with or without diarrhea If you notice any of the above symptoms, contact our office at [phone] and ask to speak with a nurse. After hours, you can call doctors registry at [phone] OR call [facility] at [phone] and ask to have the doctor multifocal button inspector paged. If you consider this an emergency, dial 9-1- or go to your nearest emergency department. NEED HELP? Are you dealing with a violent or abusive relationship? Are you a victim of rape or sexual assult? Call [facility] ([place]) 24 hour Crisis Hotline: 225.515.8358 or 172-218-2455. MANUAL Your Guide to a Healthy manual is now on-line. [email or web address] to download your free copy documented in this encounter [facility] 06-26-2024 Note Addended by: RIKI WHARTON on: 06/26/2024 08:32 AM Modules accepted: Orders [facility] 06-26-2024 Miscellaneous Notes Addended by: RIKI WHARTON on: 06/26/2024 08:32 AM Modules accepted: Orders MAIKEL-S: Evelyn Lucas is a 23 year old female who presents at 16w3d with BK:12/08/2024, by Ultrasound for a routine visit. Denies headache, visual changes, chest pain, shortness of breath, vaginal bleeding, leakage of fluid, or dysuria. Feeling well, no complaints. O: See flow sheet Gen: No apparent distress Abd: Gravid, nontender ASSESSMENT/PLAN: 1. Supervision of other high risk pregnancies, second trimester -Continue PNV and ASA -Anatomy US at 20 wk -Labs reviewed and normal 2. 16 weeks gestation of 3. Rh negative state in antepartum period, second trimester -Rhogam at 28wk 4. UTI (urinary tract infection) in , antepartum -urine ALAINA today 5. History of spontaneous PTL precautions reviewed and when to call RTO in 4 weeks Lizzy Tomlinson APRN.CNM documented in this encounter [facility] 06-26-2024 Progress note Formatting of t his note might be different from the original. MAIKEL-S: Evelyn Lucas is a 23 year old female who presents at 16w3d with BK:12/08/2024, by Ultrasound for a routine visit. Denies headache, visual changes, chest pain, shortness of breath, vaginal bleeding, leakage of fluid, or dysuria. Feeling well, no complaints. O: See flow sheet Gen: No apparent distress Abd: Gravid, nontender ASSESSMENT/PLAN: 1. Supervision of other high risk pregnancies, second trimester -Continue PNV and ASA -Anatomy US at 20 wk -Labs reviewed and normal 2. 16 weeks gestation of 3. Rh negative state in antepartum period, second trimester -Rhogam at 28wk 4. UTI (urinary tract infection) in , antepartum -urine ALAINA today 5. History of spontaneous PTL precautions reviewed and when to call RTO in 4 weeks Lizzy Tomlinson APRN.CNM [facility] 06-26-2024 Note HNO ID: [id number] Author: LIZZY TOMLINSON APRN.CNM Service: ? 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 The sequential screen combines ultrasound and blood tests to determine the risk of chromosomal abnormalities, including Down's Syndrome (Trisomy 21) and Trisomy 18, as well as open neural tube defects including spina bifida. Ultrasound examination is performed between 11 weeks and 13 weeks gestational age. Blood tests are drawn after the ultrasound and again later in the between 15 and 21 weeks gestational age. Please let your physician know if you are interested in this testing. It will require an appointment with our transportation planning technician. This is not an ultrasound performed by a physician in our office during a routine visit. SIGNS AND SYMPTOMS OF LABOR 1. Contractions every 10 minutes or more often 2. Clear, pink, or brownish fluid (water) leaking from vagina 3. Feeling that baby is pushing down, pressure 4. Low, dull backache 5. Cramps that feel like a period 6. Cramps with or without diarrhea If you notice any of the above symptoms, contact our office at [phone] and ask to speak with a nurse. After hours, you can call doctors registry at [phone] OR call [facility] at [phone] and ask to have the doctor multifocal button inspector paged. If you consider this an emergency, dial 9--8 or go to your nearest emergency department. NEED HELP? Are you dealing with a violent or abusive relationship? Are you a victim of rape or sexual assult? Call [facility] ([place]) 24 hour Crisis Hotline: 240.762.8374 or 833-726-8313. MANUAL Your Guide to a Healthy manual is now on-line. Visit [email or web address] to download your free copy documented in this encounter [facility] 05-30-2024 Telephone encounter Note FMLA paperwork completed and faxed back to employer. Patient notified. Riki Wharton MA [facility] 05-30-2024 Miscellaneous Notes FMLA paperwork completed and faxed back to employer. Patient notified. Riki Wharton MA FMLA paperwork on providers desk for signature. Riki Wharton MA FMLA paperwork received. Riki Wharton MA documented in this encounter [facility] 05-29-2024 Telephone encounter Note FMLA paperwork on providers desk for signature. Riki Wharton MA [facility] 05-29-2024 Telephone encounter Note FMLA paperwork received. Riki Wharton MA [facility] 05-29-2024 Progress note Formatting of t his note might be different from the original. MAIKEL-S: Evelyn Lucas is a 23 year old female who presents at 12w3d with BK:12/08/2024, by Ultrasound for a routine visit. Denies headache, visual changes, chest pain, shortness of breath, vaginal bleeding, leakage of fluid, or dysuria. Feeling well, no complaints. O: See flow sheet Gen: No apparent distress Abd: nontender ASSESSMENT/PLAN: 1. Encounter for supervision of other normal in second trimester -Continue PNV -Start ASA -PN labs today -Desires NIPT and carrier screening 2. 12 weeks gestation of PTL precautions reviewed and when to call RTO in 4 weeks Lizzy Tomlinson APRN.CNM [facility] 05-29-2024 Miscellaneous Notes MAIKEL-S: Evelyn Lucas is a 23 year old female who presents at 12w3d with BK:12/08/2024, by Ultrasound for a routine visit. Denies headache, visual changes, chest pain, shortness of breath, vaginal bleeding, leakage of fluid, or dysuria. Feeling well, no complaints. O: See flow sheet Gen: No apparent distress Abd: nontender ASSESSMENT/PLAN: 1. Encounter for supervision of other normal in second trimester -Continue PNV -Start ASA -PN labs today -Desires NIPT and carrier screening 2. 12 weeks gestation of PTL precautions reviewed and when to call RTO in 4 weeks Lizzy Tomlinson APRN.CNM documented in this encounter [facility] 05-29-2024 Riki Yanes MA - 05/29/2024 10:24 AM EDT SEQUENTIAL SCREENINGS The [facility] offers sequential screenings for women who are interested in screenings for chromosomal abnormalities and certain defects during a . The sequential screen combines ultrasound and blood tests to determine the risk of chromosomal abnormalities, including Down's Syndrome (Trisomy 21) and Trisomy 18, as well as open neural tube defects including spina bifida. Ultrasound examination is performed between 11 weeks and 13 weeks gestational age. Blood tests are drawn after the ultrasound and again later in the between 15 and 21 weeks gestational age. Please let your physician know if you are interested in this testing. It will require an appointment with our transportation planning technician. This is not an ultrasound performed by a physician in our office during a routine visit. SIGNS AND SYMPTOMS OF LABOR 1. Contractions every 10 minutes or more often 2. Clear, pink, or brownish fluid (water) leaking from vagina 3. Feeling that baby is pushing down, pressure 4. Low, dull backache 5. Cramps that feel like a period 6. Cramps with or without diarrhea If you notice any of the above symptoms, contact our office at [phone] and ask to speak with a nurse. After hours, you can call doctors registry at [phone] OR call [facility] at [phone] and ask to have the doctor multifocal button inspector paged. If you consider this an emergency, dial 1--8 or go to your nearest emergency department. NEED HELP? Are you dealing with a violent or abusive relationship? Are you a victim of rape or sexual assult? Call [facility] ([place]) 24 hour Crisis Hotline: 505.731.5541 or 347-793-0983. MANUAL Your Guide to a Healthy manual is now on-line. Visit [email or web address] to download your free copy documented in this encounter [facility] 04-30-2024 Note HNO ID: [id number] Author: LIZZY TOMLINSON APRN.CNM Service: ? 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 INITIAL OB ASSESSMENT HPI: Evelyn is a 23 year old White Female here to establish Obstetrical Care. Patient's last menstrual period was 02/24/2024. from OB Dating Form. was unplanned but accepted Complaints: No Some nausea but no vomiting. Increased fatigue. OB History Gravida3 Para1 Term1 Preterm0 AB1 Living1 SAB1 IAB0 Ectopic0 Multiple0 Live Births1 Previous history: Prior : No History of 4th degree laceration: Perineal Laceration, 3rd or 4th degree No History of shoulder dystocia: No History of Hypertensive disorders including pre-eclampsia or gestational hypertension: No History of gestational diabetes: Diabetes in No Patient's Risk Screening for delivery: Have you had a prior cuellar between 20w and 36w6d? No How many pregnancies have you had before? 1 Did you have a previous baby with a GBS Infection? No Please select all that apply for any prior : N/A MEDICAL/PSYCHOSOCIAL HISTORY: Severe bleeding with delivery No Thyroid Disease No Diabetes in No ABO/RH(D) Date Value Ref Range Status 06/11/2019 A NEGATIVE Final BMI 20.77 kg/(m2) Last Pap: 10/27/2023 History of abnormal pap: Abnormal Pap Yes Prior treatment for cervical dysplasia: none. Last HPV: History of STDs: Trichomonas Partner History of STDs: None Did you have a partner with Herpes? No Tobacco use: No E-Cigarette/Vaping Use: No Caffeine use: Yes Drug use: Yes Alcohol use: No Multivitamin with Folic acid: Yes Would refuse blood transfusion if medically necessary: No Social Needs: How often does this describe you? I don't have enough money to pay my bills: Never Within the past 12 months, have you worried that your food would run out before you had money to buy more? Never In the past 12 months, has lack of reliable transportation kept you from going to medical appointments or work, or from getting things needed for daily living? Never In the past 12 months, have you had any concerns about having a place to live, or about the condition or quality of your housing? Never Would you like more information on any of the following (please check all that apply)? Not interested Social History: Do you have any history of depression, anxiety, PTSD, or other mood problems? No Do you have a history of abuse or trauma that may impact your experience? No Are you currently employed? Yes Depression/Anxiety Screening: denies, admits to symptoms of depression. OB Depression and Anxiety Screening- This Encounter (since 04/30/2024) Over the past 2 weeks have you felt down, depressed, or hopeless? Negative Over the past two weeks, have you felt little interest or pleasure in doing things?? Negative Feeling nervous, anxious or on edge 0-Not at all Not being able to stop or control worrying 0-Not al all Anxiety Pre-Screening Total (If >/= 3 additional questions will be reviewed) 0 Genetic Screening: Partner present: No Patient verbalized knowledge of partner family health history: Yes Do you or your partner have any personal or family history of defects not previously discussed: No Do you have history of a complicated by anomaly, genetic condition, or demise: No Preeclampsia Risk Screening: Screening for prevention of preeclampsia: High risk factors: None Moderate risk ractors: None OB Risk Screening: Completed, no positive findings documented. 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 Radhika Goldstein APRN.[facility] PAST SURGICAL HISTORY Procedure Laterality Date BUNIONECTOMY, LAPIDUS-TYPE 07/17/20182022 TOOTH EXTRACTION 12/2023 Current Outpatient Medications Medication Sig Dispense Refill PNV24/Iron CbnANDGluc/FA/DSS/Dha (PRENATE ORAL) Take 1 tablet by mouth once daily. iron, carbonyl 25 mg iron tab Take 1 tablet by mouth once daily. calcium carb-vitamin D3-vit K2 600 mg-1,000 unit-90 mcg tab Take 1 tablet by mouth once daily. hydrOXYzine pamoate (VISTARIL) 25 mg capsule Take 1 capsule by mouth three times daily as needed for anxiety. 30 capsule 1 No current facility-administered medications for this visit. Allergies As of Date: 05/01/2024 (No Known Allergies) Fully Assessed 05/01/2024 Does patient have penicillin allergy: No REVIEW OF SYSTEMS: GENERAL: Negative for: Fever or Chills HEENT: Negative for: Headache, Impaired Vision, Ringing in Ears, Noseblee (more content not included)... [facility] 04-30-2024 History of Presen t illness Narrative Puller Over offered: Patient declines. INITIAL OB ASSESSMENT HPI: Evelyn is a 23 year old White Female here to establish Obstetrical Care. Patient's last menstrual period was 02/24/2024. from OB Dating Form. was unplanned but accepted Complaints: No Some nausea but no vomiting. Increased fatigue. OB History Gravida3 Para1 Term1 Preterm0 AB1 Living1 SAB1 IAB0 Ectopic0 Multiple0 Live Births1 Previous history: Prior : No History of 4th degree laceration: Perineal Laceration, 3rd or 4th degree No History of shoulder dystocia: No History of Hypertensive disorders including pre-eclampsia or gestational hypertension: No History of gestational diabetes: Diabetes in No Patient's Risk Screening for delivery: Have you had a prior cuellar between 20w and 36w6d? No How many pregnancies have you had before? 1 Did you have a previous baby with a GBS Infection? No Please select all that apply for any prior : N/A MEDICAL/PSYCHOSOCIAL HISTORY: Severe bleeding with delivery No Thyroid Disease No Diabetes in No ABO/RH(D) Date Value Ref Range Status 06/11/2019 A NEGATIVE Final BMI 20.77 kg/(m^2) Last Pap: 10/27/2023 History of abnormal pap: Abnormal Pap Yes Prior treatment for cervical dysplasia: none. Last HPV: History of STDs: Trichomonas Partner History of STDs: None Did you have a partner with Herpes? No Tobacco use: No E-Cigarette/Vaping Use: No Caffeine use: Yes Drug use: Yes Alcohol use: No Multivitamin with Folic acid: Yes Would refuse blood transfusion if medically necessary: No Social Needs: How often does this describe you? I don't have enough money to pay my bills: Never Within the past 12 months, have you worried that your food would run out before you had money to buy more? Never In the past 12 months, has lack of reliable transportation kept you from going to medical appointments or work, or from getting things needed for daily living? Never In the past 12 months, have you had any concerns about having a place to live, or about the condition or quality of your housing? Never Would you like more information on any of the following (please check all that apply)? Not interested Social History: Do you have any history of depression, anxiety, PTSD, or other mood problems? No Do you have a history of abuse or trauma that may impact your experience? No Are you currently employed? Yes Depression/Anxiety Screening: denies, admits to symptoms of depression. OB Depression and Anxiety Screening- This Encounter (since 04/30/2024) Over the past 2 weeks have you felt down, depressed, or hopeless? Negative Over the past two weeks, have you felt little interest or pleasure in doing things? Negative Feeling nervous, anxious or on edge 0-Not at all Not being able to stop or control worrying 0-Not al all Anxiety Pre-Screening Total (If >/= 3 additional questions will be reviewed) 0 Genetic Screening: Partner present: No Patient verbalized knowledge of partner family health history: Yes Do you or your partner have any personal or family history of defects not previously discussed: No Do you have history of a complicated by anomaly, genetic condition, or demise: No Preeclampsia Risk Screening: Screening for prevention of preeclampsia: High risk factors: None Moderate risk ractors: None OB Risk Screening: Completed, no positive findings documented. 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 Radhika Goldstein APRN.[facility] PAST SURGICAL HISTORY Procedure Laterality Date BUNIONECTOMY, LAPIDUS-TYPE 07/17/20182022 TOOTH EXTRACTION 12/2023 Current Outpatient Medications Medication Sig Dispense Refill PNV24/Iron Cbn&Gluc/FA/DSS/Dha (PRENATE ORAL) Take 1 tablet by mouth once daily. iron, carbonyl 25 mg iron tab Take 1 tablet by mouth once daily. calcium carb-vitamin D3-vit K2 600 mg-1,000 unit-90 mcg tab Take 1 tablet by mouth once daily. hydrOXYzine pamoate (VISTARIL) 25 mg capsule Take 1 capsule by mouth three times daily as needed for anxiety. 30 capsule 1 No current facility-administered medications for this visit. Allergies As of Date: 05/01/2024 (No Known Allergies) Fully Assessed 05/01/2024 Does patient have penicillin allergy: No REVIEW OF SYSTEMS: GENERAL: Negative for: Fever or Chills HEENT: Negative for: Headache, Impaired Vision, Ringing in Ears, Nosebleeds NECK: Negative for: Swelling, Pain, Stiffness RESPIRATORY: Negative for: Cough, Shortness of breath, Wheezing GASTROINTESTINAL: Negative for: Heartburn, Constipation, Diarrhea, Blood in stool, Vomiting MUSCULOSKELETAL: Negative for: Muscle or joint pain, stiffness, Joint swelling NEUROLOGIC/PSYCHIATRIC: Negative for: Weakness, Paralysis, Numbness, Tingling, Tremor, Anxiety, Depression, Memory loss SKIN: Negative for: Rash, Itching GENITOURINARY: Negative for: vaginal itching, vaginal discharge, hematuria or dysuria SENSITIVE EXAM: The sensitive examination was discussed with the Patient or Patient's Authorized Supplier Quality. As applicable, any other physician, advance practice provider, medical student, or other health professional student that will be observing or involved in the sensitive examination for educational or training purposes was discussed with the Patient or Authorized Supplier Quality. The Patient or Authorized Supplier Quality has agreed to proceed with the sensitive examination. (Sensitive examination includes inspection and/or palpation of the breasts, pelvis, prostate and anorectal regions). PHYSICAL EXAM: BP 98/60 Ht 4' 10 (1.47m) Wt 99 lb 6.4 oz (45.1kg) LMP 02/24/2024 BMI 20.78 kg/(m^2). GENERAL: pleasant in no apparent distress DERMATOLOGY: Normal, without lesions, non-icteric, and non-hirsute NECK: Supple, full range of motion, no adenopathy, and thyroid normal CHEST: Normal inspiratory effort BREAST: soft, non-tender, symmetric, no dominant mass, normal nipple-areolar complex, no lymphadenopathy, and no nipple discharge ABDOMEN: soft, non-tender, and no masses NEURO: alert and oriented x3,exam grossly non-focal PELVIS: External genitalia normal without lesions. Perineal body intact. No vaginal or cervical lesions. Cervix closed. Uterus 8 week size. No adnexal masses or tenderness. Clinical Pelvimetry: Pelvimetry clinically assessed as adequate Limited OB ultrasound exam: single intrauterine , positive cardiac activity, crown-rump length 8w3d, and normal bilateral adnexa BK:12/08/24 by US Dating LMP on: 02/24/2024 GA by LMP 9 w + 4 d BK by LMP: 11/30/2024 Ultrasound examination on: 05/01/2024 GA by U/S based upon: CRL GA by U/S 8 w + 3 d BK by U/S: 12/08/2024 Assigned: based on ultrasound (CRL), selected on 05/01/2024 Assigned GA 8 w + 3 d Assigned BK: 12/08/2024 ASSESSMENT: 23 year old at 9w4d wks gestational age PLAN: 1) Patient oriented to practice. Patient given new OB orientation folder. Discussed nutrition, folic acid supplementation, dietary guidelines, exercise, smoking, alcohol, caffeine, and drug use. Discussed gestational weight gain guidelines. Discussed routine OB labs including STD/HIV. Discussed how to access Your guide to a health and the Court Bailiff Or Sheriff. Reviewed midwifery and export manager services that are available. 2) Screening: Hemoglobin A1C: ordered Baby Aspirin: The patient has been counseled about the potential benefits of low dose aspirin in and our recommendation that this be offered to all patients, regardless of whether they meet the high risk criteria specified above. She Accepts Aneuploidy Screening: Discussed aneuploidy screening, nuchal translucency/first trimester early anatomy ultrasound and NIPT. The risks/benefits and limitations of NIPT/aneuploidy screening were reviewed including the potential for false negative and false positive results. The availability of genetic counseling was reviewed. Information on aneuploidy screening was provided. The patient chooses to proceed with First trimester early anatomy ultrasound (12-13w6d) and NIPT (10 weeks) Myriad Carrier Screening: Discussed myriad carrier screening. We discussed the availability of professional-society guided carrier screening and reviewed the conditions screened and limitations of screening. The availability of genetic counseling was reviewed. Information on carrier screening was provided. The patient Accepts 3) Patient offered option of Virtual Visits. Patient prefers in person visits. Follow up in 4 weeks or sooner prn. Lizzy Tomlinson APRN.CNM documented in this encounter [facility] 04-30-2024 Instructions Lizzy Tomlinson APRN.CNM - 04/30/2024 3:31 PM EST Please select the following link to access the [facility] Your Guide to a Healthy . [email or web address] To start Aspirin 81mg by mouth once daily after 12 weeks Low Dose Aspirin This sheet talks about exposure to low dose aspirin in and while . This information should not take the place of medical care and advice from your healthcare provider.\ What is low dose aspirin? Aspirin is also known as acetylsalicylic acid. It is a common prescription and qijg-bcb-gyhesgu medication similar to other non-steroidal inflammatory drugs (NSAIDs) like ibuprofen (Motrin ) and naproxen (Aleve ). Aspirin reduces inflammation, fever, and pain. Aspirin can prevent blood clots, which can make it useful in treating or preventing conditions like heart attacks and strokes. Low dose aspirin ranges from 60 to 150 mg daily, but the usual dose taken during to treat or prevent certain conditions is 81 mg daily.Regular strength and high strength aspirin and other NSAIDs are NOT preferred pain relievers during .Sometimes when people find out they are , they think about changing how they take their medication, or stopping their medication altogether. However, it is important to talk with your healthcare providers before making any changes to how you take this medication. Your healthcare providers can talk with you about the benefits of treating your condition and the risks of untreated illness during . I take low dose aspirin. Can it make it harder for me to get ? Low dose aspirin is not expected to make it harder to get . A study that included people who had 1 or 2 documented losses then asked to take daily low dose aspirin found that taking low dose aspirin at least 4 days a week increased the chance of a . Does taking low dose aspirin increase the chance for miscarriage? Miscarriage can occur in any . Taking low doses of aspirin is not thought to increase the chance of miscarriage. Some studies have shown that taking low dose aspirin before may help lower the chance of miscarriage in some people who have had one or more miscarriages before 20 weeks of . These findings are similar to studies that showed improved outcomes in people undergoing assisted reproductive technologies (fertility treatments) and were treated with low dose aspirin prior to implantation of the fertilized egg into the uterus. Does taking low dose aspirin increase the chance of defects? Every starts out with a 3-5% chance of having a defect. This is called the background risk. Studies on the use of low dose aspirin during have not found a higher chance of defects. Does taking low dose aspirin in increase the chance of other related problems? Taking low dose aspirin as directed by a healthcare provider is not expected to cause other problems. Studies have shown that low dose aspirin might improve outcomes in some people by increasing blood flow to and reducing inflammation or swelling in the uterus. Studies have also shown that low dose aspirin might lower the chances for preeclampsia (dangerously high blood pressure and complications) in people who are at high risk for this condition. However, people who are should only take low dose aspirin if their healthcare provider recommends it. Does taking low dose aspirin in affect future behavior or learning for the child? There are not many studies about long-term effects for children exposed to low dose aspirin during . However, studies have not found an increased chance for problems with physical or mental development in infants at 18 months of age. A study that looked at children up to 5 years of age who were born very early (before 33 weeks) and who were exposed to low dose aspirin during did not find an effect on their learning or behavior compared to children who were not exposed to low dose aspirin during . while taking low dose aspirin: The occasional use of low dose aspirin (75 mg daily to below 300 mg daily) is not expected to increase risks to a infant. Only small amounts of low dose aspirin enter the breast milk and adverse effects have not been reported in breastfed newborns or older infants. Healthcare providers might recommend low dose aspirin in some people during to treat certain medical conditions. However, regular strength aspirin (over 325 mg) is not preferred during . Aspirin eliminates from an infant s body more slowly than from an adult s body, so aspirin levels in the s body could build up over time with long-term use of aspirin. Using high dose aspirin can lower the body s ability to clot blood(could lead to easier bruising or bleeding). This is not likely to happen with low dose aspirin. Talk with your Healthcare provider about your questions. If a male takes low dose aspirin, could it affect fertility (ability to get partner ) or increase the chance of defects? There is very limited information about the effects of low dose aspirin on male reproduction. One study looked at men who attended an infertility clinic and were taking non-prescribed low dose aspirin at different doses and frequencies for at least six months. The study reported a decrease in the amount and quality of sperm, especially in those who used higher amounts of aspirin. Generally, it is not considered necessary for men to stop using low dose aspirin before trying to get their partner . However, men undergoing fertility treatment may want to talk with their healthcare providers about whether or not they need to stop taking aspirin. In general, exposures that fathers or sperm donors have are unlikely to increase the risks to a . For more information, please see the [employer] fact sheet Paternal Exposures at https://[email or web address].org/fact-s heets/dgijjnug-fgvuxkmjr-dksmqy ncy/. documented in this encounter [facility] 10-13-2023 History of Presen t illness Narrative Evelyn is a 22 year old who presents for an annual gynecologic exam without complaints. Engaged and doing well. Menses: cycles every 30 days and 5 days of flow. Contraception: none. No interested at this time. Not planning to conceive but not preventing. HPV vaccine: No Last Pap: 09/14/2022 normal HPV: N/A History of abnormal pap: Yes Last mammogram: never Sexually active: Yes Time with current partner: Current partner x 2 years Pain with intercourse: No Postcoital bleeding: No OB History T1 L1 SAB1 IAB0 Ectopic0 Multiple0 Live Births1 Slate Picker History LMP: 09/20/2022 (Exact Date), Having periods Age at Menarche: Age at First : Age at Menopause: Slate Picker History Comments: Sexual Activity: Yes; Male Contraception: None PAST MEDICAL HISTORY Diagnosis Date ADHD (attention deficit hyperactivity disorder) allergic rhinitis AQUILES (generalized anxiety disorder) LGSIL on Pap smear of cervix 12/09/2020 12/09/20- Needs repeat PAP in 1 year. Radhika Goldstein APRN.CNM PAST SURGICAL HISTORY Procedure Laterality Date BUNIONECTOMY, LAPIDUS-TYPE 07/17/20182022 FAMILY HISTORY Problem Relation Age of Onset Drug abuse Mother No Known Problems Father No Known Problems Sister No Known Problems Brother Hypertension Maternal Grandmother No Known Problems Maternal Grandfather No Known Problems Paternal Grandmother No Known Problems Paternal Grandfather No Known Problems Son SOCIAL HISTORY Social History Tobacco Use Smoking status: Never Smokeless tobacco: Never Vaping Use Vaping Use: current everyday user Substance Use Topics Alcohol use: Yes Comment: Rarely Drug use: Yes Types: Marijuana Comment: occasionally REVIEW OF SYSTEMS Abdomen: No abdominal pain, nausea, vomiting, diarrhea, or constipation. No bloating, early satiety, indigestion, or increased flatulence. Bladder: No dysuria, gross hematuria, urinary frequency, urinary urgency, or incontinence. Breast: No breast lumps, nipple d/c, overlying skin changes, redness or skin retraction. Allergies and current medication updated:Yes EXAM: LMP 09/20/2022 BP 100/68 Ht 139.7 cm (4' 7) Wt 43.2 kg (95 lb 3.2 oz) LMP 09/18/2023 (Exact Date) BMI 22.13 kg/m GENERAL: pleasant, female in no apparent distress HEENT: Normocephalic, atraumatic, mucus membranes moist, and no lesions NECK: Supple, full range of motion, no adenopathy, and thyroid normal DERMATOLOGY: Normal, without lesions, non-icteric, and non-hirsute BREAST: soft, non-tender, symmetric, no dominant mass, normal nipple-areolar complex, no lymphadenopathy, and no nipple discharge CHEST: Clear to auscultation, Normal inspiratory effort, Regular rate and rhythm, and No murmurs, clicks, rubs or gallops ABDOMEN: soft, non-tender, and no masses PELVIC: external genitalia normal, normal Bartholin's glands, urethra, Bolinas's glands, no vulvar lesions, no cervical lesions, good vaginal support, physiologic discharge present, normal appearing perineal body and perianal region BIMANUAL: uterus normal size, shape and consistency, no adnexal masses, and non-tender RECTOVAGINAL: deferred. NEURO: alert and oriented x3,exam grossly non-focal EXTREMITIES: normal ASSESSMENT/PLAN: 1. Encounter for gynecological examination (general) (routine) with abnormal findings - ICD9: V72.31, ICD10: Z01.411 (primary diagnosis) - Completed pelvic and breast exam - Encouraged monthly BSE - Follow up for annual exam in one year. - PAP TEST - BELINDA/TRICHOMONAS NAAT - BACTERIAL VAGINOSIS NAAT - GONORRHEA/CHLAMYDIA NAAT 2. Screening for cervical cancer - ICD9: V76.2, ICD10: Z12.4 - Completed pelvic and breast exam - Encouraged monthly BSE - Follow up for annual exam in one year. - PAP TEST 3. Encounter for screening for human papillomavirus (HPV) - ICD9: V73.81, ICD10: Z11.51 - PAP TEST 4. Screen for STD (sexually transmitted disease) - ICD9: V74.5, ICD10: Z11.3 - BELINDA/TRICHOMONAS NAAT - BACTERIAL VAGINOSIS NAAT - GONORRHEA/CHLAMYDIA NAAT 1) Health maintenance: Pap/HPV up to date. Nutrition, exercise and routine health maintenance exams reviewed. Calcium/Vitamin D supplementation information provided. Lipids/glucose: followed by PCP Vitamin D: followed by PCP 2) Contraception: none. Contraceptive options reviewed and information provided. 3) STD screening: Accepted STD check for Gonorrhea and Chlamydia. 4) Follow up one year or sooner as needed Lizzy Tomlinson APRN.CNM documented in this encounter [facility] 09-05-2023 Telephone encounter Note Patient called to triage for rectal bleeding. Triage completed. Protocol recommends go to ED now. Patient agreeable. Will have someone transport. Appointment scheduled cancelled. Care advice reviewed. Reason for Disposition [1] MODERATE rectal bleeding (small blood clots, passing blood without stool, or toilet water turns red) AND [2] more than once a day Answer Assessment - Initial Assessment Questions 1. APPEARANCE of BLOOD: Patient reports that Monday she started with rectal bleeding. [place] Started feeling over-heated. Vomited and felt flu like. Patient reports that she went home.Continued to have vomiting and started having diarrhea with blood that filled the toilet. She reports that Monday evening she couldn't stay off the toilet. Stayed home from work yesterday to rest. Reports she is very nauseous and weak. Still not able to keep solid foods down. Drinking sips of water and francia osmany. 2. AMOUNT: Monday filled the toilet bowel numerous times. Now she is having black tarry stools a couple times already today. 3. FREQUENCY: All evening Monday and many times since 4. ONSET:Monday 5. DIARRHEA: Diarrhea and now Tarry black stool. 6. CONSTIPATION: No 7. RECURRENT SYMPTOMS: No 8. BLOOD THINNERS: No 9. OTHER SYMPTOMS: Abdominal pain/cramping. Nausea. Vomiting. Weakness. Denies dizziness or fever. Protocols used: Rectal [id number] [facility] 09-05-2023 Telephone encounter Note See triage. Lourdes Miller RN [facility] 09-05-2023 Miscellaneous Notes See triage. Lourdes Miller RN documented in this encounter [facility] 09-05-2023 Miscellaneous Notes Patient called to triage for rectal bleeding. Triage completed. Protocol recommends go to ED now. Patient agreeable. Will have someone transport. Appointment scheduled cancelled. Care advice reviewed. Reason for Disposition [1] MODERATE rectal bleeding (small blood clots, passing blood without stool, or toilet water turns red) AND [2] more than once a day Answer Assessment - Initial Assessment Questions 1. APPEARANCE of BLOOD: Patient reports that Monday she started with rectal bleeding. [place]. Started feeling over-heated. Vomited and felt flu like. Patient reports that she went home.Continued to have vomiting and started having diarrhea with blood that filled the toilet. She reports that Monday evening she couldn't stay off the toilet. Stayed home from work yesterday to rest. Reports she is very nauseous and weak. Still not able to keep solid foods down. Drinking sips of water and francia osmany. 2. AMOUNT: Monday filled the toilet bowel numerous times. Now she is having black tarry stools a couple times already today. 3. FREQUENCY: All evening Monday and many times since 4. ONSET:Monday 5. DIARRHEA: Diarrhea and now Tarry black stool. 6. CONSTIPATION: No 7. RECURRENT SYMPTOMS: No 8. BLOOD THINNERS: No 9. OTHER SYMPTOMS: Abdominal pain/cramping. Nausea. Vomiting. Weakness. Denies dizziness or fever. Protocols used: Rectal Doqfjpjx-RTXLF-UL documented in this encounter [facility] 12-13-2022 Miscellaneous Notes Pt active on [employer] today- message sent Neli Cardona Cma Please let patient know her labs are normal. documented in this encounter [facility] 09-13-2022 History of Presen t illness Narrative [facility] VISIT This Team Access Model visit is a virtual encounter. It required patient-provider interaction for the medical decision making as documented below. I have communicated my name and active licensure. The patient's identity and physical location were verified at the time of this visit. 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 Evelyn Lucas is a 21 year old female seen for follow up results. Questions regarding diagnosis of trichomoniasis. Denies any new partners and current partner x 6 months. Prior to being together each of them had a sexual partner. Denies any symptoms and asking if you can get this naturally. HISTORY REVIEWED (electronic chart updated): - medical history - medications - allergies REVIEW OF SYSTEMS: GENERAL: feeling well without fatigue, no recent change in weight PHYSICAL EXAMINATION: VIDEO EXAM: (if done, performed via video enabled technology) GENERAL: alert and appropriate, in no distress, well-hydrated, well nourished, and happy, smiling, interactive Component Ref Range & Units 7 d ago Belinda species group Negative for Belinda species Negative for Belinda species Belinda glabrata Negative for Belinda glabrata Negative for Belinda glabrata Trich Vag Amplification Negative for Trichomonas vaginalis by amplification Positive for Trichomonas vaginalis by amplification Abnormal Resulting Agency [facility] ASSESSMENT/PLAN: 1. Trichomoniasis - ICD9: 131.9, ICD10: A59.9 - EXPEDITED PARTNER TREATMENT - METRONIDAZOLE 500 MG TABLET - Patient medication sent yesterday. -Reviewed with patient sexually transmitted and needs treatment. Patient and partner could not have symptoms and even if no infidelity, could have contracted prior to relationship. All questions answered and reviewed. Lizzy Tomlinson APRN.CNM I spent 12 minutes in the visit, with more than 50% of the total [id number] time of the visit in counseling / coordination of care. documented in this encounter [facility] 09-13-2022 Miscellaneous Notes Called patient and virtual visit scheduled for today. Treasure Wu RN Patient called in to the office. Concerned that her boyfriend can't take antibiotics. Has an autoimmune disorder. On Stelara and Prednisone. Advised patient to have her partner contact his PCP to check on this. Emilia Garcia RN documented in this encounter [facility] 09-12-2022 Miscellaneous Notes Patient notified and will contact office if partner needs treatment sent from our office Left message for patient to call office. Emilia Garcia RN ----- Message from Lizzy Tomlinson APRN.CNM sent at 09/08/2022 7:33 PM EDT ----- Please notify patient she is positive for bacterial vaginosis and trich. Flagyl 500mg PO BID x 7 days. No intercourse during and for 7 days after treatment. Please notify partner he needs treatment and can send EPT if we get his information. Thanks, Lizzy Tomlinson APRN.CNM documented in this encounter [facility] 09-06-2022 History of Presen t illness Narrative Puller Over offered: Patient declines. Evelyn is a 21 year old who presents for an annual gynecologic exam without complaints. 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 Contraception: none HPV vaccine: No, received one dose of the series Last Pap: 12/02/2020 LGSIL-12/09/2020 HPV: positive History of abnormal pap: Yes Last mammogram: never Sexually active: Yes Time with current partner: 6 months with current partner Pain with intercourse: No Postcoital bleeding: No Exercise: Walking daily Diet: Regular Seatbelt use: Yes OB History T1 L1 SAB1 IAB0 Ectopic0 Multiple0 Live Births1 Slate Picker History LMP: 08/19/2022 (Exact Date), Having periods Age at Menarche: Age at First : Age at Menopause: Slate Picker History Comments: Sexual Activity: Yes; Male Contraception: None PAST MEDICAL HISTORY Diagnosis Date ADHD (attention deficit hyperactivity disorder) allergic rhinitis LGSIL on Pap smear of cervix 12/09/2020 12/09/20- Needs repeat PAP in 1 year. Radhika Goldstein APRN.CNM PAST SURGICAL HISTORY Procedure Laterality Date BUNIONECTOMY, LAPIDUS-TYPE 07/17/3018 FAMILY HISTORY Problem Relation Age of Onset Drug abuse Mother No Known Problems Father No Known Problems Sister No Known Problems Brother Hypertension Maternal Grandmother No Known Problems Maternal Grandfather No Known Problems Paternal Grandmother No Known Problems Paternal Grandfather No Known Problems Son SOCIAL HISTORY Social History Tobacco Use Smoking status: Never Smokeless tobacco: Never Vaping Use Vaping Use: current everyday user Substance Use Topics Alcohol use: Yes Comment: Rarely Drug use: Not Currently Types: Marijuana REVIEW OF SYSTEMS Abdomen: No abdominal pain, nausea, vomiting, diarrhea, or constipation. No bloating, early satiety, indigestion, or increased flatulence. Bladder: No dysuria, gross hematuria, urinary frequency, urinary urgency, or incontinence. Breast: No breast lumps, nipple d/c, overlying skin changes, redness or skin retraction. Allergies and current medication updated:Yes EXAM: BP 98/64 Ht 4' 8 (1.42m) Wt 99 lb 12.8 oz (45.3kg) LMP 08/19/2022 BMI 22.39 kg/(m^2). GENERAL: pleasant, female in no apparent distress HEENT: Normocephalic, atraumatic, mucus membranes moist, and no lesions NECK: Supple, full range of motion, no adenopathy, and thyroid normal DERMATOLOGY: Normal, without lesions, non-icteric, and non-hirsute BREAST: soft, non-tender, symmetric, no dominant mass, normal nipple-areolar complex, no lymphadenopathy, and no nipple discharge CHEST: Normal inspiratory effort ABDOMEN: soft, non-tender, and no masses PELVIC: external genitalia normal, normal Bartholin's glands, urethra, Bolinas's glands, no vulvar lesions, no cervical lesions, good vaginal support, physiologic discharge present, normal appearing perineal body and perianal region, abnormal discharge small amount of thin white discharge no odor. BIMANUAL: uterus normal size, shape and consistency, no adnexal masses, and non-tender RECTOVAGINAL: deferred. NEURO: alert and oriented x3,exam grossly non-focal EXTREMITIES: normal ASSESSMENT/PLAN: 1. Encounter for gynecological examination (general) (routine) without abnormal findings - ICD9: V72.31, ICD10: Z01.419 (primary diagnosis) - Completed pelvic and breast exam - Encouraged monthly BSE - Follow up for annual exam in one year. - PAP TEST 2. Screen for STD (sexually transmitted disease) - ICD9: V74.5, ICD10: Z11.3 - GC/CHLAMYDIA DNA DET - BACTERIAL VAGINOSIS AMPLIFICATION - BELINDA / TRICHOMONAS AMPLIFICATION 3. Encounter for screening for cervical cancer - ICD9: V76.2, ICD10: Z12.4 - Completed pelvic and breast exam - Encouraged monthly BSE - Follow up for annual exam in one year. - PAP TEST 4. LGSIL on Pap smear of cervix - ICD9: 795.03, ICD10: R87.612 5. Vaginal discharge - ICD9: 623.5, ICD10: N89.8 1) Health maintenance: Pap done with reflex HPV. Nutrition, exercise and routine health maintenance exams reviewed. Calcium/Vitamin D supplementation information provided. 2) Contraception: none. Contraceptive options reviewed and information provided. Would like to conceive at some point and not wanting to prevent at this time. Reviewed pre-conception guidelines including folic acid supplementation, optimal timing of intercourse, avoidance of smoking, alcohol, and exposure to environmental chemicals. 3) STD screening: Accepted STD check for Gonorrhea and Chlamydia. 4) Follow up one year or sooner as needed Lizzy Tomlinson APRN.CNM documented in this encounter [facility] 11-11-2019 History of Past i llness Narrative Problem Noted Date Resolved Date Drug use affecting in third trimester 11/11/2019 02/01/2021 Overview: 11/11/19-Marijuana use in , stopped one month ago. Reviewed risks and advised cessation. Lizzy Tomlinson APRN.CNM Rh negative state in antepartum period, second t rimester 07/29/2019 02/01/2021 Overview: 07/29/19-Rhogam given at 13 week gestational age for vaginal bleeding. Will need rhogam at 28 weeks and . Lizzy Tomlinson APRN.CNM Supervision of high risk in first trim mary jo 06/12/2019 02/01/2021 Threatened , antepartum 06/12/2019 02/01/2021 Allergic rhinitis, cause unspecified 07/24/2007 04/20/2016 documented as of this encounter (statuses as of 09/06/2022) [facility] History of Past illness Narrative* Problem Noted Date Resolved Date Drug use affecting in third trimester 11/11/2019 02/01/2021 Overview: 11/11/19-Marijuana use in , stopped one month ago. Reviewed risks and advised cessation. Lizzy Tomlinson APRN.CNM Rh negative state in antepartum period, second t rimester 07/29/2019 02/01/2021 Overview: 07/29/19-Rhogam given at 13 week gestational age for vaginal bleeding. Will need rhogam at 28 weeks and . Lizzy Tomlinson APRN.CNM Supervision of high risk in first trim mary jo 06/12/2019 02/01/2021 Threatened , antepartum 06/12/2019 02/01/2021 Allergic rhinitis, cause unspecified 07/24/2007 04/20/2016 documented as of this encounter (statuses as of 09/13/2022) [facility] History of Past illness Narrative* Problem Noted Date Resolved Date Drug use affecting in third trimester 11/11/2019 02/01/2021 Overview: 11/11/19-Marijuana use in , stopped one month ago. Reviewed risks and advised cessation. Lizzy Tomlinson APRN.CNM Rh negative state in antepartum period, second t rimester 07/29/2019 02/01/2021 Overview: 07/29/19-Rhogam given at 13 week gestational age for vaginal bleeding. Will need rhogam at 28 weeks and . Lizzy Tomlinson APRN.CNM Supervision of high risk in first trim mary jo 06/12/2019 02/01/2021 Threatened , antepartum 06/12/2019 02/01/2021 Allergic rhinitis, cause unspecified 07/24/2007 04/20/2016 documented as of this encounter (statuses as of 09/13/2022) [facility] History of Past illness Narrative* Problem Noted Date Resolved Date Drug use affecting in third trimester 11/11/2019 02/01/2021 Overview: 11/11/19-Marijuana use in , stopped one month ago. Reviewed risks and advised cessation. Lizzy Tomlinson APRN.CNM Rh negative state in antepartum period, second t rimester 07/29/2019 02/01/2021 Overview: 07/29/19-Rhogam given at 13 week gestational age for vaginal bleeding. Will need rhogam at 28 weeks and . Lizzy Tomlinson APRN.CNM Supervision of high risk in first trim mary jo 06/12/2019 02/01/2021 Threatened , antepartum 06/12/2019 02/01/2021 Allergic rhinitis, cause unspecified 07/24/2007 04/20/2016 documented as of this encounter (statuses as of 09/14/2022) [place] [id number] History of Past illness Narrative* Problem Noted Date Diagnosed Date Resolved Date Drug use affecting in third trimester 11/11/2019 02/01/2021 Overview: 11/11/19-Marijuana use in , stopped one month ago. Reviewed risks and advised cessation. Lizzy Tomlinson APRN.CNM Rh negative state in antepar catherine period, second trimester 07/29/2019 02/01/2021 Overview: 07/29/19-Rhogam given at 13 week gestational age for vaginal bleeding. Will need rhogam at 28 weeks and . Lizzy Tomlinson APRN.CNM Supervision of high risk pre gnancy in first trimester 06/12/2019 02/01/2021 Threatened , antepartum 06/12/2019 02/01/2021 Allergic rhinitis, cause unspecified 07/24/2007 04/20/2016 documented as of this encounter (statuses as of 12/13/2022) [facility] July 14, 2022 8:24am Note Date/Time July 14, 2022 8:2 4am [facility] Medical Records Department [address] [place] [id number] Instructions for Home/Discharge Instructions 07/14/22 0824 MR#: [id number] Acct: [id number] Name: EVELYN LUCAS VERNELL Rep #:[id number] : 2000 21 From: Андрей painter DO PCP: Care Physician,No Primary Status :[facility] Discharge Instructions Follow Up Care Test Results: Test results from this visit will be discussed in further detail at your follow- up appointment, if applicable. Discharge Plan Admission Primary Reason for Your Visit: Left foot bone spur removal Attending Provider: Андрей Fields Primary Care Provider: Care Physician,No Primary Consulting Providers: Pan Barnes ; Genny Augustin Instructions Additional Instructions / Restrictions: Follow preprinted instructions from your surgeons office. Discharge Orders/Prescriptions Prescriptions: New hydrocodone-acetaminophen 5-325 mg tablet 1 tab PO Q6H PRN (Reason: pain) 5 Days Qty: 20 0RF No Action cetirizine [Zyrtec] 5 mg Tablet 5 mg PO DAILY PRN (Reason: SEASONAL ALLERGIES) acetaminophen [Tylenol Ex Str Rapid Release] 500 mg Tablet 500 mg PO Q6H PRN (Reason: Headache) Referrals / Follow Up: Андрей Fields DO [Med Staff - Active Staff] - Within 2 Weeks Care Physician,No Primary [Primary Care Provider] - Disposition Disposition (needs filled in before D/C Order can be placed): Home, Self Care 07/14/22823<Electronically signed by Андрей Fields DO>Андрей Fields DO CC: MAGDIEL Augustin; Dr. Pan Barnes MD; No Primary Care Physician ~ Signed [facility] Work Phone: evaluation noteNo assessment information available [facility] Work Phone: evaluation note* Diagnosis Encounter for gynecological examination (general) (routine) without abnormal findings- Primary Screen for STD (sexually transmitted disease) Screening examination for venereal disease Encounter for screening for cervical cancer LGSIL on Pap smear of cervix Vaginal discharge Leukorrhea, not specified as infective [facility] Diagnosis Trichomoniasis- Primary Trichomoniasis, unspecified [facility] Diagnosis Encounter for gynecological examination (general) (routine) with abnormal findings- Primary Screening for cervical cancer Screening for malignant neoplasm of the cervix Encounter for screening for human papillomavirus (HPV) Special screening examination for human papillomavirus (HPV) Screen for STD (sexually transmitted disease) Screening examination for venereal disease [facility] Diagnosis UTI (urinary tract infection) in , antepartum- Primary Infections of genitourinary tract antepartum [facility] Diagnosis with uncertain dates in first trimester- Primary Attention deficit hyperactivity disorder (ADHD), unspecified ADHD type Uterine size-date discrepancy, first trimester LGSIL on Pap smear of cervix [facility] Diagnosis Encounter for supervision of other normal in second trimester- Primary 12 weeks gestation of state, incidental [facility] Diagnosis Encounter for screening for malformation using ultrasound- Primary 12 weeks gestation of state, incidental [facility] Diagnosis Supervision of other high risk pregnancies, second trimester ([facility])- Primary 16 weeks gestation of ([facility]) state, incidental Rh negative state in antepartum period, second trimester ([facility]) UTI (urinary tract infection) in , antepartum ([facility]) Infections of genitourinary tract antepartum History of spontaneous Personal history of other genital system and obstetric disorders [facility] Diagnosis Supervision of other high risk pregnancies, second trimester ([facility])- Primary 19 weeks gestation of ([facility]) state, incidental Recurrent urinary tract infection affecting , antepartum ([facility]) Uterine cramping [facility] Diagnosis Supervision of other high risk pregnancies, second trimester ([facility])- Primary Recurrent urinary tract infection affecting , antepartum ([facility]) 20 weeks gestation of ([facility]) state, incidental [facility] Diagnosis Encounter for anatomic survey ([facility])- Primary Encounter for anatomic survey 20 weeks gestation of ([facility]) state, incidental [facility]* Diagnosis UTI (urinary tract infection) in , antepartum ([facility])- Primary Infections of genitourinary tract antepartum [facility] Diagnosis Screening for diabetes mellitus- Primary Supervision of other high risk pregnancies, second trimester ([facility]) 25 weeks gestation of ([facility]) state, incidental UTI (urinary tract infection) in , antepartum ([facility]) Infections of genitourinary tract antepartum Rh negative state in antepartum period, second trimester ([facility]) [facility] Diagnosis Supervision of high risk in third trimester ([facility])- Primary Unspecified high-risk 28 weeks gestation of ([facility]) state, incidental Rh negative state in antepartum period, second trimester ([facility]) UTI (urinary tract infection) in , antepartum ([facility]) Infections of genitourinary tract antepartum Rh negative state in antepartum period ([facility]) Rhesus isoimmunization affecting management of mother, antepartum condition [facility] Diagnosis Supervision of high risk in third trimester ([facility])- Primary Unspecified high-risk 30 weeks gestation of ([facility]) state, incidental Rh negative state in antepartum period, second trimester ([facility]) Uterine size-date discrepancy, third trimester ([facility]) [facility]* Diagnosis Supervision of high risk in third trimester ([facility])- Primary Unspecified high-risk Uterine size-date discrepancy, third trimester ([facility]) 32 weeks gestation of ([facility]) state, incidental * Assessment & Plan Note - Les Ramirez MD - 10/15/2024 11:42 AM EDT Associated Problem(s): Supervision of high risk in third trimester (HCC) [facility] Diagnosis Encounter for ultrasound to check growth ([facility])- Primary Encounter for routine screening for malformation using ultrasonics Uterine size-date discrepancy, third trimester ([facility]) 32 weeks gestation of ([facility]) state, incidental Supervision of high risk in third trimester (HCC)- Primary Unspecified high-risk Uterine size-date discrepancy, third trimester (HCC) 32 weeks gestation of ([facility]) state, incidental [facility] Diagnosis Supervision of high risk in third trimester (HCC)- Primary Unspecified high-risk Uterine size-date discrepancy, third trimester (HCC) 32 weeks gestation of ([facility]) state, incidental Supervision of high risk in third trimester (HCC)- Primary Unspecified high-risk 34 weeks gestation of ([facility]) state, incidental Uterine size-date discrepancy, third trimester ([facility]) Rh negative state in antepartum period ([facility]) Rhesus isoimmunization affecting management of mother, antepartum condition [facility] Diagnosis Supervision of high risk in third trimester (HCC)- Primary Unspecified high-risk Uterine size-date discrepancy, third trimester (HCC) 32 weeks gestation of ([facility]) state, incidental Supervision of high risk in third trimester (HCC)- Primary Unspecified high-risk 36 weeks gestation of ([facility]) state, incidental Edema during in third trimester ([facility]) Rh negative state in antepartum period ([facility]) Rhesus isoimmunization affecting management of mother, antepartum condition [facility] Supervision of high risk in third trimester (HCC)- Primary Unspecified high-risk Uterine size-date discrepancy, third trimester ([facility]) 32 weeks gestation of ([facility]) state, incidental Supervision of high risk in third trimester (HCC)- Primary Unspecified high-risk 37 weeks gestation of ([facility]) state, incidental Vaginal discharge Leukorrhea, not specified as infective [facility] Supervision of high risk in third trimester (HCC)- Primary Unspecified high-risk Uterine size-date discrepancy, third trimester ([facility]) 32 weeks gestation of (HCC) state, incidental Supervision of high risk in third trimester (HCC)- Primary Unspecified high-risk 37 weeks gestation of ([facility]) state, incidental Bilateral lower extremity edema Edema Rh negative state in antepartum period ([facility]) Rhesus isoimmunization affecting management of mother, antepartum condition [facility] Additional Instructions Rest, ice, elevate your foot and take Tylenol ibuprofen as needed. Please follow-up with your orthopedic doctor.[facility] Work Phone: Hospital Discharge instructions Additional Instructions Follow preprinted instructions from your surgeons office. Implant Used?: [facility] Work Phone: Summary Purpose Family History No Family History Records FoundNo Family History Records FoundNo Family History Records FoundNo Family History Records FoundNo Family History Records Found Advance Directives No Advanced Directives Records Found Advance Directive Response Recorded Date/ Time Living Will No October 23, 2021 4:13pm Power of Biotechnician No October 23 4:13pm Advance Directive Response Recorded Date/ Time Living Will No June 27, 2022 11:33am Power of Biotechnician No June 27 11:33am Chief Complaint and Reason for Visit Chief Complaint LEFT GREAT TOE PAIN Chief Complaint EXC DORSAL OSTEOPHYT E MEDIAL CUNEIFORM LT Additional Source Comments INFORMATION SOURCE (unrecogn ized section and content) DATE CREATED AUTHOR 07/25/2018 [facility] DATE CREATED AUTHOR AUTHOR'S ORGANIZ ATION 02/24/2021 [facility] DATE CREATED AUTHOR AUTHOR'S ORGANIZ ATION 03/17/2021 [facility] DATE CREATED AUTHOR AUTHOR'S ORGANIZ ATION 11/03/2024 [facility] DATE CREATED AUTHOR AUTHOR'S ORGANIZ ATION 11/24/2024 [facility] Goals (unrecognized section and content) Goals may be documented in a n alternate section Care Teams (unrecognized sec tion and content) Team Status: Active Member Role Status Dates Dr. Gamaliel Camp MD Family Provider Active No Primary Care Physician Primary Care Provider Active Team Status: Inactive Member Role Status Dates No Primary Care Physician Primary Care Provider Active Dr. Андрей Fields DO Attending Provider, Refergilson moreno Provider Active Dr. Pan Barnes MD Other Provider Active MAGDIEL Block Other Provider Active Panel Saw Operator Relationship Specialty Start Date End Date Ethan Chauhan APRN.BACKEND DEVELOPER [address] [place] [id number] PCP - General Family Medicine 12/12/22 Panel Saw Operator Relationship Specialty Start Date End Date Ethan Chauhan APRN.BACKEND DEVELOPER [address] [place] [address] [phone] PCP - General Family Medicine 12/12/22 Panel Saw Operator Relationship Specialty Start Date End Date Ethan Chauhan APRN.BACKEND DEVELOPER [address] [place] [address] 13335 PCP - General Family Medicine 12/12/22 Panel Saw Operator Relationship Specialty Start Date End Date Ethan Chauhan APRN.BACKEND DEVELOPER [address] [place] [address] 51281 PCP - General Family Medicine 12/12/22 Panel Saw Operator Relationship Specialty Start Date End Date Ethan Chauhan APRN.BACKEND DEVELOPER [address] [place] [address] 44768 PCP - General Family Medicine 12/12/22 Panel Saw Operator Relationship Specialty Start Date End Date Ethan Chauhan APRN.BACKEND DEVELOPER [address] [place] [address] 68912 PCP - General Family Medicine 12/12/22 Panel Saw Operator Relationship Specialty Start Date End Date Ethan Chauhan APRN.BACKEND DEVELOPER [address] [place] [address] 60726 PCP - General Family Medicine 12/12/22 Panel Saw Operator Relationship Specialty Start Date End Date Ethan Chauhan APRN.BACKEND DEVELOPER [address] [place] [address] [phone] PCP - General Family Medicine 12/12/22 Panel Saw Operator Relationship Specialty Start Date End Date Ethan Chauhan APRN.BACKEND DEVELOPER [address] [place] [address] 04428 PCP - General Family Medicine 12/12/22 Panel Saw Operator Relationship Specialty Start Date End Date Ethan Chauhan APRN.BACKEND DEVELOPER [address] [place] [address] 78530 PCP - General Family Medicine 12/12/22 Panel Saw Operator Relationship Specialty Start Date End Date Ethan Chauhan APRN.BACKEND DEVELOPER [address] [place] [address] 65754 PCP - General Family Medicine 12/12/22 Panel Saw Operator Relationship Specialty Start Date End Date Ethan Chauhan APRN.BACKEND DEVELOPER [address] [place] [address] 62566 PCP - General Family Medicine 12/12/22 Panel Saw Operator Relationship Specialty Start Date End Date Ethan Chauhan APRN.BACKEND DEVELOPER [address] [place] [address] 08437 PCP - General Family Medicine 12/12/22 Panel Saw Operator Relationship Specialty Start Date End Date Ethan ChauhanARTURO.[facility] [address] [place] [address] PCP - General Family Medicine 12/12/22 10/01/24 Source Comments (unrecognize d section and content) In the event this informatio n is protected by the Federal Confidentiality of Alcohol and Drug Abuse Patient Records regulations: The Federal rules restrict any use of the information to criminally investigate or prosecute any alcohol or drug abuse patient.[facility] the event this information is protected by the Federal Confidentiality of Alcohol and Drug Abuse Patient Records regulations: The Federal rules restrict any use of the information to criminally investigate or prosecute any alcohol or drug abuse patient.[facility] the event this information is protected by the Federal Confidentiality of Alcohol and Drug Abuse Patient Records regulations: The Federal rules restrict any use of the information to criminally investigate or prosecute any alcohol or drug abuse patient.[facility] the event this information is protected by the Federal Confidentiality of Alcohol and Drug Abuse Patient Records regulations: The Federal rules restrict any use of the information to criminally investigate or prosecute any alcohol or drug abuse patient.[facility] Center[facility] the event this information is protected by the Federal Confidentiality of Alcohol and Drug Abuse Patient Records regulations: The Federal rules restrict any use of the information to criminally investigate or prosecute any alcohol or drug abuse patient.[facility] Center[facility] the event this information is protected by the Federal Confidentiality of Alcohol and Drug Abuse Patient Records regulations: The Federal rules restrict any use of the information to criminally investigate or prosecute any alcohol or drug abuse patient.[facility] Center[facility] the event this information is protected by the Federal Confidentiality of Alcohol and Drug Abuse Patient Records regulations: The Federal rules restrict any use of the information to criminally investigate or prosecute any alcohol or drug abuse patient.[facility] Center[facility] the event this information is protected by the Federal Confidentiality of Alcohol and Drug Abuse Patient Records regulations: The Federal rules restrict any use of the information to criminally investigate or prosecute any alcohol or drug abuse patient.[facility] Center[facility] the event this information is protected by the Federal Confidentiality of Alcohol and Drug Abuse Patient Records regulations: The Federal rules restrict any use of the information to criminally investigate or prosecute any alcohol or drug abuse patient.[facility] Center[facility] the event this information is protected by the Federal Confidentiality of Alcohol and Drug Abuse Patient Records regulations: The Federal rules restrict any use of the information to criminally investigate or prosecute any alcohol or drug abuse patient.[facility] Center[facility] the event this information is protected by the Federal Confidentiality of Alcohol and Drug Abuse Patient Records regulations: The Federal rules restrict any use of the information to criminally investigate or prosecute any alcohol or drug abuse patient.[facility] Center[facility] the event this information is protected by the Federal Confidentiality of Alcohol and Drug Abuse Patient Records regulations: The Federal rules restrict any use of the information to criminally investigate or prosecute any alcohol or drug abuse patient.[facility] Center[facility] the event this information is protected by the Federal Confidentiality of Alcohol and Drug Abuse Patient Records regulations: The Federal rules restrict any use of the information to criminally investigate or prosecute any alcohol or drug abuse patient.[facility] CenterIn the event this information is protected by the Federal Confidentiality of Alcohol and Drug Abuse Patient Records regulations: The Federal rules restrict any use of the information to criminally investigate or prosecute any alcohol or drug abuse patient.[facility] CenterIn the event this information is protected by the Federal Confidentiality of Alcohol and Drug Abuse Patient Records regulations: The Federal rules restrict any use of the information to criminally investigate or prosecute any alcohol or drug abuse patient.[facility] CenterIn the event this information is protected by the Federal Confidentiality of Alcohol and Drug Abuse Patient Records regulations: The Federal rules restrict any use of the information to criminally investigate or prosecute any alcohol or drug abuse patient.[facility] CenterIn the event this information is protected by the Federal Confidentiality of Alcohol and Drug Abuse Patient Records regulations: The Federal rules restrict any use of the information to criminally investigate or prosecute any alcohol or drug abuse patient.[facility] CenterIn the event this information is protected by the Federal Confidentiality of Alcohol and Drug Abuse Patient Records regulations: The Federal rules restrict any use of the information to criminally investigate or prosecute any alcohol or drug abuse patient.[facility] CenterIn the event this information is protected by the Federal Confidentiality of Alcohol and Drug Abuse Patient Records regulations: The Federal rules restrict any use of the information to criminally investigate or prosecute any alcohol or drug abuse patient.[facility] CenterIn the event this information is protected by the Federal Confidentiality of Alcohol and Drug Abuse Patient Records regulations: The Federal rules restrict any use of the information to criminally investigate or prosecute any alcohol or drug abuse patient.[facility] CenterIn the event this information is protected by the Federal Confidentiality of Alcohol and Drug Abuse Patient Records regulations: The Federal rules restrict any use of the information to criminally investigate or prosecute any alcohol or drug abuse patient.[facility] CenterIn the event this information is protected by the Federal Confidentiality of Alcohol and Drug Abuse Patient Records regulations: The Federal rules restrict any use of the information to criminally investigate or prosecute any alcohol or drug abuse patient.[facility] CenterIn the event this information is protected by the Federal Confidentiality of Alcohol and Drug Abuse Patient Records regulations: The Federal rules restrict any use of the information to criminally investigate or prosecute any alcohol or drug abuse patient.[facility] CenterIn the event this information is protected by the Federal Confidentiality of Alcohol and Drug Abuse Patient Records regulations: The Federal rules restrict any use of the information to criminally investigate or prosecute any alcohol or drug abuse patient.[facility] CenterIn the event this information is protected by the Federal Confidentiality of Alcohol and Drug Abuse Patient Records regulations: The Federal rules restrict any use of the information to criminally investigate or prosecute any alcohol or drug abuse patient.[facility] CenterIn the event this information is protected by the Federal Confidentiality of Alcohol and Drug Abuse Patient Records regulations: The Federal rules restrict any use of the information to criminally investigate or prosecute any alcohol or drug abuse patient.[facility] CenterIn the event this information is protected by the Federal Confidentiality of Alcohol and Drug Abuse Patient Records regulations: The Federal rules restrict any use of the information to criminally investigate or prosecute any alcohol or drug abuse patient.[facility] CenterIn the event this information is protected by the Federal Confidentiality of Alcohol and Drug Abuse Patient Records regulations: The Federal rules restrict any use of the information to criminally investigate or prosecute any alcohol or drug abuse patient.[facility] CenterIn the event this information is protected by the Federal Confidentiality of Alcohol and Drug Abuse Patient Records regulations: The Federal rules restrict any use of the information to criminally investigate or prosecute any alcohol or drug abuse patient.[facility] CenterIn the event this information is protected by the Federal Confidentiality of Alcohol and Drug Abuse Patient Records regulations: The Federal rules restrict any use of the information to criminally investigate or prosecute any alcohol or drug abuse patient.[facility] CenterIn the event this information is protected by the Federal Confidentiality of Alcohol and Drug Abuse Patient Records regulations: The Federal rules restrict any use of the information to criminally investigate or prosecute any alcohol or drug abuse patient.[facility] CenterIn the event this information is protected by the Federal Confidentiality of Alcohol and Drug Abuse Patient Records regulations: The Federal rules restrict any use of the information to criminally investigate or prosecute any alcohol or drug abuse patient.[facility] CenterIn the event this information is protected by the Federal Confidentiality of Alcohol and Drug Abuse Patient Records regulations: The Federal rules restrict any use of the information to criminally investigate or prosecute any alcohol or drug abuse patient.[facility] CenterIn the event this information is protected by the Federal Confidentiality of Alcohol and Drug Abuse Patient Records regulations: The Federal rules restrict any use of the information to criminally investigate or prosecute any alcohol or drug abuse patient.[facility] Reason for Visit (unrecogniz ed section and content) Reason Onset Date Comments Care 10/15/2024 Specialty Diagnoses / Procedures Referred By Jessica t Referred To Contact Maintenance Scheduler / TOOL AND DIE MAKER LEVEL FIVE Diagnoses Encounter for supervision of other normal in third trimester (HCC) OB Procedures OFFICE/OUTPATIENT EST PT MAY NOT REQ PHYS/QHP OFFICE/OUTPATIENT ESTABLISHED HIGH MDM 40 MIN EST [facility] OB Ethan Chauhan APRN.BACKEND DEVELOPER [address] [place] [address] Phone: tel: fax: Lizzy Tomlinson APRN.CNM [address] [place] [address] Phone: tel: fax: Referral ID Status Reason Start Date Expiration Date V isits Requested Visits Authorized [id number] Authorized 06/26/2024 03/19/2025 99 99 Reason Onset Date Comments Care 09/19/2024 Reason Onset Date Comments Care 08/30/2024 Reason Onset Date Comments Care 07/26/2024 Reason Onset Date Comments Care 07/18/2024 Reason Comments Results Reason Comments STD Reason Comments Rectal Bleeding Reason Comments Well Woman Specialty Diagnoses / Procedures Referred By Jessica antunez Referred To Contact [facility] Diagnoses stool looks like stringy and is sometimes liquid can only pass stool once every two weeks Procedures established patient services [address] [place] [address] Referral ID Status Reason Start Date Expiration Date Visits Requested Visits Authorized [id number] Outside PCP OON/Self Pay Override 07/11/2023 10/18/2024 99 99 Reason Comments Care Reason Onset Date Comments Care 05/29/2024 Reason Comments US Specialty Diagnoses / Procedures Referred By Jessica t Referred To Contact [facility] Diagnoses with uncertain dates in first trimester Procedures OBSTETRIC ULTRASOUND [facility] US PREG UTERUS AFTER 1ST TRIMEST GESTATION Lizzy Tomlinson APRN.CNM [address] [place] [address] Phone: tel: fax: [facility] [address] [place] [address] Referral ID Status Reason Start Date Expiration Date V isits Requested Visits Authorized [id number] Closed Auto-Generate d Referral 05/01/2024 05/01/2025 1 1 Reason Comments FMLA Paperwork Reason Onset Date Comments Care 06/26/2024 Specialty Diagnoses / Procedures Referred By Contac t Referred To Contact [facility] Diagnoses with uncertain dates in first trimester (HCC) Procedures OBSTETRIC ULTRASOUND [facility] US PREG UTERUS AFTER 1ST TRIMEST GESTATION Lizzy Tomlinson APRN.CNM [address] [place] [address] Phone: tel: fax: [address] [address] Referral ID Status Reason Start Date Expiration Date V isits Requested Visits Authorized [id number] Closed Auto-Generate d Referral 05/01/2024 05/01/2025 1 1 Reason Onset Date Comments Care 10/03/2024 Specialty Diagnoses / Procedures Referred By Contac t Referred To Contact Maintenance Scheduler / TOOL AND DIE MAKER LEVEL FIVE Diagnoses Encounter for supervision of other normal in third trimester (HCC) OB Procedures OFFICE/OUTPATIENT EST PT MAY NOT REQ PHYS/QHP OFFICE/OUTPATIENT ESTABLISHED HIGH MDM 40 MIN EST [facility] OB Ethan Chauhan APRN.BACKEND DEVELOPER [address] [place] [address] Phone: tel: fax: Lizzy Tomlinson APRN.CNM [address] [place] [address] Phone: tel: fax: Specialty Diagnoses / Procedures Referred By Contac t Referred To Contact [facility] Diagnoses Supervision of high risk in third trimester (HCC) Uterine size-date discrepancy, third trimester (HCC) Procedures OBSTETRIC ULTRASOUND [facility] US PREG UTERUS AFTER 1ST TRIMEST GESTATION Cuco Mejia, PARENT AIDE.BACKEND DEVELOPER [address] [place] [address] Phone: tel: fax: [address] [place] [address] Referral ID Status Reason Start Date Expiration Date V isits Requested Visits Authorized [id number] Closed Auto-Generate d Referral 10/03/2024 10/03/2025 1 1 Reason Onset Date Comments Care 10/28/2024 Specialty Diagnoses / Procedures Referred By Contac t Referred To Contact Maintenance Scheduler / TOOL AND DIE MAKER LEVEL FIVE Diagnoses OB Procedures EST [facility] OB [facility] [address] [place] [address] Phone: tel: Cuco Mejia APRN.BACKEND DEVELOPER [address] [place] [address] Phone: tel: fax: Referral ID Status Reason Start Date Expiration Date Visits Re quested Visits Authorized [id number] Closed 10/28/2024 01/26/2025 1 1 Reason Comments Short Term Disability form Reason Onset Date Comments Care 11/15/2024 Specialty Diagnoses / Procedures Referred By Contac t Referred To Contact Maintenance Scheduler / TOOL AND DIE MAKER LEVEL FIVE Diagnoses OB Procedures EST [facility] OB [facility] [address] [place] [address] Phone: tel: Lizzy Tomlinson APRN.CNM [address] [place] [address] Phone: tel: fax: Referral ID Status Reason Start Date Expiration Date V isits Requested Visits Authorized [id number] Authorized 11/15/2024 03/19/2025 99 99 Reason Onset Date Comments Care 11/19/2024 Reason Onset Date Comments Care 11/22/2024 Specialty Diagnoses / Procedures Referred By Contac t Referred To Contact Maintenance Scheduler / TOOL AND DIE MAKER LEVEL FIVE Diagnoses Supervision of high risk , unspecified, third trimester (HCC) OB Procedures OFFICE/OUTPATIENT ESTABLISHED MOD MDM 30 MIN EST [facility] OB [facility] [address] [place] [address] Phone: tel: Lizzy Tomlinson APRN.CNM [address] [place] [address] Phone: tel: fax: Referral ID Status Reason Start Date Expiration Date V isits Requested Visits Authorized [id number] Authorized 11/04/2024 03/19/2025 99 99 FOR RECORDS PERTAINING TO PATIENTS WHO ARE OR HAVE BEEN ENROLLED IN A CHEMICAL DEPENDENCY/SUBSTANCEABUSE PROGRAM, SOME INFORMATION MAY BE OMITTED. This clinical summary was aggregated from multiple sources. Caution should be exercised in using it in the provision of clinical care. This summary normalizes information from multiple sources, and as a consequence, information in this document may materially change the coding, format and clinical context of patient data. In addition, data may be omitted in some cases. CLINICAL DECISIONS SHOULD BE BASED ON THE PRIMARY CLINICAL RECORDS. [employer] provides no warranty or guarantee of the accuracy or completeness of information in this document.
[2024-11-25] MEDS: Lactated Ringers 1,000 ML 999 ML IV (04:20)
--- OUTSIDE RECORDS SUMMARY | 2024-11-25 04:34 | XMS RPT_ITS | CCD ---
Author Organization [facility] Care Team Providers Care Metals Analyst Name Role Phone MARCOS COWART Admitting Unavailable TESTMARCOS LEMA Attending Unavailable Unavailable Primary Care Provider Unavailabl e [place] SALES TRADER.MARIS, Ethan Primary Care Provider [employer] SALES TRADER.MARIS, Ethan Primary Care Provider Unavailable Primary Care Provider Unavailabl e Davi, Lizzy Referring Unavailable Davi, Lizzy Attending Unavailable Davi Lizzy Admitting Unavailable Care Physician, No Primary Primary Care Unava ilable [employer] SALES TRADER.Ethan POLLOCK Primary Care Provider DAVI LIZZY Attending [...] Attending Unavailable HAURY, CUCO Referring Unavailable LIZZY TOMILNSON Attending Unavailable LES RAMIREZ Attending Unavailable Allergies Allergy Classification Reported Allergen(s) Allergy Type Date of Onset Reaction(s) Facility (1 source) OTHER; Translations: [OTHER] Propensity to adverse reactions (disorder) [facility] Other [place] [facility] Medications Current Medications Medication Drug Class(es) [...] Agent, Anti-coagulant Start: 02-04-2021 End: 09-13-2022 lactic kwgc-boytzb-nzcwbc ium (PHEXXI) 1.8-1-0.4 % gel Insert 1 [...] completed) Start: 09-06-2022 take 1 capsule by [facility] every eight hours as needed hydrOXYzine pamoate (VISTARIL) 25 mg capsule Take 1 capsule by mouth three times daily as needed for anxiety. 30 capsule 1 09/06/2022 Active Comment on above: Take 1 capsule by [facility] three times daily as needed for anxiety. lactobacillus acidophilus 460 mg oral capsule (3 sources) Start: 023 take 1 capsule by mouth once daily Lactobacillus acidophilus (FLORAJEN ACIDOPHILUS) 20 billion cell capsule Take 1 capsule by mouth once daily. 30 capsule 0 09/08/2022 Active Comment on above: Take 1 capsule by [facility] once daily. no.46-easi-fnqfsb no1 (VITAFOL TRI) 18 mg iron- 1 mg tab (4 sources) Start: 023 take 1 tablet by mouth once daily no.12-asez-slayhe no1 (VITAFOL TRI) 18 mg iron- 1 mg tab Take 1 tablet by mouth once daily. 30 tablet 11 09/06/2022 Active Comment on above: Take 1 tablet by [facility] once daily. sulfamethoxazole 800 mg / [...] [Supervision of high risk in third trimester ([facility])] Onset: 10-15-2024 Episodic Other complications of (1 source) Uterine size-date discrepancy, third trimester; Translations: [Uterine size-date discrepancy, third trimester ([facility])] Onset: 10-28-2024 Episodic Other complications of (1 source) Other specified related conditions, unspecified trimester; Translations: [Rh negative state in antepartum period ([facility])] Onset: 10-28-2024 Episodic Other complications of (2 sources) Unspecified infection of urinary tract in , unspecified trimester; Translations: [UTI (urinary tract infection) in , antepartum ([facility])] Onset: 07-18-2024 Episodic Other complications of (1 source) Supervision of other high risk pregnancies, second trimester; Translations: [Supervision of other high risk pregnancies, second trimester ([facility])] Onset: 08-30-2024 Episodic Other female genital disorders [...] of ; Translations: [36 weeks gestation of ([facility])] Onset: 11-15-2024 Episodic Residual codes; unclassified (1 source) 34 weeks gestation of ; Translations: [34 weeks gestation of (HCC)] Onset: 10-28-2024 Episodic Residual codes; unclassified (2 sources) Unspecified blood type, Rh negative; Translations: [Rh negative state in antepartum period ([facility])] Onset: 06-26-2024 Episodic Residual codes; unclassified (1 source) 32 weeks gestation of ; Translations: [32 weeks gestation of ([facility])] Onset: 10-15-2024 Episodic Residual codes; unclassified (1 source) 30 weeks gestation of ; Translations: [30 weeks gestation of ([facility])] Onset: 10-03-2024 Episodic Residual codes; unclassified (1 source) 28 weeks gestation of ; Translations: [28 weeks gestation of ([facility])] Onset: 09-19-2024 Episodic Residual codes; unclassified (1 source) 25 weeks gestation of ; Translations: [25 weeks gestation of ([facility])] Onset: 08-30-2024 Episodic Sprains and strains (2 [...] pane l (Bld)on 11-22-2024 Basophils (Bld) [#/Vol] [facility] Basophils/100 WBC (Bld) 0.2 % [facility] Differential cell count method Nom (Bld) Auto [facility] Eosinophils (Bld) [#/Vol] 0.09 10*3/uL [facility] Eosinophils/100 WBC (Bld) 1.1 % [facility] Erythrocyte distribution width (RBC) [Ratio] 13.5 % 11.5 - 15.0 % [facility] Hematocrit (Bld) [Volume fraction] 33.9 % Low 36.0 - 46.0 % [facility] Hemoglobin (Bld) [Mass/Vol] 10.9 g/dL Low 11.5 - 15.5 g/dL [facility] Immature granulocytes (Bld) [#/Vol] 0.07 10*3/uL [facility] Immature granulocytes/100 WBC (Bld) 0.9 % [facility] Interpretation and review of laboratory results Abnormal [facility] Lymphocytes (Bld) [#/Vol] 1.31 10*3/uL [facility] Lymphocytes/100 WBC (Bld) 16.1 % [facility] MCH (RBC) [Entitic mass] 23.2 pg Low 26.0 - 34.0 pg [facility] MCHC (RBC) [Mass/Vol] 32.2 g/dL 30.5 - 36.0 g/ dL [facility] MCV (RBC) [Entitic vol] 72.1 fL Low 80.0 - 100.0 fL [facility] Monocytes (Bld) [#/Vol] 0.82 10*3/uL [facility] Monocytes/100 WBC (Bld) 10.1 % [facility] Neutrophils (Bld) [#/Vol] 5.84 10*3/uL [facility] Neutrophils/100 WBC (Bld) 71.6 % [facility] Nucleated RBC (Bld) [#/Vol] [facility] Nucleated RBC/100 WBC (Bld) [Ratio] 0.0 % /100 WBC [facility] Platelet mean volume (Bld) [Entitic vol] 12.1 fL 9.0 - 12.7 fL [facility] Platelets (Bld) [#/Vol] 159 10*3/uL [facility] RBC (Bld) [#/Vol] 4.70 10*6/uL 3.90 - 5.20 m/uL [facility] WBC (Bld) [#/Vol] 8.15 10*3/uL [facility] Basophils (Bld) [#/Vol] 10*3/uL Normal <0.11 [facility] Comment on above: Order Comment: Speci men Type: BLOOD SPECIMENOrdering Facility: [facility] Address: [address] [place], [place] [address] Performed By: #### 5 7021-8 ####[facility] MILLHAILEYWNCLIA [id number] [place] [address] [place] Basophils/100 WBC (Bld) 0.2 % Normal [facility] Comment on above: Order Comment: Speci men Type: BLOOD SPECIMENOrdering Facility: [facility] Address: [address] [place] [address] Performed By: #### 5 7021-8 ####[facility] SHAHIDWNCLIA [id number] [place] [address] [place] Differential cell count method Nom (Bld) Auto Normal [facility] Comment on above: Order Comment: Speci men Type: BLOOD SPECIMENOrdering Facility: [facility] Address: [address] [place] [address] Performed By: #### 5 7021-8 ####[facility] SHAHIDPatrickJENNIFERLIA [id number] [place] [address] [place] Eosinophils (Bld) [#/Vol] 0.09 10*3/uL Normal <0.46 [facility] Comment on above: Order Comment: Speci men Type: BLOOD SPECIMENOrdering Facility: [facility] Address: [address] [place] [address] Performed By: #### 5 7021-8 ####[facility] SHAHIDTAMARALIA [id number] [place] [address] [place] Eosinophils/100 WBC (Bld) 1.1 % Normal [facility] Comment on above: Order Comment: Speci men Type: BLOOD SPECIMENOrdering Facility: [facility] Address: [address] [place] [address] Performed By: #### 5 7021-8 ####[facility] SHAHIDDAVEYNCLIA [id number] [place] [address] [place] Erythrocyte distribution width (RBC) [Ratio] 13.5 % Normal 11.5-15.0 [facility] Comment on above: Order Comment: Speci men Type: BLOOD SPECIMENOrdering Facility: [facility] Address: [address] [place] [address] Performed By: #### 5 7021-8 ####[facility] SHAHIDPatrickNCLAINEY [id number] [place] [address] [place] Hematocrit (Bld) [Volume fraction] 33.9 % Low 36.0-46.0 [facility] Comment on above: Order Comment: Speci men Type: BLOOD SPECIMENOrdering Facility: [facility] Address: [address] [place] [address] Performed By: #### 5 7021-8 ####[facility]ITALNCA [id number] [place] [address] [place] Hemoglobin (Bld) [Mass/Vol] 10.9 g/dL Low 11.5-15.5 [facility] Comment on above: Order Comment: Speci men Type: BLOOD SPECIMENOrdering Facility: [facility] Address: [address] [place] [address] Performed By: #### 5 7021-8 ####[facility] [id number] [place] [address] [place] Immature granulocytes (Bld) [#/Vol] 0.07 10*3/uL Normal <0.10 [facility] Comment on above: Order Comment: Speci men Type: BLOOD SPECIMENOrdering Facility: [facility] Address: [address] [place] [address] Performed By: #### 5 7021-8 ####[facility] [id number] [place] [address] [place] Immature granulocytes/100 WBC (Bld) 0.9 % Normal [facility] Comment on above: Order Comment: Speci men Type: BLOOD SPECIMENOrdering Facility: [facility] Address: [address] [place], [place] [address] Performed By: #### 5 7021-8 ####[facility] MILLWNCLIA [id number] [place] [address] [place] Lymphocytes (Bld) [#/Vol] 1.31 10*3/uL Normal 1.00-4.00 [facility] Comment on above: Order Comment: Speci men Type: BLOOD SPECIMENOrdering Facility: [facility] Address: [address] [place] [address] Performed By: #### 5 7021-8 ####[facility]OSPITALNCA [id number] [place] [address] [place] Lymphocytes/100 WBC (Bld) 16.1 % Normal [facility] Comment on above: Order Comment: Speci men Type: BLOOD SPECIMENOrdering Facility: [facility] Address: [address] [place] [address] Performed By: #### 5 7021-8 ####[facility] [id number] [place] [address] [place] MCH (RBC) [Entitic mass] 23.2 pg Low 26.0-34.0 [facility] Comment on above: Order Comment: Speci men Type: BLOOD SPECIMENOrdering Facility: [facility] Address: [address] [place] [address] Performed By: #### 5 7021-8 ####[facility] CAMPUSLIA [id number] [place] [address] [place] MCHC (RBC) [Mass/Vol] 32.2 g/dL Normal 30.5-36.0 [facility] Comment on above: Order Comment: Speci men Type: BLOOD SPECIMENOrdering Facility: [facility] Address: [address] [place] [address] Performed By: #### 5 7021-8 ####[facility]PITALNCLIA [id number] [place] [address] [place] MCV (RBC) [Entitic vol] 72.1 fL Low 80.0-100.0 [facility] Comment on above: Order Comment: Speci men Type: BLOOD SPECIMENOrdering Facility: [facility] Address: [address] [place] [address] Performed By: #### 5 7021-8 ####[facility] [id number] [place] [address] [place] Monocytes (Bld) [#/Vol] 0.82 10*3/uL Normal <0.87 [facility] Comment on above: Order Comment: Speci men Type: BLOOD SPECIMENOrdering Facility: [facility] Address: [address] [place] [address] Performed By: #### 5 7021-8 ####[facility] [id number] [place] [address] [place] Monocytes/100 WBC (Bld) 10.1 % Normal [facility] Comment on above: Order Comment: Speci men Type: BLOOD SPECIMENOrdering Facility: [facility] Address: [address] [place] [address] Performed By: #### 5 7021-8 ####[facility] CAMPUSLIA [id number] [place] [address] [place] Neutrophils (Bld) [#/Vol] 5.84 10*3/uL Normal 1.45-7.50 [facility] Comment on above: Order Comment: Speci men Type: BLOOD SPECIMENOrdering Facility: [facility] Address: [address] [place] [address] Performed By: #### 5 7021-8 ####[facility]PITALNCLIA [id number] [place] [address] [place] Neutrophils/100 WBC (Bld) 71.6 % Normal [facility] Comment on above: Order Comment: Speci men Type: BLOOD SPECIMENOrdering Facility: [facility] Address: [address] [place] [address] Performed By: #### 5 7021-8 ####[facility] SHAHIDDAVEYLORENE [id number] [place] [address] [place] Nucleated RBC (Bld) [#/Vol] 10*3/uL Normal <0.01 [facility] Comment on above: Order Comment: Speci men Type: BLOOD SPECIMENOrdering Facility: [facility] Address: [address] [place] [address] Performed By: #### 5 7021-8 ####[facility] [id number] [place] [address] [place] Nucleated RBC/100 WBC (Bld) [Ratio] 0.0 /100 WBC Normal [facility] Comment on above: Order Comment: Speci men Type: BLOOD SPECIMENOrdering Facility: [facility] Address: [address] [place] [address] Performed By: #### 5 7021-8 ####[facility] [id number] [place] [address] [place] Platelet mean volume (Bld) [Entitic vol] 12.1 fL Normal 9.0-12.7 [facility] Comment on above: Order Comment: Speci men Type: BLOOD SPECIMENOrdering Facility: [facility] Address: [address] [place] [address] Performed By: #### 5 7021-8 ####[facility] CAMPUSLIA [id number] [place] [address] [place] Platelets (Bld) [#/Vol] 159 10*3/uL Normal 150-400 [facility] Comment on above: Order Comment: Speci men Type: BLOOD SPECIMENOrdering Facility: [facility] Address: [address] [place], [place] [address] Performed By: #### 5 7021-8 ####[facility] HOSPITALWNCLIA [id number] [place] [address] [place] RBC (Bld) [#/Vol] 4.70 10*6/uL Normal 3.90-5.20 [facility] Comment on above: Order Comment: Speci men Type: BLOOD SPECIMENOrdering Facility: [facility] Address: [address] [place], [place] [address] [address] Performed By: #### 5 7021-8 ####[facility]PITALNCLIA [id number] [place] [address] [place] WBC (Bld) [#/Vol] 8.15 10*3/uL Normal 3.70-11.00 [facility] Comment on above: Order Comment: Speci men Type: BLOOD SPECIMENOrdering Facility: [facility] Address: [address] [place], [place] [address] [address] Performed By: #### 5 7021-8 ####[facility]PITALNCLIA [id number] [place] [address] [place] CNCOon 11-22-2024 CNCO Letter Text Normal [facility] metabolic 2000 panelOrdered By: Donna Wilcox on 11-22-2024 Albumin [Mass/Vol] 3.8 g/dL Low 3.9 - 4.9 g/dL Cl [facility] ALP [Catalytic activity/Vol] 198 U/L High 34 - 123 U/L [facility] ALT [Catalytic activity/Vol] 24 U/L 7 - 38 U/L [facility] Anion gap [Moles/Vol] 8 mmol/L 8 - 15 mmol/L [facility] AST [Catalytic activity/Vol] 29 U/L 13 - 35 U/L [facility] Bilirubin [Mass/Vol] 0.3 mg/dL 0.2 - 1.3 mg/dL [facility] Calcium [Mass/Vol] 9.1 mg/dL 8.5 - 10.2 mg/dL [facility] Chloride [Moles/Vol] 104 mmol/L 98 - 107 mmol/L [facility] CO2 [Moles/Vol] 21 mmol/L Low 22 - 30 mmol/L [facility] Creatinine [Mass/Vol] 0.53 mg/dL Low 0.58 - 0.96 mg/dL [facility] GFR/1.73 sq M.predicted among non-blacks MDRD (S/P/Bld) [Vol rate/Area] 132 mL/min/{1.73_m2} - PINF [facility] Comment on above: Estimated Glomerular Filtration Rate [...] [Mass/Vol] 79 mg/dL 74 - 99 mg/dL [facility] Comment on above: The [place] Diab[employer] s Association (ADA) provides guidance for [...] Standards of Medical Care in Diabetes 2016, [place] Diabetes Association. Diabetes Care. 2016.39(Suppl 1). Interpretation and review of laboratory results Abnormal [facility] Potassium [Moles/Vol] 4.1 mmol/L 3.7 - 5.1 mmol /L [facility] Protein [Mass/Vol] 6.3 g/dL 6.3 - 8.0 g/dL Cl [facility] Sodium [Moles/Vol] 133 mmol/L Low 136 - 144 mmol/L [facility] Urea nitrogen [Mass/Vol] 14 mg/dL 7 - 21 mg/dL [facility] Comprehensive metabolic 2000 panelon 11-22-2024 Albumin [Mass/Vol] 3.8 g/dL Low 3.9-4.9 [facility] Comment on above: Order Comment: Speci men Type: BLOOD SPECIMENOrdering Facility: [facility] Address: [address] [place] [address] Performed By: #### 2 4323-8, 3083- ####[facility] [id number] [place] [address] [place] ALP [Catalytic activity/Vol] 198 U/L High 34-123 [facility] Comment on above: Order Comment: Speci men Type: BLOOD SPECIMENOrdering Facility: [facility] Address: [address] [place] [address] Performed By: #### 2 4323-8, 3083- ####[facility] [id number] [place] [address] [place] ALT [Catalytic activity/Vol] 24 U/L Normal 7-38 [facility] Comment on above: Order Comment: Speci men Type: BLOOD SPECIMENOrdering Facility: [facility] Address: [address] [place] [address] Performed By: #### 2 4323-8, 3083-03 ####[facility] [id number] [place] [address] [place] Anion gap [Moles/Vol] 8 mmol/L Normal 8-15 [facility] Comment on above: Order Comment: Speci men Type: BLOOD SPECIMENOrdering Facility: [facility] Address: [address] [place] [address] Performed By: #### 2 4323-8, 3083-1 ####[facility] [id number] [place] [address] [place] AST [Catalytic activity/Vol] 29 U/L Normal 13-35 [facility] Comment on above: Order Comment: Speci men Type: BLOOD SPECIMENOrdering Facility: [facility] Address: [address] [place] [id number] Performed By: #### 2 4323-8, 3083-03 ####[facility] GARRETT MONIKALORENE [id number] [place] [address] [place] Bilirubin [Mass/Vol] 0.3 mg/dL Normal 0.2-1.3 [facility] Comment on above: Order Comment: Speci men Type: BLOOD SPECIMENOrdering Facility: [facility] Address: [address] [place] [address] Performed By: #### 2 4323-8, 3083-03 ####[facility] SHAHIDMIGUEL [id number] [place] [address] [place] Calcium [Mass/Vol] 9.1 mg/dL Normal 8.5-10.2 [facility] Comment on above: Order Comment: Speci men Type: BLOOD SPECIMENOrdering Facility: [facility] Address: [address] [place] [address] Performed By: #### 2 4323-8, 3083-03 ####[facility] SHAHIDDAVEYLORENE [id number] [place] [address] [place] Chloride [Moles/Vol] 104 mmol/L Normal 98-107 [facility] Comment on above: Order Comment: Speci men Type: BLOOD SPECIMENOrdering Facility: [facility] Address: [address] [place] [address] Performed By: #### 2 4323-8, 3083-03 ####[facility] HOSPITALJENNIFERLIA [id number] [place] [address] [place] CO2 [Moles/Vol] 21 mmol/L Low 22-30 [facility] Comment on above: Order Comment: Speci men Type: BLOOD SPECIMENOrdering Facility: [facility] Address: [address] [place] [address] Performed By: #### 2 4323-8, 3083-03 ####[facility]PITALNCLIA [id number] [place] [address] [place] Creatinine [Mass/Vol] 0.53 mg/dL Low 0.58-0.96 [facility] Comment on above: Order Comment: Speci men Type: BLOOD SPECIMENOrdering Facility: [facility] Address: [address] [place] [address] Performed By: #### 2 4323-8, 3083-03 ####[facility]PITALNCLIA [id number] [place] [address] [place] eGFRcr SerPlBld CKD-EPI 2020 132 mL/min/1.73m??? Normal >=60 [facility] Comment on above: Order Comment: Drew taylor Type: BLOOD SPECIMENOrdering Facility: [facility] Address: [address] [place] [address] Result Comment: Marianela mated Glomerular Filtration Rate [...] GFR. Performed By: #### 2 4323-8, 3083-03 ####[facility] [id number] [place] [address] [place] Glucose [Mass/Vol] 79 mg/dL Normal 74-99 [facility] Comment on above: Order Comment: Migueli men Type: BLOOD SPECIMENOrdering Facility: [facility] Address: [address] [place] [address] Result Comment: The [place] Diabetes Association (ADA) provides guidance for cutoff [...] Standards of Medical Care in Diabetes 2016, [place] Diabetes Association. Diabetes Care. 2016.39(Suppl 1). Performed By: #### 2 4323-8, 3083-03 ####[facility] GARRETT MILLTOWNCLIA [id number] [place] [address] [place] Potassium [Moles/Vol] 4.1 mmol/L Normal 3.7-5.1 [facility] Comment on above: Order Comment: Speci men Type: BLOOD SPECIMENOrdering Facility: [facility] Address: [address] [place] [address] Performed By: #### 2 4328, 3083-03 ####[facility] HOSPITALWJENNIFERLIIzabella [id number] [place] [address] [place] Protein [Mass/Vol] 6.3 g/dL Normal 6.3-8.0 [facility] Comment on above: Order Comment: Speci men Type: BLOOD SPECIMENOrdering Facility: [facility] Address: [address] [place] [address] Performed By: #### 2 4323-8, 3083-03 ####[facility] MARYWNCLIA [id number] [place] [address] [place] Sodium [Moles/Vol] 133 mmol/L Low 136-144 [facility] Comment on above: Order Comment: Speci men Type: BLOOD SPECIMENOrdering Facility: [facility] Address: [address] [place] [address] Performed By: #### 2 4323-8, 3083-03 ####[facility] MILLHAILEYWJENNIFERLIA [id number] [place] [address] [place] Urea nitrogen [Mass/Vol] 14 mg/dL Normal 7-21 [facility] Comment on above: Order Comment: Speci men Type: BLOOD SPECIMENOrdering Facility: [facility] Address: [address] [place] [address] Performed By: #### 2 4323-8, 3084-1 ####[facility] [id number] [place] [address] [place] No Panel InformationOrdered By: Donna Wilcox on 11-22-2024 [facility] URIC ACIDon 11-22-2024 Urate [Mass/Vol] 5.6 mg/dL 2.5 - 6.6 mg/dL [facility] Urate SerPl-mCncon Urate [Mass/Vol] 5.6 mg/dL Normal 2.5-6.6 [facility] Comment on above: Order Comment: Speci men Type: BLOOD SPECIMENOrdering Facility: [facility] Address: [address] [place] [address] Performed By: #### 2 4323-8, 3084-1 ####[facility] [id number] [address] [place] Urate [Mass/Vol]on Interpretation and review of laboratory results Normal [facility] BACTERIAL VAGINOSIS NAATon 0 11-19-2024 Lactobacillus crispatus+gasseri+mildred enii + Gardnerella vaginalis + Atopobium vaginae rRNA ZHENG+probe Ql (Vag fld) Not detected Normal Not detected [facility] Comment on above: Order Comment: Speci men Type: BLOOD SPECIMEN Ordering Facility: [facility] Address: [address] [place] [address] Performed By: #### T SPN #### [facility] CLIA [id number] [address] [place] [address] [id number] [place] BELINDA/TRICHOMONAS NAATon 0 11-19-2024 C. glabrata RNA ZHENG+probe Ql (Vag fld) Not detected Normal Not detected [facility] Comment on above: Order Comment: Speci men Type: BLOOD SPECIMEN Ordering Facility: [facility] Address: [address] [place] [address] Performed By: #### T SPN #### [facility] CLIA [id number] [address] [place] [address] OF [place] Belinda sp DNA ZHENG+probe Ql (Vag fld) Not detected Normal Not detected [facility] Comment on above: Order Comment: Speci men Type: BLOOD SPECIMEN Ordering Facility: [facility] Address: [address] [place] [address] Result Comment: The Belinda species group target includes C. albicans, C. tropicalis, C. parapsilosis, and C. dubliniensis. Performed By: #### T SPN #### [facility] CLIA [id number] [address] [place] [address] OF [facility] T. vaginalis DNA ZHENG+probe Ql (Unsp spec) Not detected Normal Not detected [facility] Comment on above: Order Comment: Speci men Type: BLOOD SPECIMEN Ordering Facility: [facility] Address: [address] [place] [address] Performed By: #### T SPN #### [facility] CLIA [id number] [address] [place] [address] OF [facility] Greg 11-19-2024 JEWELL Telephone (OBGYWM) EVELYN LUCAS ([id number]) 2000 F Date Time Provider Department 11/19/24 [...] to the office now or go to [facility]? JARVIS Pillai Rebecca L, MD 11/19/2024 11:15 [...] Status:Closed by EMILIA GARCIA on 11/19/24 Normal [facility] URINE OB DIP B/Oon Glucose Ql (U) Negative Neg mg/dL [facility] Interpretation and review of laboratory results Normal [facility] Protein.monoclonal (U) [Mass/Vol] Negative Neg mg/dL [facility] ROUTINE, GROUP B ST REPTOCOCCUS BY PCRon 11-16-2024 Interpretation and review of laboratory results Normal [facility] S. agalactiae DNA ZHENG+probe Ql (Unsp spec) Not detected Not detected [facility] This PCR is performed on a vaginal-rectal swab after culture enrichment. It is the most sensitive method for Group B Streptococcus screening. (Obstet Gynecol. 2020 PMID [id number]) [facility] ROUTINE, GROUP B ST REPTOCOCCUS BY PCRon 11-15-2024 ROUTINE, GROUP B STREPTOCOCCUS BY PCR Not detected Normal [facility] Comment on above: Performed By: #### 6 30-4 #### [facility] CLIA [id number] [address] [place] [address] OF [facility] Greg 11-07-2024 MARISN Telephone (OBGYWM) EVELYN LUCAS ([id number]) 2000 F Date Time Provider Department 11/07/24 CUCO MEJIA During your visit today, we recorded the following information about you: Debbie Montez MA 11/07/2024 1:12 PM Signed Received additional disability form- will complete filling out for provider. REUBEN Taylor Reanna, [place] 11/07/2024 1:12 PM Signed Form filled out and placed into providers mailbox. REBUEN Taylor Reanna, [place] 11/07/2024 3:19 PM Signed Form has been signed. A copy has been placed into scanning folder. Was not faxed per patient request- she stated that she was going to fax this copy with other paperwork she has to her employer. Debbie Montez MA Allergies As of Date: 11/07/2024 (No Known Allergies) Date Reviewed: 10/28/2024 Reviewed by: Cuco Mejia APRN.AUTOMATIC MACHINES SUPERVISOR - Fully Assessed Reason for Visit: Short [...] Status:Closed by DEBBIE MONTEZ on 11/07/24 Normal [facility] URINE OB DIP B/Oon Glucose Ql (U) Negative Neg mg/dL [facility] Interpretation and review of laboratory results Normal [facility] Protein.monoclonal (U) [Mass/Vol] Negative Neg mg/dL [facility] CNPNon 10-25-2024 CNPN Telephone (OBGYWM) EVELYN LUCAS ([id number]) 2000 F Date Time Provider Department 10/25/24 [...] Status:Closed by EMILIA GARCIA on 10/25/24 Normal [facility] Examination level ultrasound on 10-15-2024 [facility] Radiology Study observation (narrative) [facility] Bacteria Ur Culton Bacteria identified Cx Nom (U) CULTURE, URINE: No growth (<1,000 CFU/ml) Normal [facility] Comment on above: Performed By: #### 6 30-4 #### [facility] CLIA [id number] [address] [place] [address] [place] CBC W Auto Differential pane l (Bld)on 09-19-2024 Basophils (Bld) [#/Vol] 10*3/uL Normal <0.11 [facility] Comment on above: Order Comment: Speci men Type: BLOOD SPECIMENOrdering Facility: [facility] Address: [address] [place] [address] Performed By: #### 5 7021-8 ####[facility] [id number] [place] [address] [place] Basophils/100 WBC (Bld) 0.2 % Normal [facility] Comment on above: Order Comment: Speci men Type: BLOOD SPECIMENOrdering Facility: [facility] Address: [address] [place] [address] Performed By: #### 5 7021-8 ####[facility] SHAHIDDAVEYJENNIFERLIA [id number] [place] [address] [place] Differential cell count method Nom (Bld) Auto Normal [facility] Comment on above: Order Comment: Speci men Type: BLOOD SPECIMENOrdering Facility: [facility] Address: [address] [place] [address] Performed By: #### 5 7021-8 ####[facility] [id number] [place] [address] [place] Eosinophils (Bld) [#/Vol] 0.06 10*3/uL Normal <0.46 [facility] Comment on above: Order Comment: Speci men Type: BLOOD SPECIMENOrdering Facility: [facility] Address: [address] [place] [address] Performed By: #### 5 7021-8 ####[facility] [id number] [place] [address] [place] Eosinophils/100 WBC (Bld) 0.7 % Normal [facility] Comment on above: Order Comment: Speci men Type: BLOOD SPECIMENOrdering Facility: [facility] Address: [address] [place] [address] Performed By: #### 5 7021-8 ####[facility]USLIA [id number] [place] [address] [place] Erythrocyte distribution width (RBC) [Ratio] 12.3 % Normal 11.5-15.0 [facility] Comment on above: Order Comment: Speci men Type: BLOOD SPECIMENOrdering Facility: [facility] Address: [address] [place] [address] Performed By: #### 5 7021-8 ####[facility] [place] CAMPUSLI [id number] [place] [address] [place] Hematocrit (Bld) [Volume fraction] 32.0 % Low 36.0-46.0 [facility] Comment on above: Order Comment: Speci men Type: BLOOD SPECIMENOrdering Facility: [facility] Address: [address] [place] [address] Performed By: #### 5 7021-8 ####[facility] [id number] [place] [address] [place] Hemoglobin (Bld) [Mass/Vol] 11.1 g/dL Low 11.5-15.5 [facility] Comment on above: Order Comment: Speci men Type: BLOOD SPECIMENOrdering Facility: [facility] Address: [address] [place] [address] Performed By: #### 5 7021-8 ####[facility] [id number] [place] [address] [place] Immature granulocytes (Bld) [#/Vol] 0.13 10*3/uL High <0.10 [facility] Comment on above: Order Comment: Speci men Type: BLOOD SPECIMENOrdering Facility: [facility] Address: [address] [place] [address] Performed By: #### 5 7021-8 ####[facility] [place] CAMPUSTEJALA [id number] [place] [address] [place] Immature granulocytes/100 WBC (Bld) 1.5 % Normal [facility] Comment on above: Order Comment: Speci men Type: BLOOD SPECIMENOrdering Facility: [facility] Address: [address] [place] [address] Performed By: #### 5 7021-8 ####[facility] [id number] [place] [address] [place] Lymphocytes (Bld) [#/Vol] 1.28 10*3/uL Normal 1.00-4.00 [facility] Comment on above: Order Comment: Speci men Type: BLOOD SPECIMENOrdering Facility: [facility] Address: [address] [place] [address] Performed By: #### 5 7021-8 ####[facility] [id number] [place] [address] [place] Lymphocytes/100 WBC (Bld) 14.8 % Normal [facility] Comment on above: Order Comment: Speci men Type: BLOOD SPECIMENOrdering Facility: [facility] Address: [address] [place] [address] Performed By: #### 5 7021-8 ####[facility] [id number] [place] [address] [place] MCH (RBC) [Entitic mass] 27.5 pg Normal 26.0-34.0 [facility] Comment on above: Order Comment: Speci men Type: BLOOD SPECIMENOrdering Facility: [facility] Address: [address] [place] [address] Performed By: #### 5 7021-8 ####[facility] [id number] [place] [address] [place] MCHC (RBC) [Mass/Vol] 34.7 g/dL Normal 30.5-36.0 [facility] Comment on above: Order Comment: Speci men Type: BLOOD SPECIMENOrdering Facility: [facility] Address: [address] [place] [address] Performed By: #### 5 7021-8 ####[facility] [id number] [place] [address] [place] MCV (RBC) [Entitic vol] 79.4 fL Low 80.0-100.0 [facility] Comment on above: Order Comment: Speci men Type: BLOOD SPECIMENOrdering Facility: [facility] Address: [address] [place] [address] Performed By: #### 5 7021-8 ####[facility] MILLTOWNCLIA [id number] [place] [address] [place] Monocytes (Bld) [#/Vol] 0.69 10*3/uL Normal <0.87 [facility] Comment on above: Order Comment: Speci men Type: BLOOD SPECIMENOrdering Facility: [facility] Address: [address] [place] [address] Performed By: #### 5 7021-8 ####[facility] MILLTOWNCLIA [id number] [place] [address] [place] Monocytes/100 WBC (Bld) 8.0 % Normal [facility] Comment on above: Order Comment: Speci men Type: BLOOD SPECIMENOrdering Facility: [facility] Address: [address] [place] [address] Performed By: #### 5 7021-8 ####[facility] HOSPITALWNCLIA [id number] [place] [address] [place] Neutrophils (Bld) [#/Vol] 6.49 10*3/uL Normal 1.45-7.50 [facility] Comment on above: Order Comment: Speci men Type: BLOOD SPECIMENOrdering Facility: [facility] Address: [address] [place] [address] Performed By: #### 5 7021-8 ####[facility] MILLTOWNCLIA [id number] [place] [address] [place] Neutrophils/100 WBC (Bld) 74.8 % Normal [facility] Comment on above: Order Comment: Speci men Type: BLOOD SPECIMENOrdering Facility: [facility] Address: [address] [place] [address] Performed By: #### 5 7021-8 ####[facility] MILLTOWNCLIA [id number] [place] [address] [place] Nucleated RBC (Bld) [#/Vol] 10*3/uL Normal <0.01 [facility] Comment on above: Order Comment: Speci men Type: BLOOD SPECIMENOrdering Facility: [facility] Address: [address] [place] [address] Performed By: #### 5 7021-8 ####[facility] HOSPITALJENNIFERTEJALIzabella [id number] [place] [address] [place] Nucleated RBC/100 WBC (Bld) [Ratio] 0.0 /100 WBC Normal [facility] Comment on above: Order Comment: Speci men Type: BLOOD SPECIMENOrdering Facility: [facility] Address: [address] [place] [address] Performed By: #### 5 7021-8 ####[facility] HOSPITALNCLAINEY [id number] [place] [address] [place] Platelet mean volume (Bld) [Entitic vol] 10.5 fL Normal 9.0-12.7 [facility] Comment on above: Order Comment: Speci men Type: BLOOD SPECIMENOrdering Facility: [facility] Address: [address] [place] [address] Performed By: #### 5 7021-8 ####[facility] HOSPITALLORENE [id number] [place] [address] [place] Platelets (Bld) [#/Vol] 181 10*3/uL Normal 150-400 [facility] Comment on above: Order Comment: Speci men Type: BLOOD SPECIMENOrdering Facility: [facility] Address: [address] [place] [address] Performed By: #### 5 7021-8 ####[facility] HOSPITALNCLIA [id number] [place] [address] [place] RBC (Bld) [#/Vol] 4.03 10*6/uL Normal 3.90-5.20 [facility] Comment on above: Order Comment: Speci men Type: BLOOD SPECIMENOrdering Facility: [facility] Address: [address] [place] [address] Performed By: #### 5 7021-8 ####[facility] [id number] [place] [address] [place] WBC (Bld) [#/Vol] 8.67 10*3/uL Normal 3.70-11.00 [facility] Comment on above: Order Comment: Speci men Type: BLOOD SPECIMENOrdering Facility: [facility] Address: [address] [place] [address] Performed By: #### 5 7021-8 ####[facility] [id number] [place] [address] [place] GESTATIONAL GLUCOSE SCREEN, 1-HOUR, 50 GRAM, NON-FASTINGon 09-19-2024 Glucose [Mass/Vol] 96 mg/dL Normal 74-134 [facility] Comment on above: Order Comment: Speci brandon Type: BLOOD SPECIMEN Ordering Facility: [facility] Address: [address] [place] [address] Result Comment: [facility] Congress of Obstetricians and Gynecologists ([place]) guidelines state a gestational diabetes mellitus positive screen is made, in women not previously diagnosed with overt diabetes, when the 1 hr plasma glucose level is equal to or above 140 mg/dL. The [facility] Reiki Practitioner and [facility] [place] recommends a 135 mg/dL cutoff. Performed By: #### T SPN #### [facility] CLIA [id number] [address] [place], [place] [address] [address] [place] Reagin and Treponema pallidu m IgG and IgM [Interp]on 09-19-2024 T. pallidum IgG+IgM IA Ql (S) Non-Reactive Normal Nonreactive [facility] Comment on above: Order Comment: Speci men Type: BLOOD SPECIMEN [facility]ing Facility: [facility] Address: [address] [place] [address] Performed By: #### T SPN #### [facility] CLIA [id number] [address] [place] [address] [place] Reagin+T pallidum IgG+IgM Se rPl-Impon 09-19-2024 Reagin and Treponema pallidum IgG and IgM [Interp] Cannot exclude recent Treponemal infection if specimen collected within 7-10 days after appearance of suspect lesions or 2-3 weeks after an exposure. Clinical correlation is required. Normal [facility] Comment on above: Order Comment: Speci men Type: BLOOD SPECIMEN [facility]: [facility] Address: [address] [place] [address] Performed By: #### T SPN #### [facility] CLIA [id number] [address] [place] [address] [place] TYPE + SCREEN PRENATALon ABO A Normal [facility] Comment on above: Order Comment: Speci men Type: BLOOD SPECIMEN [facility]ing [facility]: [facility] Address: [address] [place] [address] Performed By: #### T SPN #### [facility] CLIA [id number] [address] [place] [address] [place] Rh Nom (Bld) Negative Normal [facility] Comment on above: Order Comment: Speci men Type: BLOOD SPECIMEN [facility]: [facility] Address: [address] [place] [address] Performed By: #### T SPN #### [facility] CLIA [id number] [address] [place] [address] [place] TYPE AND SCREEN EXPIRATION 09/22/2024 23:59 Normal [facility] Comment on above: Order Comment: Speci men Type: BLOOD SPECIMEN [facility]ing Facility: [facility] Address: [address] [place] [address] Performed By: #### T SPN #### [facility] CLIA [id number] [address] [facility] DESK [id number] V[place] [id number] [place] Bacteria Ur Culton Bacteria identified Cx Nom (U) ORGANISM ID: 1 10,000 -<50,000 CFU/ml Normal urogenital angelica Normal [facility] Comment on above: Performed By: #### 6 30-4 #### [facility] CLIA [id number] [address] [facility] [id number] [place], [place] [id number] [place] Examination level ultrasound on [...] 15 oz EFW by: Hadlock (HC-AC-FL) [employer] Architect 7.1 mm CM 5.2 mm 50% Nicolaides [...] normal LVOT view: normal 3-vessel view: normal 3-updgcu-doslhiw view: normal Heart / Thorax Situs: situs [...] Read By: Carolin Dia M.D. MATERNAL MEDICINE [facility] Radiology Study observation (narrative) [facility] Bacteria Ur Culton Bacteria identified Cx Nom (U) CULTURE, URINE: No growth (<1,000 CFU/ml) Normal [facility] Comment on above: Performed By: #### 6 30-4 #### [facility] CLIA [id number] [address] [place] [address] [place] UA DIP, URINE (POC)on 2024 BILIRUBIN UA (POCT) Negative Negative [facility] CLARITY UA (POCT) Clear [facility] COLOR UA (POCT) Yellow [facility] GLUCOSE UA (POCT) Negative Negative mg/dL [facility] Hemoglobin Ql (U) Negative Negative [facility] KETONE UA (POCT) Negative Negative mg/dL [facility] LEUKOCYTES UA (POCT) Negative Negative [facility] NITRITE UA (POCT) Negative Negative [facility] PH UA (POCT) 6 4.5 - 8.0 [facility] Protein Ql (U) Negative Negative mg/dL [facility] SPECIFIC GRAVITY UA (POCT) 1.025 1.005 - 1.030 [facility] UROBILINOGEN UA (POCT) 0.2 Normal E.U./d L [facility] Location:[facility], [address] , [place], [address] [facility] POINT OF CARE [facility] Bacteria Ur Culton 5 Bacteria identified Cx [...] , Intermediate >32 , Resistant >64 Abnormal [facility] Comment on above: Performed By: #### 6 30-4 #### [facility] CLIA [id number] [address] [place] [address] [place] UA DIP, URINE (POC)on 2024 BILIRUBIN UA (POCT) Negative Negative [facility] CLARITY UA (POCT) Clear [facility] COLOR UA (POCT) Yellow [facility] GLUCOSE UA (POCT) Negative Negative mg/dL [facility] Hemoglobin Ql (U) Negative Negative [facility] Interpretation and review of laboratory results Abnormal [facility] KETONE UA (POCT) Negative Negative mg/dL [facility] LEUKOCYTES UA (POCT) Trace Abnormal Negative [facility] NITRITE UA (POCT) Negative Negative [facility] PH UA (POCT) 7 4.5 - 8.0 [facility] Protein Ql (U) Negative Negative mg/dL [facility] SPECIFIC GRAVITY UA (POCT) 1.02 1.005 - 1.030 [facility] UROBILINOGEN UA (POCT) 0.2 Normal E.U./d L [facility] Location:[facility], [address] [facility], [place], [place], [address] [place] [address] POINT OF CARE [facility] CARRIER SCREEN, STANDARDon 0 05-29-2024 CARRIER SCREEN RESULTS View results in Scanned Documents link when available. Normal [facility] Comment on above: Order Comment: Speci men Type: BLOOD SPECIMEN [facility]ing [facility]: [facility] Address: [address] [place] [address] Performed By: #### T SPN #### [facility] CLIA [id number] [address] [place] [address] [place] CBC W Auto Differential pane l (Bld)on 05-29-2024 Basophils (Bld) [#/Vol] 10*3/uL Normal <0.11 [facility] Comment on above: Order Comment: Speci men Type: BLOOD SPECIMEN Ordering Facility: [facility] Address: [address] [place] [address] Performed By: #### T SPN #### [facility] CLIA [id number] [address] [place] [address] [place] Basophils/100 WBC (Bld) 0.2 % Normal [facility] Comment on above: Order Comment: Speci men Type: BLOOD SPECIMEN Ordering Facility: [facility] Address: [address] [place] [address] Performed By: #### T SPN #### [facility] CLIA [id number] [address] [place] [address] [place] Differential cell count method Nom (Bld) Auto Normal [facility] Comment on above: Order Comment: Speci men Type: BLOOD SPECIMEN Ordering Facility: [facility] Address: [address] [place] [address] Performed By: #### T SPN #### [facility] CLIA [id number] [address] [place] [address] [place] Eosinophils (Bld) [#/Vol] 0.10 10*3/uL Normal <0.46 [facility] Comment on above: Order Comment: Speci men Type: BLOOD SPECIMEN Ordering Facility: [facility] Address: [address] [place] [address] Performed By: #### T SPN #### [facility] CLIA [id number] [address] [place] [address] [place] Eosinophils/100 WBC (Bld) 1.2 % Normal [facility] Comment on above: Order Comment: Speci men Type: BLOOD SPECIMEN Ordering Facility: [facility] Address: [address] [place] [address] Performed By: #### T SPN #### [facility] CLIA [id number] [address] [place] [address] [place] Erythrocyte distribution width (RBC) [Ratio] 13.1 % Normal 11.5-15.0 [facility] Comment on above: Order Comment: Speci men Type: BLOOD SPECIMEN Ordering Facility: [facility] Address: [address] [place] [address] Performed By: #### T SPN #### [facility] CLIA [id number] [address] [place] [address] [place] Hematocrit (Bld) [Volume fraction] 39.8 % Normal 36.0-46.0 [facility] Comment on above: Order Comment: Speci men Type: BLOOD SPECIMEN Ordering Facility: [facility] Address: [address] [place] [address] Performed By: #### T SPN #### [facility] CLIA [id number] [address] [place] [address] [place] Hemoglobin (Bld) [Mass/Vol] 14.0 g/dL Normal 11.5-15.5 [facility] Comment on above: Order Comment: Speci men Type: BLOOD SPECIMEN Ordering Facility: [facility] Address: [address] [place] [address] Performed By: #### T SPN #### [facility] CLIA [id number] [address] [place] [address] [place] Immature granulocytes (Bld) [#/Vol] 0.07 10*3/uL Normal <0.10 [facility] Comment on above: Order Comment: Speci men Type: BLOOD SPECIMEN Ordering Facility: [facility] Address: [address] [place] [address] Performed By: #### T SPN #### [facility] CLIA [id number] [address] [place] [address] [place] Immature granulocytes/100 WBC (Bld) 0.8 % Normal [facility] Comment on above: Order Comment: Speci men Type: BLOOD SPECIMEN Ordering Facility: [facility] Address: [address] [place] [address] Performed By: #### T SPN #### [facility] CLIA [id number] [address] [place] [address] [place] Lymphocytes (Bld) [#/Vol] 1.39 10*3/uL Normal 1.00-4.00 [facility] Comment on above: Order Comment: Speci men Type: BLOOD SPECIMEN Ordering Facility: [facility] Address: [address] [place] [address] Performed By: #### T SPN #### [facility] CLIA [id number] [address] [place] [address] [place] Lymphocytes/100 WBC (Bld) 16.1 % Normal [facility] Comment on above: Order Comment: Speci men Type: BLOOD SPECIMEN Ordering Facility: [facility] Address: [address] [place] [address] Performed By: #### T SPN #### [facility] CLIA [id number] [address] [place] [address] [place] MCH (RBC) [Entitic mass] 28.6 pg Normal 26.0-34.0 [facility] Comment on above: Order Comment: Speci men Type: BLOOD SPECIMEN Ordering Facility: [facility] Address: [address] [place] [address] Performed By: #### T SPN #### [facility] CLIA [id number] [address] [place] [address] [place] MCHC (RBC) [Mass/Vol] 35.2 g/dL Normal 30.5-36.0 [facility] Comment on above: Order Comment: Speci men Type: BLOOD SPECIMEN Ordering Facility: [facility] Address: [address] [place] [address] Performed By: #### T SPN #### [facility] CLIA [id number] [address] [place] [address] [place] MCV (RBC) [Entitic vol] 81.4 fL Normal 80.0-100.0 [facility] Comment on above: Order Comment: Speci men Type: BLOOD SPECIMEN Ordering Facility: [facility] Address: [address] [place] [address] Performed By: #### T SPN #### [facility] CLIA [id number] [address] [place] [address] [place] Monocytes (Bld) [#/Vol] 0.65 10*3/uL Normal <0.87 [facility] Comment on above: Order Comment: Speci men Type: BLOOD SPECIMEN Ordering Facility: [facility] Address: [address] [place] [address] Performed By: #### T SPN #### [facility] CLIA [id number] [address] [place] [address] [place] Monocytes/100 WBC (Bld) 7.5 % Normal [facility] Comment on above: Order Comment: Speci men Type: BLOOD SPECIMEN Ordering Facility: [facility] Address: [address] [place] [address] Performed By: #### T SPN #### [facility] CLIA [id number] [address] [place] [address] [place] Neutrophils (Bld) [#/Vol] 6.43 10*3/uL Normal 1.45-7.50 [facility] Comment on above: Order Comment: Speci men Type: BLOOD SPECIMEN Ordering Facility: [facility] Address: [address] [place] [address] Performed By: #### T SPN #### [facility] CLIA [id number] [address] [place] [address] [place] Neutrophils/100 WBC (Bld) 74.2 % Normal [facility] Comment on above: Order Comment: Speci men Type: BLOOD SPECIMEN Ordering Facility: [facility] Address: [address] [place] [address] Performed By: #### T SPN #### [facility] CLIA [id number] [address] [place] [address] [place] Nucleated RBC (Bld) [#/Vol] 10*3/uL Normal <0.01 [facility] Comment on above: Order Comment: Speci men Type: BLOOD SPECIMEN Ordering Facility: [facility] Address: [address] [place] [address] Performed By: #### T SPN #### [facility] CLIA [id number] [address] [place] [address] [place] Nucleated RBC/100 WBC (Bld) [Ratio] 0.0 /100 WBC Normal [facility] Comment on above: Order Comment: Speci men Type: BLOOD SPECIMEN Ordering Facility: [facility] Address: [address] [place] [address] Performed By: #### T SPN #### [facility] CLIA [id number] [address] [place] [address] [place] Platelet mean volume (Bld) [Entitic vol] 9.8 fL Normal 9.0-12.7 [facility] Comment on above: Order Comment: Speci men Type: BLOOD SPECIMEN Ordering Facility: [facility] Address: [address] [place] [address] Performed By: #### T SPN #### [facility] CLIA [id number] [address] [place] [address] [place] Platelets (Bld) [#/Vol] 191 10*3/uL Normal 150-400 [facility] Comment on above: Order Comment: Speci men Type: BLOOD SPECIMEN Ordering Facility: [facility] Address: [address] [place] [address] Performed By: #### T SPN #### [facility] CLIA [id number] [address] [place] [address] [place] RBC (Bld) [#/Vol] 4.89 10*6/uL Normal 3.90-5.20 [facility] Comment on above: Order Comment: Speci men Type: BLOOD SPECIMEN Ordering Facility: [facility] Address: [address] [place] [address] Performed By: #### T SPN #### [facility] [place] [id number] [address] [place], [place] [address] [address] [place] WBC (Bld) [#/Vol] 8.66 10*3/uL Normal 3.70-11.00 [facility] Comment on above: Order Comment: Speci men Type: BLOOD SPECIMEN Ordering Facility: [facility] Address: [address] [place] [address] Performed By: #### T SPN #### [facility] CLIA [id number] [address] [place], [place] [address] [place] CNPNon 05-29-2024 CNPN Telephone (OBGYWM) EVELYN LUCAS ([id number]) 2000 F Date Time Provider Department 05/29/24 [...] Fully Assessed Reason for Visit: FMLA Paperwork [[id number]] Prescriptions as of 05/30/2024 - aspirin, enteric [...] Status:Closed by RIKI WHARTON on 05/30/24 Normal [facility] Examination level ultrasound on 05-29-2024 Indication First trimester anatomic survey Impression REMOTE READ The patient is referred for a first trimester anatomy scan including nuchal translucency measurement as clinically indicated. - Single, live, intrauterine . - Ama rump length measurement is consistent with the [...] view: normal 4-chamber view with color: normal 1-[id number] view: normal Abdominal cord insertion: normal Stomach: [...] Read By: Carolin Dia M.D. MATERNAL MEDICINE [facility] Radiology Study observation (narrative) [facility] HBV surface Ag Ser Qlon 05-18 HBV surface Ag Ql (S) Negative Normal Negative [facility] Comment on above: Order Comment: Speci men Type: BLOOD SPECIMENOrdering Facility: [facility] Address: [address] [place] [address] Performed By: #### 6 30-4 #### [facility] CLIA [id number] [address] [place] [address] [place] HCV Ab Ser Qlon 05-29-2024 HCV Ab Ql (S) Negative Normal Negative [facility] Comment on above: Order Comment: Speci men Type: BLOOD SPECIMENOrdering Facility: [facility] Address: [address] [place] [address] Result Comment: The result suggests no evidence of active infection with Hepatitis C virus. Should recent infection be suspected, repeat testing may be considered 4-6 weeks after this draw. Performed By: #### 1 6128-1 ####[facility]IA [id number] [address] [place] HGB ELECTROPHORESIS FOR EVAL (LAB ORDER)on 05-29-2024 Hemoglobin A (Bld) [Mass fraction] 97.3 % Normal 96.2-98.0 [facility] Comment on above: Order Comment: Speci men Type: BLOOD SPECIMENOrdering Facility: [facility] Address: [address] [place] [address] Performed By: #### L [id number], HGBELEV ####[facility] LABCLIA [id number] [place] [address] [place] Hemoglobin A2 (Bld) [Mass fraction] 2.7 % Normal 2.0-3.1 [facility] Comment on above: Order Comment: Speci men Type: BLOOD SPECIMENOrdering Facility: [facility] Address: [address] [place] [address] Performed By: #### L [id number], HGBELEV ####[facility]CLIA [id number] [place] [address] [place] Hemoglobin Unsp Elph (Bld) [Mass fraction] No abnormal hemoglobin identified. Normal No abnormal hemoglobin identified. [facility] Comment on above: Order Comment: Speci men Type: BLOOD SPECIMENOrdering Facility: [facility] Address: [address] [place] [address] Performed By: #### L [id number], HGBELEV ####[facility]CLIA [id number] [place] [address] [place] HGB EVALUATION CASCADE INTER José 05-29-2024 Hemoglobin pattern (Bld) [Interp] Reviewed by Renaldo Vera MD Normal [facility] Comment on above: Order Comment: Speci men Type: BLOOD SPECIMEN Ordering Facility: [facility] Address: [address] [place] [address] Performed By: #### T SPN #### [facility] CLIA [id number] [address] [place] [address] [place] INTERPRETATION (HGB EVAL) Normal [facility] Comment on above: Order Comment: Speci men Type: BLOOD SPECIMEN Ordering Facility: [facility] Address: [address] [place] [address] Result Comment: Hemo globins were analyzed by capillary electrophoresis and CBC red cell parameters were reviewed. No abnormal hemoglobin is identified. There is a normal hemoglobin capillary electrophoresis pattern. Performed By: #### T SPN #### [facility] CLIA [id number] [address] [place] [address] [place] HIV 1+2 Ab IA Qlon 5 HIV 1 and 2 Ab IA.rapid Nom (S/P/Bld) Normal [facility] Comment on above: Order Comment: Speci men Type: BLOOD SPECIMENOrdering Facility: [facility] Address: [address] [place] [address] Result Comment: Test not indicated. Performed By: #### 6 30-4 #### [facility] CLIA [id number] [address] [place] [address] [place] HIV 1+2 Ab+HIV1 p24 Ag IA Ql Non-Reactive Normal Nonreactive [facility] Comment on above: Order Comment: Speci men Type: BLOOD SPECIMENOrdering Facility: [facility] Address: [address] [place] [address] Performed By: #### 6 30-4 #### [facility] CLIA [id number] [address] [place] [address] [place] HIV immunoassay testing algorithm interpretation (S/P/Bld) [Interp] Normal [facility] Comment on above: Order Comment: Speci men Type: BLOOD SPECIMENOrdering Facility: [facility] Address: [address] [place] [address] Result Comment: No e vidence of HIV-1 or HIV-2 infection. Should recent infection be suspected, repeat testing may be considered 2-3 weeks after this draw. [place] Rev. Code 3701.243(E): This information has been [...] diagnoses. Performed By: #### 6 30-4 #### [facility] CLIA [id number] [address] [place] [address] [place] HbA1c (Bld)on 05-29-2024 Average glucose Estimated from glycated hemoglobin (Bld) [Mass/Vol] 74 mg/dL Normal [facility] Comment on above: Order Comment: Speci men Type: BLOOD SPECIMENOrdering Facility: [facility] Address: [address] [place] [address] Result Comment: eAG: (Estimated average glucose) is a calculated value from HgbA1c and is safety representative of the average blood glucose level in the last 2-3 month period. Performed By: #### 6 30-4 #### [facility] CLIA [id number] [address] [place] [address] [place] HbA1c (Bld) [Mass fraction] 4.2 % Low 4.3-5.6 [facility] Comment on above: Order Comment: Speci men Type: BLOOD SPECIMENOrdering Facility: [facility] Address: [address] [place] [address] Result Comment: Amer [place] Diabetes Association guidelines indicate that patients with HgbA1c in the range 5.7-6.4% are at increased risk for development of diabetes, and intervention by lifestyle modification may be beneficial. HgbA1c greater or equal to 6.5% is considered diagnostic of diabetes. Performed By: #### 6 30-4 #### [facility] CLIA [id number] [address] [place] [address] [place] [id number] PLUSon 05-29-2024 Cell-free DNA./Cell-free DNA.total Dosage of chromosome-specific cfDNA (cfDNA) [Molar fraction] 23% Normal [facility] Comment on above: Order Comment: Speci men Type: BLOOD SPECIMENOrdering Facility: [facility] Address: [address] [place] [address] Performed By: #### M AT21 ####[facility] LABCLIA [id number] [place] [address] Chr 13+18+21+X+Y aneuploidy Dosage of chromosome-specific cfDNA Ql (cfDNA) Negative Normal [facility] Comment on above: Order Comment: Speci men Type: BLOOD SPECIMENOrdering Facility: [facility] Address: [address] [place] [address] Performed By: #### M AT21 ####[facility] LABCLIA [id number] [place] [address] Chr 21 trisomy Dosage of chromosome-specific cfDNA Ql (cfDNA) Negative Normal [facility] Comment on above: Order Comment: Speci men Type: BLOOD SPECIMENOrdering Facility: [facility] Address: [address] [place] [address] Performed By: #### M AT21 ####[facility] LABCLIA [id number] [place] [address] Chr X and Y aneuploidy risk Sequencing Ql (cfDNA) [Interp] Not detected Normal [facility] Comment on above: Order Comment: Speci men Type: BLOOD SPECIMENOrdering Facility: [facility] Address: [address] [place] [address] Result Comment: Not Detected Not Detected Performed By: #### M AT21 ####[facility] LABCLIA [id number] [place] [address] Citation Elliott (Reference lab test) Comment Normal [facility] Comment on above: Order Comment: Speci men Type: BLOOD SPECIMENOrdering Facility: [facility] Address: [address] [place] [address] Result Comment: 1. P malka GUEVARA et al. Anabel Med. 2012;14(3):296-305. 2. Chad RICE, et al. Prenat Diag. 2013;33(6):591-597. 3. Brendan C, et al. Clin Chem. 2015 Apr;61(4):608-616. 4. Chester GUEVARA, et al. Anable Med. 2011;13(11):913-920. 5. ACOG/SMFM Practice Bulletin No. 226, Dec 2019. Performed By: #### M AT21 ####[facility] LABCLIA [id number] [place] [address] Gestational age Estimated from conception date Cuellar Normal [facility] Comment on above: Order Comment: Speci men Type: BLOOD SPECIMENOrdering Facility: [facility] Address: [address] [place] [address] Performed By: #### M AT21 ####[facility] LABCLIA [id number] [place] [address] GESTATIONALAGE AGE > OR = 9W Yes Normal [facility] Comment on above: Order Comment: Speci men Type: BLOOD SPECIMENOrdering Facility: [facility] Address: [address] [place] [address] Performed By: #### M AT21 ####[facility] LABCLIA [id number] [place] [address] Laboratory comment Elliott (Report) Comment Normal [facility] Comment on above: Order Comment: Drew taylor Type: BLOOD SPECIMENOrdering Facility: [facility] Address: [address] [place] [address] Result Comment: The MaterniT(R) 21 PLUS laboratory-developed test (LDT) analyzes circulating cell-free DNA from a maternal blood sample. This test is used for screening purposes and not diagnostic. Clinical correlation is recommended. Validation data on twin pregnancies is limited and the ability of this test to detect aneuploidy in higher multiple gestations has not yet been validated. Performed By: #### M AT21 ####[employer] LABSpensa TechnologiesIA [id number] [place] [address] director of rooms name Nom (Provider) Comment Normal [facility] Comment on above: Order Comment: Drew taylor Type: BLOOD SPECIMENOrdering Facility: [facility] Address: [address] [place] [address] Result Comment: This specimen showed an expected representation of chromosome 21, 18 and 13 material. Clinical correlation is suggested. Comment Víctor Marrero MD, PhD, Director, [employer] Performed By: #### M AT21 ####[facility] LABCLIA [id number] [place] [id number] LIMITATIONS OF THE TEST Comment Normal [facility] Comment on above: Order Comment: Drew taylor Type: BLOOD SPECIMENOrdering Facility: [facility] Address: [address] [place] [address] Result Comment: Kathy painter the results of [...] and Fragmin(R)). Performed By: #### M AT21 ####[facility] LabIA [id number] [place] [address] Monosomy X risk Dosage of chromosome-specific cfDNA Ql (Plasma cell-free+WBC DNA) [Interp] Not detected Normal [facility] Comment on above: Order Comment: Speci men Type: BLOOD SPECIMENOrdering Facility: [facility] Address: [address] [place] [address] Performed By: #### M AT21 ####[employer] LABSpensa TechnologiesIA [id number] [place] [address] NEGATIVE PREDICTIVE VALUE Note Normal [facility] Comment on above: Order Comment: Drew taylor Type: BLOOD SPECIMENOrdering Facility: [facility] Address: [address] [place] [address] Result Comment: The Negative Predictive Value (NPV) for trisomy 21, 18, and 13 is greater than 99%. The NPV for SCA and ESS cannot be calculated as SCA and ESS are only reported when an abnormality is detected. Performed By: #### M AT21 ####[facility] LABCLIA [id number] [place] [address] PERFORMANCE CHARACTERISTICS Note Normal [facility] Comment on above: Order Comment: Drew taylor Type: BLOOD SPECIMENOrdering Facility: [facility] Address: [address] [place] [id number] Result Comment: ! Sex ! Accuracy: 99.4% [...] ! ! ! * As reported in [facility] database nstd37 [https://www.ncbi.nlm.nih.gov/dbvar/studies/nstd37/ ] # Estimated Sensitivity. Sensitivity estimated across the observed size distribution of each syndrome [per [facility] database nstd37] and across the range of fractions observed in routine clinical NIPT. Actual sensitivity can also be influenced by other factors such as the size of the event, total sequence counts, amplification bias, or sequence bias. ## Cuellar gestation only. Performed By: #### M AT21 ####[facility] LabIA [id number] [place] [address] POSITIVE PREDICTIVE VALUE N/A Normal [facility] Comment on above: Order Comment: Speci men Type: BLOOD SPECIMENOrdering Facility: [facility] Address: [address] [place] [address] Performed By: #### M AT21 ####[employer] LABSpensa TechnologiesIA [id number] [place] [address] Reference Lab Test Method Comment Normal [facility] Comment on above: Order Comment: Speci men Type: BLOOD SPECIMENOrdering Facility: [facility] Address: [address] [place] [address] Result Comment: See Notes Circulating cell-free DNA [...] and 22. Performed By: #### M AT21 ####[facility] LABCLIA [id number] [place] [address] Service comment (Unsp spec) [Interp] Comment Normal [facility] Comment on above: Order Comment: Speci men Type: BLOOD SPECIMENOrdering Facility: [facility] Address: [address] [place] [address] Result Comment: See Notes [employer] is a subsidiary of [employer], using the brand [employer]. This test was developed and its performance characteristics determined by [employer]. It has not been cleared or approved by the Food and Drug Administration. This laboratory is certified under the Clinical Laboratory Improvement Amendments (CLIA) as qualified to perform high complexity clinical laboratory testing and accredited by the [employer] ([employer]). If there is future clinical need for adding MaterniT GENOME testing, this specimen will be available until term. [facility] samples will not be retained beyond 60 days. [facility] patients will have to send a new sample for re-sequencing ([facility] Test Code: [id number]). Performed By: #### M AT21 ####[email or web address] LABCLIA [id number] [place] [address] Sex Dosage of chromosome-specific cfDNA Nom (cfDNA) Comment Normal [facility] Comment on above: Order Comment: Speci men Type: BLOOD SPECIMENOrdering Facility: [facility] Address: [address] [place] [address] Result Comment: Cons istent with Male Performed By: #### M AT21 ####[email or web address] LABCLIA [id number] [place] [address] Test performance information Elliott (Unsp spec) Comment Normal [facility] Comment on above: Order Comment: Drew taylor Type: BLOOD SPECIMENOrdering Facility: [facility] Address: [address] [place] [address] Result Comment: The performance characteristics of the MaterniT(R) 21 PLUS laboratory-developed test (LDT) have been determined in a clinical validation study with women at increased risk for chromosomal aneuploidy.[1-4] Performed By: #### M AT21 ####[email or web address] LABCLIA [id number] [place] [address] Trisomy 13 risk Dosage of chromosome-specific cfDNA Ql (cfDNA) [Interp] Negative Normal [facility] Comment on above: Order Comment: Drew taylor Type: BLOOD SPECIMENOrdering Facility: [facility] Address: [address] [place] [address] Performed By: #### M AT21 ####[email or web address] LABCLIA [id number] [place] [address] Trisomy 18 risk Dosage of chromosome-specific cfDNA Ql (Plasma cell-free+WBC DNA) [Interp] Negative Normal [facility] Comment on above: Order Comment: Drew taylor Type: BLOOD SPECIMENOrdering Facility: [facility] Address: [address] [place] [address] Performed By: #### M AT21 ####[email or web address] LABCLIA [id number] [place] [address] RBC PARAMETERS FOR HB IDon 0 - Erythrocyte distribution width (RBC) [Ratio] 12.8 % Normal 11.5-15.0 [facility] Comment on above: Order Comment: Drew taylor Type: BLOOD SPECIMEN Ordering Facility: [facility] Address: [address] [place] [address] Performed By: #### T SPN #### [facility] CLIA [id number] [address] [place] [address] [place] [address] [place] Hematocrit (Bld) [Volume fraction] 39.6 % Normal 36.0-46.0 [facility] Comment on above: Order Comment: Speci men Type: BLOOD SPECIMEN Ordering Facility: [facility] Address: [address] [place] [address] Performed By: #### T SPN #### [facility] CLIA [id number] [address] [place] [address] [place] Hemoglobin (Bld) [Mass/Vol] 13.8 g/dL Normal 11.5-15.5 [facility] Comment on above: Order Comment: Speci men Type: BLOOD SPECIMEN Ordering Facility: [facility] Address: [address] [place] [address] Performed By: #### T SPN #### [facility] CLIA [id number] [address] [place] [address] [place] MCH (RBC) [Entitic mass] 28.3 pg Normal 26.0-34.0 [facility] Comment on above: Order Comment: Speci men Type: BLOOD SPECIMEN Ordering Facility: [facility] Address: [address] [place] [address] Performed By: #### T SPN #### [facility] CLIA [id number] [address] [place] [address] [place] MCHC (RBC) [Mass/Vol] 34.8 g/dL Normal 30.5-36.0 [facility] Comment on above: Order Comment: Speci men Type: BLOOD SPECIMEN Ordering Facility: [facility] Address: [address] [place] [address] Performed By: #### T SPN #### [facility] CLIA [id number] [address] [place] [address] [place] MCV (RBC) [Entitic vol] 81.3 fL Normal 80.0-100.0 [facility] Comment on above: Order Comment: Speci men Type: BLOOD SPECIMEN Ordering Facility: [facility] Address: [address] [place] [address] Performed By: #### T SPN #### [facility] CLIA [id number] [address] [place] [address] [place] RBC (Bld) [#/Vol] 4.87 10*6/uL Normal 3.90-5.20 [facility] Comment on above: Order Comment: Speci men Type: BLOOD SPECIMEN Ordering Facility: [facility] Address: [address] [place] [address] Performed By: #### T SPN #### [facility] CLIA [id number] [address] [place] [address] [place] RUBELLA IGG ANTIBODYon 05-29 RUBELLA IGG AB, QUAL Positive Normal Positive [facility] Comment on above: Order Comment: Speci men Type: BLOOD SPECIMEN Ordering Facility: [facility] Address: [address] [place] [address] Result Comment: The result suggests recent or past exposure to Rubella virus or history of Rubella vaccination. Positive result may also be seen due to presence of passively-transferred antibodies. Please correlate with patient's history. Performed By: #### T SPN #### [facility] CLIA [id number] [address] [place] [address] [place] Reagin and Treponema pallidu m IgG and IgM [Interp]on 05-29-2024 T. pallidum IgG+IgM IA Ql (S) Non-Reactive Normal Nonreactive [facility] Comment on above: Order Comment: Speci men Type: BLOOD SPECIMENOrdering Facility: [facility] Address: [address] [place] [address] Performed By: #### 6 30-4 #### [facility] CLIA [id number] [address] [place] [address] [place] Reagin+T pallidum IgG+IgM Se rPl-Impon 05-29-2024 Reagin and Treponema pallidum IgG and IgM [Interp] Cannot exclude recent Treponemal infection if specimen collected within 7-10 days after appearance of suspect lesions or 2-3 weeks after an exposure. Clinical correlation is required. Normal [facility] Comment on above: Order Comment: Speci men Type: BLOOD SPECIMENOrdering Facility: [facility] Address: [address] [place] [address] Performed By: #### 6 30-4 #### [facility] CLIA [id number] [address] [place] [address] TYPE + SCREEN PRENATALon ABO A Normal [facility] Comment on above: Order Comment: Speci men Type: BLOOD SPECIMENOrdering Facility: [facility] Address: [address] [place] [address] Performed By: #### T SPN ####[facility]CLIA [id number] [address] [place] Rh Nom (Bld) Negative Normal [facility] Comment on above: Order Comment: Speci men Type: BLOOD SPECIMENOrdering Facility: [facility] Address: [address] [place] [address] Performed By: #### T SPN ####[facility]CLIA [id number] [address] TYPE AND SCREEN EXPIRATION 06/01/2024 23:59 Normal [facility] Comment on above: Order Comment: Speci men Type: BLOOD SPECIMENOrdering Facility: [facility] Address: [address] [place] [address] Performed By: #### T SPN ####[facility]LO[facility] BANKCLIA [id number] [place] [address] [place] 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 05-10-19 25 Indication Viability; confirm cardiac [...] Read By: Lizzy Tomlinson CNM MATERNAL MEDICINE [facility] BACTERIAL CULTURE, URINEOrde red By: Marielena Alvarez on 05-03-2024 Bacteria identified Cx Nom (U) >=100,000 CFU/ml Klebsiella pneumoniae Abnormal [facility] Bacteria identified Cx Nom ( U)Ordered By: Marielena Alvarez on 05-03-2024 Interpretation and review of laboratory results Abnormal [facility] This test was developed and its performance characteristics determined by the [facility] [place] ([facility] It has not been cleared or approved by the FDA. [facility] is regulated under CLIA as qualified to perform high-complexity testing. This test is used for clinical purposes. It should not be regarded as investigational or for research. [facility] BACTERIAL VAGINOSIS NAATon 0 05-01-2024 Interpretation and review of laboratory results Normal [facility] Lactobacillus crispatus+gasseri+mildred enii + Gardnerella vaginalis + Atopobium vaginae rRNA ZHENG+probe Ql (Vag fld) Not detected Not detected [facility] Lactobacillus crispatus+gasseri+mildred enii + Gardnerella vaginalis + Atopobium vaginae rRNA ZHENG+probe Ql (Vag fld) Not detected Normal Not detected [facility] Comment on above: Order Comment: Speci men Type: SWABOrdering Facility: [facility] Address: [address] [place] [address] Performed By: #### Dima VASQUEZ, 02845-2 ####[facility] LABCLIA [id number] [id number] [id number] [place] Bacteria Ur Culton [...] , Intermediate >32 , Resistant >64 Abnormal [facility] Comment on above: Performed By: #### 6 30-4 #### [facility] CLIA [id number] [address] [place] [address] [place] C. trachomatis+N. gonorrhoea e DNA ZHENG+probe Ql (Unsp spec)on 05-01-2024 C. trachomatis rRNA ZHENG+probe Ql (Unsp spec) Not detected Not detected [facility] Interpretation and review of laboratory results Normal [facility] N. gonorrhoeae rRNA ZHENG+probe Ql (Unsp spec) Not detected Not detected [facility] This FDA-approved assay has been modified to accept rectal swabs self-collected in a healthcare setting. For self-collected rectal swabs, the test was developed and its performance characteristics determined by the [facility] [place] ([facility]). It has not been cleared or approved by the FDA. -[facility] is regulated under CLIA as qualified to perform high-complexity testing. This test is used for clinical purposes. It should not be regarded as investigational or for research. [facility] C. trachomatis rRNA ZHENG+probe Ql (Unsp spec) Not detected Normal Not detected [facility] Comment on above: Order Comment: Speci men Type: SWABOrdering Facility: [facility] Address: [address] [place] [address] Performed By: #### B VAMP, 46595-8 ####[facility] LABCLIA [id number] [address] [place] N. gonorrhoeae rRNA ZHENG+probe Ql (Unsp spec) Not detected Normal Not detected [facility] Comment on above: Order Comment: Speci men Type: SWABOrdering Facility: [facility] Address: [address] [place] [address] Performed By: #### B CHRISTINA, 65452-5 ####[facility] LABCLIA [id number] [place] [address] [place] BELINDA/TRICHOMONAS NAATon 0 05-01-2024 C. glabrata RNA ZHENG+probe Ql (Vag fld) Not detected Not detected [facility] Belinda sp DNA ZHENG+probe Ql (Vag fld) Not detected Not detected [facility] Comment on above: The Belinda species group target includes C. albicans, C. tropicalis, C. parapsilosis, and C. dubliniensis. Interpretation and review of laboratory results Normal [facility] T. vaginalis DNA ZHENG+probe Ql (Unsp spec) Not detected Not detected [facility] C. glabrata RNA ZHENG+probe Ql (Vag fld) Not detected Normal Not detected [facility] Comment on above: Order Comment: Speci men Type: BLOOD SPECIMEN Ordering Facility: [facility] Address: [address] [place] [address] Performed By: #### T SPN #### [facility] CLIA [id number] [address] [place] [address] [place] Belinda sp DNA ZHENG+probe Ql (Vag fld) Not detected Normal Not detected [facility] Comment on above: Order Comment: Speci men Type: BLOOD SPECIMEN Ordering Facility: [facility] Address: [address] [place] [address] Result Comment: The Belinda species group target includes C. albicans, C. tropicalis, C. parapsilosis, and C. dubliniensis. Performed By: #### T SPN #### [facility] CLIA [id number] [address] [place] [address] [place] T. 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 trachomatis+N. gonorrhoea e DNA ZHENG+probe Ql (Unsp spec)on 10-14-2023 C. trachomatis rRNA ZHENG+probe Ql (Unsp spec) Negative Negative for Chlamydia trachomatis by amplificaton [facility] Interpretation and review of laboratory results Normal [facility] N. gonorrhoeae rRNA ZHENG+probe Ql (Unsp spec) Negative Negative for Neisseria gonorrhoeae by amplification [facility] BELINDA/TRICHOMONAS NAATon 0 10-14-2023 C. glabrata RNA ZHENG+probe Ql (Vag fld) Negative Negative for Belinda glabrata [facility] Belinda sp DNA ZHENG+probe Ql (Vag fld) Negative Negative for Belinda species [facility] Interpretation and review of laboratory results Normal [facility] T. vaginalis DNA ZHENG+probe Ql (Unsp spec) Negative Negative for Trichomonas vaginalis by amplification [facility] BACTERIAL VAGINOSIS AMPLIFIC ATIONon 09-06-2022 Lactobacillus crispatus+gasseri+mildred enii + Gardnerella vaginalis + Atopobium vaginae rRNA ZHENG+probe Ql (Vag fld) Positive Abnormal Negative for bacterial vaginosis [facility] C. trachomatis+N. gonorrhoea e DNA ZHENG+probe Ql (Unsp spec)on 09-06-2022 C. trachomatis rRNA ZHENG+probe Ql (Unsp spec) Negative Negative for Chlamydia trachomatis by amplificaton [facility] N. gonorrhoeae rRNA ZHENG+probe Ql (Unsp spec) Negative Negative for Neisseria gonorrhoeae by amplification [facility] BELINDA / TRICHOMONAS AMPLIF ICATIONon 09-06-2022 C. glabrata RNA ZHENG+probe Ql (Vag fld) Negative Negative for Belinda glabrata [facility] Belinda sp DNA ZHENG+probe Ql (Vag fld) Negative Negative for Belinda species [facility] T. vaginalis DNA ZHENG+probe Ql (Unsp spec) Positive Abnormal Negative for Trichomonas vaginalis by amplification [facility] Laboratory - Chemistry and C hemistry - challengeOrdered By: Dr. Barnes on 07-14-2022 HCG ( test) Ql (U) Negative [facility] Comment on above: Very dilute urine sp ecimens, as indicated by a low specificgravity, may not contain safety representative levels of hCG. If is still suspected, a first morning urinespecimen should be collected 48 hours later and tested. No Panel InformationOrdered By: Dr. Fields on 07-05-2022 Nasal Screen MRSA/MSSA [facility] Absolute lymphocyte countOrd ered By: Dr. Fields on 07-04-2022 Lymphocytes Auto (Unsp spec) [#/Vol] 2.29 10*3/uL 0.83-4.51 [facility] Basophil percentageOrdered B y: Dr. Fields on 07-04-2022 Basophils/100 WBC (Bld) 0.7 % 0-1 [facility] Chloride [Moles/Vol] 107 mmol/L 98-107 [facility] Eosinophils/100 WBC (Bld) 3.2 % 0-5 [facility] Glucose [Mass/Vol] 90 mg/dL 74-106 [facility] Neutrophils (Bld) [#/Vol] 2.7 10*3/uL 2.0-7.7 [facility] Neutrophils/100 WBC (Bld) 44.7 % 47-70 [facility] Potassium [Moles/Vol] 3.9 mmol/L 3.5-5.1 [facility] Sodium [Moles/Vol] 137 mmol/L 136-145 [facility] WBC (Bld) [#/Vol] 6.0 10*3/uL 4.4-11.0 [facility] Blood erythrocytes count (nu mber/volume)Ordered By: Dr. Fields on 07-04-2022 RBC (Bld) [#/Vol] 4.96 10*6/uL 4.2-5.4 [facility] Blood hemoglobin measurement (mass/volume)Ordered By: Dr. Fields on 07-04-2022 Hemoglobin (Bld) [Mass/Vol] 12.8 g/dL 12.0-15.0 [facility] Blood lymphocytes/100 leukoc ytesOrdered By: Dr. Fields on 07-04-2022 Lymphocytes/100 WBC (Bld) 38.0 % 19-41 [facility] Blood monocytes/100 leukocyt esOrdered By: Dr. Fields on 07-04-2022 Monocytes/100 WBC (Bld) 13.1 % 0-10 [facility] Blood platelet mean volumeOr dered By: Dr. Fields on 07-04-2022 Platelet mean volume (Bld) [Entitic vol] 9.4 fL 6.2-12.0 [facility] Determination of erythrocyte mean corpuscular volume (MCV)Ordered By: Dr. Fields on 07-04-2022 MCV (RBC) [Entitic vol] 80.2 fL 81-99 [facility] Hematocrit Auto (Bld) [Volum e fraction]Ordered By: Dr. Fields on 07-04-2022 Hematocrit (Bld) [Volume fraction] 39.8 % 37-47 [facility] Laboratory - Chemistry and C hemistry - challengeOrdered By: Dr. Fields on 07-04-2022 CO2 [Moles/Vol] 25.0 mmol/L 21.0-32.0 [facility] Urea nitrogen/Creatinine [Mass ratio] 18.9 mg/mg 10-20 [facility] Laboratory - Hematology and Cell countsOrdered By: Dr. Fields on 07-04-2022 Erythrocyte distribution width (RBC) [Entitic vol] 38.2 fL 35.1-43.9 [facility] Erythrocyte distribution width (RBC) [Ratio] 13.2 % 11.6-14.6 [facility] Immature granulocytes/100 WBC (Bld) 0.300 % 0.0-0.9 [facility] Comment on above: IG% - Immature Granu locytes (promyelocytes, myelocytes and metamyelocytes) > 1% indicates that a LEFT SHIFT is Present. MCH (RBC) [Entitic mass] 25.8 pg 27.0-32.0 [facility] Nucleated RBC/100 WBC (Bld) [Ratio] 0 % 0-5 [facility] Auto (RBC) [Mass/Vol]Or dered By: Dr. Fields on 07-04-2022 MCHC (RBC) [Mass/Vol] 32.2 g/dL 32-36 [facility] No Panel InformationOrdered By: Dr. Fields on 07-04-2022 Estimated GFR (MDRD) Amer 148 mL/min >60 [facility] Comment on above: GFR Calc Estimated GFR (MDRD) Non-Af Amer 123 mL/min >60 [facility] Comment on above: Non- GFR Calc Platelets bldOrdered By: Dr. Fields on 07-04-2022 Platelets (Bld) [#/Vol] 251 10*3/uL 150-450 [facility] Serum or plasma calcium aynet urement (mass/volume)Ordered By: Dr. Fields on 07-04-2022 Calcium [Mass/Vol] 8.8 mg/dL 8.5-10.1 [facility] Serum or plasma creatinine m easurement (mass/volume)Ordered By: Dr. Fields on 07-04-2022 Creatinine [Mass/Vol] 0.64 mg/dL 0.55-1.02 [facility] Comment on above: The validity of the calculated GFR & GFRAA in patients over 70 years has not been determined. Clinical correlation is essential. Serum or plasma urea nitroge n measurement (mass/volume)Ordered By: Dr. Fields on 07-04-2022 Urea nitrogen [Mass/Vol] 12 mg/dL 7-18 [facility] Thin prep Papanicolaou smear with manual screeningOrdered By: Dr. Fields on 07-04-2022 Thin prep Papanicolaou smear with manual screening 5 - [facility] CNPNon 03-17-2021 JEWELL Telephone (PREANME) EVELYN LUCAS ([id number]) 2000 F Date Time Provider Department 03/17/21 [facility] PROVIDER JONATAN During your visit today, we recorded the following information about you: Allergies As of Date: 03/17/2021 (No Known Allergies) Date Reviewed: 02/25/2021 Reviewed by: Mike Marion MD - Fully Assessed Reason for Visit: Preparations For Surgery [898] Prescriptions as of 03/17/2021 - lactic rpfl-brjudy-adyiqnra m (PHEXXI) 1.8-1-0.4 % gel Insert 1 [...] Status:Closed by LIA OVALLES on 03/17/21 Normal [facility] B-HCG SerPl-aCncon 1 HCG.beta subunit Qn m[IU]/mL Normal <5.0 [facility] Comment on above: Order Comment: Speci men Type: BLOOD SPECIMEN Result Comment: Nega tive Performed By: #### 2 1198-7, 82092-4, 3040-3 #### [facility] CLIA [id number] [address] [place] [address] [place] CBC W Auto Differential pane l (Bld)on 02-23-2021 Basophils (Bld) [#/Vol] 10*3/uL Normal <0.11 [facility] Comment on above: Order Comment: Speci men Type: BLOOD SPECIMEN Performed By: #### 5 7021-8 #### [facility] CLIA [id number] [address] [place] [address] [place] Basophils/100 WBC (Bld) 0.2 % Normal [facility] Comment on above: Order Comment: Speci men Type: BLOOD SPECIMEN Performed By: #### 5 7021-8 #### [facility] CLIA [id number] [address] [place] [address] [place] Differential cell count method Nom (Bld) Auto Normal [facility] Comment on above: Order Comment: Speci men Type: BLOOD SPECIMEN Performed By: #### 5 7021-8 #### [facility] CLIA [id number] [address] [place] [address] [place] Eosinophils (Bld) [#/Vol] 0.05 10*3/uL Normal <0.46 [facility] Comment on above: Order Comment: Speci men Type: BLOOD SPECIMEN Performed By: #### 5 7021-8 #### [facility] CLIA [id number] [address] [place] [address] [place] Eosinophils/100 WBC (Bld) 0.5 % Normal [facility] Comment on above: Order Comment: Speci men Type: BLOOD SPECIMEN Performed By: #### 5 7021-8 #### [facility] CLIA [id number] [address] [place] [address] [place] Erythrocyte distribution width (RBC) [Ratio] 12.3 % Normal 11.5-15.0 [facility] Comment on above: Order Comment: Speci men Type: BLOOD SPECIMEN Performed By: #### 5 7021-8 #### [facility] CLIA [id number] [address] [place] [address] [place] Hematocrit (Bld) [Volume fraction] 36.0 % Normal 36.0-46.0 [facility] Comment on above: Order Comment: Speci men Type: BLOOD SPECIMEN Performed By: #### 5 7021-8 #### [facility] CLIA [id number] [address] [place] [address] [place] Hemoglobin (Bld) [Mass/Vol] 11.7 g/dL Normal 11.5-15.5 [facility] Comment on above: Order Comment: Speci men Type: BLOOD SPECIMEN Performed By: #### 5 7021-8 #### [facility] [facility] CLIA [id number] [address] [place], [place] [address] [place] [address] Lymphocytes (Bld) [#/Vol] 1.25 10*3/uL Normal 1.00-4.00 [facility] Comment on above: Order Comment: Speci men Type: BLOOD SPECIMEN Performed By: #### 5 7021-8 #### [facility] CLIA [id number] [address] [place] [address] [facility] Lymphocytes/100 WBC (Bld) 12.4 % Normal [facility] Comment on above: Order Comment: Speci men Type: BLOOD SPECIMEN Performed By: #### 5 7021-8 #### [facility] CLIA [id number] [address] [place] [address] [place] MCH (RBC) [Entitic mass] 26.4 pg Normal 26.0-34.0 [facility] Comment on above: Order Comment: Speci men Type: BLOOD SPECIMEN Performed By: #### 5 7021-8 #### [facility] CLIA [id number] [address] [place] [address] [place] MCHC (RBC) [Mass/Vol] 32.5 g/dL Normal 30.5-36.0 [facility] Comment on above: Order Comment: Speci men Type: BLOOD SPECIMEN Performed By: #### 5 7021-8 #### [facility] CLIA [id number] [address] [place] [address] [place] MCV (RBC) [Entitic vol] 81.3 fL Normal 80.0-100.0 [facility] Comment on above: Order Comment: Speci men Type: BLOOD SPECIMEN Performed By: #### 5 7021-8 #### [facility] CLIA [id number] [address] [place] [address] [place] Monocytes (Bld) [#/Vol] 0.97 10*3/uL High <0.87 [facility] Comment on above: Order Comment: Speci men Type: BLOOD SPECIMEN Performed By: #### 5 7021-8 #### [facility] CLIA [id number] [address] [place] [address] [facility] [place] Monocytes/100 WBC (Bld) 9.6 % Normal [facility] Comment on above: Order Comment: Speci men Type: BLOOD SPECIMEN Performed By: #### 5 7021-8 #### [facility] CLIA [id number] [address] [place] [address] [place] Neutrophils (Bld) [#/Vol] 7.82 10*3/uL High 1.45-7.50 [facility] Comment on above: Order Comment: Speci men Type: BLOOD SPECIMEN Performed By: #### 5 7021-8 #### [facility] CLIA [id number] [address] [place] [address] [place] Neutrophils/100 WBC (Bld) 77.3 % Normal [facility] Comment on above: Order Comment: Speci men Type: BLOOD SPECIMEN Performed By: #### 5 7021-8 #### [facility] CLIA [id number] [address] [place] [address] [place] Platelet mean volume (Bld) [Entitic vol] 10.4 fL Normal 9.0-12.7 [facility] Comment on above: Order Comment: Speci men Type: BLOOD SPECIMEN Performed By: #### 5 7021-8 #### [facility] CLIA [id number] [address] [facility] [place] [address] [facility] Platelets (Bld) [#/Vol] 240 10*3/uL Normal 150-400 [facility] Comment on above: Order Comment: Speci men Type: BLOOD SPECIMEN Performed By: #### 5 7021-8 #### [facility] CLIA [id number] [address] [facility] [place] [place] [address] [facility] RBC (Bld) [#/Vol] 4.43 10*6/uL Normal 3.90-5.20 [facility] Comment on above: Order Comment: Speci men Type: BLOOD SPECIMEN Performed By: #### 5 7021-8 #### [facility] CLIA [id number] [address] [place] [address] [facility] WBC (Bld) [#/Vol] 10.11 10*3/uL Normal 3.70-11.00 [facility] Comment on above: Order Comment: Speci men Type: BLOOD SPECIMEN Performed By: #### 5 7021-8 #### [facility] CLIA [id number] [address] [facility] [place] [address] [facility] Comprehensive metabolic 2000 panelon 02-23-2021 Albumin [Mass/Vol] 4.5 g/dL Normal 3.9-4.9 [facility] Comment on above: Order Comment: Speci men Type: BLOOD SPECIMEN Performed By: #### 2 1198-7, 97666-3, 3040-3 #### [facility] CLIA [id number] [address] [facility] [place] [place] [address] [facility] ALP [Catalytic activity/Vol] 68 U/L Normal 34-123 [facility] Comment on above: Order Comment: Speci men Type: BLOOD SPECIMEN Performed By: #### 2 1198-7, 13972-6, 3040-3 #### [facility] CLIA [id number] [address] [place] [address] [facility] ALT With P-5'-P [Catalytic activity/Vol] 13 U/L Normal 7-38 [facility] Comment on above: Order Comment: Speci men Type: BLOOD SPECIMEN Performed By: #### 2 1198-7, 19549-0, 0-3 #### [facility] CLIA [id number] [address] [place] [address] [place] Anion gap [Moles/Vol] 16 mmol/L Normal 9-18 [facility] Comment on above: Order Comment: Speci men Type: BLOOD SPECIMEN Performed By: #### 2 1198-7, 97418-5, 0-3 #### [facility] CLIA [id number] [address] [place] [address] [facility] AST With P-5'-P [Catalytic activity/Vol] 10 U/L Low 13-35 [facility] Comment on above: Order Comment: Speci men Type: BLOOD SPECIMEN Performed By: #### 2 1198-7, 90554-3, 0-3 #### [facility] CLIA [id number] [address] [facility] [place] [address] [place] Bilirubin [Mass/Vol] 0.9 mg/dL Normal 0.2-1.3 [facility] Comment on above: Order Comment: Speci men Type: BLOOD SPECIMEN Performed By: #### 2 1198-7, 65245-9, 0-3 #### [facility] CLIA [id number] [address] [place] [address] [place] Calcium [Mass/Vol] 9.4 mg/dL Normal 8.5-10.2 [facility] Comment on above: Order Comment: Speci men Type: BLOOD SPECIMEN Performed By: #### 2 1198-7, 84348-4, 0-3 #### [facility] CLIA [id number] [address] [facility] [place] [place] [address] [place] Chloride [Moles/Vol] 102 mmol/L Normal 97-105 [facility] Comment on above: Order Comment: Speci men Type: BLOOD SPECIMEN Performed By: #### 2 1198-7, 87961-0, 3040-3 #### [facility] CLIA [id number] [address] [place] [address] [facility] CO2 [Moles/Vol] 23 mmol/L Normal 22-30 [facility] Comment on above: Order Comment: Speci men Type: BLOOD SPECIMEN Performed By: #### 2 1198-7, 94387-1, 0-3 #### [facility] CLIA [id number] [address] [place] [address] [place] Creatinine [Mass/Vol] 0.44 mg/dL Low 0.58-0.96 [facility] Comment on above: Order Comment: Speci men Type: BLOOD SPECIMEN Performed By: #### 2 1198-7, 62174-4, 0-3 #### [facility] CLIA [id number] [address] [place] [address] [place] GFR/1.73 sq M.predicted among blacks MDRD (S/P/Bld) [Vol rate/Area] mL/min/{1.73_m2} Normal [facility] Comment on above: Order Comment: Speci men Type: BLOOD SPECIMEN Performed By: #### 2 1198-7, 31353-4, 0-3 #### [facility] CLIA [id number] [address] [place] [address] [facility] GFR/1.73 sq M.predicted among non-blacks MDRD (S/P/Bld) [Vol rate/Area] mL/min/{1.73_m2} Normal [facility] Comment on above: Order Comment: Speci [...] actual GFR. Performed By: #### 2 1198-7, 59326-1, 0-3 #### [facility] CLIA [id number] [address] [place] [address] [place] Glucose [Mass/Vol] 74 mg/dL Normal 74-99 [facility] Comment on above: Order Comment: Speci men Type: BLOOD SPECIMEN Result Comment: The [place] Diabetes Association (ADA) provides guidance for cutoff [...] Standards of Medical Care in Diabetes 2016, [place] Diabetes Association. Diabetes Care. 2016.39(Suppl 1). Performed By: #### 2 1198-7, 07128-4, 3039-3 #### [facility] CLIA [id number] [address] [place] [address] [place] Potassium [Moles/Vol] 3.4 mmol/L Low 3.7-5.1 [facility] Comment on above: Order Comment: Speci men Type: BLOOD SPECIMEN Performed By: #### 2 1198-7, 36574-4, 0-3 #### [facility] CLIA [id number] [address] [place] [address] [place] Protein [Mass/Vol] 7.8 g/dL Normal 6.3-8.0 [facility] Comment on above: Order Comment: Speci men Type: BLOOD SPECIMEN Performed By: #### 2 1198-7, 31314-0, 0-3 #### [facility] CLIA [id number] [address] [place] [address] [place] Sodium [Moles/Vol] 141 mmol/L Normal 136-144 [facility] Comment on above: Order Comment: Speci men Type: BLOOD SPECIMEN Performed By: #### 2 1198-7, 26781-2, 3040-3 #### [facility] CLIA [id number] [address] [place] [address] [place] Urea nitrogen [Mass/Vol] 15 mg/dL Normal 7-21 [facility] Comment on above: Order Comment: Speci men Type: BLOOD SPECIMEN Performed By: #### 2 1198-7, 59177-6, 0-3 #### [facility] CLIA [id number] [address] [place] [address] [facility] [place] Lactate (Bld) [Moles/Vol]on 02-23-2021 Lactate [Moles/Vol] 0.7 mmol/L Normal 0.5-2.2 [facility] Comment on above: Order Comment: Speci men Type: BLOOD SPECIMEN Performed By: #### 3 2693-4 #### [facility] CLIA [id number] [address] [place] [address] [place] Lipase SerPl-cCncon 02-24-20 21 Lipase [Catalytic activity/Vol] 10 U/L Low 16-61 [facility] Comment on above: Order Comment: Speci men Type: BLOOD SPECIMEN Performed By: #### 2 1198-7, 93953-4, 3040-3 #### [facility] CLIA [id number] [address] [place] [address] [place] PT panel Coag (PPP)on 2020 INR Coag (PPP) [Relative time] 1.1 {INR} Normal 0.9-1.3 [facility] Comment on above: Order Comment: Speci men Type: BLOOD SPECIMEN Result Comment: Mary min K Antagonist (VKA) Therapeutic Range: INR 2 to 3 (Target INR of 2.5) Note: For patients treated with VKA drugs, such as warfarin, the [place] [employer] 2012 Guideline recommends [...] Chest 2012, 141:7S-47S Ashley RA, et al. [facility] 2017, 70: 252-289 Performed By: #### 3 4528-0 #### [facility] CLIA [id number] [address] [place] [address] [place] PT Coag (PPP) [Time] 10.9 s Normal 9.7-13.0 [facility] Comment on above: Order Comment: Speci men Type: BLOOD SPECIMEN Performed By: #### 3 4528-0 #### [facility] CLIA [id number] [address] [place] [address] [place] US ABD RIGHT UPPER [...] seen in the right upper quadrant abdomen. Frequency Checker: PSCB Transcribe Date/Time: Feb 23 2021 2:46P Dictated by : BERKLEY OLIVERA MD This examination was interpreted and the report reviewed and electronically signed by: BERKLEY OLIVERA MD on Feb 23 2021 2:48PM EST [id number] CN Normal [facility] Urinalysis complete panel (U )on 02-23-2021 Bilirubin Ql (U) 2+ Abnormal Negative [facility] Comment on above: Order Comment: Speci men Type: URINE SPECIMEN Result Comment: Sugg est correlation with clinical findings and serum bilirubin if clinically indicated. Performed By: #### 2 4356-8 #### [facility] CLIA [id number] [address] [place] [address] [place] Clarity (Unsp spec) Cloudy Abnormal Clear [facility] Comment on above: Order Comment: Speci men Type: URINE SPECIMEN Performed By: #### 2 4356-8 #### [facility] CLIA [id number] [address] [place] [address] [place] Color (U) Yellow Normal Yellow [facility] Comment on above: Order Comment: Speci men Type: URINE SPECIMEN Performed By: #### 2 4356-8 #### [facility] CLIA [id number] [address] [place] [address] [place] Glucose Test strip (U) [Mass/Vol] Negative Normal Negative [facility] Comment on above: Order Comment: Speci men Type: URINE SPECIMEN Performed By: #### 2 4356-8 #### [facility] CLIA [id number] [address] [place] [address] [place] Hemoglobin Ql (U) 1+ Abnormal Negative [facility] Comment on above: Order Comment: Speci men Type: URINE SPECIMEN Performed By: #### 2 4356-8 #### [facility] CLIA [id number] [address] [place] [address] [facility] Ketones Ql (U) 4+ Abnormal Negative [facility] Comment on above: Order Comment: Speci men Type: URINE SPECIMEN Performed By: #### 2 4356-8 #### [facility] CLIA [id number] [address] [place] [address] [facility] Leukocyte esterase Test strip Ql (U) Negative Normal Negative [facility] Comment on above: Order Comment: Speci men Type: URINE SPECIMEN Performed By: #### 2 4356-8 #### [facility] CLIA [id number] [address] [place] [address] [facility] Nitrite Ql (U) Negative Normal Negative [facility] Comment on above: Order Comment: Speci men Type: URINE SPECIMEN Performed By: #### 2 4356-8 #### [facility] CLIA [id number] [address] [place] [address] [place] pH (U) 6.5 [pH] Normal 5.0-8.0 [facility] Comment on above: Order Comment: Speci men Type: URINE SPECIMEN Performed By: #### 2 4356-8 #### [facility] CLIA [id number] [address] [place] [address] [place] Protein (U) [Mass/Vol] Normal [facility] Comment on above: Order Comment: Speci men Type: URINE SPECIMEN Result Comment: Visi ble blood causes falsely elevated results for analyte Protein. Due to this limitation, Protein will not be reported for patients whose urine contains visible blood. Performed By: #### 2 4356-8 #### [facility] CLIA [id number] [address] [place] [address] [place] RBC LM.HPF (Urine sed) [#/Area] 3-5 /HPF Abnormal 0-3 /HPF [facility] Comment on above: Order Comment: Speci men Type: URINE SPECIMEN Performed By: #### 2 4356-8 #### [facility] CLIA [id number] [address] [place] [address] [facility] Specific gravity (U) [Rel density] 1.025 Normal 1.005-1.030 [facility] Comment on above: Order Comment: Speci men Type: URINE SPECIMEN Performed By: #### 2 4356-8 #### [facility] CLIA [id number] [address] [place] [address] [facility] Urobilinogen Ql (U) 1.0 EU/dL Normal 0.2-1.0 EU/dL [facility] Comment on above: Order Comment: Speci men Type: URINE SPECIMEN Performed By: #### 2 4356-8 #### [facility] CLIA [id number] [address] [place] [address] [facility] WBC LM.HPF (Urine sed) [#/Area] 6-10 /HPF Abnormal 0-5 /HPF [facility] Comment on above: Order Comment: Speci men Type: URINE SPECIMEN Performed By: #### 2 4356-8 #### [facility] CLIA [id number] [address] [place] [address] [facility] ANES Flaca 07-17-2018 ANES POST HNO ID: [id number] Author: Gamaliel Cruz Service: Anesthesiology Author Type: [...] 17, 2018 TIME: 6:32 PM PAGER/CONTACT #: [facility] ANES PREOPon 07-17-2018 ANES PREOP HNO ID: [id number] Author: Gamaliel Cruz Service: Anesthesiology Author Type: [...] July 17, 2018 TIME: 1:10 PM CSN: [id number] [facility] BRIEF OP NOTon 07-17-2018 BRIEF OP NOT HNO ID: [id number] Author: Marcos Cowart Service: Podiatry Author Type: Physician Type: Brief Op Note Filed: 07/17/2018 6:45 PM Note Text: BRIEF OP NOTE LOG ID: [id number] Surgery/Procedure Date: 07/17/2018 Incision/Procedure Start Time: 3:50 PM Incision Close/Procedure End Time: 6:12 PM Surgeon(s)/Procedura list(s) and News Production Assistant(s): Surgeon(s) and Role: * Marcos Cowart - [...] 17, 2018 TIME: 6:44 PM PAGER/CONTACT #: [facility] HISTORY PHYSICALon 9 HISTORY PHYSICAL HNO ID: [id number] Author: Marcos Cowart Service: Podiatry Author Type: [...] 17, 2018 TIME: 11:01 AM PAGER/CONTACT #: [phone] [facility] OPERATIVE NOon 07-17-2018 OPERATIVE NO HNO ID: [id number] Author: Marcos Cowart Service: Podiatry Author Type: Physician Type: Operative Report Filed: 07/18/2018 10:05 PM Note Text: OPERATIVE/PROCEDURE REPORT LOG ID: [id number] SURGERY/PROCEDURE DATE: 07/17/2018 INCISION/PROCEDURE START TIME: 3:50 PM INCISION CLOSE/PROCEDURE END TIME: 6:12 PM SURGEON(S)/PROCEDURA LIST(S) AND HAMMER REPAIRER(S): Surgeon(s) and Role: * Marcos Cowart - [...] 17, 2018 TIME: 9:34 PM PAGER/CONTACT #: [facility] PT EDon 07-17-2018 PT ED HNO ID: [id number] Author: Rachele (Rn) JARVIS Mckay Service: Nursing [...] Signed By: Rachele Mckay RN In Department: [facility] SURGERY [facility] PT ED HNO ID: [id number] Author: Kaylene FisherRnFranco Tran RN Service: Nursing Author Type: Registered Nurse Type: Patient Education Filed: 07/17/2018 1:05 PM Note Text: PRE OP LEARNING ASSESSMENT PROCEDURE/SURGERY: Pre op READINESS TO LEARN COGNITIVE ABILITY: Alert and oriented MOTIVATION TO LEARN: Eager FAMILY SUPPORT: High - Very involved in pt care PATIENT LEARNS BEST BY: Verbal Instruction FACTORS AFFECTING LEARNING: None PHYSICAL LIMITATIONS AFFECTING LEARNING: None [facility] NURSING PROGon 07-10-2018 Protein mass conc HNO ID: [id number] Author: Barb FisherRnFranco Tse RN Service: Nursing [...] Tse RN July 10, 2018 3:05 PM [facility] HOSPon 06-28-2018 HOSP Patient:Evelyn Lucas MRN: Height:4' [...] the following basenames: K,HCT Progress Notes ([facility]): Mady Bermudez RN 06/19/2018 1:25 PM [...] asks if she can have PAT in [place]? Explained that [facility] will be calling her to schedule from [facility] area code with unlisted number, and that she can request to be scheduled at [place] if there is room. Pt. verbalizes understanding. Mady Bermudez RN 06/26/2018 2:02 PM Signed Surgery to be on 07/17/[address] [place] [address] Velez assisting. Patient aware of [...] Marcos Cowart DPM 07/05/2018 10:28 AM Signed [facility] paperwork filed and given to nursing STEPHEN Blanchard RN 07/05/2018 10:40 AM Signed FMLA paperwork faxed to [place] [facility]. Patient notified. Progress Notes ([facility]): Mady Bermudez RN 06/24/2018 10:47 AM [...] Patient consents to proceed Marcos Cowart DPM [facility] Vital Signs Date Time Vital Sign Value Performing Clinician Gloria king 11-22-2024 09:53-0400 Body mass index (BMI) [Ratio] 29.26 kg/m2 Lizzy Tomlinson APRN.CNM Work Phone: [facility] 11-22-2024 09:53-0400 Body weight 63.5 kg Lizzy Tomlinson APRN.CNM Work Phone: [facility] 11-22-2024 09:53-0400 Diastolic blood pressure 78 mm[Hg] Lizzy Tomlinson APRN.CNM Work Phone: [facility] 11-22-2024 09:53-0400 Systolic blood pressure 122 mm[Hg] Lizzy Tomlinson APRN.CNM Work Phone: [facility] 11-19-2024 11:48-0400 Body mass index (BMI) [Ratio] 29.89 kg/m2 Les Ramirez MD Work Phone: [facility] 11-19-2024 11:48-0400 Body weight 64.86 kg Les Ramirez MD Work Phone: [facility] 11-19-2024 11:48-0400 Diastolic blood pressure 84 mm[Hg] Les Ramirez MD Work Phone: [facility] 11-19-2024 11:48-0400 Systolic blood pressure 130 mm[Hg] Les Ramirez MD Work Phone: [facility] 11-15-2024 15:13-0400 Body mass index (BMI) [Ratio] 28.84 kg/m2 Lizzy Tomlinson APRN.CNM Work Phone: [facility] 11-15-2024 15:13-0400 Body weight 62.6 kg Lizzy Tomlinson APRN.CNM Work Phone: [facility] 11-15-2024 15:13-0400 Diastolic blood pressure 72 mm[Hg] Lizzy Tomlinson APRN.CNM Work Phone: [facility] 11-15-2024 15:13-0400 Systolic blood pressure 126 mm[Hg] Lizzy Davi SALES TRADER.CNM Work Phone: [facility] 10-28-2024 07:42-0400 Body mass index (BMI) [Ratio] 28.22 kg/m2 Cuco Haury SALES TRADER.AUTOMATIC MACHINES SUPERVISOR Work Phone: [facility] 10-28-2024 07:42-0400 Body weight 61.24 kg Cuco Haury SALES TRADER.AUTOMATIC MACHINES SUPERVISOR Work Phone: [facility] 10-28-2024 07:42-0400 Diastolic blood pressure 64 mm[Hg] Cuco Haury SALES TRADER.AUTOMATIC MACHINES SUPERVISOR Work Phone: [facility] 10-28-2024 07:42-0400 Systolic blood pressure 116 mm[Hg] Cuco Haury SALES TRADER.AUTOMATIC MACHINES SUPERVISOR Work Phone: [facility] 10-15-2024 11:35-0400 Body mass index (BMI) [Ratio] 26.75 kg/m2 Les Ramirez MD Work Phone: [facility] 10-15-2024 11:35-0400 Body weight 58.06 kg Les Ramirez MD Work Phone: [facility] 10-15-2024 11:35-0400 Diastolic blood pressure 64 mm[Hg] Les Ramirez MD Work Phone: [facility] 10-15-2024 11:35-0400 Systolic blood pressure 106 mm[Hg] Les Ramirez MD Work Phone: [facility] 10-03-2024 14:27-0400 Body mass index (BMI) [Ratio] 26.13 kg/m2 Cuco Haisiah SALES TRADER.AUTOMATIC MACHINES SUPERVISOR Work Phone: [facility] 10-03-2024 14:27-0400 Body weight 56.7 kg Cuco Haury SALES TRADER.AUTOMATIC MACHINES SUPERVISOR Work Phone: [facility] 10-03-2024 14:27-0400 Diastolic blood pressure 60 mm[Hg] Cuco Haury SALES TRADER.AUTOMATIC MACHINES SUPERVISOR Work Phone: [facility] 10-03-2024 14:27-0400 Systolic blood pressure 112 mm[Hg] Cuco Haury SALES TRADER.AUTOMATIC MACHINES SUPERVISOR Work Phone: [facility] 09-19-2024 14:10-0400 Body mass index (BMI) [Ratio] 25.92 kg/m2 Cuco Haury SALES TRADER.AUTOMATIC MACHINES SUPERVISOR Work Phone: [facility] 09-19-2024 14:10-0400 Body weight 56.25 kg Cuco Haury SALES TRADER.AUTOMATIC MACHINES SUPERVISOR Work Phone: [facility] 09-19-2024 14:10-0400 Diastolic blood pressure 60 mm[Hg] Cuco Haury SALES TRADER.AUTOMATIC MACHINES SUPERVISOR Work Phone: [facility] 09-19-2024 14:10-0400 Systolic blood pressure 100 mm[Hg] Cuco Haury SALES TRADER.AUTOMATIC MACHINES SUPERVISOR Work Phone: [facility] 08-30-2024 09:16-0400 Body mass index (BMI) [Ratio] 25.5 kg/m2 Lizzy Tomlinson SALES TRADER.CNM Work Phone: [facility] 08-30-2024 09:16-0400 Body weight 55.34 kg Lizzy Tomlinson SALES TRADER.CNM Work Phone: [facility] 08-30-2024 09:16-0400 Diastolic blood pressure 60 mm[Hg] Lizzy Tomlinson SALES TRADER.CNM Work Phone: [facility] 08-30-2024 09:16-0400 Systolic blood pressure 112 mm[Hg] Lizzy Tomlinson SALES TRADER.CNM Work Phone: [facility] 07-26-2024 08:48-0400 Diastolic blood pressure 62 mm[Hg] Radhika Plotts SALES TRADER.CNM Work Phone: [facility] 07-26-2024 08:48-0400 Systolic blood pressure 110 mm[Hg] Radhika Plotts SALES TRADER.CNM Work Phone: [facility] 07-18-2024 11:30-0400 Body mass index (BMI) [Ratio] 24.45 kg/m2 Radhika Goldstein SALES TRADER.CNM Work Phone: [facility] 07-18-2024 11:30-0400 Body weight 53.07 kg Radhika Goldstein SALES TRADER.CNM Work Phone: [facility] 07-18-2024 11:30-0400 Diastolic blood pressure 62 mm[Hg] Radhika Goldstein SALES TRADER.CNM Work Phone: [facility] 07-18-2024 11:30-0400 Systolic blood pressure 104 mm[Hg] Radhika Goldstein SALES TRADER.CNM Work Phone: [facility] 06-26-2024 08:01-0400 Body mass index (BMI) [Ratio] 22.99 kg/m2 Lizzydamian Tomlinson SALES TRADER.CNM Work Phone: [facility] 06-26-2024 08:01-0400 Body weight 49.9 kg Lizzy Tomlinson SALES TRADER.CNM Work Phone: [facility] 06-26-2024 08:01-0400 Diastolic blood pressure 60 mm[Hg] Lizzy Tomlinson SALES TRADER.CNM Work Phone: [facility] 06-26-2024 08:01-0400 Systolic blood pressure 100 mm[Hg] Lizzy Tomlinson SALES TRADER.CNM Work Phone: [facility] 05-29-2024 10:25-0400 Body mass index (BMI) [Ratio] 21.53 kg/m2 Lizzy Tomlinson SALES TRADER.CNM Work Phone: [facility] 05-29-2024 10:25-0400 Body weight 46.72 kg Lizzy Tomlinson SALES TRADER.CNM Work Phone: [facility] 05-29-2024 10:25-0400 Diastolic blood pressure 62 mm[Hg] Lizzy Tomlinson SALES TRADER.CNM Work Phone: [facility] 05-29-2024 10:25-0400 Systolic blood pressure 96 mm[Hg] Lizzy Tomlinson SALES TRADER.CNM Work Phone: [facility] 05-01-2024 08:47-0500 Body height 147.3 cm Lizzy Tomlinson SALES TRADER.CNM Work Phone: [facility] 05-01-2024 08:47-0500 Body mass index (BMI) [Ratio] 20.77 kg/m2 Lizzy Tomlinson SALES TRADER.CNM Work Phone: [facility] 05-01-2024 08:47-0500 Body weight 45.09 kg Lizzy Tomlinson SALES TRADER.CNM Work Phone: [facility] 05-01-2024 08:47-0500 Diastolic blood pressure 60 mm[Hg] Lizzy Tomlinson SALES TRADER.CNM Work Phone: [facility] 05-01-2024 08:47-0500 Systolic blood pressure 98 mm[Hg] Lizzy Tomlinson SALES TRADER.CNM Work Phone: [facility] 10-13-2023 15:01-0400 Body height 139.7 cm Lizzy Tomlinson SALES TRADER.CNM Work Phone: [facility] 10-13-2023 15:01-0400 Body mass index (BMI) [Ratio] 22.13 kg/m2 Lizzy Tomlinson SALES TRADER.CNM Work Phone: [facility] 10-13-2023 15:01-0400 Body weight 43.18 kg Lizzy Tomlinson SALES TRADER.CNM Work Phone: [facility] 10-13-2023 15:01-0400 Diastolic blood pressure 68 mm[Hg] Lizzy Tomlinson SALES TRADER.CNM Work Phone: [facility] 10-13-2023 15:01-0400 Systolic blood pressure 100 mm[Hg] Lizzy Tomlinson SALES TRADER.CNM Work Phone: [facility] 09-06-2022 08:38-0400 Body height 142.2 cm Lizzy Tomlinson SALES TRADER.CNM Work Phone: [facility] 09-06-2022 08:38-0400 Body weight 45.27 kg Lizzy Tomlinson SALES TRADER.CNJairo Work Phone: [facility] 09-06-2022 08:38-0400 Diastolic blood pressure 64 mm[Hg] Lizzy Davi MORRIS.CNM Work Phone: [facility] 09-06-2022 08:38-0400 Systolic blood pressure 98 mm[Hg] Lizzy Davi MORRIS.CNM Work Phone: [facility] 07-14-2022 08:45-0400 Body temperature 97.1 [degF] [facility] 07-14-2022 08:45-0400 Diastolic blood pressure 69 mm[Hg] [facility] 07-14-2022 08:45-0400 Heart rate 63 /min [facility] 07-14-2022 08:45-0400 Respiratory rate 16 /min [facility] 07-14-2022 08:45-0400 SaO2% (BldA) [Mass fraction] 100 % [facility] 07-14-2022 08:45-0400 Systolic blood pressure 108 mm[Hg] [facility] 07-14-2022 06:36-0400 Body height 144.78 cm [facility] 07-14-2022 06:36-0400 Body mass index (BMI) [Ratio] 22.6 kg/m2 [facility] 07-14-2022 06:36-0400 Body weight 47.5 kg [facility] 10-23-2021 17:06-0400 Diastolic blood pressure 70 mm[Hg] [facility] Work Phone: 10-23-2021 17:06-0400 Heart rate 94 /min [facility] Work Phone: 10-23-2021 17:06-0400 Respiratory rate 16 /min [facility] Work Phone: 10-23-2021 17:06-0400 SaO2% (BldA) [Mass fraction] 97 % [facility] Work Phone: 10-23-2021 17:06-0400 Systolic blood pressure 113 mm[Hg] [facility] Work Phone: 10-23-2021 16:04-0400 Body height 142.24 cm [facility] Work Phone: 10-23-2021 16:04-0400 Body mass index (BMI) [Ratio] 22.4 kg/m2 [facility] Work Phone: 10-23-2021 16:04-0400 Body temperature 98.2 [degF] [facility] Work Phone: 10-23-2021 16:04-0400 Body weight 45.35 kg [facility] Work Phone: Encounters Encounter Date Encounter Type Care Provider Facility Start: 12-08-2024 [facility] Facility: [facility] Start: 11-22-2024 End: 11-22-2024 Patient encounter procedure Lizzy Tomlinson APRN.CNM Work Phone: OB/Gynecology Comment on above: Supervision of high risk in third trimester (HCC) (Primary Dx); 37 weeks gestation of (HCC); Bilateral lower extremity edema; Rh negative state in antepartum period (HCC) Start: 11-22-2024 End: 11-22-2024 ambulatory [facility] Facility:[facility] Start: 11-19-2024 End: 11-19-2024 Telephone encounter Les Ramirez APRN.CNM Work Phone: OB/Gynecology Start: 11-19-2024 End: 11-19-2024 ambulatory LES RAMIREZ Facility:[facility] Start: 11-19-2024 End: 11-19-2024 Patient encounter procedure [...] Start: 11-15-2024 End: 11-15-2024 ambulatory LIZZY TOMLINSON Facility:[facility] Start: 11-08-2024 End: 11-08-2024 ambulatory Lizzy Tomlinson APRN.CNM Work Phone: OB/Gynecology Comment on above: Swelling in feet Start: 11-07-2024 End: 11-07-2024 Telephone encounter Cuco Mejia APRN.AUTOMATIC MACHINES SUPERVISOR Work Phone: OB/Gynecology Comment on above: Short Term Disabilit y form Start: 10-28-2024 End: 10-28-2024 Patient encounter procedure Cuco Mejia APRN.AUTOMATIC MACHINES SUPERVISOR Work Phone: OB/Gynecology Comment on above: Supervision of high risk in third trimester (HCC) (Primary Dx); 34 weeks gestation of (HCC); Uterine size-date discrepancy, third trimester (HCC); Rh negative state in antepartum period (HCC) Start: 10-28-2024 End: 10-28-2024 ambulatory CUCO MEJIA Facility:[facility] Start: 10-15-2024 End: 10-15-2024 Patient encounter procedure [...] Start: 10-15-2024 End: 10-15-2024 ambulatory LES RAMIREZ Facility:[facility] Start: 10-03-2024 End: 10-03-2024 Patient encounter procedure Cuco Mejia APRN.AUTOMATIC MACHINES SUPERVISOR Work Phone: OB/Gynecology Comment on above: Supervision of high risk in third trimester (HCC) (Primary Dx); 30 weeks gestation of (HCC); Rh negative state in antepartum period, second trimester (HCC); Uterine size-date discrepancy, third trimester (HCC) Start: 10-03-2024 End: 10-03-2024 ambulatory CUCO MEJIA Facility:[facility] Start: 09-23-2024 End: 11-23-2024 Follow-up encounter Les Ramirez MD Work Phone: OB/Gynecology Start: 09-19-2024 End: 09-19-2024 Patient encounter procedure Cuco Mejia APRN.AUTOMATIC MACHINES SUPERVISOR Work Phone: OB/Gynecology Comment on above: Supervision of high risk in third trimester (HCC) (Primary Dx); 28 weeks gestation of (HCC); Rh negative state in antepartum period, second trimester (HCC); UTI (urinary tract infection) in , antepartum (HCC); Rh negative state in antepartum period (HCC) Start: 09-19-2024 End: 09-19-2024 [facility] Facility:[facility] Start: 08-30-2024 End: 08-30-2024 Patient encounter procedure Lizzy Tomlinson APRN.CNM Work Phone: OB/Gynecology Comment on above: Screening for diabet es mellitus (Primary Dx); Supervision of other high risk pregnancies, second trimester ([facility]); 25 weeks gestation of ([facility]); UTI (urinary tract infection) in , antepartum ([facility]); Rh negative state in antepartum period, second trimester ([facility]) Start: 08-30-2024 End: 08-30-2024 [facility] LIZZY TOMLINSON Facility:[facility] Start: 07-29-2024 End: 09-28-2024 Follow-up encounter Radhika Goldstein APRN.CNM Work Phone: OB/Gynecology Start: 07-26-2024 End: 07-26-2024 Patient encounter procedure Radhika Goldstein APRN.CNM Work Phone: OB/Gynecology Comment on above: Supervision of other high risk pregnancies, second trimester (HCC) (Primary Dx); Recurrent urinary tract infection affecting , antepartum (HCC); 20 weeks gestation of ([facility]) Encounter for anatomic survey (HCC) (Primary Dx); 20 weeks gestation of (HCC) Start: 07-26-2024 End: 07-26-2024 ambulatory LIZZY TOMLINSON Facility:[facility] Start: 07-18-2024 End: 09-17-2024 Follow-up encounter Radhika Goldstein APRN.CNM Work Phone: OB/Gynecology Start: 07-18-2024 End: 07-18-2024 Patient encounter procedure Radhika Goldstein APRN.CNM Work Phone: OB/Gynecology Comment on above: Supervision of other high risk pregnancies, second trimester (HCC) (Primary Dx); 19 weeks gestation of (HCC); Recurrent urinary tract infection affecting , antepartum ([facility]); Uterine cramping Start: 07-18-2024 End: 07-18-2024 [facility] Start: 06-28-2024 End: 08-28-2024 Follow-up encounter Les Ramirez MD Work Phone: OB/Gynecology Start: 06-26-2024 End: 06-26-2024 ambulatory LIZZY TOMLINSON Facility:[facility] Start: 06-26-2024 End: 06-26-2024 Patient encounter procedure Lizzy Tomlinson APRN.CNM Work Phone: OB/Gynecology Comment on above: Supervision of other high risk pregnancies, second trimester (HCC) (Primary Dx); 16 weeks gestation of ([facility]); Rh negative state in antepartum period, second trimester ([facility]); UTI (urinary tract infection) in , antepartum ([facility]); History of spontaneous Start: 05-29-2024 End: 05-30-2024 Telephone encounter Lizzy Tomlinson APRN.CNM Work Phone: OB/Gynecology Comment on above: FMLA Paperwork Start: 05-29-2024 End: 05-29-2024 Patient encounter procedure Lizzy Tomlinson APRN.CNM Work Phone: OB/Gynecology Comment on above: Encounter for superv ision of other normal in second trimester (Primary Dx); 12 weeks gestation of Start: 05-29-2024 End: 05-29-2024 ambulatory LIZZY TOMLINSON Facility:[facility] Start: 05-29-2024 End: 05-29-2024 ambulatory [facility] Facility:[facility] Start: 05-29-2024 End: 05-29-2024 Patient encounter procedure Whi Tech 1 Professor Of Medicine [facility]aternal [facility] Comment on above: Encounter for antena zohra screening for malformation using ultrasound (Primary Dx); 12 weeks gestation of Start: 05-02-2024 End: 05-10-2024 Follow-up encounter Cuco Mejia APRN.CNP Work Phone: OB/Gynecology Comment on above: UTI (urinary tract i nfection) in , antepartum (Primary Dx) Start: 05-01-2024 End: 05-01-2024 [facility] LIZZY AVONDALE Facility:[facility] Start: 05-01-2024 End: 05-01-2024 Patient encounter procedure [...] encounter status Lizzy Tomlinson APRN.CNM Work Phone: [facility] Start: 09-05-2023 ambulatory Ethan painter APRN.CNP Work Phone: [facility] [place] Comment on above: Rectal Bleeding Start: 09-05-2023 Telephone encounter Ethan boothe APRN.CNP Work Phone: [facility] [place] Comment on above: Rectal Bleeding Start: 12-13-2022 Telephone encounter Ethan boothe APRN.CNP Work Phone: [facility] [place] Comment on above: Results Start: 09-13-2022 End: 09-13-2022 ambulatory Lizzy Tomlinson APRN.CNM Work Phone: OB/Gynecology Comment on above: Trichomoniasis (Prim ulisses Dx) Start: 09-13-2022 End: 09-13-2022 Telemedicine consultation with patient Lizzy Davi HAMEED Work Phone: [facility] Start: 09-12-2022 ambulatory Lizzy Davi HAMEED [...] 07-14-2022 Admission to same day surgery center [facility] Start: 07-14-2022 End: 07-14-2022 ambulatory [facility] Work Phone: Start: 10-23-2021 End: 10-23-2021 Emergency department patient visit [facility] Start: 07-17-2018 End: 07-17-2018 Patient encounter procedure [facility] Procedures Date Procedure Procedure Detail Performing Clinician Start: 11-19-2024 Urnls dip stick/tabl et rgnt non-auto w/o micrscp Les Ramirez MD Work Phone: Start: 11-15-2024 Iadna streptococcus group b amplified probe tq Lizzy Tomlinson APRN.CNM Work Phone: Start: 10-28-2024 Urnls dip stick/tabl et rgnt non-auto w/o micrscp Cuco Mejia SALES TRADER.AUTOMATIC MACHINES SUPERVISOR Work Phone: Start: 10-15-2024 Us preg uterus after 1st trimest 03/20 gestation Cuco Mejia SALES TRADER.AUTOMATIC MACHINES SUPERVISOR Work Phone: Start: 09-19-2024 Antibody screen LIZZY TOMLINSON Comment on above: Order Comment: Speci men Type: BLOOD SPECIMEN Ordering Facility: [facility] Address: [address] [place] [address] Performed By: #### T SPN #### [facility] CLIA [id number] Start: 07-26-2024 Us preg uterus after 1st trimest 03/20 gestation Lizzy Tomlinson APRN.CNM Work Phone: Start: 07-18-2024 Urnls dip stick/tabl et rgnt auto w/o microscopy Radhika Goldstein SALES TRADER.CNM Work Phone: Start: 06-26-2024 Urnls dip stick/tabl et rgnt auto w/o microscopy Lizzy Tomlinson SALES TRADER.CNM Work Phone: Start: 05-29-2024 Antibody screen LIZZY TOMLINSON Comment on above: Order Comment: Speci men Type: BLOOD SPECIMENOrdering Facility: [facility] Address: [address] [place] [address] Performed By: #### T SPN ####[facility]CLIA [id number] [address] Start: 05-29-2024 Us preg uterus after 1st trimest 03/20 gestation Lizzy Tomlinson APRN.CNM Work Phone: Start: 05-01-2024 BACTERIAL VAGINOSIS NAAT Lizzy Tomlinson APRN.CNM Work Phone: Start: 05-01-2024 Iadna chlamydia trac homatis amplified probe tq Lizzydamian Tomlinson SALES TRADER.CNM Work Phone: Start: 05-01-2024 Us uterus l imited 1/> fetuses Lizzy Tomlinson APRN.CNM Work Phone: Start: 10-13-2023 BACTERIAL VAGINOSIS NAAT Lizzy Tomlinson SALES TRADER.CNM Work Phone: Start: 10-13-2023 Iadna chlamydia trac homatis amplified probe tq Lizzy Tomlinson SALES TRADER.CNM Work Phone: Start: 09-06-2022 BACTERIAL VAGINOSIS NAAT Lizzy Tomlinson SALES TRADER.CNM Work Phone: Start: 09-06-2022 Iadna trichomonas va ginalis amplified probe tech Lizzy Tomlinson SALES TRADER.CNM Work Phone: Start: 09-06-2022 Iadna chlamydia trac homatis amplified probe tq Lizzydamian Tomlinson SALES TRADER.CNM Work Phone: Start: 07-14-2022 Excision of ganglion cyst Start: 10-23-2021 X-ray of both feet Nasal Screen MRSA/MSSA Plan of Treatment Date Care Activity Detail Author Start: 10-12-2026 Screening for malign ant neoplasm of cervix Cervical Cancer Screening [facility] Start: 09-06-2025 Pap Testing Pap Testing [facility] Start: 12-03-2024 End: 12-03-2024 Patient encounter procedure 12/03/2024 9:15 AM EDT Routine Office Visit OB/Gynecology [address] [place] [id number] Lizzy Tomlinson APRN.CN [address] [place] [address] OB OB/Gynecology Comment on above: OB Start: 11-27-2024 End: 11-27-2024 Patient encounter procedure 11/27/2024 11:15 AM EDT Routine Office Visit OB/Gynecology [address] [place] [address] Lizzy Tomlinson APRN.CNM [address] [place] [address] OB OB/Gynecology Comment on above: OB Start: 11-22-2024 End: 02-21-2025 Protein/Creatinine [Mass Ratio] in Urine PROTEIN / CREATININE RATIO Lab Routine Supervision of high risk in third trimester (HCC) 37 weeks gestation of (HCC) Bilateral lower extremity edema Expected: 11/22/2024, Expires: 02/21/2025 [facility] Comment on above: Expected: 11/22/2024 , Expires: 02/21/2025 Start: 11-22-2024 End: 11-22-2024 Patient encounter procedure 11/22/2024 9:45 AM EDT Routine Office Visit OB/Gynecology [address] [place] [address] Lizzy Tomlinson APRN.CNM [address] [place] [address] OB OB/Gynecology Comment on above: OB Start: 11-18-2024 Influenza vaccination [facility] Start: 11-15-2024 End: 11-15-2024 Patient encounter procedure 11/15/2024 3:15 PM EDT Routine Office Visit OB/Gynecology [address] [place] [address] Lizzy Tomlinson APRN.CNM [address] [place] [address] OB OB/Gynecology Comment on above: OB Start: 10-28-2024 End: 10-28-2024 Patient encounter procedure 10/28/2024 7:45 AM EDT Routine Office Visit OB/Gynecology [address] [place] [address] Cuco Mejia APRN.AUTOMATIC MACHINES SUPERVISOR [address] [place] [address] OB OB/Gynecology Comment on above: OB Start: 10-18-2024 End: 10-18-2024 Patient encounter procedure 10/18/2024 11:30 AM EDT Office Visit OB/Gynecology [address] [place] [address] Lizzy Tomlinson APRN.CN [address] [place] [address] Annual OB/Gynecology Comment on above: Annual Start: 10-17-2024 End: 10-17-2024 Patient encounter procedure Maternal Medicine Comment on above: Growth Growth/OB Start: 10-03-2024 End: 10-03-2024 Patient encounter procedure 10/03/2024 2:30 PM EDT Routine Office Visit OB/Gynecology [address] [place] [address] Cuco Mejia APRN.AUTOMATIC MACHINES SUPERVISOR [address] [place] [address] OB OB/Gynecology Comment on above: OB Start: 10-03-2024 End: 10-03-2025 OBSTETRIC ULTRASOUND [facility] OBSTETRIC ULTRASOUND [facility] Anc Imaging Routine Supervision of high risk in third trimester (HCC) Uterine size-date discrepancy, third trimester (HCC) Expected: 10/03/2024, Expires: 10/03/2025 [facility] Work Phone: Comment on above: Expected: 10/03/2024 , Expires: 10/03/2025 Start: 09-19-2024 End: 09-19-2024 Patient encounter procedure 09/19/2024 2:30 PM EDT Routine Office Visit OB/Gynecology [address] [place], [place] [id number] Cuco Mejia APRN.AUTOMATIC MACHINES SUPERVISOR [address] [place], [place] [id number] Glucose/ OB OB/Gynecology Comment on above: Glucose/ OB Start: 09-19-2024 End: 09-19-2024 ambulatory 09/19/2024 2:15 PM EDT Results Only [place] [facility] [address] [place] [address] [facility] [place] [facility] Comment on above: [facility] Start: 09-19-2024 End: 12-19-2024 Bacteria identified in Urine by Culture [facility] Work Phone: Comment on above: Expected: 09/19/2024 , Expires: 12/19/2024 Start: 09-13-2024 End: 09-13-2024 ambulatory 09/13/2024 2:15 PM EDT Results Only [place] [facility] Laboratory [address] [place] [address] [facility] [address] [place] [facility] Comment on above: [facility] Start: 08-30-2024 End: 08-30-2024 Patient encounter procedure 08/30/2024 4:30 PM EDT Routine Office Visit OB/Gynecology [address] [place] [address] Lizzy Tomlinson APRN.CNM [address] [place] [address] 4 week follow up for routine OB check OB/Gynecology Comment on above: 4 week follow up for routine OB check Start: 08-30-2024 End: 11-29-2024 ANEMIA REFLEX PANEL ANEMIA REFLEX PANEL Lab Routine Screening for diabetes mellitus Expected: 08/30/2024, Expires: 11/29/2024 [facility] Comment on above: Expected: 08/30/2024 , Expires: 11/29/2024 Start: 08-30-2024 End: 08-30-2025 GESTATIONAL GLUCOSE SCREEN, 1-HOUR, 50 GRAM, NON-FASTING GESTATIONAL GLUCOSE SCREEN, 1-HOUR, 50 GRAM, NON-FASTING Lab Routine Screening for diabetes mellitus Expected: 08/30/2024, Expires: 08/30/2025 [facility] Work Phone: Comment on above: Expected: 08/30/2024 , Expires: 08/30/2025 Start: 08-30-2024 End: 08-30-2025 SYPHILIS TREPONEMAL W/REFLEX SYPHILIS TREPONEMAL W/REFLEX Lab Routine Screening for diabetes mellitus Expected: 08/30/2024, Expires: 08/30/2025 [facility] Comment on above: Expected: 08/30/2024 , Expires: 08/30/2025 Start: 08-30-2024 End: 11-29-2024 TYPE + SCREEN TYPE + SCREEN Blood Bank Routine Screening for diabetes mellitus Expected: 08/30/2024, Expires: 11/29/2024 [facility] Comment on above: Expected: 08/30/2024 , Expires: 11/29/2024 Start: 08-30-2024 End: 08-30-2024 Patient encounter procedure 08/30/2024 9:15 AM EDT Routine Office Visit OB/Gynecology [address] [place] [address] Lizzy Tomlinson APRN.CNM [address] [place] [address] 4 week follow up for routine OB [...] Visit OB/Gynecology [address] [place] [address] Lizzy Tomlinson APRN.CNM [address] [place] [address] OB OB/Gynecology Comment on above: OB Start: 05-29-2024 End: 08-28-2024 CARRIER SCREEN, STANDARD [facility] Comment on above: Expected: 05/29/2024 , Expires: 08/28/2024 Start: 05-29-2024 End: 08-28-2024 HEMOGLOBIN EVALUATION [facility] Work Phone: Comment on above: Expected: 05/29/2024 , Expires: 08/28/2024 Start: 05-29-2024 End: 05-29-2024 Patient encounter procedure 05/29/2024 11:15 AM EDT Routine Office Visit OB/Gynecology [address] [place], [place] [id number] Lizzy Tomlinson APRN.CNM [address] [place], [place] [address] Nuchal/OB OB/Gynecology Comment on above: Nuchal/OB Start: 05-29-2024 End: 05-29-2024 Patient encounter procedure 05/29/2024 9:30 AM EDT Routine Office Visit Maternal Medicine [address] [place] [address] [facility] Comment on above: Nuchal Start: 05-01-2024 End: 07-31-2024 ANEMIA REFLEX PANEL ANEMIA REFLEX PANEL Lab Routine with uncertain dates in first trimester Expected: 05/01/2024, Expires: 07/31/2024 [facility] Work Phone: Comment on above: Expected: 05/01/2024 , Expires: 07/31/2024 Start: 05-01-2024 End: 07-31-2024 Chromosome 21 trisomy [Presence] in Blood or Tissue by Cytogenetics [id number] PLUS Lab Routine with uncertain dates in first trimester Expected: 05/01/2024, Expires: 07/31/2024 [facility] Comment on above: Expected: 05/01/2024 , Expires: 07/31/2024 Start: 05-01-2024 End: 07-31-2024 Hemoglobin A1c in Blood HEMOGLOBIN A1C Lab Routine with uncertain dates in first trimester Expected: 05/01/2024, Expires: 07/31/2024 [facility] Comment on above: Expected: 05/01/2024 , Expires: 07/31/2024 Start: 05-01-2024 End: 07-31-2024 Hepatitis B virus surface Ag [Presence] in Serum HEPATITIS B SURFACE ANTIGEN Lab Routine with uncertain dates in first trimester Expected: 05/01/2024, Expires: 07/31/2024 [facility] Comment on above: Expected: 05/01/2024 , Expires: 07/31/2024 Start: 05-01-2024 End: 07-31-2024 Hepatitis C virus Ab [Presence] in Serum HEPATITIS C ANTIBODY IA WITH CONFIRMATION Lab Routine with uncertain dates in first trimester Expected: 05/01/2024, Expires: 07/31/2024 [facility] Comment on above: Expected: 05/01/2024 , Expires: 07/31/2024 Start: 05-01-2024 End: 07-31-2024 HIV 1+2 Ab [Presence] in Serum or Plasma by Immunoassay HIV 1/2 COMBO WITH REFLEX TO DIFFERENTIATION Lab Routine with uncertain dates in first trimester Expected: 05/01/2024, Expires: 07/31/2024 [facility] Comment on above: Expected: 05/01/2024 , Expires: 07/31/2024 Start: 05-01-2024 End: 05-01-2025 OBSTETRIC ULTRASOUND WHI OBSTETRIC ULTRASOUND [facility] Anc Imaging Routine with uncertain dates in first trimester Expected: 05/01/2024, Expires: 05/01/2025 [facility] Comment on above: Expected: 05/01/2024 , Expires: 05/01/2025 Start: 05-01-2024 End: 07-31-2024 RUBELLA IGG ANTIBODY RUBELLA IGG ANTIBODY Lab Routine with uncertain dates in first trimester Expected: 05/01/2024, Expires: 07/31/2024 [facility] Comment on above: Expected: 05/01/2024 , Expires: 07/31/2024 Start: 05-01-2024 End: 07-31-2024 SYPHILIS TREPONEMAL W/REFLEX SYPHILIS TREPONEMAL W/REFLEX Lab Routine with uncertain dates in first trimester Expected: 05/01/2024, Expires: 07/31/2024 [facility] Comment on above: Expected: 05/01/2024 , Expires: 07/31/2024 Start: 05-01-2024 End: 07-31-2024 TYPE + SCREEN TYPE + SCREEN Blood Bank Routine with uncertain dates in first trimester Expected: 05/01/2024, Expires: 07/31/2024 [facility] Comment on above: Expected: 05/01/2024 , Expires: 07/31/2024 Start: 12-13-2023 Covid-19 Vaccine (#1) Covid-19 Vacci ne (#1) [facility] Comment on above: Postponed from 06/30 (Declined at this time) Start: 12-13-2023 Covid-19 Vaccine () Covid-19 Vaccine () [facility] Comment on above: Postponed from 11/18 (Declined at this time) Start: 12-13-2023 HPV Vaccine (2 - 2-d ose series) HPV Vaccine (2 - 2-dose series) [facility] Comment on above: Postponed from 07/08 (Declined at this time) Start: 12-13-2023 Meningococcal B Vacc ine: Consider Based On Risk (1 of 2 - Patient Seeks Protection) Meningococcal B Vaccine: Consider Based On Risk (1 of 2 - Patient Seeks Protection) [facility] Comment on above: Postponed from 12/30 (Declined at this time) Start: 12-13-2023 Urine microalbumin profile DTaP,Tdap,Td Vaccine (7 - Td or Tdap) [facility] Comment on above: Postponed from 01/07 (Declined at this time) Start: 11-25-2023 PAP TESTING PAP TESTING [facility] Start: 11-19-2023 Covid-19 Vaccine () Covid-19 Vaccine () [facility] Start: 11-19-2023 Influenza vaccination [facility] Start: 10-13-2023 End: 10-13-2023 Patient encounter procedure 10/13/2023 2:45 PM EDT Office Visit OB/Gynecology [address] [place], [place] [address] Lizzy Tomlinson APRN.[facility] [address] [place] [address] Annual OB/Gynecology Comment on above: Annual Start: 09-17-2023 Influenza vaccination Influenza Vacc ine (#1) [facility] Comment on above: Postponed from 11/18 (Declined at this time) Start: 09-07-2023 CHLAMYDIA SCREENING (18-24) CHLAMYDIA SCREENING (18-24) [facility] Start: 09-07-2023 GC (GONORRHEA) SCREE JERAMIE (18-24) GC (GONORRHEA) SCREENING (18-24) [facility] Start: 09-07-2023 Screening for malign ant neoplasm of cervix Cervical Cancer Screening [facility] Start: 03-20-2023 Behavioral Health Screening Behavioral Health Screening [facility] Start: 11-18-2022 Influenza vaccination INFLUENZA (Sea son Ended) [facility] Start: 07-14-2022 Application of ice collar, cap or bag [facility] Start: 07-14-2022 Catheterization of vein [facility] Start: 07-14-2022 Elevation of affecte d extremity [facility] Start: 07-14-2022 Following clinical pathway protocol [facility] Start: 07-14-2022 Patient discharge [facility] Start: 07-14-2022 Procedure discontinued [facility] Start: 07-14-2022 Taking patient vital signs [facility] Start: 07-14-2022 Vital signs measurements [facility] Start: 07-14-2022 [facility] Start: 07-14-2022 Medication education [facility] Start: 03-20-2022 DEPRESSION ASSESSMENT DEPRESSION ASS ESSMENT [facility] Start: 01-07-2021 Urine microalbumin profile [facility] Start: 2016 Anxiety Screening Anxiety Screening [facility] Start: 2016 Depression Screening Depression Scre ening [facility] Start: 2012 PEDS TO ADULT TRANSI TION ANNUAL ASSESSMENT PEDS TO ADULT TRANSITION ANNUAL ASSESSMENT [facility] Start: 07-09-2011 HPV VACCINE (2 - 2-d ose series) HPV VACCINE (2 - 2-dose series) [facility] Start: 2010 PEDS TO ADULT TRANSI TION INITIAL DISCUSSION PEDS TO ADULT TRANSITION INITIAL DISCUSSION [facility] Start: 2008 MENINGOCOCCAL B: Con inletter based on risk (1 of 2 - Risk Bexsero 2-dose series) MENINGOCOCCAL B: Consider based on risk (1 of 2 - Risk Bexsero 2-dose series) [facility] Start: 07-01-1999 COVID-19 VACCINE (#1) COVID-19 VACCI NE (#1) [facility] Bacteria identified in Urine by Culture BACTERIAL CULTURE, URINE Microbiology Routine 16 weeks gestation of (HCC) 06/26/2024 8:34 AM EDT [facility] Work Phone: Bacteria identified in Urine by Culture BACTERIAL CULTURE, URINE Microbiology Routine Supervision of other high risk pregnancies, second trimester ([facility]) 19 weeks gestation of (HCC) Recurrent urinary tract infection affecting , antepartum ([facility]) 07/18/2024 11:56 AM EDT [facility] Work Phone: Bacteria identified in Urine by Culture BACTERIAL CULTURE, URINE Microbiology Routine Supervision of other high risk pregnancies, second trimester ([facility]) Recurrent urinary tract infection affecting , antepartum ([facility]) 20 weeks gestation of ([facility]) 07/26/2024 9:22 AM EDT [facility] Work Phone: BACTERIAL VAGINOSIS NAAT BACTERI AL VAGINOSIS NAAT Lab Routine Supervision of high risk in third trimester (HCC) 37 weeks gestation of (HCC) Vaginal discharge 11/19/2024 1:57 PM EDT [facility] BELINDA/TRICHOMONAS NAAT BELINDA /TRICHOMONAS NAAT Lab Routine Supervision of high risk in third trimester ([facility]) 37 weeks gestation of ([facility]) Vaginal discharge 11/19/2024 1:57 PM EDT [facility] Work Phone: PAP TEST PAP TEST Lab Rou emma Encounter for gynecological examination (general) (routine) without abnormal findings Encounter for screening for cervical cancer 09/06/2022 9:18 AM EDT [facility] Work Phone: PAP TEST PAP TEST Lab Rou emma Encounter for gynecological examination (general) (routine) with abnormal findings Screening for cervical cancer Encounter for screening for human papillomavirus (HPV) 10/13/2023 3:49 PM EDT [facility] Work Phone: Patient Education Bone Contusion [facility] Work Phone: Patient referral [facility] Work Phone: URINE OB DIP B/O URINE OB DIP B/ O Lab Routine Supervision of high risk in third trimester (HCC) 36 weeks gestation of (HCC) Ordered: 11/15/2024 [facility] Work Phone: Comment on above: Ordered: 11/15/2024 URINE OB DIP B/O URINE OB DIP B/ O Lab Routine Supervision of high risk in third trimester (HCC) 37 weeks gestation of (HCC) Ordered: 11/22/2024 [facility] Work Phone: Comment on above: Ordered: 11/22/2024 [facility] Immunizations Immunization Date Immunization Notes Care Provider Jairo marroquin 09-19-2024 RHO(D) immune globul in- IV or IM Cuco Mejia APRN.AUTOMATIC MACHINES SUPERVISOR Work Phone: [facility] 11-11-2019 RHO(D) immune globul in- IV or IM Lizzy Tomlinson APRN.CN Work Phone: [facility] Work Phone: 04-20-2016 influenza virus vaccine, unspecified formulation Ethan Chauhan SALES TRADER.AUTOMATIC MACHINES SUPERVISOR Work Phone: [facility] 01-07-2011 human papilloma viru s vaccine, quadrivalent Lizzy Tomlinson APRN.CNM Work Phone: [facility] Work Phone: 01-07-2011 influenza virus vaccine, live, attenuated, for intranasal use Lizzy Tomlinson APRN.CNM Work Phone: [facility] Work Phone: 01-07-2011 Meningococcal, MCV4, unspecified conjugate formulation(groups A, C, Y and W-135) Lizzy Tomlinson APRN.CNM Work Phone: [facility] Work Phone: 01-07-2011 tetanus toxoid, redu rajiv diphtheria toxoid, and acellular pertussis vaccine, adsorbed Lizzy Tomlinson APRN.CNM Work Phone: [facility] Work Phone: 03-24-2008 chicken pox (disease) Janette Tomlinson APRN.CNM Work Phone: [facility] Work Phone: 12-03-2003 diphtheria, tetanus toxoids and acellular pertussis vaccine, unspecified formulation Ethan Chauhan SALES TRADER.AUTOMATIC MACHINES SUPERVISOR Work Phone: [facility] 12-02-2003 diphtheria, tetanus toxoids and acellular pertussis vaccine Lizzy Tomlinson APRN.CNM Work Phone: [facility] Work Phone: 12-02-2003 measles, mumps and rubella virus vaccine Lizzy Tomlinson APRN.CNM Work Phone: [facility] Work Phone: 12-02-2003 poliovirus vaccine, inactivated Lizzy Tomlinson APRN.CNM Work Phone: [facility] Work Phone: 08-09-2000 poliovirus vaccine, inactivated Lizzy Tomlinson APRN.CNM Work Phone: [facility] Work Phone: 05-08-2000 diphtheria, tetanus toxoids and acellular pertussis vaccine Lizzy Tomlinson APRN.CNM Work Phone: [facility] Work Phone: 05-08-2000 haemophilus influenz ae type b vaccine, HbOC conjugate Lizzy Tomlinson APRN.CNM Work Phone: [facility] Work Phone: 01-26-2000 hepatitis B vaccine, pediatric or pediatric/adolescent dosage Lizzy Tomlinson APRN.CNM Work Phone: [facility] Work Phone: 01-26-2000 measles, mumps and rubella virus vaccine Lizzy Davi SALES TRADER.CNM Work Phone: [facility] Work Phone: 11-17-1999 hepatitis B vaccine, pediatric or pediatric/adolescent dosage Lizzy Tomlinson SALES TRADER.CNM Work Phone: [facility] Work Phone: 07-07-1999 diphtheria, tetanus toxoids and acellular pertussis vaccine Lizzy Davi SALES TRADER.CNM Work Phone: [facility] Work Phone: 07-07-1999 haemophilus influenz ae type b vaccine, HbOC conjugate Lizzy Davi SALES TRADER.CNM Work Phone: [facility] Work Phone: 07-07-1999 hepatitis B vaccine, pediatric or pediatric/adolescent dosage Lizzy Davi SALES TRADER.CNM Work Phone: [facility] Work Phone: 05-05-1999 diphtheria, tetanus toxoids and acellular pertussis vaccine Lizzy Tomlinson SALES TRADER.CNM Work Phone: [facility] Work Phone: 05-05-1999 haemophilus influenz ae type b vaccine, HbOC conjugate Lizzy Tomlinson SALES TRADER.CNM Work Phone: [facility] Work Phone: 05-05-1999 poliovirus vaccine, inactivated Lizzy Tomlinson SALES TRADER.CNM Work Phone: [facility] Work Phone: 03-02-1999 diphtheria, tetanus toxoids and acellular pertussis vaccine Lizzy Tomlinson SALES TRADER.CNM Work Phone: [facility] Work Phone: 03-02-1999 haemophilus influenz ae type b vaccine, HbOC conjugate Lizzy Tomlinson SALES TRADER.CNM Work Phone: [facility] Work Phone: 03-02-1999 poliovirus vaccine, inactivated Lizzy Tomlinson SALES TRADER.CNM Work Phone: [facility] Work Phone: Payers Date Payer Category Payer Self-pay [id number] [id number] 2024 Private Health Insurance [employer] [id number] 2024 Unknown [id number] 2023 Unknown ISABELLA WALDRON HMO VERONICA [id number] 2023-Present [phone] [address] [place] [address] O [id number] 2022 Medicaid [employer] [place] [id number] 2022-Present [phone] [address] [address] [place] [address] Medicaid [id number] Unknown [id number] Unknown [id number] Unknown [id number] Social History Date Type Detail Facility [facility] Work Phone: Start: 10-23-2021 End: 06-27-2022 Tobacco smoking status NHIS Unknown if ever smoked [facility] Start: 07-28-2019 None [facility] Start: 07-28-2019 Alone [facility] Start: 2000 Sex Assigned At Female [facility] Start: 09-06-2022 Tobacco smoking stat us NHIS Never smoked tobacco [facility] Start: 09-06-2022 Tobacco use and exposure Smokeless tobacco non-user [facility] Start: 09-06-2022 End: 10-13-2023 Alcohol intake Current drinker of alcohol (finding) [facility] Start: 11-24-2020 [facility] Start: 2000 Sex Assigned At Not on file [facility] Start: 09-06-2022 End: 12-12-2022 History of Social function [facility] Work Phone: Start: 09-06-2022 End: 12-12-2022 Tobacco use panel [facility] Work Phone: Start: 02-19-2012 Adult Depression Screening Assessment 0 [facility] Work Phone: Start: 10-13-2023 Alcohol Comment occasionally [facility] Start: 05-01-2024 End: 09-19-2024 Alcoholic beverage intake Ex-drinker (finding) [facility] Start: 04-30-2024 Education 13 [facility] Start: 03-17-2024 [facility] Start: 04-30-2024 Gender identity Identifies as female gender (finding) [facility] Start: 04-30-2024 Sexual orientation Heterosexual (fin sailaja) [facility] NEGATED: Highlighted row [facility] Medical Equipment Procedure Code Equipment Code Equipment Origin al Text Equipment Identifier Dates Graft Dbx Bone V oid Allograft Freeze Dried Putty .5ml - [id number] Start: 07-17-2018 Qdl-Yq-D-Kind Implant - [id number] Start: 07-17-2018 Usw-Nz-S-Kind Implant - [id number] Start: 07-17-2018 Cmt-Sx-G-Kind Implant - [id number] Start: 07-17-2018 Goals Date Patient Goal Desired Activity /State Personal health goal Functional Status Date Assessment Result Facility 08-05-2014 Are you deaf, or do you have serious difficulty hearing No 08/05/2014 2:09 PM Demetria Miranda RN No [facility] 08-05-2014 Are you blind, or do you have serious difficulty seeing, even when wearing glasses No 08/05/2014 2:09 PM Demetria Miranda RN No [facility] 08-05-2014 Do you have serious difficulty walking or climbing stairs No 08/05/2014 2:09 PM Demetria Miranda RN No [facility] 08-05-2014 Do you have difficul ty dressing or bathing No 08/05/2014 2:09 PM Demetria Miranda RN No [facility] 08-05-2014 Because of a physica l, mental, or emotional condition, do you have difficulty doing errands alone such as visiting a physician's office or shopping No 08/05/2014 2:09 PM Demetria Miranda RN No [facility] Mental Status Date Assessment Result Facility 07-14-2022 Cognitive function Voice/Name [facility] Work Phone: 08-05-2014 Because of a physica l, mental, or emotional condition, do you have serious difficulty concentrating, remembering, or making decisions No 08/05/2014 2:09 PM Demetria Miranda RN No [facility] Clinical Notes 11-11-2019 to 11-22-2024 Quick Notes [...] discussed with the Patient or Patient's Authorized Exceptional Children Teacher Assistant. As applicable, any other physician, advance practice provider, medical student, or other health professional student that will be observing or involved in the sensitive examination for educational or training purposes was discussed with the Patient or Authorized Exceptional Children Teacher Assistant. The Patient or Authorized Exceptional Children Teacher Assistant has agreed to proceed with the sensitive [...] RTO in 1 weeks Lizzy Tomlinson APRN.CNM [facility] 11-22-2024 Miscellaneous Notes MAIKEL-S: Evelyn Lucas is [...] discussed with the Patient or Patient's Authorized Exceptional Children Teacher Assistant. As applicable, any other physician, advance practice provider, medical student, or other health professional student that will be observing or involved in the sensitive examination for educational or training purposes was discussed with the Patient or Authorized Exceptional Children Teacher Assistant. The Patient or Authorized Exceptional Children Teacher Assistant has agreed to proceed with the sensitive [...] Lizzy Tomlinson APRN.CNM documented in this encounter [facility] 11-22-2024 Instructions Debbie Jackson MA - 11/22/2024 9:50 AM EDT SEQUENTIAL SCREENINGS The [facility] offers sequential screenings for women who are [...] It will require an appointment with our medtronics technician. This is not an ultrasound performed [...] the above symptoms, contact our office at [phone] and ask to speak with a nurse. After hours, you can call doctors registry at [phone] OR call [facility] at [phone] and ask to have the doctor head neck surgeon paged. If you consider this an emergency, dial 9--1 or go to your nearest emergency department. NEED HELP? Are you dealing with a violent or abusive relationship? Are you a victim of rape or sexual assult? Call [facility] ([place]) 24 hour Crisis Hotline: 783.195.9087 or 839-867-4324. MANUAL Your Guide to a Healthy manual is now on-line. Visit [email or web address] to download your free copy documented in this encounter [facility] 11-19-2024 Note HNO ID: [id number] Author: DEBBIE JACKSON MA Service: ? Author Type: Legal Department Manager Type: Progress Notes Filed: 11/19/2024 13:05 Note Text: SHADIA BP 3-120/76 2-126/81 1-127/79 Stopped after this per Dr. Ramirez [facility] 11-19-2024 History of Presen t illness Narrative SHADIA BP 3-120/76 2-126/81 1-127/79 Stopped after this per Dr. Ramirez documented in this encounter [facility] 11-19-2024 Progress note Formatting of t his note might be different from the original. RR- VB No. LOF some clear vaginal discharge on pantyliner only. CTXS yes q 5-10 min. Movement: present. Other c/o: some edema, denies STONE or visual changes Medication list reviewed. SENSITIVE EXAM: The sensitive examination was discussed with the Patient or Patient's Authorized Exceptional Children Teacher Assistant. As applicable, any other physician, advance practice provider, medical student, or other health professional student that will be observing or involved in the sensitive examination for educational or training purposes was discussed with the Patient or Authorized Exceptional Children Teacher Assistant. The Patient or Authorized Exceptional Children Teacher Assistant has agreed to proceed with the sensitive [...] of amniotic fluid. Lab Address: Ob/gynecology [address] [facility] [address] Dept: [phone] Provider: Les Ramirez MD [facility] 11-19-2024 Miscellaneous Notes RR- VB No. LOF some clear vaginal discharge on pantyliner only. CTXS yes q 5-10 min. Movement: present. Other c/o: some edema, denies STONE or visual changes Medication list reviewed. SENSITIVE EXAM: The sensitive examination was discussed with the Patient or Patient's Authorized Exceptional Children Teacher Assistant. As applicable, any other physician, advance practice provider, medical student, or other health professional student that will be observing or involved in the sensitive examination for educational or training purposes was discussed with the Patient or Authorized Exceptional Children Teacher Assistant. The Patient or Authorized Exceptional Children Teacher Assistant has agreed to proceed with the sensitive [...] Supervision of high risk in third trimester ([facility]) - ICD9: V23.9, ICD10: O09.93 (primary diagnosis) - URINE OB DIP B/O - BELINDA/TRICHOMONAS NAAT - BACTERIAL VAGINOSIS NAAT 2. 37 weeks gestation of ([facility]) - ICD9: V22.2, ICD10: Z3A.37 - URINE [...] presence of amniotic fluid. Lab Address: Ob/gynecology [address] [place] [address] Dept: [phone] Provider: Les Ramirez MD documented in this encounter [facility] 11-19-2024 Instructions Debbie Jackson MA - 11/19/2024 11:38 AM EDT SEQUENTIAL SCREENINGS The [facility] offers sequential screenings for women who are [...] It will require an appointment with our medtronics technician. This is not an ultrasound performed [...] the above symptoms, contact our office at [phone] and ask to speak with a nurse. After hours, you can call doctors registry at [phone] OR call [facility] at [phone] and ask to have the doctor head neck surgeon paged. If you consider this an emergency, dial 5-1-9 or go to your nearest emergency department. NEED HELP? Are you dealing with a violent or abusive relationship? Are you a victim of rape or sexual assult? Call [facility] ([place]) 24 hour Crisis Hotline: 992.422.2108 or 818-046-7009. MANUAL Your Guide to a Healthy manual is now on-line. Visit [email or web address] to download your free copy documented in this encounter [facility] 11-19-2024 Telephone encounter Note Called patient. Appointment given. Will be here by 11:30 AM. Emilia Garcia RN [facility] 11-19-2024 Miscellaneous Notes Called patient. Appointment given. [...] Emilia Garcia RN documented in this encounter [facility] 11-19-2024 Telephone encounter Note come in for eval. Les Ramirez MD [facility] 11-19-2024 Telephone encounter Note [id number] Patient called [...] or go to L&D? Emilia Garcia RN [facility] 11-15-2024 Progress note Formatting of t his [...] discussed with the Patient or Patient's Authorized Exceptional Children Teacher Assistant. As applicable, any other physician, advance practice provider, medical student, or other health professional student that will be observing or involved in the sensitive examination for educational or training purposes was discussed with the Patient or Authorized Exceptional Children Teacher Assistant. The Patient or Authorized Exceptional Children Teacher Assistant has agreed to proceed with the sensitive [...] RTO in 1 weeks Lizzy Tomlinson APRN.CNM [facility] 11-15-2024 Miscellaneous Notes MAIKEL-S: Evelyn Lucas is [...] discussed with the Patient or Patient's Authorized Exceptional Children Teacher Assistant. As applicable, any other physician, advance practice provider, medical student, or other health professional student that will be observing or involved in the sensitive examination for educational or training purposes was discussed with the Patient or Authorized Exceptional Children Teacher Assistant. The Patient or Authorized Exceptional Children Teacher Assistant has agreed to proceed with the sensitive [...] Lizzy Tomlinson APRN.CNM documented in this encounter [facility] 11-15-2024 Instructions Lizzy Tomlinson APRN.CNM - 11/15/2024 [...] an easy pie crust in the food and nutrition supervisor. Add soaked dates to homemade nut butter for a sweet treat. Add dates to nuzhat homemade salad dressing. Add dates during easily with these yummy (paleo friendly) bars made from dates. What Is Red Raspberry [place] Tea? Red raspberry leaf tea comes from [...] , and too. How Much Red Raspberry [place] Tea to Drink? With your doctor or guide s approval, start with 1 cup of [...] because of uterine cramping. Is Red Raspberry [place] Tea the Same as Raspberry [place] Tea? How About Plain Old Raspberry Tea? Sometimes. You really need to look at the ingredients to be sure. Note that there is no difference between red raspberry leaf and raspberry leaf. [employer] or [employer] Raspberry [place] Tea are two good brands. The red [...] of RRLT outlined in this article. The OwlTing ??? Circuit www.Encarnate I named this 'circuit' after my friend [...] that is already lined up correctly. - Felicai Lockwood Before you Begin..... This circuit takes [...] sideways, 2 at a time, (have a director of strategic marketing downstairs of you!), take a walk outside [...] the pelvis. Nia Hamilton: Circuit Creator - www.[facility] illbirthcollective.c Felicia Lockwood, CD, BDT (FRANDY), LCCE, FACCE: Supporting Content - www.feliciaLifestyle Airpatrick.AppSheet Cuco Moyer: Photography - www.sonyaWonderflowhoLongYing Investment Management.AppSheet Linda Rowe CD/CDT (BELLA): Print and Cadastral Engineer - www.[employer].VeryLastRoom Circuit Masterminds The Miles Circuit www.iMotions - Eye Tracking.AppSheet SIGNS AND SYMPTOMS OF LABOR 1. Contractions every 10 minutes or more often 2. Clear, pink, or brownish fluid (water) leaking from vagina 3. Feeling that baby is pushing down, pressure 4. Low, dull backache 5. Cramps that feel like a period 6. Cramps with or without diarrhea If you notice any of the above symptoms, contact our office at [phone] and ask to speak with a nurse. After hours, you can call doctors registry at [phone] OR call [facility] at [phone] and ask to have the doctor head neck surgeon paged. If you consider this an emergency, dial or go to your nearest emergency department. NEED HELP? Are you dealing with a violent or abusive relationship? Are you a victim of rape or sexual assult? Call [facility] ([place]) 24 hour Crisis Hotline: 707.229.6645 or 815-966-7831. MANUAL Your Guide to a Healthy manual is now on-line. Visit [email or web address] [email or web address] to download your free copy documented in this encounter [facility] 11-08-2024 Telephone encounter Note I messaged the patient and can fit her in anywhere today if that works. Lizzy Tomlinson APRN.CNM [facility] 11-08-2024 Miscellaneous Notes I messaged the patient [...] Baby is active. documented in this encounter [facility] 11-08-2024 Telephone encounter Note I am so sorry she is having all of this swelling! She should initially try a couple of things such as decreasing sodium intake, increasing water intake, wearing compression stockings and trying to keep feet elevated when possible. Radhika Goldstein APRN.CNM [facility] Work Phone: 11-08-2024 Telephone encounter Note Ob patient is 35w5d called c/o increased swelling in lower legs from knees to toes, Swelling does not resolve completely overnight when sleeping. BP at work was 124/78 today. Patient denies STONE, no vision changes or epigastric pain. Baby is active. [facility] 11-07-2024 Telephone encounter Note Form has been signed. A copy has been placed into scanning folder. Was not faxed per patient request- she stated that she was going to fax this copy with other paperwork she has to her employer. Debbie Montez MA [facility] 11-07-2024 Miscellaneous Notes Form has been signed. [...] Debbie Montez MA documented in this encounter [facility] 11-07-2024 Telephone encounter Note Form filled out and placed into providers mailbox. Debbie Montez MA [facility] 11-07-2024 Telephone encounter Note Received additional disability form- will complete filling out for provider. Debbie Montez MA [facility] 10-28-2024 Progress note Formatting of t his [...] Supervision of high risk in third trimester ([facility]) - ICD9: V23.9, ICD10: O09.93 (primary diagnosis) - Continue PNV and LDA - Discussed relieving factors for lower extremity swelling 2. 34 weeks gestation of ([facility]) - ICD9: V22.2, ICD10: Z3A.34 - GBS next visit 3. Uterine size-date discrepancy, third trimester ([facility]) - ICD9: 649.63, ICD10: O26.843 - Growth at 32 weeks AGA 4. Rh negative state in antepartum period ([facility]) - ICD9: 646.83, ICD10: O26.899, Z67.91 - Rhogam received 09/19/24 PTL precautions and kick counts reviewed. RTO in 2 weeks or sooner as needed. Cuco Mejia APRN.AUTOMATIC MACHINES SUPERVISOR [facility] 10-28-2024 Miscellaneous Notes EH - S: Evelyn [...] Supervision of high risk in third trimester ([facility]) - ICD9: V23.9, ICD10: O09.93 (primary diagnosis) - Continue PNV and LDA - Discussed relieving factors for lower extremity swelling 2. 34 weeks gestation of ([facility]) - ICD9: V22.2, ICD10: Z3A.34 - GBS next visit 3. Uterine size-date discrepancy, third trimester ([facility]) - ICD9: 649.63, ICD10: O26.843 - Growth at 32 weeks AGA 4. Rh negative state in antepartum period ([facility]) - ICD9: 646.83, ICD10: O26.899, Z67.91 - Rhogam received 09/19/24 PTL precautions and kick counts reviewed. RTO in 2 weeks or sooner as needed. Cuco Mejia APRN.AUTOMATIC MACHINES SUPERVISOR documented in this encounter [facility] 10-28-2024 Instructions Jovani Slaughter LPN - 10/28/2024 7:38 AM EDT SEQUENTIAL SCREENINGS The [facility] offers sequential screenings for women who are [...] It will require an appointment with our medtronics technician. This is not an ultrasound performed [...] the above symptoms, contact our office at [phone] and ask to speak with a nurse. After hours, you can call doctors registry at [phone] OR call [facility] at [phone] and ask to have the doctor head neck surgeon paged. If you consider this an emergency, dial 1-0-0 or go to your nearest emergency department. NEED HELP? Are you dealing with a violent or abusive relationship? Are you a victim of rape or sexual assult? Call [facility] ([place]) 24 hour Crisis Hotline: 575.258.7725 or 145-306-3892. MANUAL Your Guide to a Healthy manual is now on-line. Visit [email or web address] [place] to download your free copy documented in this encounter [facility] 10-15-2024 Note Indication Evaluation of growth Discrepancy [...] 12 oz EFW by: Hadlock (HC-AC-FL) Extended Data Center Architect 4.3 mm Extremities / Bony Struc [place] [...] 2 weeks or prn Les Ramirez M.D. [facility] 10-15-2024 Miscellaneous Notes RR- VB No. LOF [...] prn Jairo Ramirez.D. documented in this encounter [facility] 10-15-2024 Instructions Debbie Montez MA - 10/15/2024 11:34 AM EDT SEQUENTIAL SCREENINGS The [facility] offers sequential screenings for women who are [...] It will require an appointment with our medtronics technician. This is not an ultrasound performed [...] the above symptoms, contact our office at [phone] and ask to speak with a nurse. After hours, you can call doctors registry at [phone] OR call [facility] at [phone] and ask to have the doctor head neck surgeon paged. If you consider this an emergency, dial 9-9-8 or go to your nearest emergency department. NEED HELP? Are you dealing with a violent or abusive relationship? Are you a victim of rape or sexual assult? Call [facility] [place] [facility] 24 hour Crisis Hotline: 114.483.5171 or 052-690-6364. MANUAL Your Guide to a Healthy manual is now on-line. Visit [email or web address] to download your free copy documented in this encounter [facility] 10-03-2024 Miscellaneous Notes EH - S: Evelyn [...] Supervision of high risk in third trimester ([facility]) - ICD9: V23.9, ICD10: O09.93 (primary diagnosis) - Continue PNV and LDA 2. 30 weeks gestation of ([facility]) - ICD9: V22.2, ICD10: Z3A.30 - 28 week labs reviewed 3. Rh negative state in antepartum period, second trimester ([facility]) - ICD9: 646.83, ICD10: O26.892, Z67.91 - Received Rhogam last visit, plan for 4. Uterine size-date discrepancy, third trimester ([facility]) - ICD9: 649.63, ICD10: O26.843 - S>D - OBSTETRIC ULTRASOUND WHI PTL precautions and kick counts reviewed. RTO in 2 weeks or sooner as needed. Cuco Mejia APRN.AUTOMATIC MACHINES SUPERVISOR documented in this encounter [facility] 10-03-2024 Progress note Formatting of t his [...] Supervision of high risk in third trimester ([facility]) - ICD9: V23.9, ICD10: O09.93 (primary diagnosis) - Continue PNV and LDA 2. 30 weeks gestation of ([facility]) - ICD9: V22.2, ICD10: Z3A.30 - 28 week labs reviewed 3. Rh negative state in antepartum period, second trimester ([facility]) - ICD9: 646.83, ICD10: O26.892, Z67.91 - Received Rhogam last visit, plan for 4. Uterine size-date discrepancy, third trimester ([facility]) - ICD9: 649.63, ICD10: O26.843 - S>D - OBSTETRIC ULTRASOUND WHI PTL precautions and kick counts reviewed. RTO in 2 weeks or sooner as needed. Cuco Mejia APRN.AUTOMATIC MACHINES SUPERVISOR [facility] 10-03-2024 Instructions Debbie Montez MA - 10/03/2024 2:26 PM EDT SEQUENTIAL SCREENINGS The [facility] offers sequential screenings for women who are [...] It will require an appointment with our medtronics technician. This is not an ultrasound performed [...] the above symptoms, contact our office at [phone] and ask to speak with a nurse. After hours, you can call [employer] registry at [phone] OR call [facility] at [phone] and ask to have the doctor head neck surgeon paged. If you consider this an emergency, dial 9-1-5 or go to your nearest emergency department. NEED HELP? Are you dealing with a violent or abusive relationship? Are you a victim of rape or sexual assult? Call [facility] ([place]) 24 hour Crisis Hotline: 314.639.5941 or 820-860-6700. MANUAL Your Guide to a Healthy manual is now on-line. Visit [email or web address] [place] to download your free copy documented in this encounter [facility] 09-19-2024 Note HNO ID: [id number] Author: ANYI BARRERA RN Service: ? Author [...] her Rhophylac pocket card. Anyi Barrera RN [facility] 09-19-2024 History of Presen t illness Narrative [...] Anyi Barrera RN documented in this encounter [facility] 09-19-2024 Progress note Formatting of t his [...] Supervision of high risk in third trimester ([facility]) - ICD9: V23.9, ICD10: O09.93 (primary diagnosis) - Continue PNV and LDA 2. 28 weeks gestation of ([facility]) - ICD9: V22.2, ICD10: Z3A.28 - 1 hour GCT, CBC, and RPR today - Rh negative: Rhogam injection today - Declines TDAP - LARC form reviewed and signed. Declines. - Depression screen negative - Opioid screen negative - plan form discussed and given to Evelyn - Reviewed how to pre register through [facility] 3. Rh negative state in antepartum period, second trimester ([facility]) - ICD9: 646.83, ICD10: O26.892, Z67.91 - Rhogam today 4. UTI (urinary tract infection) in , antepartum ([facility]) - ICD9: 646.63, 599.0, ICD10: O23.40 - Rescreen today PTL precautions and kick counts reviewed. RTO in 2 weeks or sooner as needed. Cuco Mejia APRN.AUTOMATIC MACHINES SUPERVISOR [facility] 09-19-2024 Miscellaneous Notes EH - S: Evelyn [...] Supervision of high risk in third trimester ([facility]) - ICD9: V23.9, ICD10: O09.93 (primary diagnosis) - Continue PNV and LDA 2. 28 weeks gestation of ([facility]) - ICD9: V22.2, ICD10: Z3A.28 - 1 hour GCT, CBC, and RPR today - Rh negative: Rhogam injection today - Declines TDAP - LARC form reviewed and signed. Declines. - Depression screen negative - Opioid screen negative - plan form discussed and given to Evelyn - Reviewed how to pre register through [facility] 3. Rh negative state in antepartum period, second trimester ([facility]) - ICD9: 646.83, ICD10: O26.892, Z67.91 - Rhogam today 4. UTI (urinary tract infection) in , antepartum ([facility]) - ICD9: 646.63, 599.0, ICD10: O23.40 - Rescreen today PTL precautions and kick counts reviewed. RTO in 2 weeks or sooner as needed. Cuco Mejia APRN.CNP documented in this encounter [facility] 09-19-2024 Instructions Cuco Mejia APRN.CNP - 09/19/2024 2:09 PM EDT Please call [phone] to pre-register for your and labor and delivery stay at [facility]. They will want to know your due date, insurance and contact information. This is important to do before you go into labor to help with the efficiency of the admission process when you arrive. Thank you so much! SEQUENTIAL SCREENINGS The [facility] offers sequential screenings for women who are [...] It will require an appointment with our medtronics technician. This is not an ultrasound performed [...] the above symptoms, contact our office at [phone] and ask to speak with a nurse. After hours, you can call doctors registry at [phone] OR call [facility] at [phone] and ask to have the doctor head neck surgeon paged. If you consider this an emergency, dial 3-0-8 or go to your nearest emergency department. NEED HELP? Are you dealing with a violent or abusive relationship? Are you a victim of rape or sexual assult? Call [facility] ([place]) 24 hour Crisis Hotline: 709.261.4928 or 742-230-1007. MANUAL Your Guide to a Healthy manual is now on-line. Visit [email or web address] [place] to download your free copy documented in this encounter [facility] 08-30-2024 Progress note Formatting of t his [...] RTO in 4 weeks Lizzy Tomlinson APRN.CNM [facility] 08-30-2024 Miscellaneous Notes MAIKEL-S: Evelyn Lucas is [...] Lizzy Tomlinson APRN.CNM documented in this encounter [facility] 08-30-2024 Instructions Lizzy Tomlinson APRN.CNM - 08/30/2024 9:12 AM EDT SEQUENTIAL SCREENINGS The [facility] offers sequential screenings for women who are [...] It will require an appointment with our medtronics technician. This is not an ultrasound performed [...] the above symptoms, contact our office at [phone] and ask to speak with a nurse. After hours, you can call doctors registry at [phone] OR call [facility] at [phone] and ask to have the doctor head neck surgeon paged. If you consider this an emergency, dial 9-1-1 or go to your nearest emergency department. NEED HELP? Are you dealing with a violent or abusive relationship? Are you a victim of rape or sexual assult? Call [facility] [place] [facility] 24 hour Crisis Hotline: 391.952.2368 or 776-323-5280. MANUAL Your Guide to a Healthy manual is now on-line. Visit [email or web address] [place] to download your free copy documented in this encounter [facility] 07-26-2024 Progress note Formatting of t his [...] or sooner if needed Radhika Goldstein APRN.CNM [facility] Work Phone: 07-26-2024 Miscellaneous Notes S: Evelyn [...] Radhika Goldstein APRN.CNM documented in this encounter [facility] 07-26-2024 Instructions Riki Wharton MA - 07/26/2024 8:39 AM EDT SEQUENTIAL SCREENINGS The [facility] offers sequential screenings for women who are [...] It will require an appointment with our medtronics technician. This is not an ultrasound performed [...] the above symptoms, contact our office at [phone] and ask to speak with a nurse. After hours, you can call doctors registry at [phone] OR call [facility] at [phone] and ask to have the doctor head neck surgeon paged. If you consider this an emergency, dial 9-7-0 or go to your nearest emergency department. NEED HELP? Are you dealing with a violent or abusive relationship? Are you a victim of rape or sexual assult? Call [facility] ([place]) 24 hour Crisis Hotline: 656.763.1821 or 549-267-3057. MANUAL Your Guide to a Healthy manual is now on-line. Visit [email or web address] to download your free copy documented in this encounter [facility] 07-18-2024 Progress note Formatting of t his [...] second trimester 2. 19 weeks gestation of ([facility]) 3. Recurrent urinary tract infection affecting , antepartum 4. Uterine cramping Urine - dip negative Urine culture sent - ALAINA Increase hydration and incorporate electrolytes Suspect round ligament/ growing pains Tylenol 1000 mg PO as needed for pain Support provided RTO next week for anatomy US and as needed Radhika Goldstein APRN.CNM [facility] 07-18-2024 Miscellaneous Notes S: Evelyn Lucas is [...] second trimester 2. 19 weeks gestation of ([facility]) 3. Recurrent urinary tract infection affecting , antepartum 4. Uterine cramping Urine - dip negative Urine culture sent - ALAINA Increase hydration and incorporate electrolytes Suspect round ligament/ growing pains Tylenol 1000 mg PO as needed for pain Support provided RTO next week for anatomy US and as needed Radhika Goldstein APRN.CNM documented in this encounter [facility] 07-18-2024 Instructions Riki Wharton MA - 07/18/2024 11:31 AM EDT SEQUENTIAL SCREENINGS The [facility] offers sequential screenings for women who are [...] It will require an appointment with our medtronics technician. This is not an ultrasound performed [...] the above symptoms, contact our office at [phone] and ask to speak with a nurse. After hours, you can call doctors registry at [phone] OR call [facility] at [phone] and ask to have the doctor head neck surgeon paged. If you consider this an emergency, dial 9-1- or go to your nearest emergency department. NEED HELP? Are you dealing with a violent or abusive relationship? Are you a victim of rape or sexual assult? Call [facility] ([place]) 24 hour Crisis Hotline: 240.676.5226 or 878-576-6950. MANUAL Your Guide to a Healthy manual is now on-line. Visit [email or web address] [email or web address] to download your free copy documented in this encounter [facility] 06-26-2024 Note Addended by: RIKI WHARTON on: 06/26/2024 08:32 AM Modules accepted: Orders [facility] 06-26-2024 Miscellaneous Notes Addended by: RIKI WHARTON [...] Lizzy Tomlinson APRN.CNM documented in this encounter [facility] 06-26-2024 Progress note Formatting of t his [...] RTO in 4 weeks Lizzy Tomlinson APRN.CNM [facility] 06-26-2024 Note HNO ID: [id number] Author: ILZZY TOMLINSON APRN.CNM Service: ? Author Type: Co Supervisor Grounds And Landscape Type: Progress Notes Filed: 06/26/2024 08:15 Note Text: MAIKEL- [facility] 06-26-2024 History of Presen t illness Narrative MAIKEL- documented in this encounter [facility] 06-26-2024 Instructions Dorothy Delgado LPN - 06/26/2024 7:58 AM EDT SEQUENTIAL SCREENINGS The [facility] offers sequential screenings for women who are [...] It will require an appointment with our medtronics technician. This is not an ultrasound performed [...] the above symptoms, contact our office at [phone] and ask to speak with a nurse. After hours, you can call doctors registry at [phone] OR call [facility] at [phone] and ask to have the doctor head neck surgeon paged. If you consider this an emergency, dial 9--9 or go to your nearest emergency department. NEED HELP? Are you dealing with a violent or abusive relationship? Are you a victim of rape or sexual assult? Call [facility] ([place]) 24 hour Crisis Hotline: 984.394.7699 or 479-986-7064. MANUAL Your Guide to a Healthy manual is now on-line. Visit [email or web address] [email or web address] to download your free copy documented in this encounter [facility] 05-30-2024 Telephone encounter Note FMLA paperwork completed and faxed back to employer. Patient notified. Riki Wharton MA [facility] 05-30-2024 Miscellaneous Notes FMLA paperwork completed and faxed back to employer. Patient notified. Riki Wharton MA FMLA paperwork on providers desk for signature. Riki Wharton MA FMLA paperwork received. Riki Wharton MA documented in this encounter [facility] 05-29-2024 Telephone encounter Note FMLA paperwork on providers desk for signature. Riki Wharton MA [facility] 05-29-2024 Telephone encounter Note FMLA paperwork received. Riki Wharton MA [facility] 05-29-2024 Progress note Formatting of t his [...] RTO in 4 weeks Lizzy Tomlinson APRN.CNM [facility] 05-29-2024 Miscellaneous Notes MAIKEL-S: Evelyn Lucas is [...] Lizzy Tomlinson APRN.CNM documented in this encounter [facility] 05-29-2024 Riki Yanes MA - 05/29/2024 10:24 AM EDT SEQUENTIAL SCREENINGS The [facility] offers sequential screenings for women who are [...] It will require an appointment with our medtronics technician. This is not an ultrasound performed [...] the above symptoms, contact our office at [phone] and ask to speak with a nurse. After hours, you can call doctors registry at [phone] OR call [facility] at [phone] and ask to have the doctor head neck surgeon paged. If you consider this an emergency, dial -8 or go to your nearest emergency department. NEED HELP? Are you dealing with a violent or abusive relationship? Are you a victim of rape or sexual assult? Call [facility] ([place]) 24 hour Crisis Hotline: 983.247.5203 or 465-207-9759. MANUAL Your Guide to a Healthy manual is now on-line. Visit [email or web address] to download your free copy documented in this encounter [facility] 04-30-2024 Note HNO ID: [id number] Author: LIZZY TOMLINSON APRN.CNM Service: ? Author Type: Co Supervisor Grounds And Landscape Type: Progress Notes Filed: 05/10/2024 17:34 Note Text: It Service Manager offered: Patient declines. INITIAL OB ASSESSMENT HPI: [...] in Ears, Noseblee (more content not included)... [facility] 04-30-2024 History of Presen t illness Narrative It Service Manager offered: Patient declines. INITIAL OB ASSESSMENT HPI: [...] discussed with the Patient or Patient's Authorized Exceptional Children Teacher Assistant. As applicable, any other physician, advance practice provider, medical student, or other health professional student that will be observing or involved in the sensitive examination for educational or training purposes was discussed with the Patient or Authorized Exceptional Children Teacher Assistant. The Patient or Authorized Exceptional Children Teacher Assistant has agreed to proceed with the sensitive [...] Your guide to a health and the Machine Records Units Supervisor. Reviewed midwifery and plastics factory worker services that are available. 2) Screening: Hemoglobin [...] Lizzy Tomlinson APRN.CNM documented in this encounter [facility] 04-30-2024 Instructions Lizzy Tomlinson APRN.CNM - 04/30/2024 3:31 PM EST Please select the following link to access the [facility] Your Guide to a Healthy . [email or web address] [...] acid. It is a common prescription and dmfh-unc-mkakwvv medication similar to other non-steroidal inflammatory drugs [...] . For more information, please see the [employer] fact sheet Paternal Exposures at [email or web address]/fact-s heets/uqefikba-aagjatnih-zfgzew ncy/. 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 Protocols used: Rectal Xncqshxf-PRUZS-EK [facility] 09-05-2023 Telephone encounter Note See triage. Lourdes Miller RN [facility] 09-05-2023 Miscellaneous Notes See triage. Lourdes Miller RN documented in this encounter [facility] 09-05-2023 Miscellaneous Notes Patient called to triage [...] Denies dizziness or fever. Protocols used: Rectal Neymxmnz-VCYAL-WS documented in this encounter [facility] 12-13-2022 Miscellaneous Notes Pt active on Managed Methods today- message sent Neli Cardona Cma Please let patient know her labs are normal. documented in this encounter [facility] 09-13-2022 History of Presen t illness Narrative DISTANCE HEALTH VISIT This Team Access Model visit is a virtual encounter. It required patient-provider interaction for the medical decision making as documented below. I have communicated my name and active licensure. The patient's identity and physical location were verified at the time of this visit. Either the patient or their legal safety representative has been informed of the risks [...] Trichomonas vaginalis by amplification Abnormal Resulting Agency [facility] ASSESSMENT/PLAN: 1. Trichomoniasis - ICD9: 131.9, [...] with more than 50% of the total thde-vu-dimt time of the visit in counseling / coordination of care. documented in this encounter [facility] 09-13-2022 Miscellaneous Notes Called patient and virtual visit scheduled for today. Treasure Wu RN Patient called in to the office. Concerned that her boyfriend can't take antibiotics. Has an autoimmune disorder. On Stelara and Prednisone. Advised patient to have her partner contact his PCP to check on this. Emilia Garcia RN documented in this encounter [facility] 09-12-2022 Miscellaneous Notes Patient notified and will [...] Lizzy Tomlinson APRN.CNM documented in this encounter [facility] 09-06-2022 History of Presen t illness Narrative It Service Manager offered: Patient declines. Evelyn is a 21 year old who presents for an annual gynecologic exam without complaints. 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 LMP: 08/19/2022 (Exact Date), Having periods Age at Menarche: Age at First : Age at Menopause: Streetcar Repairer History Comments: Sexual Activity: Yes; Male Contraception: [...] external genitalia normal, normal Bartholin's glands, urethra, Diller's glands, no vulvar lesions, no cervical lesions, [...] Lizzy Tomlinson APRN.CNM documented in this encounter [facility] 11-11-2019 History of Past i llness Narrative [...] of this encounter (statuses as of 09/06/2022) [facility] History of Past illness Narrative* Problem Noted [...] of this encounter (statuses as of 09/13/2022) [facility] History of Past illness Narrative* Problem Noted [...] of this encounter (statuses as of 09/13/2022) [facility] History of Past illness Narrative* Problem Noted [...] of this encounter (statuses as of 09/14/2022) [place] [id number] History of Past illness Narrative* Problem Noted [...] of this encounter (statuses as of 12/13/2022) [facility] July 14, 2022 8:24am Note Date/Time July 14, 2022 8:2 4am [facility] Medical Records Department [address] [place] [id number] Instructions for Home/Discharge Instructions 07/14/22 0824 MR#: [id number] Acct: [id number] Name: EVELYN LUCAS VERNELL Rep #:[id number] : 2000 21 From: Андрей painter DO PCP: Care Physician,No [place] [facility] [place] Instructions Follow Up Care Test Results: Test results from this visit will be discussed in further detail at your follow- up appointment, if applicable. Discharge Plan Admission Primary Reason for Your Visit: Left foot bone spur removal Attending Provider: Аднрей Fields Primary Care Provider: Care Physician,No Primary [...] MD; No Primary Care Physician ~ Signed [facility] Work Phone: evaluation noteNo assessment information available [facility] Work Phone: evaluation note* Diagnosis Encounter for gynecological examination (general) (routine) without abnormal findings- Primary Screen for STD (sexually transmitted disease) Screening examination for venereal disease Encounter for screening for cervical cancer LGSIL on Pap smear of cervix Vaginal discharge Leukorrhea, not specified as infective [facility] Diagnosis Trichomoniasis- Primary Trichomoniasis, unspecified [facility] Diagnosis Encounter for gynecological examination (general) (routine) with abnormal findings- Primary Screening for cervical cancer Screening for malignant neoplasm of the cervix Encounter for screening for human papillomavirus (HPV) Special screening examination for human papillomavirus (HPV) Screen for STD (sexually transmitted disease) Screening examination for venereal disease [facility]* Diagnosis UTI (urinary tract infection) in , antepartum- Primary Infections of genitourinary tract antepartum [facility] Diagnosis with uncertain dates in first trimester- Primary Attention deficit hyperactivity disorder (ADHD), unspecified ADHD type Uterine size-date discrepancy, first trimester LGSIL on Pap smear of cervix [facility] Diagnosis Encounter for supervision of other normal in second trimester- Primary 12 weeks gestation of state, incidental [facility]* Diagnosis Encounter for screening for malformation using ultrasound- Primary 12 weeks gestation of state, incidental [facility]* Diagnosis Supervision of other high risk pregnancies, second trimester ([facility])- Primary 16 weeks gestation of ([facility]) state, incidental Rh negative state in antepartum period, second trimester ([facility]) UTI (urinary tract infection) in , antepartum ([facility]) Infections of genitourinary tract antepartum History of spontaneous Personal history of other genital system and obstetric disorders [facility] Diagnosis Supervision of other high risk pregnancies, second trimester ([facility])- Primary 19 weeks gestation of ([facility]) state, incidental Recurrent urinary tract infection affecting , antepartum ([facility]) Uterine cramping [facility]* Diagnosis Supervision of other high risk pregnancies, second trimester ([facility])- Primary Recurrent urinary tract infection affecting , antepartum ([facility]) 20 weeks gestation of ([facility]) state, incidental [facility]* Diagnosis Encounter for anatomic survey ([facility])- Primary Encounter for anatomic survey 20 weeks gestation of ([facility]) state, incidental [facility]* Diagnosis UTI (urinary tract infection) in , antepartum ([facility])- Primary Infections of genitourinary tract antepartum [facility]* Diagnosis Screening for diabetes mellitus- Primary Supervision of other high risk pregnancies, second trimester ([facility]) 25 weeks gestation of ([facility]) state, incidental UTI (urinary tract infection) in , antepartum ([facility]) Infections of genitourinary tract antepartum Rh negative state in antepartum period, second trimester ([facility]) [facility]* Diagnosis Supervision of high risk in third trimester ([facility])- Primary Unspecified high-risk 28 weeks gestation of ([facility]) state, incidental Rh negative state in antepartum period, second trimester ([facility]) UTI (urinary tract infection) in , antepartum ([facility]) Infections of genitourinary tract antepartum Rh negative state in antepartum period ([facility]) Rhesus isoimmunization affecting management of mother, antepartum condition [facility]* Diagnosis Supervision of high risk in third trimester ([facility])- Primary Unspecified high-risk 30 weeks gestation of ([facility]) state, incidental Rh negative state in antepartum period, second trimester (HCC) Uterine size-date discrepancy, third trimester (HCC) [facility]* Diagnosis Supervision of high risk in third trimester (HCC)- Primary Unspecified high-risk Uterine size-date discrepancy, third trimester (HCC) 32 weeks gestation of (HCC) state, incidental * Assessment & Plan Note - Les Ramirez MD - 10/15/2024 11:42 AM EDT Associated Problem(s): Supervision of high risk in third trimester (HCC) [facility] Diagnosis Encounter for ultrasound to check growth ([facility])- Primary Encounter for routine screening for malformation using ultrasonics Uterine size-date discrepancy, third trimester ([facility]) 32 weeks gestation of ([facility]) state, incidental Supervision of high risk in third trimester (HCC)- Primary Unspecified high-risk Uterine size-date discrepancy, third trimester (HCC) 32 weeks gestation of ([facility]) state, incidental documented [facility]* Diagnosis Supervision of high risk in third trimester (HCC)- Primary Unspecified high-risk Uterine size-date discrepancy, third trimester (HCC) 32 weeks gestation of ([facility]) state, incidental Supervision of high risk in third trimester (HCC)- Primary Unspecified high-risk 34 weeks gestation of ([facility]) state, incidental Uterine size-date discrepancy, third trimester ([facility]) Rh negative state in antepartum period ([facility]) Rhesus isoimmunization affecting management of mother, antepartum condition [facility]* Diagnosis Supervision of high risk in third trimester (HCC)- Primary Unspecified high-risk Uterine size-date discrepancy, third trimester (HCC) 32 weeks gestation of ([facility]) state, incidental Supervision of high risk in third trimester (HCC)- Primary Unspecified high-risk 36 weeks gestation of ([facility]) state, incidental Edema during in third trimester ([facility]) Rh negative state in antepartum period ([facility]) Rhesus isoimmunization affecting management of mother, antepartum condition [facility] Supervision of high risk in third trimester (HCC)- Primary Unspecified high-risk Uterine size-date discrepancy, third trimester ([facility]) 32 weeks gestation of ([facility]) state, incidental Supervision of high risk in third trimester (HCC)- Primary Unspecified high-risk 37 weeks gestation of ([facility]) state, incidental Vaginal discharge Leukorrhea, not specified as infective [facility] Diagnosis Supervision of high risk in third trimester (HCC)- Primary Unspecified high-risk Uterine size-date discrepancy, third trimester ([facility]) 32 weeks gestation of (HCC) state, incidental Supervision of high risk in third trimester (HCC)- Primary Unspecified high-risk 37 weeks gestation of ([facility]) state, incidental Bilateral lower extremity edema Edema Rh negative state in antepartum period ([facility]) Rhesus isoimmunization affecting management of mother, antepartum condition [facility] Additional Instructions Rest, ice, elevate your foot and take Tylenol ibuprofen as needed. Please follow-up with your orthopedic doctor.[facility] Work Phone: Hospital Discharge instructions Additional Instructions Follow preprinted instructions from your surgeons office. Implant Used?: [facility] Work Phone: Summary Purpose Family History No Family History Records FoundNo Family History Records FoundNo Family History Records FoundNo Family History Records FoundNo Family History Records Found Advance Directives No Advanced Directives Records Found Advance Directive Response Recorded Date/ Time Living Will No October 23, 2021 4:13pm Power of Energy Manager No October 23 4:13pm Advance Directive Response Recorded Date/ Time Living Will No June 27, 2022 11:33am Power of Energy Manager No June 27 11:33am Chief Complaint and Reason for Visit Chief Complaint LEFT GREAT TOE PAIN Chief Complaint EXC DORSAL OSTEOPHYT E MEDIAL CUNEIFORM LT Additional Source Comments INFORMATION SOURCE (unrecogn ized section and content) DATE CREATED AUTHOR 07/25/2018 [facility] DATE CREATED AUTHOR AUTHOR'S ORGANIZ ATION 02/24/2021 [facility] DATE CREATED AUTHOR AUTHOR'S ORGANIZ ATION 03/17/2021 [facility] DATE CREATED AUTHOR AUTHOR'S ORGANIZ ATION 11/03/2024 [facility] DATE CREATED AUTHOR AUTHOR'S ORGANIZ ATION 11/24/2024 [facility] Goals (unrecognized section and content) Goals may [...] Provider Active MAGDIEL Block Other Provider Active Metals Analyst Relationship Specialty Start Date End Date Ethan Chauhan APRN.AUTOMATIC MACHINES SUPERVISOR [address] [place] [phone] PCP - General Family Medicine 12/12/22 Metals Analyst Relationship Specialty Start Date End Date Ethan Chauhan APRN.AUTOMATIC MACHINES SUPERVISOR [address] [place] [phone] PCP - General Family Medicine 12/12/22 Metals Analyst Relationship Specialty Start Date End Date Ethan Chauhan APRN.AUTOMATIC MACHINES SUPERVISOR [address] [place] [phone] PCP - General Family Medicine 12/12/22 Metals Analyst Relationship Specialty Start Date End Date Ethan Chauhan APRN.AUTOMATIC MACHINES SUPERVISOR [address] [place] [phone] PCP - General Family Medicine 12/12/22 Metals Analyst Relationship Specialty Start Date End Date Ethan Chauhan APRN.AUTOMATIC MACHINES SUPERVISOR [address] [place] [phone] PCP - General Family Medicine 12/12/22 Metals Analyst Relationship Specialty Start Date End Date Ethan Chauhan APRN.AUTOMATIC MACHINES SUPERVISOR [address] [place] [phone] PCP - General Family Medicine 12/12/22 Metals Analyst Relationship Specialty Start Date End Date Ethan Chauhan APRN.AUTOMATIC MACHINES SUPERVISOR [address] [place] [phone] PCP - General Family Medicine 12/12/22 Metals Analyst Relationship Specialty Start Date End Date Ethan Chauhan APRN.AUTOMATIC MACHINES SUPERVISOR [address] [place] [phone] PCP - General Family Medicine 12/12/22 Metals Analyst Relationship Specialty Start Date End Date Ethan Chauhan APRN.AUTOMATIC MACHINES SUPERVISOR [address] [place] [phone] PCP - General Family Medicine 12/12/22 Metals Analyst Relationship Specialty Start Date End Date Ethan Chauhan APRN.AUTOMATIC MACHINES SUPERVISOR [address] [place] [phone] PCP - General Family Medicine 12/12/22 Metals Analyst Relationship Specialty Start Date End Date Ethan Chauhan APRN.AUTOMATIC MACHINES SUPERVISOR [address] [place] [phone] PCP - General Family Medicine 12/12/22 Metals Analyst Relationship Specialty Start Date End Date Ethan Chauhan APRN.AUTOMATIC MACHINES SUPERVISOR [address] [place] [phone] PCP - General Family Medicine 12/12/22 Metals Analyst Relationship Specialty Start Date End Date Ethan Chauhan APRN.AUTOMATIC MACHINES SUPERVISOR [address] [place] [phone] PCP - General Family Medicine 12/12/22 Metals Analyst Relationship Specialty Start Date End Date Ethan ChauhanARTURO.[facility] [address] [place] [address] PCP - General Family Medicine 12/12/22 10/01/24 Source Comments (unrecognize d section and content) In the event this informatio n is protected by the Federal Confidentiality of Alcohol and Drug Abuse Patient Records regulations: The Federal rules restrict any use of the information to criminally investigate or prosecute any alcohol or drug abuse patient.[facility] the event this information is protected by the Federal Confidentiality of Alcohol and Drug Abuse Patient Records regulations: The Federal rules restrict any use of the information to criminally investigate or prosecute any alcohol or drug abuse patient.[facility] the event this information is protected by the Federal Confidentiality of Alcohol and Drug Abuse Patient Records regulations: The Federal rules restrict any use of the information to criminally investigate or prosecute any alcohol or drug abuse patient.[facility] the event this information is protected by the Federal Confidentiality of Alcohol and Drug Abuse Patient Records regulations: The Federal rules restrict any use of the information to criminally investigate or prosecute any alcohol or drug abuse patient.[facility] the event this information is protected by the Federal Confidentiality of Alcohol and Drug Abuse Patient Records regulations: The Federal rules restrict any use of the information to criminally investigate or prosecute any alcohol or drug abuse patient.[facility] the event this information is protected by the Federal Confidentiality of Alcohol and Drug Abuse Patient Records regulations: The Federal rules restrict any use of the information to criminally investigate or prosecute any alcohol or drug abuse patient.[facility] Hospital[facility] the event this information is protected by the Federal Confidentiality of Alcohol and Drug Abuse Patient Records regulations: The Federal rules restrict any use of the information to criminally investigate or prosecute any alcohol or drug abuse patient.[facility] the event this information is protected by the Federal Confidentiality of Alcohol and Drug Abuse Patient Records regulations: The Federal rules restrict any use of the information to criminally investigate or prosecute any alcohol or drug abuse patient.[facility] Hospital[facility] the event this information is protected by the Federal Confidentiality of Alcohol and Drug Abuse Patient Records regulations: The Federal rules restrict any use of the information to criminally investigate or prosecute any alcohol or drug abuse patient.[facility] Hospital[facility] the event this information is protected by the Federal Confidentiality of Alcohol and Drug Abuse Patient Records regulations: The Federal rules restrict any use of the information to criminally investigate or prosecute any alcohol or drug abuse patient.[facility] the event this information is protected by the Federal Confidentiality of Alcohol and Drug Abuse Patient Records regulations: The Federal rules restrict any use of the information to criminally investigate or prosecute any alcohol or drug abuse patient.[facility] Hospital[facility] the event this information is protected by the Federal Confidentiality of Alcohol and Drug Abuse Patient Records regulations: The Federal rules restrict any use of the information to criminally investigate or prosecute any alcohol or drug abuse patient.[facility] Hospital[facility] the event this information is protected by the Federal Confidentiality of Alcohol and Drug Abuse Patient Records regulations: The Federal rules restrict any use of the information to criminally investigate or prosecute any alcohol or drug abuse patient.[facility] Hospital[facility] the event this information is protected by the Federal Confidentiality of Alcohol and Drug Abuse Patient Records regulations: The Federal rules restrict any use of the information to criminally investigate or prosecute any alcohol or drug abuse patient.[facility] Hospital[facility] the event this information is protected by the Federal Confidentiality of Alcohol and Drug Abuse Patient Records regulations: The Federal rules restrict any use of the information to criminally investigate or prosecute any alcohol or drug abuse patient.[facility] HospitalIn the event this information is protected by the Federal Confidentiality of Alcohol and Drug Abuse Patient Records regulations: The Federal rules restrict any use of the information to criminally investigate or prosecute any alcohol or drug abuse patient.[facility] HospitalIn the event this information is protected by the Federal Confidentiality of Alcohol and Drug Abuse Patient Records regulations: The Federal rules restrict any use of the information to criminally investigate or prosecute any alcohol or drug abuse patient.[facility] HospitalIn the event this information is protected by the Federal Confidentiality of Alcohol and Drug Abuse Patient Records regulations: The Federal rules restrict any use of the information to criminally investigate or prosecute any alcohol or drug abuse patient.[facility] HospitalIn the event this information is protected by the Federal Confidentiality of Alcohol and Drug Abuse Patient Records regulations: The Federal rules restrict any use of the information to criminally investigate or prosecute any alcohol or drug abuse patient.[facility] HospitalIn the event this information is protected by the Federal Confidentiality of Alcohol and Drug Abuse Patient Records regulations: The Federal rules restrict any use of the information to criminally investigate or prosecute any alcohol or drug abuse patient.[facility] HospitalIn the event this information is protected by the Federal Confidentiality of Alcohol and Drug Abuse Patient Records regulations: The Federal rules restrict any use of the information to criminally investigate or prosecute any alcohol or drug abuse patient.[facility] HospitalIn the event this information is protected by the Federal Confidentiality of Alcohol and Drug Abuse Patient Records regulations: The Federal rules restrict any use of the information to criminally investigate or prosecute any alcohol or drug abuse patient.[facility] HospitalIn the event this information is protected by the Federal Confidentiality of Alcohol and Drug Abuse Patient Records regulations: The Federal rules restrict any use of the information to criminally investigate or prosecute any alcohol or drug abuse patient.[facility] HospitalIn the event this information is protected by the Federal Confidentiality of Alcohol and Drug Abuse Patient Records regulations: The Federal rules restrict any use of the information to criminally investigate or prosecute any alcohol or drug abuse patient.[facility] HospitalIn the event this information is protected by the Federal Confidentiality of Alcohol and Drug Abuse Patient Records regulations: The Federal rules restrict any use of the information to criminally investigate or prosecute any alcohol or drug abuse patient.[facility] HospitalIn the event this information is protected by the Federal Confidentiality of Alcohol and Drug Abuse Patient Records regulations: The Federal rules restrict any use of the information to criminally investigate or prosecute any alcohol or drug abuse patient.[facility] HospitalIn the event this information is protected by the Federal Confidentiality of Alcohol and Drug Abuse Patient Records regulations: The Federal rules restrict any use of the information to criminally investigate or prosecute any alcohol or drug abuse patient.[facility] HospitalIn the event this information is protected by the Federal Confidentiality of Alcohol and Drug Abuse Patient Records regulations: The Federal rules restrict any use of the information to criminally investigate or prosecute any alcohol or drug abuse patient.[facility] HospitalIn the event this information is protected by the Federal Confidentiality of Alcohol and Drug Abuse Patient Records regulations: The Federal rules restrict any use of the information to criminally investigate or prosecute any alcohol or drug abuse patient.[facility] HospitalIn the event this information is protected by the Federal Confidentiality of Alcohol and Drug Abuse Patient Records regulations: The Federal rules restrict any use of the information to criminally investigate or prosecute any alcohol or drug abuse patient.[facility] HospitalIn the event this information is protected by the Federal Confidentiality of Alcohol and Drug Abuse Patient Records regulations: The Federal rules restrict any use of the information to criminally investigate or prosecute any alcohol or drug abuse patient.[facility] HospitalIn the event this information is protected by the Federal Confidentiality of Alcohol and Drug Abuse Patient Records regulations: The Federal rules restrict any use of the information to criminally investigate or prosecute any alcohol or drug abuse patient.[facility] HospitalIn the event this information is protected by the Federal Confidentiality of Alcohol and Drug Abuse Patient Records regulations: The Federal rules restrict any use of the information to criminally investigate or prosecute any alcohol or drug abuse patient.[facility] HospitalIn the event this information is protected by the Federal Confidentiality of Alcohol and Drug Abuse Patient Records regulations: The Federal rules restrict any use of the information to criminally investigate or prosecute any alcohol or drug abuse patient.[facility] Reason for Visit (unrecogniz ed section and content) Reason Onset Date Comments Care 10/15/2024 Specialty Diagnoses / Procedures Referred By Jessica t Referred To Contact Reiki Practitioner / WIRE ROPE SALES REPRESENTATIVE Diagnoses Encounter for supervision of other normal in third trimester (HCC) OB Procedures OFFICE/OUTPATIENT EST PT MAY NOT REQ PHYS/QHP OFFICE/OUTPATIENT ESTABLISHED HIGH MDM 40 MIN EST [facility] OB Ethan Chauhan APRN.AUTOMATIC MACHINES SUPERVISOR [address] [place] [address] Phone: tel: fax: Lizzy Tomlinson APRN.CNM [address] [place] [address] Phone: tel: fax: Referral ID Status Reason Start Date Expiration Date V isits Requested Visits Authorized [id number] Authorized 06/26/2024 03/19/2025 99 99 Reason Onset [...] every two weeks Procedures established patient services [address] [place] [address] Referral ID Status Reason Start Date Expiration Date Visits Requested Visits Authorized [id number] Outside PCP OON/Self Pay Override 07/11/2023 10/18/2024 99 99 Reason Comments Care Reason Onset Date Comments Care 05/29/2024 Reason Comments US Specialty Diagnoses / Procedures Referred By Jessica t Referred To Contact [facility] Diagnoses with uncertain dates in first trimester Procedures OBSTETRIC ULTRASOUND [facility] US PREG UTERUS AFTER 1ST TRIMEST GESTATION Lizzy Tomlinson APRN.CNM [address] [place] [address] Phone: tel: fax: [facility] [address] [place] [address] Referral ID Status Reason Start Date Expiration Date V isits Requested Visits Authorized [id number] Closed Auto-Generate d Referral 05/01/2024 05/01/2025 1 1 Reason Comments FMLA Paperwork Reason Onset Date Comments Care 06/26/2024 Specialty Diagnoses / Procedures Referred By Contac t Referred To Contact [facility] Diagnoses with uncertain dates in first trimester (HCC) Procedures OBSTETRIC ULTRASOUND [facility] US PREG UTERUS AFTER 1ST TRIMEST GESTATION Lizzy Tomlinson APRN.CNM [address] [place] [address] Phone: tel: fax: [address] [address] Referral ID Status Reason Start Date Expiration Date V isits Requested Visits Authorized [id number] Closed Auto-Generate d Referral 05/01/2024 05/01/2025 1 1 Reason Onset Date Comments Care 10/03/2024 Specialty Diagnoses / Procedures Referred By Contac t Referred To Contact Reiki Practitioner / WIRE ROPE SALES REPRESENTATIVE Diagnoses Encounter for supervision of other normal in third trimester (HCC) OB Procedures OFFICE/OUTPATIENT EST PT MAY NOT REQ PHYS/QHP OFFICE/OUTPATIENT ESTABLISHED HIGH MDM 40 MIN EST [facility] OB Ethan Chauhan APRN.AUTOMATIC MACHINES SUPERVISOR [address] [place] [address] Phone: tel: fax: Lizzy Tomlinson APRN.CNM [address] [place] [address] Phone: tel: fax: Specialty Diagnoses / Procedures Referred By Contac t Referred To Contact [facility] Diagnoses Supervision of high risk in third trimester (HCC) Uterine size-date discrepancy, third trimester (HCC) Procedures OBSTETRIC ULTRASOUND [facility] US PREG UTERUS AFTER 1ST TRIMEST GESTATION Cuco Mejia, SALES TRADER.AUTOMATIC MACHINES SUPERVISOR [address] [place] [address] Phone: tel: fax: [address] [place] [address] Referral ID Status Reason Start Date Expiration Date V isits Requested Visits Authorized [id number] Closed Auto-Generate d Referral 10/03/2024 10/03/2025 1 1 Reason Onset Date Comments Care 10/28/2024 Specialty Diagnoses / Procedures Referred By Contac t Referred To Contact Reiki Practitioner / WIRE ROPE SALES REPRESENTATIVE Diagnoses OB Procedures EST [facility] OB [facility] [address] [place] [address] Phone: tel: Cuco Mejia APRN.AUTOMATIC MACHINES SUPERVISOR [address] [place] [address] Phone: tel: fax: Referral ID Status Reason Start Date Expiration Date Visits Re quested Visits Authorized [id number] Closed 10/28/2024 01/26/2025 1 1 Reason Comments Short Term Disability form Reason Onset Date Comments Care 11/15/2024 Specialty Diagnoses / Procedures Referred By Contac t Referred To Contact Reiki Practitioner / WIRE ROPE SALES REPRESENTATIVE Diagnoses OB Procedures EST [facility] OB [facility] [address] [place] [address] Phone: tel: Lizzy Tomlinson APRN.CNM [address] [place] [address] Phone: tel: fax: Referral ID Status Reason Start Date Expiration Date V isits Requested Visits Authorized [id number] Authorized 11/15/2024 03/19/2025 99 99 Reason Onset Date Comments Care 11/19/2024 Reason Onset Date Comments Care 11/22/2024 Specialty Diagnoses / Procedures Referred By Contac t Referred To Contact Reiki Practitioner / WIRE ROPE SALES REPRESENTATIVE Diagnoses Supervision of high risk , unspecified, third trimester (HCC) OB Procedures OFFICE/OUTPATIENT ESTABLISHED MOD MDM 30 MIN EST [facility] OB [facility] [address] [place] [address] Phone: tel: Lizzy Tomlinson APRN.CNM [address] [place] [address] Phone: tel: fax: Referral ID Status Reason Start Date Expiration Date V isits Requested Visits Authorized [id number] Authorized 11/04/2024 03/19/2025 99 99 FOR RECORDS [...] BE BASED ON THE PRIMARY CLINICAL RECORDS. [employer] provides no warranty or guarantee of the accuracy or completeness of information in this document.
[2024-11-25 04:43] LABS: Hematocrit 33.1 % (37-47); Hemoglobin 10.6 g/dL (12.0-15.0); Immature Granulocytes Count 0.160 X10^3/uL (0.0-0.0); Mean Corp Hgb Conc 32.0 g/dL (32-36); Mean Corpuscular Volume 71.3 fL (81-99); Mean Platelet Vol. 12.3 fl (6.2-12.0); NRBC Flagged by Analyzer 0 % (0-5); Platelet Count 150 K/mm3 (150-450); RBC Distribution Width CV 13.4 % (11.6-14.6); RBC Distribution Width SD 34.1 fl (35.1-43.9); Red Blood Count 4.64 M/mm3 (4.2-5.4); White Blood Count 11.6 K/mm3 (4.4-11.0)
[2024-11-25 05:12] LABS: AST(SGOT) 24 U/L (<=31); Uric Acid 5.2 mg/dL (2.6-6.0)
[2024-11-25 05:19] LABS: Alanine Aminotransfer ALT/SGPT 22 U/L (<=34); Estimated Creatinine Clearance 127.33 ml/min (50-250); Syphilis Antibodies Nonreactive (Nonreactive)
[2024-11-25] MEDS: fentaNYL-bupivacaine (epidural) 100 ML BAG EPIDURAL (05:19)
[2024-11-25] MEDS: Lactated Ringers 1,000 ML 200 ML IV (05:21)
[2024-11-25 07:12] LABS: Barbiturate Urine NEGATIVE (< 200 ng/mL); Benzodiazepine Urine NEGATIVE (< 200 ng/mL); PCP Urine NEGATIVE (< 25 ng/mL); THC Urine PRESUMPTIVE POSITIVE (< 50 ng/mL)
[2024-11-25 07:26] LABS: Creatinine, Urine (random) 79.30 mg/dL (28.00-217.00); Protein, Urine (Random) 30.0 mg/dL (0.0-12.0); Protein:Creat Ratio 378 mg/g CRE (0-200)
[2024-11-25] MEDS: Oxytocin 15 Units/NS 250ml 15 UNITS/250 ML IV.SOLN 334 UNITS IV (08:25)
--- NOTE | 2024-11-25 08:37 | HP.PCM.OB_ITS ---
HPI - General General Date of Admission: 11/25/24 HPI Narrative LORRI POLLARD, is a 23 F who presents BK:12/08/24 at 38w1d with regular contractions and in active labor. BP elevated upon arrival. Active labor and preeclampsia and admitted. Maternal Data Information BK Calculator Estimated Delivery Date Method Current WG Current Estimate 12/08/24 Manual 38w 1d PFSH PFSH Medical History (Updated 11/25/24 @ 08:43 by Lizzy Tomlinson CNM) 38 weeks gestation of Rh negative status during AQUILES (generalized anxiety disorder) ADHD Alcohol use Smoker Broken toe Bunion of unspecified foot Uterine contractions Home Medications ?Medication ?Instructions ?Recorded ?Last Taken ?Type acetaminophen 500 mg tablet 500 mg PO Q6H PRN Headache 06/27/22 11/24/24 History cetirizine 5 mg tablet 5 mg PO DAILY PRN SEASONAL 0 06/27/22 Unknown History ALLERGIES hydrocodone-acetaminophen 5-325mg 1 tab PO Q6H PRN primitivo n 5 days #20 07/14/22 Unknown Rx 5mg-325mg tabs calcium phosphate,dibasic 77 tab PO 11/25/24 11/24/24 History mg-vitamin D3 400 unit tablet vits no.60-ferrous tab 11/25/2410/11 History fumarate 27 mg iron-folic acid 1 mg tablet Allergy/AdvReac Type Severity Reaction Status Date / Time No Known Allergies Allergy Verified 11/25/24 04:03 Surgical History History of bunionectomy Social History (Updated 02/21/21 @ 20:[address] Wicho Rudolph, DO) Smoking Status: Current every day smoker tobacco type: e-cigarettes Electronic Cigarette Use: with nicotine History Elective abortions Hx Para 1 Spontaneous abortions Hx # Term Pregnancies Ectopic pregnancies Hx # Pregnancies Multiple births # of living children NST FHR Rate Baby A Baseline: 135 Variability:: Moderate Accelerations:: 15 x 15 Decelerations:: Variable FHR Category:: Category II Uterine Activity:: every 2-3 minutes ROS Constitutional Constitutional: Reports systems reviewed and no addt'l complaints, except as documented; Denies headache(s) Eyes Eyes: Denies acute decrease in peripheral vision, blurry vision or change in vision ENT HEENT: Reports systems reviewed and no addt'l complaints, except as documented Cardiovascular Cardiovascular: Denies chest pain or dizziness Respiratory/Chest Respiratory/Chest: Denies cough, dyspnea, dyspnea on exertion, shortness of breath at rest or shortness of breath with exertion Gastrointestinal Gastrointestinal: Denies abdominal pain, diarrhea, nausea or vomiting Genitourinary Genitourinary: Denies abdominal discomfort Musculoskeletal Musculoskeletal: Denies limited range of motion Integumentary Integumentary: Reports systems reviewed and no addt'l complaints, except as documented Neurologic Neurologic: Reports systems reviewed and no addt'l complaints, except as documented Psychiatric Psychiatric: Reports systems reviewed and no addt'l complaints, except as documented Endocrine Endocrinology: Reports systems reviewed and no addt'l complaints, except as documented Hematologic/Lymphatic Hematologic/Lymphatic: Reports systems reviewed and no addt'l complaints, except as documented Allergic/Immunologic Allergic/Immunologic: Reports systems reviewed and no addt'l complaints, except as documented Vital Signs Vital Signs Vital Signs: 11/25/24 03:51 11/25/24 03:51 11/25/24 03:52 Temperature Temperature Source Pulse Rate 84 Respiratory Rate Blood Pressure 150/94 H BP Systolic 150 BP Diastolic 94 Pulse Ox 98 11/25/24 03:52 11/25/24 03:52 11/25/24 03:52 Temperature Temperature Source Oral Pulse Rate 75 Respiratory Rate Blood Pressure BP Systolic BP Diastolic Pulse Ox 94 11/25/24 03:52 11/25/24 03:52 11/25/24 04:13 Temperature 98.0 F Temperature Source Pulse Rate Respiratory Rate 18 Blood Pressure 143/83 H BP Systolic 143 BP Diastolic 83 Pulse Ox 11/25/24 04:13 11/25/24 04:49 11/25/24 04:49 Temperature Temperature Source Pulse Rate 82 81 Respiratory Rate Blood Pressure BP Systolic BP Diastolic Pulse Ox 98 11/25/24 04:54 11/25/24 04:54 11/25/24 04:59 Temperature Temperature Source Pulse Rate 71 89 Respiratory Rate Blood Pressure BP Systolic BP Diastolic Pulse Ox 97 11/25/24 04:59 11/25/24 05:04 11/25/24 05:04 Temperature Temperature Source Pulse Rate 80 Respiratory Rate Blood Pressure BP Systolic BP Diastolic Pulse Ox 98 100 11/25/24 05:07 11/25/24 05:07 11/25/24 05:09 Temperature Temperature Source Pulse Rate 78 Respiratory Rate Blood Pressure 159/74 H BP Systolic 159 BP Diastolic 74 Pulse Ox 94 11/25/24 05:11/25/24 05:11/25/24 05:13 Temperature Temperature Source Pulse Rate 75 90 Respiratory Rate Blood Pressure BP Systolic BP Diastolic Pulse Ox 99 11/25/24 05:13 11/25/24 05:14 11/25/24 05:14 Temperature Temperature Source Pulse Rate 81 Respiratory Rate Blood Pressure BP Systolic BP Diastolic Pulse Ox 93 100 11/25/24 05:15 11/25/24 05:15 11/25/24 05:16 Temperature Temperature Source Pulse Rate 77 Respiratory Rate 16 Blood Pressure 147/78 H BP Systolic 147 BP Diastolic 78 Pulse Ox 11/25/24 05:18 11/25/24 05:18 11/25/24 05:19 Temperature Temperature Source Pulse Rate 83 81 Respiratory Rate Blood Pressure 149/86 H BP Systolic 149 BP Diastolic 86 Pulse Ox 11/25/24 05:19 11/25/24 05:21 11/25/24 05:23 Temperature Temperature Source Pulse Rate Respiratory Rate 16 Blood Pressure 143/89 H BP Systolic 143 BP Diastolic 89 Pulse Ox 98 11/25/24 05:23 11/25/24 05:24 11/25/24 05:24 Temperature Temperature Source Temporal Pulse Rate 85 78 Respiratory Rate Blood Pressure BP Systolic BP Diastolic Pulse Ox 11/25/24 05:24 11/25/24 05:24 11/25/24 05:24 Temperature 98.0 F Temperature Source Pulse Rate Respiratory Rate 16 Blood Pressure BP Systolic BP Diastolic Pulse Ox 98 11/25/24 05:25 11/25/24 05:25 11/25/24 05:26 Temperature Temperature Source Pulse Rate 80 Respiratory Rate 18 Blood Pressure 142/90 H BP Systolic 142 BP Diastolic 90 Pulse Ox 11/25/24 05:28 11/25/24 05:28 11/25/24 05:29 Temperature Temperature Source Pulse Rate 90 81 Respiratory Rate Blood Pressure 146/90 H BP Systolic 146 BP Diastolic 90 Pulse Ox 11/25/24 05:29 11/25/24 05:31 11/25/24 05:34 Temperature Temperature Source Pulse Rate Respiratory Rate 16 Blood Pressure 148/92 H BP Systolic 148 BP Diastolic 92 Pulse Ox 98 11/25/24 05:34 11/25/24 05:34 11/25/24 05:36 Temperature Temperature Source Pulse Rate 84 Respiratory Rate 16 Blood Pressure BP Systolic BP Diastolic Pulse Ox 98 11/25/24 05:39 11/25/24 05:39 11/25/24 05:39 Temperature Temperature Source Pulse Rate 79 Respiratory Rate Blood Pressure 134/96 H BP Systolic 134 BP Diastolic 96 Pulse Ox 98 11/25/24 05:41 11/25/24 05:44 11/25/24 05:44 Temperature Temperature Source Pulse Rate 90 Respiratory Rate 16 Blood Pressure 130/67 H BP Systolic 130 BP Diastolic 67 Pulse Ox 11/25/24 05:44 11/25/24 05:44 11/25/24 05:46 Temperature Temperature Source Pulse Rate 81 Respiratory Rate 18 Blood Pressure BP Systolic BP Diastolic Pulse Ox 99 11/25/24 05:48 11/25/24 05:48 11/25/24 05:49 Temperature Temperature Source Pulse Rate 73 77 Respiratory Rate Blood Pressure 117/65 BP Systolic 117 BP Diastolic 65 Pulse Ox 11/25/24 05:49 11/25/24 05:51 11/25/24 06:19 Temperature Temperature Source Temporal Pulse Rate Respiratory Rate 16 Blood Pressure BP Systolic BP Diastolic Pulse Ox 98 11/25/24 06:19 11/25/24 06:19 11/25/24 06:19 Temperature Temperature Source Pulse Rate 86 Respiratory Rate 16 Blood Pressure 124/74 H BP Systolic 124 BP Diastolic 74 Pulse Ox 11/25/24 06:19 11/25/24 07:18 11/25/24 07:18 Temperature 97.6 F L Temperature Source Pulse Rate 72 Respiratory Rate Blood Pressure 115/55 L BP Systolic 115 BP Diastolic 55 Pulse Ox 11/25/24 07:25 11/25/24 07:25 11/25/24 07:25 Temperature Temperature Source Temporal Pulse Rate 72 Respiratory Rate Blood Pressure BP Systolic BP Diastolic Pulse Ox 100 11/25/24 07:25 11/25/24 07:25 11/25/24 07:25 Temperature 98.2 F Temperature Source Pulse Rate Respiratory Rate 18 Blood Pressure BP Systolic BP Diastolic Pulse Ox 100 11/25/24 07:25 11/25/24 07:25 11/25/24 07:25 Temperature Temperature Source Temporal Pulse Rate Respiratory Rate 18 Blood Pressure BP Systolic BP Diastolic Pulse Ox 100 11/25/24 07:25 11/25/24 08:30 11/25/24 08:30 Temperature 98.2 F Temperature Source Pulse Rate 112 H Respiratory Rate Blood Pressure 133/88 H BP Systolic 133 BP Diastolic 88 Pulse Ox Weight Weight: 139 lb Body Mass Index (BMI) 32.1 Physical Exam Const alert and oriented x3 General Appearance: cooperative Orientation / Consciousness: awake, oriented to person, oriented to place and oriented to time Exam Limitations: no limitations HEENT normocephalic Head and Scalp: normal to inspection, normocephalic and atraumatic Face and Sinus: normal facial exam Eyes General Eye: normal appearance of both eyes Neck full ROM Chest Chest: symmetrical chest wall rise Resp normal respiratory effort and normal air movement Auscultation: clear to auscultation bilaterally Cardio regular rate, regular rhythm, S1 normal heart sound, S2 normal heart sound, no murmurs, no rub, no gallops and no clicks GI normal to inspection, nondistended, normoactive bowel sounds and non-tender appearance of the vagina normal Bladder / Kidney Exam: no CVA tenderness Back/Spine normal ROM Extremity normal to inspection and full ROM Skin no rashes or lesions noted Neuro oriented x3, CN's II-XII intact bilaterally and moves all extremities Sensorium / Orientation: awake, alert and oriented to person Motor Exam: clonus absent Deep Tendon Reflexes: Rt Patellar (L4): 2+ and Lt Patellar (L4): 2+ Labs Labs Labs: Blood Type A NEGATIVE Antibody Screen NEGATIVE Hct 33.1 % (37-47) L Hgb 10.6 g/dL (12.0-15.0) L Obstetrics Ultrasound Syphilis Total Ab Nonreactive (Nonreactive) Rhogam given: No GBS negative GC/CT negative RPR negative Rubella immune HBsAG negative HepC negative HIV nonreactive A negative Assessment & Plan (1) Active labor at term: (2) Marijuana use during : (3) Preeclampsia: PLAN: Plan 1) Admit to labor and delivery 2) Routine labs. Preeclampsia labs completed 3) Continuous EFM 4) Pain management upon request 5) collaborative physician and notified of patient status, above assessment, and plan.
--- NOTE | 2024-11-25 08:43 | EX.PCM.OBVAG ---
Assessment & Plan (1) Vaginal delivery: (2) Preeclampsia: Maternal Data Information BK Calculator Estimated Delivery Date Method Current WG Current Estimate 12/08/24 Manual 38w 1d Vaginal Delivery Maternal Presentation Maternal Presentation: Active Labor Vaginal Delivery Information Procedure Performed: Spontaneous Vaginal Delivery Surgeon/Practitioner: Lizzy Tomlinson Date of Procedure: 11/25/24 Pre-Procedure Diagnosis: Active Labor, preeclampsia Post-Procedure Diagnosis: Type of anesthesia: Epidural Estimated Blood Loss: 200ml Time of Delivery: 08:20 Findings Description of procedure: Progressed to complete with urge to push. Epidural for pain management. of viable male infant over intact perineum. APGARS 9,9 respectively. Infant head delivered with body immediately forthcoming. Placed on maternal abdomen, strong cry. Mouth and nares suctioned for secretions. Pitocin started for active 3rd stage management. Cord doubly clamped and cut by FOB after pulsations ceased, delayed cord clamping. Placenta delivered intact via hart, 3 vessel cord intact. Perineum inspected and revealed intact. Fundus firm and hemostasis achieved. EBL 200ml. Vaginal sweep completed by me, sponge and instrument correct. Mom and baby stable, planning to . Family bonding well. notified of delivery. 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
[2024-11-25] MEDS: Oxytocin 15 Units/NS 250ml 15 UNITS/250 ML IV.SOLN 83 UNITS IV (08:56)
[2024-11-26] VITALS (7 sets, daily range): BP systolic 119–141; BP diastolic 82–97; PULSE 72–97; RESP 14–18; TEMP 36.3–37; O2SAT 97–99
--- NOTE | 2024-11-26 08:26 | PCM.PN.OB ---
Subjective Subjective Doing well. Ambulating and voiding without difficulty. Mild lochia. Breast feeding. Objective Data Objective Data Vital Signs: Vital Signs Temp Pulse Resp BP Pulse Ox O2 Del Method 97.4 F L 76 16 134/91 H 99 Room Air 11/26/24 08:24 11/26/24 08:24 11/26/24 08:24 11/26/24 08:24 11/26/24 08:24 11/26/24 08:24 Oxygen Delivery Method Room Air Weight: 63.049 kg Body Mass Index (BMI) 32.1 Intake & Output: Intake and Output for Last 24 Hours 11/24/24 11/25/24 11/26/24 23:59 23:59 23:59 Intake Total 2030.33 / 2030.33 Output Total 1450 / 1450 Balance 580.33 / 580.33 Lab / Micro Data 11/25/24 04:20 11/25/24 04:20 ROS Constitutional Constitutional: Denies headache(s) Cardiovascular Cardiovascular: Denies chest pain or dyspnea Gastrointestinal Gastrointestinal: Denies nausea or vomiting Genitourinary Genitourinary: Denies dysuria Physical Exam Const alert, oriented x3 and no apparent distress General Appearance: cooperative and comfortable Eyes PERRL and EOMs intact bilaterally Resp normal respiratory effort GI soft to palpation and non-tender Uterus Palpation: uterus fundus firm ( below umbilicus) Extremity normal to inspection and full ROM Neuro oriented x3 and CN's II-XII intact bilaterally Psych mental status grossly normal Assessment & Plan (1) Vaginal delivery: (2) Preeclampsia: QUALIFIERS: Trimester: third trimester Qualified Code(s): O14.93 - Unspecified pre-eclampsia, third trimester PLAN: Plan BP labile. No medications at this time.
[2024-11-26] MEDS: NIFEdipine 30 MG Tablet PO (16:59)
[2024-11-27 01:02] VITALS: BP 127/84; PULSE 78; RESP 16; TEMP 36.8
--- NOTE | 2024-11-27 06:54 | PCM.PN.OB ---
Subjective Subjective Doing well. Ambulating and voiding without difficulty. Mild lochia. Breast feeding. Objective Data Objective Data Vital Signs: Vital Signs Temp Pulse Resp BP Pulse Ox O2 Del Method 98.3 F 78 16 127/84 H 97 Room Air 11/27/24 01:02 11/27/24 01:02 11/27/24 01:02 11/27/24 01:02 11/26/24 20:00 11/27/24 01:02 Oxygen Delivery Method Room Air Weight: 63.049 kg Body Mass Index (BMI) 32.1 Intake & Output: Intake and Output for Last 24 Hours 11/25/24 11/26/24 11/27/24 23:59 23:59 23:59 Intake Total 2030.33 / 2030.33 Output Total 1450 / 1450 Balance 580.33 / 580.33 Lab / Micro Data 11/25/24 04:20 11/25/24 04:20 ROS Constitutional Constitutional: Denies headache(s) Cardiovascular Cardiovascular: Denies chest pain or dyspnea Gastrointestinal Gastrointestinal: Denies nausea or vomiting Genitourinary Genitourinary: Denies dysuria Physical Exam Const alert, oriented x3 and no apparent distress General Appearance: cooperative and comfortable Eyes PERRL and EOMs intact bilaterally Resp normal respiratory effort GI soft to palpation and non-tender Uterus Palpation: uterus fundus firm ( below umbilicus) Extremity normal to inspection and full ROM Neuro oriented x3 and CN's II-XII intact bilaterally Psych mental status grossly normal Assessment & Plan (1) Vaginal delivery: (2) Preeclampsia: QUALIFIERS: Trimester: third trimester Qualified Code(s): O14.93 - Unspecified pre-eclampsia, third trimester PLAN: Plan Discharge home. Follow up in office monday for BP check
--- NOTE | 2024-11-27 06:56 | DS.PCM_ITS ---
Providers Date of Admission: 11/25/24 Date of Discharge: 11/27/24 Primary Care Physician: [facility] Phys Reason For Visit: VAG DELIVERY Diagnosis Discharge Diagnosis (1) Vaginal delivery: Status: Acute Code(s): O80 - Encounter for full-term uncomplicated delivery (2) Preeclampsia: Status: Acute Code(s): O14.90 - Unspecified pre-eclampsia, unspecified trimester Qualifiers: Trimester: third trimester Qualified Code(s): O14.93 - Unspecified pre- eclampsia, third trimester Plan Discharge home. Follow up in office monday for BP check Medications at Discharge Home Medications acetaminophen 500 mg tablet 500 mg PO Q6H PRN Headache 06/27/22 cetirizine 5 mg tablet 5 mg PO DAILY PRN SEASONAL ALLERGIES 06/27/22 calcium phosphate,dibasic 77 mg-vitamin D3 400 unit tablet tab PO 11/25/24 vits no.60-ferrous fumarate 27 mg iron-folic acid 1 mg tablet tab 11/25/24 nifedipine 30 mg tablet,extended release 24 hr 30 mg PO DAILY #30 tabs 11/27/24 Hospital Course Operations None Procedures None Summary of Care Provided Minutes Spent on Discharge: 20 Hospital Course: , BP labile after delivery. Procardia started Physical Exam Const alert and no apparent distress Narrative: Fundus firm, below umbilicus. Weight / BMI Weight Weight: 63.049 kg Body Mass Index (BMI) 32.1 ABG / Lab / Microbiology Data 11/25/24 04:20 11/25/24 04:20 D/C Instructions May resume sexual activity in: 6 weeks DC O2, CPAP, BIPAP Needs Home O2 Discharge instructions: No Please Follow Up With: Jill Tucker MD When: Follow up with our office in 1-2 and 6 weeks or as needed. [phone] Meaningful Use Info Meaningful Use Meaningful Use Diagnoses (Choose all that apply): None applicable Discharge Plan Admission Admit Date/Time: 11/25/24 04:06 Primary Reason for Your Visit: labor Attending Provider: Lizzy Tomlinson Primary Care Provider: Care Physician,Siena Primary Discharge Orders/Prescriptions Prescriptions: New nifedipine 30 mg Tablet Extended Release 24hr 30 mg PO DAILY Qty: 30 1RF Continued cetirizine 5 mg Tablet 5 mg PO DAILY PRN (Reason: SEASONAL ALLERGIES) acetaminophen 500 mg Tablet 500 mg PO Q6H PRN (Reason: Headache) vit 60-iron fum-folic 27 mg iron- 1 mg tablet calcium phos,dibas-vitamin D3 77-400 mg-unit tablet PO Discontinued hydrocodone-acetaminophen 5-325 mg tablet 1 tab PO Q6H PRN (Reason: pain) 5 Days Qty: 20 0RF Referrals / Follow Up: Care Physician,No Primary [Primary Care Provider] - Disposition Disposition (needs filled in before D/C Order can be placed): Home, Self Care
[2024-11-27 07:48] VITALS: BP 111/72; PULSE 63; RESP 16; TEMP 36.8; O2SAT 98
--- NOTE | 2024-11-27 09:02 | CASEMGMT ---
Social Work Assessment Labor and Delivery Unit Patient Address: [facility] [place] [address] Phone number: [phone] Date of Referral: 11/25/24 Time of Referral:? 443 Referred By: Dr. Oconnor Date of Intervention: ??11/26/24 Time of Intervention:? 1129 Reason for Referral:? mental health Sw completed chart review and acknowledges social work consult due to maternal mental health. Sw presented to bedside and introduced self to mother of baby (BONNIE- Evelyn) and father of baby (FODima- Ovidio). Sw explained reason for sw involvement and completed psychosocial assessment. History obtained from: medical records, MOB and FOB Household composition: Currently residing in the home is BONNIE, BRIAN, BONNIE's 4 year old son: Vance Lucas, and baby also to reside in the home when ready for discharge. Parents deny any housing concerns stating that their home is safe and secure. Patient's parent/guardian status:? ?Parents report that they have been together for three years after being introduced to each other through BONNIE's cousin at her work. This is their first baby together. No concerns reported of domestic violence or intimate partner violence. BRIAN states that this is his first baby and he is really excited, although he considers himself the father of BONNIE's first child, he is excited to officially be a father. Medical History: ?BONNIE is 23 year old female who is 3, para 1- now 2 following labor and delivery of . BONNIE received routine care during her with [facility]. BONNIE presented to hospital and delivered baby via spontaneous vaginal delivery on 11/25/24 at 38 weeks gestation. Baby boy, named Brady Ochoa, was born weighing 6lb 8oz and had apgars of 8 and 9 at one and five minutes of life, respectfully. BONNIE is breast feeding and baby will be seen by Dr. Luong for pediatrics. Educational Status:? Both parents graduated from high school. No problems with reading, learning or comprehension. Financial Status: Parents are gainfully employed working outside of the home: FOB manages a [employer] and BONNIE works for [employer]. Infant Supplies:??All necessary baby supplies obtained, including: car seat, safe sleep space, clothes, diapers and wipes. Childcare/Caregiver(s):? When both parents have returned to work they will have childcare assistance arranged through maternal grandparents. Transportation:?? Both parents have their drivers license and have reliable means of transportation. Programs/Agencies Involved: ?BONNIE states that her insurance is provided through her employer, but her son's is through [employer]. BONNIE states that she may be eligible to receive food supports through [employer] but she has never looked into it. ?? Children Services/Legal Issues:?MOB states that when her first son was born there was a referral made to Children Services due to her marijuana use during . MOB states that their involvement at that time was minimal, they called her to ensure that she had all necessary baby items and secure housing for baby and then they ended their involvement. ? - Sw explained to BONNIE that due to maternal use of THC during this and testing positive, sw does have to make a referral to [facility] due to being a mandated environmental safety specialist. BONNIE stated that she understood and this does not worry her. - BRIAN asked appropriate questions regarding this, due to this being his first involvement with them potentially. ? Behavioral Health Issues: ??Mental Health History: BRIAN states that he has been diagnosed with anxiety and was previously prescribed hydroxyzine PRN. BRIAN states that this was when he was 19-20 years old and was figuring out what to do with his life. FODima states that over the past couple of years he has not struggled with any anxiety and has learned how to manage his stress better. BONNIE reports that she has been diagnosed with anxiety as well and ADHD when she was a child. BONNIE reports that she is not prescribed any medication to help her manage her symptoms and does not feel as though she has struggled with any anxiety for several years. MOB states that when she had her first son she did not have a lot of support, and then her mother and she moved in with her grandparents and things got much better. MOB states that not long after that she started dating FOB and she also got a new job that was more supportive of being a working mom. MOB states that she did not have any anxiety or baby blues after her first baby was born, nor did she struggle with any mental health symptoms during this . ??? Substance Use History:?MOB admits to smoking THC daily throughout . MOB states that use was mostly to help her with nausea and to keep food down. FOB states that he has his medical marijuana card due to having ulcerative colitis. Parents report that they lock up what they use and do not smoke around their older child. Family History:??Parents deny family history of substance use or significant mental health history. ??? Drug Screens: ??MOB urine drug screen was presumptive positive and baby urine drug screen was positive. Family/Social Stressors:? Parents deny any issues, stressors or concerns. Support Systems: MOB states that both sides of their families are supportive, along with maternal grandparents. Depression/Shaken Baby/Safe Sleeping:? Sw educated parents on signs and symptoms of baby blues and depression and anxiety. MOB states that she did not experience any symptoms of baby blues or depression or anxiety following the delivery of her first son. MOB states that she did not struggle at all during this . MOB states that since baby has been born she has been happy, denies feeling down, sad, tearful or down. FOB states that if MOB were to struggle at all during this period he would be able to recognize that and would know how to help and support her. MOB is not connected to any mental health services or supports, but states that she is open to doing so if she feel as though it would be beneficial if she were struggling. Sw educated parents on shaken baby prevention and ABCs of safe sleep, parents express understanding. ASSESSMENT:? MOB and baby admitted following labor and delivery of . MOB has been diagnosed with anxiety and used THC throughout duration of . MOB urine drug screen was presumptive positive (confirmation was not sent out), baby urine screen was positive for THC. Referral to [facility] to be made. MOB denies struggling with any anxiety throughout or since delivery of baby. MOB was observed laying down in bed comfortably and was holding baby when he started to cry. MOB held baby attentively and lovingly. MOB states that she feels a pablo and connection with baby. FOB sitting at bedside and states that he is excited to be a dad and also feels a connection to baby. Parents were talkative and engaging throughout conversation. Parents both use THC, FOB states he has his medical marijuana card due to having ulcerative colitis- reports that he uses at night and never around their 4 year old son. MOB states that she used to help with her appetite during and does not have intentions on continuing use now that baby is here. Parents were understanding that referral is to be made to Children Services. Parents have all necessary baby supplies and have natural supports in place. Safe Plan of Care for related to substance use: MOB states that she does not have intentions on continuing to use THC now that baby is here. MOB states understanding that THC continues to process through breast milk and will abstain from use while she is providing breast milk to baby. ? PLAN:? No other services requested or indicated. MOB and baby to be discharged when medically ready. Parents were provided literature regarding: signs and symptoms of baby blues and mood and anxiety disorders, Help Me [facility], shaken baby prevention, ABCs of safe sleep and a list of county resources that are available for them should any needs present themselves. Hang Denny, CNA HOSPICE, ABSORBER OPERATOR
--- NOTE | 2024-11-27 10:06 | CASEMGMT ---
Labor and Delivery Brief Social Work Note Date: 11/27/24 Time: 1007 Sw called [facility] and spoke to hotline screener, June. Sw informed June that MOB smoked THC daily throughout and that her urine screen at time of delivery was presumptive positive and baby's urine screen was positive. Sw stated that parents have obtained all necessary baby supplies. Sw stated that MOB denied referral to [facility]. And also described other members living in household: father of baby (RUI Butcher and 4 year old son, Vance Lucas). No other needs at this time. Hang Denny, HRIS ANALYST, SWITCHBOX ASSEMBLER
== END 2024-11-27 09:00 | disposition home or self-care (01) | DRG 807 ==
LOC: WPOUT 04:09 → WP 04:20
PROVIDERS: Nurse Anesthetist, Certified Registered; Obstetrics & Gynecology; Admitting Provider Advanced Practice Midwife; Visit Provider Advanced Practice Midwife
DX: O14.94 Unspecified pre-eclampsia, complicating childbirth (principal); Z37.0 Single live birth; F12.99 Cannabis use, unspecified with unspecified cannabis-induced disorder; O99.324 Drug use complicating childbirth; F17.290 Nicotine dependence, other tobacco product, uncomplicated; O99.334 Smoking (tobacco) complicating childbirth; O76 Abnormality in fetal heart rate and rhythm complicating labor and delivery; Z3A.38 38 weeks gestation of pregnancy
CPT/HCPCS: 59025; 59050; 80307; 82565; 82570; 84156; 84450; 84460; 84550; 85025; 86780; 86850; 86900; 86901; 99221; G0378